=== PATIENT | male | born 1945 | race Caucasian/White ===

== ENCOUNTER → 2020-02-12 13:43 | Outpatient (REF) | payer MEDICARE, SELFPAY ==
--- NOTE | 2020-02-12 13:49 | CA_ITS ---
Transthoracic Echocardiogram Patient (Last, First, Middle): Ilir Mccabe, Gender: Male Date of : 1945 Age: 74 Procedure Date: 02/12/2020 Procedure Type: Transthoracic Echocardiogram Location: OP Height: 177.8 cm Weight: 117.94 kg BSA: 2.33 m2 Heart Rate: bpm BP: 134 / 80 mmHg Supervisor Sheet Manufacturing: Referring MD: Gelnroy Ware MD Symptoms: [facility] Study Quality: Technically Difficult ECG Rhythm: Atrial Fibrillation Conclusions: - The left ventricular systolic function is normal. The visually estimated ejection fraction is between 55-60%. - Moderate biatrial enlargement. - There is mild mitral valve regurgitation. - There is mild tricuspid valve regurgitation. Findings Left Ventricle Normal left ventricular cavity size. There is mildly increased left ventricular wall thickness. The left ventricular systolic function is normal. The visually estimated ejection fraction is between 55-60%. There is no evidence of regional wall motion abnormalities. Diastolic function is indeterminate on the basis of available data. Right Ventricle Normal right ventricular cavity size and systolic function. Atria Moderate biatrial enlargement. Aortic Valve The aortic valve was not well visualized. There is no aortic valve stenosis. There is no aortic valve regurgitation. Mitral Valve The mitral valve appears normal. There is mild mitral valve regurgitation. There is no mitral valve stenosis. Pulmonic Valve The pulmonic valve was not well visualized. Tricuspid Valve Normal tricuspid valve structure. There is mild tricuspid valve regurgitation. Top normal RVSP. Great Vessels The aorta was not well visualized. Venous The inferior vena cava is normal in size and collapses greater than 50% with inspiration. Pericardium/Pleural There is no evidence of pericardial effusion. Prior Study Comparison No significant change compared to prior study dated: 08/21/2018. Measurements 2D Linear Measurements IVSd: 1.16 0.6-0.9/0.6-1.0 cm LVIDd: 5.51 3.9-5.3/4.2-5.9 cm LVIDd Index: 2.36 2.4-3.2/2.2-3.1 cm/m2 LVIDs: 3.67 2.0-3.6 cm LVPWd: 1.09 0.7-1.1 cm Ao Root: 3.60 2.1-3.5 cm LA Diam: 5.40 2.7-3.8/3.0-4.0 cm LAIDs Index: 2.32 1.5-2.3 cm/m2 LV Mass: 312.00 67-162/88-224 g LV Mass Index: 133.91 43-95/49-115 g/m2 LVOT Diam: 2.20 3.0+(-)1.3 cm 2D Systolic Function EF 4C: 43.10 >55% EF 2C: 42.50 >55% Mitral Valve MV Pk E: 1.14 MV Decel Time: 204.00 E'Lateral: 14.70 E'Medial: 12.30 E/E' Med: 9.30 E/E' Lat: 7.80 PHT: 60.00 MVA PHT: 3.67 Decel [place]: 5.56 Aortic Valve AoV Pk Walter: 1.61 AoV Mn Walter: 0.92 AoV VTI: 0.33 AoV Pk Grad: 10.00 Aov Mn Grad: 4.00 ADOLFO Cont.VTI: 2.87 LVOT LVOT Pk Walter: 1.17 LVOT Mn Walter: 0.87 LVOT VTI: 0.25 LVOT Pk Grad: 5.00 LVOT Mn Grad: 3.00 LVOT Diam: 2.20 LVOT Area: 3.80 Diastolic Function MV Pk E: 1.14 E'Medial: 12.30 E/E' Med: 9.30 E' Laterial: 14.70 E/E' Lat: 7.80 Tricuspid Valve TR Pk Walter: 2.82 TR Pk Grad: 32.00 RA Press: 3.00 RVSP: 35.00 Great Vessels Aorta Ao Root-2D: 3.60 2.0-3.7 cm Pulmonary Valve PV Pk Walter: 0.62 Peak PV Grad: 2.00 Updated in Other Vendor System with Status of Final Glenroy Ware MD electronically signed on 02/14/2020 4:42:03 PM with status of Final
== END ==
LOC: HO.CARD 13:43
PROVIDERS: PCP Internal Medicine; Visit Provider Internal Medicine
DX: I48.19 Other persistent atrial fibrillation (principal); R06.02 Shortness of breath
CPT/HCPCS: 93306

== ENCOUNTER → 2020-02-20 09:36 | Outpatient (BNVA) | payer MEDICARE, SELFPAY | PROVIDERS: PCP Internal Medicine; Referring Provider Internal Medicine; Visit Provider Internal Medicine | DX: I48.19 Other persistent atrial fibrillation (principal); R06.02 Shortness of breath; I10 Essential (primary) hypertension; G47.33 Obstructive sleep apnea (adult) (pediatric); Z99.89 Dependence on other enabling machines and devices; Z52.4 Kidney donor | CPT/HCPCS: 99214 ==

== ENCOUNTER 2020-02-28 12:08 | Outpatient (REF) | payer MEDICARE, SELFPAY | END 2020-02-28 12:09 | disposition home or self-care (01) | LOC: HO.LAB 12:08 | PROVIDERS: Visit Provider Internal Medicine | DX: Z20.828 Contact with and (suspected) exposure to other viral communicable diseases (principal) | CPT/HCPCS: 87635 ==

== ENCOUNTER 2020-12-24 11:15 | Outpatient (REF) | payer MEDICARE, SELFPAY ==
[2020-12-24 12:01] LABS: COVID-19 Test Negative (Negative)
== END 2020-12-24 11:16 | disposition home or self-care (01) ==
LOC: HO.LAB 11:15
PROVIDERS: PCP Internal Medicine; Visit Provider Internal Medicine
DX: Z20.822 Contact with and (suspected) exposure to COVID-19 (principal)
CPT/HCPCS: 36415; 87635; C9803

== ENCOUNTER 2020-12-25 09:36 | Outpatient (REF) | payer MEDICARE, SELFPAY ==
[2020-12-25 11:18] LABS: MANUAL DIFF FLAG NO
[2020-12-25 11:39] LABS: Basophils Absolute Auto 0.1 X10*3/uL (0.0-0.2); Basophils Percent Auto 0.7 % (0-2); Eosinophils Absolute Auto 0.1 X10*3/uL (0.0-0.4); Eosinophils Percent Auto 0.7 % (0-4); Hematocrit 43.3 % (42-52); Hemoglobin 13.8 g/dl (14.0-18.0); Imm Gran Abs Auto 0.02 X10*3/uL (0.00-0.03); Imm Gran Pct Auto 0.3 % (0.0-0.4); Lymphocytes Absolute Auto 0.9 X10*3/uL (1.2-4.9); Lymphocytes Percent Auto 12.3 % (20-40); Mean Corpuscular HGB Conc 31.9 g/dl (31.0-36.0); Mean Corpuscular Hemoglobin 28.3 pg (27.0-33.0); Mean Corpuscular Volume 88.9 fL (80-98); Mean Platelet Volume 10.8 fL (9.4-12.4); Monocytes Absolute Auto 0.5 X10*3/uL (0.1-1.2); Monocytes Percent Auto 6.4 % (2-11); Neutrophils Absolute Auto 5.8 X10*3/uL (2.0-8.3); Neutrophils Percent Auto 79.6 % (45-73); Platelet Count 277 X10*3/uL (160-400); Red Blood Count 4.87 X10*6/uL (4.60-5.80); Red Cell Distribution Width 14.6 % (11.0-16.0); White Blood Count 7.3 X10*3/uL (4.8-10.8)
[2020-12-25 12:22] LABS: Anion Gap 13 (12-20); Blood Urea Nitrogen 17 mg/dL (9-16); Calcium 9.9 mg/dL (8.4-10.2); Carbon Dioxide 32 mmol/L (22-29); Chloride 101 mmol/L (96-108); Estimated Glomerular Filt Rate 52; Glucose Random 99 mg/dL (60-115); Potassium 3.8 mmol/L (3.3-5.1); Sodium 142 mmol/L (135-145)
== END 2020-12-25 09:37 | disposition home or self-care (01) ==
LOC: HO.HMGCLDS 09:36
PROVIDERS: PCP Internal Medicine; Visit Provider Internal Medicine
DX: R53.83 Other fatigue (principal); D64.9 Anemia, unspecified
CPT/HCPCS: 36415; 80048; 85025

== ENCOUNTER → 2021-02-25 08:47 | Outpatient (REF) | payer MEDICARE, SELFPAY ==
--- NOTE | 2021-02-25 | CA_ITS ---
Acquisition Time: 2021-02-25 09:26:15 Total Exercise Time: 00:02:00 Test Indications: SOB Medications: Protocol: LEXISCAN Max HR: 112 BPM 76% of Pred: 147 BPM Max BP: 146/078 mmHG Max Work Load: 1.0 METS Pharmacological stress test with Lexiscan injection, while sitting and kicking his legs, without anginal symptoms, with isolated PVC, with normotensive response to injection, with nondiagnostic EKG for ischemia. In recovery he reported feeling lightheaded and was treated with Aminophylline 75mg IVP with resolution of symptoms. Nuclear images pending. Test reviewed [facility] Dr Ware. Referred By: Harpal Anthony Overread By: SANGEETHA CUEVAS
--- NOTE | ~2021-02-25 | NM_ITS ---
Myocardial perfusion study Indication: Shortness of breath evaluate for myocardial ischemia Technique: The patient was brought in for a Lexiscan perfusion study on 02/25/2021. Patient performed low-level exercise and was injected 0.4 mg of Lexiscan intravenously. Within a minute of injection, 45 mCi of sestamibi was given intravenously. Images were obtained using the SPECT gamma camera interlaced with the gating device. Images were obtained in supine position. Resting perfusion study was performed on 03/03/2021. Patient was administered 45 mCi of sestamibi intravenously at rest. Images were then obtained in supine position. Is obtained with and without CT attenuation. Total DLP 130 mGy-cm. Images were processed with the software and compared side to side in short axis, horizontal long axis and vertical long axis views. Findings: The stress perfusion study showed nonattenuated images show minimal spotty. The mid anterior wall of the LV myocardium. Is also mildly reduced uptake in the apex and the inferoapical wall of the LV myocardium. Remainder of the LV myocardium is normally perfused. Attenuation corrected images show mildly reduced uptake in the apex of the LV myocardium.. The gated study shows mildly reduced LV systolic function with calculated LVEF of 48%. LV cavity is mildly dilated size. The gated study shows normal wall thickening and contraction of segments. Resting study shows nonattenuated images show mildly reduced uptake in the apex of the LV myocardium. Attenuation corrected images show no change in perfusion pattern compared to stress perfusion study. Gating at rest reveals diffuse wall motion with ejection fraction at 38%. The findings are consistent with no clear reversible defect suggestive of ischemia. Spotty reduced uptake stress perfusion study may be due to cardiomyopathy process.. NM/NM natalee perf SPECT rest & str Impression: 1. Myocardial perfusion imaging study shows no reversible ischemia 2. Gated LVEF is 48% with stress and 38% with rest, correlate with echocardiogram 3. Transient ischemic dilatation not present but LV cavity is mildly dilated EKG is nondiagnostic for ischemia
== END ==
LOC: HO.CARD 08:47
PROVIDERS: Visit Provider Internal Medicine
DX: R06.02 Shortness of breath (principal); I48.91 Unspecified atrial fibrillation
CPT/HCPCS: 78452; 93017; A9500; J0280; J2785

== ENCOUNTER 2021-03-05 12:46 | Outpatient (REF) | payer MEDICARE, SELFPAY ==
[2021-03-05 13:07] VITALS: O2SAT 94
[2021-03-05 13:47] LABS: ABG Refer to POC result
[2021-03-05 13:49] LABS: ABG pCO2 41 mmHg (32-45); ABG pH 7.41 (7.35-7.45); ABG pO2 91 mmHg (83-108)
[2021-03-05 13:50] LABS: ABG HCO3 26 mmol/L (22-26)
--- NOTE | 2021-03-05 17:27 | PFT_ITS ---
FLOWS: FEV1 45% of predicted at 1.43 L. FVC 51% of predicted at 2.22 L. FEV1 to FVC ratio of 0.65. Positive bronchodilator response. LUNG VOLUMES: Total lung capacity 93% of predicted at 6.58 L. Residual volume 183% of predicted at 4.61 L. Slow vital capacity of 43% of predicted at 1.97 L. Diffusion capacity is mildly decreased, diffusion capacity adjust to normal after correction for alveolar ventilation. Arterial blood gas shows normal values. In comparison to pulmonary function test from February of 2013, FEV1 and ERV have been without significant changes; FVC has decreased by 0.38 L; total lung capacity has increased by 0.22 L; residual volume has increased by 0.61 L; slow vital capacity has decreased by 0.38 L; diffusion capacity has decreased by 7.36 mL/minute/mmHg. IMPRESSION: Severe obstructive ventilatory defect with positive bronchodilator response. Increased residual volume suggests air trapping. Decreased expiratory reserve volume suggests extrathoracic restriction likely secondary to abdominal obesity. MD JASWANT Sanders/MODL / [id number] MTDD
== END 2021-03-05 12:47 | disposition home or self-care (01) ==
LOC: HO.RESP 12:46
PROVIDERS: Hospitalist; Visit Provider Internal Medicine
DX: R06.02 Shortness of breath (principal)
CPT/HCPCS: 36600; 82803; 94060; 94727; 94729

== ENCOUNTER → 2021-03-15 08:45 | Outpatient (REF) | payer MEDICARE, SELFPAY ==
--- NOTE | 2021-03-15 08:50 | CA_ITS ---
Transthoracic Echocardiogram Patient (Last, First, Middle): Ilir Mccabe, Gender: Male Date of : 1945 Age: 75 Procedure Date: 03/15/2021 Procedure Type: Transthoracic Echocardiogram Location: OP Height: 177.8 cm Weight: 115.67 kg BSA: 2.31 m2 Heart Rate: bpm BP: 130 / 75 mmHg Gas Scrubber Operator: DSClark Referring MD: Glenroy Ware MD Symptoms: I48.19 - Other persistent atrial fibrillation Study Quality: Fair ECG Rhythm: Atrial Fibrillation Conclusions: - The left ventricular systolic function is normal. The calculated ejection fraction is 56% by biplane method. - Moderate biatrial enlargement. - There is mild mitral annular calcification. - There is mild tricuspid valve regurgitation. Findings Procedure Information Contrast agent, definity, is being given per protocol without apparent complications. Left Ventricle Normal left ventricular cavity size. There is mildly increased left ventricular wall thickness. The left ventricular systolic function is normal. The calculated ejection fraction is 56% by biplane method. There is no evidence of regional wall motion abnormalities. Diastolic function is indeterminate on the basis of available data. Right Ventricle Normal right ventricular cavity size and systolic function. Atria Moderate biatrial enlargement. Aortic Valve The aortic valve was not well visualized. The aortic valve structure and function is likely normal. There is no aortic valve stenosis. There is no aortic valve regurgitation. Mitral Valve There is mild mitral annular calcification. There is mild mitral valve regurgitation. There is no mitral valve stenosis. Pulmonic Valve The pulmonic valve was not well visualized. Tricuspid Valve Normal tricuspid valve structure. There is mild tricuspid valve regurgitation. The pulmonary artery systolic pressure is normal. Great Vessels The asc aorta is normal in size. Venous The inferior vena cava is normal in size and collapses greater than 50% with inspiration. Pericardium/Pleural There is no evidence of pericardial effusion. Prior Study Comparison No significant change compared to prior study dated: 02/12/2020. Measurements 2D Linear Measurements IVSd: 1.20 0.6-0.9/0.6-1.0 cm LVIDd: 5.55 3.9-5.3/4.2-5.9 cm LVIDd Index: 2.40 2.4-3.2/2.2-3.1 cm/m2 LVIDs: 3.79 2.0-3.6 cm LVPWd: 0.91 0.7-1.1 cm Ao Root: 2.80 2.1-3.5 cm LA Diam: 4.80 2.7-3.8/3.0-4.0 cm LAIDs Index: 2.08 1.5-2.3 cm/m2 LV Mass: 290.19 67-162/88-224 g LV Mass Index: 125.62 43-95/49-115 g/m2 LVOT Diam: 2.30 3.0+(-)1.3 cm 2D Systolic Function EF 4C: 55.50 >55% EF 2C: 54.40 >55% EF BiP: 56.20 >55% Mitral Valve MV Pk E: 0.89 MV Decel Time: 173.00 E'Lateral: 11.20 E'Medial: 8.49 E/E' Med: 10.40 E/E' Lat: 7.90 PHT: 51.00 MVA PHT: 4.31 Decel [place]: 5.43 Aortic Valve AoV Pk Walter: 1.34 AoV Pk Grad: 7.00 LVOT LVOT Pk Walter: 0.87 LVOT Mn Walter: 0.56 LVOT VTI: 0.18 LVOT Pk Grad: 3.00 LVOT Mn Grad: 2.00 LVOT Diam: 2.30 LVOT Area: 4.15 Diastolic Function MV Pk E: 0.89 E'Medial: 8.49 E/E' Med: 10.40 E' Laterial: 11.20 E/E' Lat: 7.90 Right Ventricle TAPSE (mm): 2.36 Tricuspid Valve TR Pk Walter: 2.64 TR Pk Grad: 28.00 RA Press: 3.00 RVSP: 31.00 Great Vessels Aorta Ao Root-2D: 2.80 2.0-3.7 cm Updated in Other Vendor System with Status of Final Glenroy Ware MD electronically signed on 03/16/2021 4:00:10 PM with status of Final
--- NOTE | 2021-03-15 08:50 | HM_ITS ---
Total monitoring time 2 days and 23 hours. Underlying rhythm is atrial fibrillation. Minimal heart rate 31/Min. Maximum 132/Min. Average 65/Min. Most rates are between 60-100/Min. 240 pauses noted. Longest 3.7 seconds at 04:28hrs. Frequent PVCs. 2 morphologies. 126 couplets. PVC burden 2%. Patient symptom marked as 'other', correlating with atrial fibrillation/PVC. MTDD
== END ==
LOC: HO.CARD 08:45
PROVIDERS: Visit Provider Internal Medicine
DX: I48.19 Other persistent atrial fibrillation (principal); R00.2 Palpitations
CPT/HCPCS: 93242; 93306; Q9957

== ENCOUNTER → 2021-04-06 14:18 | Outpatient (BNVA) | payer MEDICARE, SELFPAY | PROVIDERS: PCP Internal Medicine; Referring Provider Internal Medicine; Visit Provider Internal Medicine | DX: I48.19 Other persistent atrial fibrillation (principal); I10 Essential (primary) hypertension; G47.33 Obstructive sleep apnea (adult) (pediatric); J44.9 Chronic obstructive pulmonary disease, unspecified; Z52.4 Kidney donor; Z99.89 Dependence on other enabling machines and devices | CPT/HCPCS: 93005; 99212 ==

== ENCOUNTER → 2021-04-15 15:36 | Outpatient (BNVA) | payer MEDICARE, SELFPAY | PROVIDERS: PCP Internal Medicine; Visit Provider Internal Medicine | DX: J44.9 Chronic obstructive pulmonary disease, unspecified (principal); R06.02 Shortness of breath; G47.33 Obstructive sleep apnea (adult) (pediatric); Z99.89 Dependence on other enabling machines and devices | CPT/HCPCS: 99202 ==

== ENCOUNTER → 2021-08-18 13:39 | Outpatient (BNVA) | payer MEDICARE, SELFPAY | PROVIDERS: PCP Internal Medicine; Visit Provider Internal Medicine | DX: J44.9 Chronic obstructive pulmonary disease, unspecified (principal); G47.33 Obstructive sleep apnea (adult) (pediatric); R06.02 Shortness of breath; Z99.89 Dependence on other enabling machines and devices | CPT/HCPCS: 99212 ==

== ENCOUNTER → 2021-08-20 12:49 | Outpatient (BNVA) | payer MEDICARE, SELFPAY | PROVIDERS: PCP Internal Medicine; Visit Provider Urology | DX: N40.1 Benign prostatic hyperplasia with lower urinary tract symptoms (principal); N13.8 Other obstructive and reflux uropathy | CPT/HCPCS: 99212 ==

== ENCOUNTER → 2021-12-01 13:36 | Outpatient (BNVA) | payer MEDICARE, SELFPAY | PROVIDERS: PCP Internal Medicine; Referring Provider Internal Medicine; Visit Provider Internal Medicine | DX: I48.19 Other persistent atrial fibrillation (principal); I10 Essential (primary) hypertension; J44.9 Chronic obstructive pulmonary disease, unspecified; G47.33 Obstructive sleep apnea (adult) (pediatric); Z79.01 Long term (current) use of anticoagulants; Z79.899 Other long term (current) drug therapy; Z99.89 Dependence on other enabling machines and devices; Z52.4 Kidney donor | CPT/HCPCS: 99212 ==

== ENCOUNTER → 2022-03-02 15:03 | Outpatient (BNVA) | payer MEDICARE, SELFPAY | PROVIDERS: PCP Internal Medicine; Visit Provider Internal Medicine | DX: J44.9 Chronic obstructive pulmonary disease, unspecified (principal); G47.33 Obstructive sleep apnea (adult) (pediatric); E66.9 Obesity, unspecified; R06.02 Shortness of breath; Z99.89 Dependence on other enabling machines and devices; Z68.38 Body mass index [BMI] 38.0-38.9, adult | CPT/HCPCS: 99212 ==

== ENCOUNTER → 2022-05-16 14:33 | Outpatient (BNVA) | payer MEDICARE, SELFPAY | PROVIDERS: PCP Internal Medicine; Referring Provider Internal Medicine; Visit Provider Internal Medicine | DX: Z01.810 Encounter for preprocedural cardiovascular examination (principal); I48.19 Other persistent atrial fibrillation; I10 Essential (primary) hypertension; G47.33 Obstructive sleep apnea (adult) (pediatric); J44.9 Chronic obstructive pulmonary disease, unspecified; Z52.4 Kidney donor; Z99.89 Dependence on other enabling machines and devices | CPT/HCPCS: 93005; 99212 ==

== ENCOUNTER → 2022-08-30 13:51 | Outpatient (BNVA) | payer MEDICARE, SELFPAY | PROVIDERS: PCP Internal Medicine; Visit Provider Internal Medicine | DX: J44.9 Chronic obstructive pulmonary disease, unspecified (principal); G47.33 Obstructive sleep apnea (adult) (pediatric); E66.9 Obesity, unspecified; Z99.89 Dependence on other enabling machines and devices; Z68.37 Body mass index [BMI] 37.0-37.9, adult | CPT/HCPCS: 94010; 99212 ==

== ENCOUNTER 2022-09-05 09:23 | Outpatient (REF) | payer MEDICARE, SELFPAY ==
[2022-09-05 11:59] LABS: Prostate Specific Antigen 0.48 ng/mL (<0.05-4.0)
== END 2022-09-05 09:24 | disposition home or self-care (01) ==
LOC: HO.10HDL 09:23
PROVIDERS: Visit Provider Urology
DX: N40.1 Benign prostatic hyperplasia with lower urinary tract symptoms (principal); N13.8 Other obstructive and reflux uropathy; Z12.5 Encounter for screening for malignant neoplasm of prostate
CPT/HCPCS: 36415; 84153

== ENCOUNTER → 2022-09-13 09:55 | Outpatient (BNVA) | payer MEDICARE, SELFPAY | PROVIDERS: PCP Internal Medicine; Visit Provider Urology | DX: N40.1 Benign prostatic hyperplasia with lower urinary tract symptoms (principal); N13.8 Other obstructive and reflux uropathy | CPT/HCPCS: 51798; 99212 ==

== ENCOUNTER → 2023-01-16 08:46 | Outpatient (REF) | payer MEDICARE, SELFPAY ==
--- NOTE | 2023-01-16 08:48 | HM_ITS ---
* Total monitoring time about 3 days. * Underlying rhythm is atrial fibrillation. Average ventricular rate 83/Min. Range 44 to 141/Min. About 7.8% of the time, rate > 100/Min. * Pauses noted, longest 2.7 seconds but do not reach significance. During sleep hours. * Frequent PVCs with a burden of 2%. Rare couplets, triplets. Longest run 4 beats. * No events in diary. MTDD
== END ==
LOC: HO.CARD 08:46
PROVIDERS: PCP Internal Medicine; Visit Provider Internal Medicine
DX: I48.19 Other persistent atrial fibrillation (principal)
CPT/HCPCS: 93242

== ENCOUNTER → 2023-01-16 08:48 | Outpatient (BNV) | payer MEDICARE, SELFPAY | PROVIDERS: PCP Internal Medicine; Visit Provider Internal Medicine | DX: I48.19 Other persistent atrial fibrillation (principal) | CPT/HCPCS: 93244 ==

== ENCOUNTER 2023-02-07 13:37 | Outpatient (REF) | payer MEDICARE, SELFPAY ==
--- NOTE | ~2023-02-07 | XR_ITS ---
EXAMINATION: XR CHEST CLINICAL INFORMATION: Cough COMPARISON: Chest 01/02/2019 TECHNIQUE: 2 views of the chest were obtained. FINDINGS: No significant abnormality is noted involving the heart, lungs, mediastinum or soft tissues. 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 XR/XR chest 2V IMPRESSION: No acute cardiopulmonary disease.
== END 2023-02-07 13:38 | disposition home or self-care (01) ==
LOC: HO.HMGCX 13:37
PROVIDERS: PCP Internal Medicine; Visit Provider Internal Medicine
DX: R05.9 Cough, unspecified (principal)
CPT/HCPCS: 71046

== ENCOUNTER 2023-03-02 13:18 | Outpatient (AMB) | payer MEDICARE, SELFPAY ==
[2023-03-02 13:23] VITALS: BP 128/74; PULSE 83; O2SAT 96; BMI 36.7
--- NOTE | 2023-03-02 13:23 | A.OFFVIS_ITS ---
Intake Vital Signs 03/02/23 13:23 Height 5 ft 10 in Weight 256 lb BMI 36.7 BP 128/74 Blood Pressure Location Lt brachial Position Sitting Pulse 83 Pulse Source Pulse Oximeter Pulse Oximetry (%) 96 Oxygen Delivery Method Room Air Intake Visit Reasons: COPD Intake Note: pt is here for follow up and states he gets winded distance and stairs, would like to discuss what else can be done. Pt has hx of ROMA, interested in talking about replacement macine. [facility] is DME. Watch Electrician Required: No Allergies Iodinated Contrast Media [IV DYE, IODINE CONTAINING CONTRAST ] Allergy (Severe, Verified 03/02/23 13:48) HIVES dabigatran etexilate [From PRADAXA] Allergy (Unknown, Verified 03/02/23 13:48) REFLUX Medication List - Last Reconciled 03/02/23 by Rocky Ching MD albuterol sulfate 90 mcg/actuation 2 puffs PO Q4-6H PRN amlodipine 5 mg PO DAILY atenolol 25 mg PO DAILY hydrochlorothiazide 25 mg PO DAILY Incruse Ellipta 62.5 mcg/actuation (umeclidinium) 1 inh PO DAILY NS ipratropium-albuterol 0.5 mg-3 mg(2.5 mg base)/3 mL mL inhalation TID PRN losartan 50 mg PO DAILY losartan 50 mg PO DAILY omeprazole 20 mg PO DAILY rivaroxaban 20 mg PO DAILY simvastatin 20 mg PO BEDTIME Symbicort 160-4.5 mcg/actuation (budesonide-formoterol) 2 puffs PO Q12H NS tamsulosin 0.4 mg PO BEDTIME 90 days zolpidem 10 mg PO BEDTIME Do you need a note to return to daycare/school/sports/work: No HPI COPD HPI Details This 77 years old very pleasant gentleman is being followed for his COPD as well as obstructive sleep apnea. About 2 weeks he was suffering from acute bronchitis and has been treated by his primary care physician with course of antibiotics. Currently he is doing better but he complains of shortness of breath on minimal exertion, he cannot be as active as before. Still has mild intermittent cough, but nonproductive. Denies any active wheezing. For CPAP which he has been using for many years, he is complaining that it does not function well. He would need a new CPAP device. He is not sure if he still has obstructive sleep apnea or not , so for that reason he needs a repeat home-based sleep study. Weight is basically same as before. REPLACED BY [facility] Medical History Obesity (BMI 30-39.9) COPD (chronic obstructive pulmonary disease) Kidney donor Obstructive sleep apnea on CPAP Essential hypertension Shortness of breath Persistent atrial fibrillation Surgical History History of laparoscopic cholecystectomy (~04/2017) History of hip replacement History of transesophageal echocardiography (SOFIA) Family History Father No problems noted. Mother No problems noted. Social History Alcohol intake: current Alcohol intake frequency: holidays/special occasions only Patient Tobacco Use Status: Former Tobacco user Quit Date: 9-10 yrs ago Review of Systems Const All systems reviewed & are unremarkable except as noted in HPI and below Eyes Reports no additional complaints ENT Reports no additional complaints Card Denies chest pain, Reports irregular heart rhythm (Atrial fibrillation), Denies leg edema and Denies dyspnea on exertion Resp Reports as per HPI and Denies dyspnea on exertion GI Denies no additional complaints Reports other (Being treated for BPH) Musc Reports no additional complaints Skin/Breast Reports system reviewed and no additional complaints, except as documented Neuro Reports no additional complaints Psych Reports no additional complaints Endo Reports no additional complaints Physical Exam Vital Signs: Last Vital Signs Pulse 83 03/02/23 13:23 BP 128/74 03/02/23 13:23 Pulse Ox 96 03/02/23 13:23 Oxygen Delivery Method Room Air 03/02/23 13:23 BMI result Body Mass Index 36.7 Const General: comfortable, no acute distress, alert and awake Orientation/consciousness: patient oriented x3 HEENT Head: Yes normal to inspection General nose exam: No nasal polyps present and No nasal discharge present Face and sinus: Yes sinuses nontender Mouth: oropharynx normal Throat: Yes posterior oropharynx normal Eyes General: appearance normal, both eyes and all related structures Neck Neck: Yes normal visual inspection, Yes no lymphadenopathy, Yes trachea midline and Yes no JVD Thyroid: Thyroid normal Chest Chest palpation & inspection: normal inspection of the chest, normal palpation of entire chest wall and no tenderness Resp Other: Percussion note resonant. Breath sounds are distant with prolonged expiratory phase. No audible wheezes rhonchi or crepitations. Cardio Palpation: normal PMI Rate: regular rate Rhythm: abnormal rhythm (Atrial fibrillation) Heart sounds: no gallops and no murmurs GI Palpation (GI): Soft to palpation, nontender, No hepatosplenomegaly present and no masses Auscultation: normal bowel sounds Back/Spine/Pelvis Thoracic/Lumbar Spine: thoracic and lumbar spine normal to inspection Skin General skin exam: no rashes or lesions noted Neuro General: patient oriented x3 and no focal motor deficits Cranial nerves: Yes CN's II-XII intact bilaterally Extrem General: Yes normal to inspection, No no joint enlargement (Right knee she moderately enlarged and irregular.), Yes no calf tenderness and Yes edema (1 + pitting edema of the legs ) Psych Appearance: grossly normal Speech and movement: Normal speech and movement present Assessment & Plan Assessment & Plan (1) Obesity (BMI 30-39.9): Comment: Patient remains grossly obese. He has difficulty in walking around. NOW THAT HE HAS HAD RIGHT KNEE REPLACEMENT DURING THE SUMMER MONTHS, HE CAN WALK BETTER. I ENCOURAGED HIM TO WALK ABOUT 2 MILES EVERY DAY. Code(s): E66.9 - Obesity, unspecified (2) Obstructive sleep apnea on CPAP: Comment: He is a known case of obstructive sleep apnea, uses CPAP regularly at night for about 6-7 hours. And sleeps well . The CPAP device is old, more than 5 years, and is not functioning well, making some noise at night. He wants to know if he still has ROMA and if he can get a new CPAP machine. For this reason I a.m. ordering a HOME-BASED SLEEP STUDY, TO RECONFIRM THE DIAGNOSIS. AND THEN WILL ORDER NEW CPAP DEVICE. Code(s): G47.33 - Obstructive sleep apnea (adult) (pediatric); Z99.89 - Dependence on other enabling machines and devices (3) COPD (chronic obstructive pulmonary disease): Comment: He does have advanced COPD, Seems to be well controlled with current combination. TX: Symbicort 160-4.52 puffs b.i.d.. Ipratropium/albuterol solution in the nebulizer 3 times a day p.r.n. ( I told him that he should use nebulizer 3 times a day regularly and also Q 6 hours p.r.n. ) With his recent respiratory infection he seems to be somewhat worse and deconditioned PLAN : Will do a complete pulmonary. Function test And there after refer him for pulmonary rehab program , Code(s): J44.9 - Chronic obstructive pulmonary disease, unspecified (4) Shortness of breath: Comment: Dyspnea on exertion secondary to severe obstructive airway disorder, obesity, and chronic atrial fibrillation. Any increase in his weight would cause increased shortness of breath on exertion. He is advised to keep on doing deep breathing exercises with incentive sheree metry. Also stressed that he must try to lose some weight. I THINK HE WILL BENEFIT FROM PULMONARY REHAB PROGRAM FOR WHICH I WILL COMPLETED THE REFERRAL AFTER DOING PULMONARY FUNCTION TEST. Code(s): R06.02 - Shortness of breath Orders: Orders RT home sleep study Today E66.9 - Obesity, unspecified, G47.33 - Obstructive sleep apnea (adult) (pediatric), Z99.89 - Dependence on other enabling machines and devices PFT pulmonary function test Today E66.9 - Obesity, unspecified, J44.9 - Chronic obstructive pulmonary disease, unspecified, R06.02 - Shortness of breath Coding Level of Care Code Est Pt Level 4 (39123) Diagnoses Obesity (BMI 30-39.9) E66.9 Obstructive sleep apnea on CPAP G47.33; Z99.89 COPD (chronic obstructive pulmonary disease) J44.9 Shortness of breath R06.02
== END 2023-03-02 13:50 | disposition home or self-care (01) ==
PROVIDERS: PCP Internal Medicine; Visit Provider Internal Medicine
DX: E66.9 Obesity, unspecified (principal); G47.33 Obstructive sleep apnea (adult) (pediatric); Z99.89 Dependence on other enabling machines and devices; J44.9 Chronic obstructive pulmonary disease, unspecified; R06.02 Shortness of breath
CPT/HCPCS: 99214

== ENCOUNTER → 2023-03-02 13:18 | Outpatient (BNVA) | payer MEDICARE, SELFPAY | PROVIDERS: Visit Provider Internal Medicine | DX: J44.9 Chronic obstructive pulmonary disease, unspecified (principal); R06.02 Shortness of breath; E66.9 Obesity, unspecified; G47.33 Obstructive sleep apnea (adult) (pediatric); Z68.36 Body mass index [BMI] 36.0-36.9, adult; Z99.89 Dependence on other enabling machines and devices | CPT/HCPCS: 99212 ==

== ENCOUNTER 2023-04-13 11:54 | Outpatient (REF) | payer MEDICARE, SELFPAY ==
--- NOTE | 2023-04-13 12:41 | PFT_ITS ---
Indication: COPD Spirometry [FEV1 to FVC 64% with an FEV1 of 1.46 L which is 105% predicted and FVC of 2.28 L which is 94% predicted no significant response to bronchodilators noted. Maximum voluntary ventilation 61% predicted] Lung Volumes [Total lung capacity 71% predicted] Diffusion Capacity [Diffusing capacity 84% predicted] Comparisons [None] Interpretation [There is an obstructive ventilatory defect consistent with COPD. No significant response to bronchodilators noted. Mild decrease of the maximum voluntary ventilation secondary to likely deconditioning. The patient also has a mild restrictive ventilatory defect. Need to consider underlying parenchymal lung disease and or a neuromuscular conditions. Diffusing capacity is within normal limits. Clinical correlation warranted.] MTDD
== END 2023-04-13 11:55 | disposition home or self-care (01) ==
LOC: HO.RESP 11:54
PROVIDERS: PCP Internal Medicine; Visit Provider Internal Medicine
DX: J44.9 Chronic obstructive pulmonary disease, unspecified (principal); R06.02 Shortness of breath; E66.9 Obesity, unspecified; G47.33 Obstructive sleep apnea (adult) (pediatric); Z99.89 Dependence on other enabling machines and devices
CPT/HCPCS: 94010; 94727; 94729; 95806

== ENCOUNTER → 2023-04-13 12:54 | Outpatient (BNV) | payer MEDICARE, SELFPAY | PROVIDERS: PCP Internal Medicine; Visit Provider Internal Medicine | DX: G47.33 Obstructive sleep apnea (adult) (pediatric) (principal) | CPT/HCPCS: 95806 ==

== ENCOUNTER 2023-04-27 11:56 | Outpatient (AMB) | payer MEDICARE, SELFPAY ==
--- NOTE | 2023-04-27 13:15 | MHC.OFFVIS ---
Intake Vital Signs 04/27/23 13:16 Height 5 ft 10 in Weight 260 lb 2.327 oz BMI 37.3 BP 130/72 Blood Pressure Location Lt brachial Position Sitting Pulse 78 Pulse Source Pulse Oximeter Pulse Oximetry (%) 96 Oxygen Delivery Method Room Air Intake Visit Reasons: COPD/Sleep Study & PFT Results Intake Note: pt is here for follow up and states he is here for follow up and states he did not sleep well the night of testing, he feels good today, he is in cardiac rehab at . pt is not using Incruse/ Intellectual Property Paralegal Required: No Allergies Iodinated Contrast Media [IV DYE, IODINE CONTAINING CONTRAST ] Allergy (Severe, Verified 04/27/23 13:20) HIVES dabigatran etexilate [From PRADAXA] Allergy (Unknown, Verified 04/27/23 13:20) REFLUX Medication List - Last Reconciled 04/27/23 by Rocky Ching MD albuterol sulfate 90 mcg/actuation 2 puffs PO Q4-6H PRN amlodipine 5 mg PO DAILY atenolol 25 mg PO DAILY hydrochlorothiazide 25 mg PO DAILY Incruse Ellipta 62.5 mcg/actuation (umeclidinium) 1 inh PO DAILY NS ipratropium-albuterol 0.5 mg-3 mg(2.5 mg base)/3 mL mL inhalation TID PRN losartan 50 mg PO DAILY losartan 50 mg PO DAILY omeprazole 20 mg PO DAILY rivaroxaban 20 mg PO DAILY simvastatin 20 mg PO BEDTIME Symbicort 160-4.5 mcg/actuation (budesonide-formoterol) 2 puffs PO Q12H NS tamsulosin 0.4 mg PO BEDTIME 90 days zolpidem 10 mg PO BEDTIME Do you need a note to return to daycare/school/sports/work: No HPI COPD/Sleep Study & PFT Results HPI Details VICTOR HUGO IS 77 YEARS OLD VERY PLEASANT GENTLEMAN WHO IS A CASE OF COPD FOR MANY YEARS AND ALSO HAS OBSTRUCTIVE SLEEP APNEA. SINCE HIS LAST VISIT HE HAS JOINED PULMONARY REHAB PROGRAM AND IS FEELING MUCH BETTER. HE LOVES THE PROGRAM. HE IS USING THE CPAP FOR HIS OBSTRUCTIVE SLEEP APNEA, BUT HIS MACHINE IS OLD AND HE WILL NEED A NEW MACHINE. TO CONFIRM THAT HE STILL HAS SLEEP APNEA HE UNDERWENT HOME-BASED SLEEP STUDY THE RESULTS WILL BE DESCRIBED BELOW. 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 Mother No problems noted. Social History Alcohol intake: current Alcohol intake frequency: holidays/special occasions only Patient Tobacco Use Status: Former Tobacco user Quit Date: 9-10 yrs ago Review of Systems Const All systems reviewed & are unremarkable except as noted in HPI and below Eyes Reports no additional complaints ENT Reports no additional complaints Card Denies chest pain, Reports irregular heart rhythm (Atrial fibrillation), Denies leg edema and Denies dyspnea on exertion Resp Reports as per HPI and Denies dyspnea on exertion GI Denies no additional complaints Reports other (Being treated for BPH) Musc Reports no additional complaints Skin/Breast Reports system reviewed and no additional complaints, except as documented Neuro Reports no additional complaints Psych Reports no additional complaints Endo Reports no additional complaints Physical Exam Vital Signs: Last Vital Signs Pulse 78 04/27/23 13:16 BP 130/72 04/27/23 13:16 Pulse Ox 96 04/27/23 13:16 Oxygen Delivery Method Room Air 04/27/23 13:16 BMI result Body Mass Index 37.3 Const General: comfortable, no acute distress, alert and awake Orientation/consciousness: patient oriented x3 HEENT Head: Yes normal to inspection General nose exam: No nasal polyps present and No nasal discharge present Face and sinus: Yes sinuses nontender Mouth: oropharynx normal Throat: Yes posterior oropharynx normal Eyes General: appearance normal, both eyes and all related structures Neck Neck: Yes normal visual inspection, Yes no lymphadenopathy, Yes trachea midline and Yes no JVD Thyroid: Thyroid normal Chest Chest palpation & inspection: normal inspection of the chest, normal palpation of entire chest wall and no tenderness Resp Other: Percussion note resonant. Breath sounds are distant with prolonged expiratory phase. No audible wheezes rhonchi or crepitations. Cardio Palpation: normal PMI Rate: regular rate Rhythm: abnormal rhythm (Atrial fibrillation) Heart sounds: no gallops and no murmurs GI Palpation (GI): Soft to palpation, nontender, No hepatosplenomegaly present and no masses Auscultation: normal bowel sounds Back/Spine/Pelvis Thoracic/Lumbar Spine: thoracic and lumbar spine normal to inspection Skin General skin exam: no rashes or lesions noted Neuro General: patient oriented x3 and no focal motor deficits Cranial nerves: Yes CN's II-XII intact bilaterally Extrem General: Yes normal to inspection, No no joint enlargement (Right knee she moderately enlarged and irregular.), Yes no calf tenderness and Yes edema (1 + pitting edema of the legs ) Psych Appearance: grossly normal Speech and movement: Normal speech and movement present Results Reviewed Results Reviewed: PULMONARY FUNCTION TEST ON 04/13/2023, CONSISTENT WITH SEVERE OBSTRUCTIVE AIRWAY DISORDER. HOME SLEEP TEST ON 04/13/2023. TOTAL SLEEP TIME AHI 46 SNORING FOR 7% OF THE SLEEP TIME. THERE IS ALSO NOCTURNAL HYPOXEMIA WITH AVERAGE O2 SAT 91% AND O2 SAT BELOW 88% FOR ARE 54 MINUTE Assessment & Plan Assessment & Plan (1) Obesity (BMI 30-39.9): Comment: Patient remains grossly obese. He has difficulty in walking around. NOW THAT HE HAS HAD RIGHT KNEE REPLACEMENT DURING THE SUMMER MONTHS, HE CAN WALK BETTER. NOW THAT HE IS IN THE REHAB PROGRAM, HE IS STARTING TO LOSE SOME WEIGHT. I ENCOURAGED HIM TO WALK ABOUT 2 MILES EVERY DAY. Code(s): E66.9 - Obesity, unspecified Plan: DISCUSSED WITH HIM ABOUT THE WEIGHT ISSUE AND HE IS FULLY AWARE WELL EDUCATED ABOUT LOSING THE WEIGHT (2) Obstructive sleep apnea on CPAP: Comment: He is a known case of obstructive sleep apnea, uses CPAP regularly at night for about 6-7 hours. HIS THE PRESENT THE SLEEP STUDY CONFIRMS THAT HE HAS RATHER SEVERE OBSTRUCTIVE SLEEP APNEA, ASSOCIATED WITH NOCTURNAL HYPOXEMIA. Code(s): G47.33 - Obstructive sleep apnea (adult) (pediatric); Z99.89 - Dependence on other enabling machines and devices Plan: HE WOULD NEED TO CONTINUE USING THE CPAP. I AM GOING TO ORDER FOR CPAP REPLACEMENT. HIS PRESSURE SETTING WILL BE 6-20 CM WITH AUTO PAP MODE. HE IS ALREADY WELL EDUCATED ABOUT THE USE OF CPAP WE WILL NEED TO DO OVERNIGHT OXIMETRY RECORDING ONCE HE IS USING HIS NEW CPAP MACHINE REGULARLY. (3) COPD (chronic obstructive pulmonary disease): Comment: He does have advanced COPD, Seems to be well controlled with current combination. TX: Symbicort 160-4.52 puffs b.i.d.. Ipratropium/albuterol solution in the nebulizer 3 times a day p.r.n. ( I told him that he should use nebulizer 3 times a day regularly and also Q 6 hours p.r.n. ) With his recent respiratory infection he seems to be somewhat worse and deconditioned PULMONARY FUNCTION TEST CONFIRMS THAT HE DOES HAVE SEVERE OBSTRUCTIVE PULMONARY DISORDER, HE IS DOING WELL SINCE HE IS PULMONARY REHAB PROGRAM Code(s): J44.9 - Chronic obstructive pulmonary disease, unspecified Plan: ADVISE THAT HE SHOULD CONTINUE THE PRESENT MEDICAL REGIMEN. ADVISE THAT HE SHOULD COMPLETE HIS PULMONARY REHAB PROGRAM. HE WILL BE GOING TO [place] DURING WINTER MONTHS AND WILL SEE HIM WHEN HE COMES BACK IN MID AUGUST. Coding Level of Care Code Est Pt Level 3 (89262) Diagnoses Obesity (BMI 30-39.9) E66.9 Obstructive sleep apnea on CPAP G47.33; Z99.89 COPD (chronic obstructive pulmonary disease) J44.9
[2023-04-27 13:16] VITALS: BP 130/72; PULSE 78; O2SAT 96; BMI 37.3
== END 2023-04-27 13:36 | disposition home or self-care (01) ==
PROVIDERS: PCP Internal Medicine; Visit Provider Internal Medicine
DX: E66.9 Obesity, unspecified (principal); G47.33 Obstructive sleep apnea (adult) (pediatric); Z99.89 Dependence on other enabling machines and devices; J44.9 Chronic obstructive pulmonary disease, unspecified
CPT/HCPCS: 99213

== ENCOUNTER → 2023-04-27 11:56 | Outpatient (BNVA) | payer MEDICARE, SELFPAY | PROVIDERS: PCP Internal Medicine; Visit Provider Internal Medicine | DX: J44.9 Chronic obstructive pulmonary disease, unspecified (principal); G47.33 Obstructive sleep apnea (adult) (pediatric); E66.9 Obesity, unspecified; Z99.89 Dependence on other enabling machines and devices; Z68.37 Body mass index [BMI] 37.0-37.9, adult | CPT/HCPCS: 99212 ==

== ENCOUNTER 2023-05-04 13:28 | Outpatient (AMB) | payer MEDICARE, SELFPAY ==
--- NOTE | 2023-05-04 13:56 | MHC.OFFVIS ---
Intake Vital Signs 05/04/23 13:59 Height 5 ft 10 in Weight 255 lb 11.779 oz BMI 36.7 BP 144/82 H Blood Pressure Location Rt brachial Position Sitting Pulse 75 Intake Visit Reasons: follow up Intake Note: follow up Plasma Specialist Required: No Accompanied by: Self / Same As Patient Allergies Iodinated Contrast Media [IV DYE, IODINE CONTAINING CONTRAST ] Allergy (Severe, Verified 05/04/23 14:00) HIVES dabigatran etexilate [From PRADAXA] Allergy (Unknown, Verified 05/04/23 14:00) REFLUX Medication List - Last Reconciled 05/04/23 by Glenroy Ware MD albuterol sulfate 90 mcg/actuation 2 puffs PO Q4-6H PRN amlodipine 5 mg PO DAILY atenolol 25 mg PO DAILY hydrochlorothiazide 25 mg PO DAILY Incruse Ellipta 62.5 mcg/actuation (umeclidinium) 1 inh PO DAILY NS ipratropium-albuterol 0.5 mg-3 mg(2.5 mg base)/3 mL mL inhalation TID PRN losartan 50 mg PO DAILY losartan 50 mg PO DAILY omeprazole 20 mg PO DAILY rivaroxaban 20 mg PO DAILY simvastatin 20 mg PO BEDTIME Symbicort 160-4.5 mcg/actuation (budesonide-formoterol) 2 puffs PO Q12H NS tamsulosin 0.4 mg PO BEDTIME 90 days zolpidem 10 mg PO BEDTIME HPI HPI Comments History of Present Illness Details Ilir returns for follow-up regarding atrial fibrillation. Chronically short of breath which is likely multifactorial. No angina. Otherwise, generally feeling okay. REPLACED BY [facility] Medical History Obesity (BMI 30-39.9) COPD (chronic obstructive pulmonary disease) Kidney donor Obstructive sleep apnea on CPAP Essential hypertension Shortness of breath Persistent atrial fibrillation Surgical History History of laparoscopic cholecystectomy (~04/2017) History of hip replacement History of transesophageal echocardiography (SOFIA) Family History Father No problems noted. Mother No problems noted. Social History Alcohol intake: current Alcohol intake frequency: holidays/special occasions only Patient Tobacco Use Status: Former Tobacco user Quit Date: 9-10 yrs ago Review of Systems Const All systems reviewed & are unremarkable except as noted in HPI and below Reports as per HPI and Reports no additional complaints Eyes Reports as per HPI and Denies no additional complaints ENT Denies no additional complaints and Reports as per HPI Card Reports as per HPI, Reports no additional complaints, Denies acrocyanosis, Denies chest pain, Denies leg edema, Denies lightheadedness, Denies palpitations and Denies dyspnea Resp Reports as per HPI, Denies no additional complaints and Denies dyspnea GI Reports as per HPI and Denies no additional complaints Reports no additional complaints and Reports as per HPI Musc Reports no additional complaints and Reports as per HPI Skin/Breast Reports system reviewed and no additional complaints, except as documented Neuro Reports no additional complaints and Reports as per HPI Psych Reports no additional complaints and Reports as per HPI Endo Reports no additional complaints, Reports as per HPI and Denies palpitations Arturo/Lymph Reports no additional complaints and Reports as per HPI Aller/Immun Reports no additional complaints and Reports as per HPI Physical Exam Vital Signs: Last Vital Signs Pulse 75 05/04/23 13:59 BP 144/82 H 05/04/23 13:59 BMI result Body Mass Index 36.7 Const General: comfortable and no acute distress Orientation/consciousness: patient oriented x3 HEENT Other: Unremarkable Head: Yes normal to inspection Neck Neck: Yes normal visual inspection Chest Chest palpation & inspection: normal inspection of the chest Resp Auscultation: clear to auscultation bilaterally Cardio Palpation: normal PMI Heart sounds: S1 normal heart sound present, S2 normal heart sound present, no gallops, no murmurs and no rubs GI Palpation (GI): Soft to palpation Back/Spine/Pelvis Other: unremarkable Skin General skin exam: no rashes or lesions noted Neuro General: patient oriented x3 Extrem Other: Trace edema General: Yes normal to inspection Psych Mental Status: mental status grossly normal Office Procedures EKG Details: EKG with atrial fibrillation at a rate of 75/Min; PVC versus aberrant conduction; rightward axis. [id number], Complete Assessment & Plan Assessment & Plan (1) Persistent atrial fibrillation: Code(s): I48.19 - Other persistent atrial fibrillation Plan: Has been present for almost 10 years since 2012. Was on atenolol which was apparently stopped due to normal blood pressure. However, atrial fibrillation seemed a bit and the faster side on Holter and hence it was resumed. Continue anticoagulation. Will request labs from PCP for renal function. Last echocardiogram with LVEF of 56% and moderate biatrial enlargement. (2) Essential hypertension: Code(s): I10 - Essential (primary) hypertension Plan: Stable. No changes. (3) Obstructive sleep apnea on CPAP: Comment: He is a known case of obstructive sleep apnea, uses CPAP regularly at night for about 6-7 hours. HIS THE PRESENT THE SLEEP STUDY CONFIRMS THAT HE HAS RATHER SEVERE OBSTRUCTIVE SLEEP APNEA, ASSOCIATED WITH NOCTURNAL HYPOXEMIA. Code(s): G47.33 - Obstructive sleep apnea (adult) (pediatric); Z99.89 - Dependence on other enabling machines and devices Plan: Continue CPAP. (4) COPD (chronic obstructive pulmonary disease): Comment: He does have advanced COPD, Seems to be well controlled with current combination. TX: Symbicort 160-4.52 puffs b.i.d.. Ipratropium/albuterol solution in the nebulizer 3 times a day p.r.n. ( I told him that he should use nebulizer 3 times a day regularly and also Q 6 hours p.r.n. ) With his recent respiratory infection he seems to be somewhat worse and deconditioned PULMONARY FUNCTION TEST CONFIRMS THAT HE DOES HAVE SEVERE OBSTRUCTIVE PULMONARY DISORDER, HE IS DOING WELL SINCE HE IS PULMONARY REHAB PROGRAM Code(s): J44.9 - Chronic obstructive pulmonary disease, unspecified Plan: Likely major contributor to his shortness of breath. PFTs from 2020-severe obstructive ventilatory defect with positive bronchodilator response. Decreased respiratory reserve volume suggesting extrathoracic restriction, likely from abdominal obesity. (5) Kidney donor: Code(s): Z52.4 - Kidney donor Plan: Last available creatinine is 1.35 with GFR of 52. Need to contact PCP for last creatinine due to Xarelto use. Plan Orders: Orders [place] echo transthoracic complete 6 Months I48.19 - Other persistent atrial fibrillation Coding Level of Care Code Est Pt Level 4 (05873) Diagnoses Persistent atrial fibrillation I48.19 Essential hypertension I10 Obstructive sleep apnea on CPAP G47.33; Z99.89 COPD (chronic obstructive pulmonary disease) J44.9 Kidney donor Z52.4 CPT Codes EKG - CPT: 46250-[id number], Complete ([id number])
[2023-05-04 13:59] VITALS: BP 144/82; PULSE 75; BMI 36.7
== END 2023-05-04 14:25 | disposition home or self-care (01) ==
PROVIDERS: PCP Internal Medicine; Visit Provider Internal Medicine
DX: I48.19 Other persistent atrial fibrillation (principal); I10 Essential (primary) hypertension; G47.33 Obstructive sleep apnea (adult) (pediatric); Z99.89 Dependence on other enabling machines and devices; J44.9 Chronic obstructive pulmonary disease, unspecified; Z52.4 Kidney donor
CPT/HCPCS: 93010; 99214

== ENCOUNTER → 2023-05-04 13:28 | Outpatient (BNVA) | payer MEDICARE, SELFPAY | PROVIDERS: PCP Internal Medicine; Visit Provider Internal Medicine | DX: I48.19 Other persistent atrial fibrillation (principal); I10 Essential (primary) hypertension; J44.9 Chronic obstructive pulmonary disease, unspecified; G47.33 Obstructive sleep apnea (adult) (pediatric); Z52.4 Kidney donor; Z98.890 Other specified postprocedural states | CPT/HCPCS: 93005; 99212 ==

== ENCOUNTER 2023-05-25 10:00 | Outpatient (RCR) | payer MEDICARE, SELFPAY | END 2023-05-29 10:38 | disposition home or self-care (01) | LOC: HO.PR 10:00 | PROVIDERS: PCP Internal Medicine; Visit Provider Internal Medicine | DX: J44.9 Chronic obstructive pulmonary disease, unspecified (principal); G47.33 Obstructive sleep apnea (adult) (pediatric); Z99.89 Dependence on other enabling machines and devices | CPT/HCPCS: 94625; 94761; 99215 ==

== ENCOUNTER 2023-09-04 09:59 | Outpatient (AMB) | payer MEDICARE, SELFPAY ==
[2023-09-04 10:06] VITALS: BP 118/62; PULSE 78; O2SAT 96; BMI 36.2
--- NOTE | 2023-09-04 10:06 | MHC.OFFVIS ---
Vital Signs 09/04/23 10:06 Height 5 ft 10 in Weight 252 lb 6.868 oz BMI 36.2 BP 118/62 Blood Pressure Location Lt brachial Position Sitting Pulse 78 Pulse Source Pulse Oximeter Pulse Oximetry (%) 96 Oxygen Delivery Method Room Air Intake Visit Reasons: COPD Intake Note: pt is here for follow up and states he does have sleepy days, not sure of underlying source, having echo next week and appt. with cardiology. finished pulm rehab., Had sleep study in April. Directional Driller Required: No Allergies Iodinated Contrast Media [IV DYE, IODINE CONTAINING CONTRAST ] Allergy (Severe, Verified 09/04/23 10:20) HIVES dabigatran etexilate [From PRADAXA] Allergy (Unknown, Verified 09/04/23 10:20) REFLUX Medication List - Last Reconciled 09/04/23 by Rocky Ching MD albuterol sulfate 90 mcg/actuation 2 puffs PO Q4-6H PRN amlodipine 5 mg PO DAILY atenolol 25 mg PO DAILY hydrochlorothiazide 25 mg PO DAILY losartan 50 mg PO DAILY omeprazole 20 mg PO DAILY rivaroxaban 20 mg PO DAILY simvastatin 20 mg PO BEDTIME Symbicort 160-4.5 mcg/actuation (budesonide-formoterol) 2 puffs PO Q12H NS tamsulosin 0.4 mg PO BEDTIME 90 days zolpidem 10 mg PO BEDTIME PRN Do you need a note to return to daycare/school/sports/work: No HPI HPI COPD: Details: VICTOR HUGO IS 77 YEARS OLD MALE, COMING AFTER 4 MONTHS FOR FOLLOW-UP. HE JUST CAME BACK FROM [place] FEW WEEKS AGO . COMPLAINS OF GETTING TIRED AND SHORT OF BREATH EASILY, HE HAS NOT SURE IF THIS IS DUE TO HIS LUNG DISEASE ARE DUE TO COMBINATION OF COPD AND CARDIAC DISEASE. HE HAD COMPLETED HIS PULMONARY REHAB PROGRAM BEFORE HE WENT TO [place]. HE LIKES TO JOIN THE PROGRAM FOR CONTINUED EXERCISING. HE HAS OCCASIONAL COUGH WHICH IS NONPRODUCTIVE. HE CONTINUES TO USE HIS CPAP. REGULARLY STILL WITH THE OLD CPAP MACHINE, WHICH DOES NOT TRANSMIT THE DATA FOR COMPLIANCE REPORT. HE IS DUE TO GET HIS NEW MACHINE IN NOVEMBER. [facility] Medical History Obesity (BMI 30-39.9) COPD (chronic obstructive pulmonary disease) Kidney donor Obstructive sleep apnea on CPAP Essential hypertension Shortness of breath Persistent atrial fibrillation Surgical History History of laparoscopic cholecystectomy (~04/2017) History of hip replacement History of transesophageal echocardiography (SOFIA) Family History Father No problems noted. Mother No problems noted. Social History Alcohol intake: current Alcohol intake frequency: holidays/special occasions only Patient Tobacco Use Status: Former Tobacco user Quit Date: 9-10 yrs ago Review of Systems Const All systems reviewed & are unremarkable except as noted in HPI and below Eyes Reports no additional complaints ENT Reports no additional complaints Card Denies chest pain, Reports irregular heart rhythm (Atrial fibrillation), Denies leg edema and Denies dyspnea on exertion Resp Reports as per HPI and Denies dyspnea on exertion GI Denies no additional complaints Reports other (Being treated for BPH) Musc Reports no additional complaints Skin/Breast Reports system reviewed and no additional complaints, except as documented Neuro Reports no additional complaints Psych Reports no additional complaints Endo Reports no additional complaints Physical Exam Vital Signs: Last Vital Signs Pulse 78 09/04/23 10:06 BP 118/62 09/04/23 10:06 Pulse Ox 96 09/04/23 10:06 Oxygen Delivery Method Room Air 09/04/23 10:06 BMI result Body Mass Index 36.2 Const General: comfortable, no acute distress, alert and awake Orientation/consciousness: patient oriented x3 HEENT Head: Yes normal to inspection General nose exam: No nasal polyps present and No nasal discharge present Face and sinus: Yes sinuses nontender Mouth: oropharynx normal Throat: Yes posterior oropharynx normal Eyes General: appearance normal, both eyes and all related structures Neck Neck: Yes normal visual inspection, Yes no lymphadenopathy, Yes trachea midline and Yes no JVD Thyroid: Thyroid normal Chest Chest palpation & inspection: normal inspection of the chest, normal palpation of entire chest wall and no tenderness Resp Other: Percussion note resonant. Breath sounds are distant with prolonged expiratory phase. No audible wheezes rhonchi or crepitations. Cardio Palpation: normal PMI Rate: regular rate Rhythm: abnormal rhythm (Atrial fibrillation) Heart sounds: no gallops and no murmurs GI Palpation (GI): Soft to palpation, nontender, No hepatosplenomegaly present and no masses Auscultation: normal bowel sounds Back/Spine/Pelvis Thoracic/Lumbar Spine: thoracic and lumbar spine normal to inspection Skin General skin exam: no rashes or lesions noted Neuro General: patient oriented x3 and no focal motor deficits Cranial nerves: Yes CN's II-XII intact bilaterally Extrem General: Yes normal to inspection, No no joint enlargement (Right knee she moderately enlarged and irregular.), Yes no calf tenderness and Yes edema (1 + pitting edema of the legs ) Psych Appearance: grossly normal Speech and movement: Normal speech and movement present Assessment & Plan Assessment & Plan (1) Obesity (BMI 30-39.9): Comment: VICTOR HUGO REMAINS GROSSLY OBESE, HAS LOST 3 LB RECENTLY, TRYING TO LOSE MORE. HE PLANS TO START WALKING, THE WEATHER WARMS UP. Code(s): E66.9 - Obesity, unspecified Category: Medical Plan: I ENCOURAGED HIM TO WALK ABOUT 2 MILES ON A DAILY BASIS (2) Obstructive sleep apnea on CPAP: Comment: He is a known case of obstructive sleep apnea, uses CPAP regularly at night for about 6-7 hours. HIS SLEEP STUDY HAS CONFIRM THAT HE HAS SEVERE OBSTRUCTIVE AIRWAY DISORDER WITH NOCTURNAL HYPOXEMIA. HE USES HIS OLD CPAP MACHINE VERY REGULARLY HE IS EXPECTING TO GET HIS NEW CPAP MACHINE IN NOVEMBER, THEN WE WILL BE ABLE TO MONITOR HIS COMPLIANCE REGULARLY. Code(s): G47.33 - Obstructive sleep apnea (adult) (pediatric); Z99.89 - Dependence on other enabling machines and devices Category: Medical Plan: CONTINUE TO USE CPAP AT LEAST FOR 7 HOURS EVERY NIGHT (3) COPD (chronic obstructive pulmonary disease): Comment: He does have advanced COPD, Seems to be well controlled with current combination. PULMONARY FUNCTION TEST CONFIRMS THAT HE DOES HAVE SEVERE OBSTRUCTIVE PULMONARY DISORDER, HE IS DOING WELL SINCE HE IS PULMONARY REHAB PROGRAM Code(s): J44.9 - Chronic obstructive pulmonary disease, unspecified Category: Medical Plan: TX: Symbicort 160-4.52 puffs b.i.d.. Ipratropium/albuterol solution in the nebulizer 3 times a day p.r.n. ( I told him that he should use nebulizer 3 times a day regularly and also Q 6 hours p.r.n. ) WHEN OUTDOORS HE MAY USE ALBUTEROL HFA 2 PUFFS Q 6 HOURS P.R.N. (4) Shortness of breath: Comment: Dyspnea on exertion secondary to severe obstructive airway disorder, obesity, and chronic atrial fibrillation. Any increase in his weight would cause increased shortness of breath on exertion. Code(s): R06.02 - Shortness of breath Category: Medical Plan: He is advised to keep on doing deep breathing exercises with incentive spirometry. Also stressed that he must try to lose some weight. I ALSO ADVISED HIM TO JOIN THE PULMONARY REHAB PROGRAM FOR THE MAINTENANCE PHASE. Coding Level of Care Code Est Pt Level 3 (19590) Diagnoses Obesity (BMI 30-39.9) E66.9 Obstructive sleep apnea on CPAP G47.33; Z99.89 COPD (chronic obstructive pulmonary disease) J44.9 Shortness of breath R06.02
== END 2023-09-04 10:38 | disposition home or self-care (01) ==
PROVIDERS: PCP Internal Medicine; Visit Provider Internal Medicine
DX: E66.9 Obesity, unspecified (principal); G47.33 Obstructive sleep apnea (adult) (pediatric); Z99.89 Dependence on other enabling machines and devices; J44.9 Chronic obstructive pulmonary disease, unspecified; R06.02 Shortness of breath
CPT/HCPCS: 99213

== ENCOUNTER → 2023-09-04 09:59 | Outpatient (BNVA) | payer MEDICARE, SELFPAY | PROVIDERS: PCP Internal Medicine; Visit Provider Internal Medicine | DX: J44.9 Chronic obstructive pulmonary disease, unspecified (principal); R06.02 Shortness of breath; E66.9 Obesity, unspecified; G47.33 Obstructive sleep apnea (adult) (pediatric); Z99.89 Dependence on other enabling machines and devices | CPT/HCPCS: 99212 ==

== ENCOUNTER 2023-09-13 08:28 | Outpatient (AMB) | payer MEDICARE, SELFPAY ==
--- NOTE | 2023-09-13 08:39 | A.OFFVIS_ITS ---
Intake Visit Reasons: 1Y PVR Intake Note: Patient is Present for PVR/ Urology Med: Tamsulosin Antibiotic Allergy:None Blood Thinner:Rivaroxaban Last PVR: 0 Todays PVR: 21 Allergies Iodinated Contrast Media [IV DYE, IODINE CONTAINING CONTRAST ] Allergy (Severe, Verified 09/13/23 08:40) HIVES dabigatran etexilate [From PRADAXA] Allergy (Unknown, Verified 09/13/23 08:40) REFLUX Medication List - Last Reconciled 09/13/23 by Steve Souza MD albuterol sulfate 90 mcg/actuation 2 puffs PO Q4-6H PRN amlodipine 5 mg PO DAILY atenolol 25 mg PO DAILY hydrochlorothiazide 25 mg PO DAILY losartan 50 mg PO DAILY omeprazole 20 mg PO DAILY rivaroxaban 20 mg PO DAILY sildenafil 100 mg PO ONCE PRN 90 days simvastatin 20 mg PO BEDTIME Symbicort 160-4.5 mcg/actuation (budesonide-formoterol) 2 puffs PO Q12H NS tamsulosin 0.4 mg PO BEDTIME 90 days zolpidem 10 mg PO BEDTIME PRN HPI Comments Details: Ilir WARNER is a very pleasant male. He is a patient of Dr Anthony. He is seen for the following urologic conditions. - lower urinary tract symptoms - erectile dysfunction Continue Flomax Continue sildenafil as needed Recovered from the surgery Lower Urinary Tract Symptoms:?Significant improvement with urination ?Minimal nocturia ?Control of urge ?Very happy with Flomax would like to stay on a prescription. ? Current visit is for?further evaluation of, lower urinary tract symptoms, predominate obstructive symptoms.? Current treatment includes?medication, alpha molly, 5-AR.? Prostate Symptom Score?4/20 , Moderate (9-19).? Prior Prostate Score?moderate PSA - 09/27 0.5 ? Therapeutic plan - remain on medication - 12 month review [facility] Medical History Obesity (BMI 30-39.9) COPD (chronic obstructive pulmonary disease) Kidney donor Obstructive sleep apnea on CPAP Essential hypertension Shortness of breath Persistent atrial fibrillation Surgical History History of laparoscopic cholecystectomy (~04/2017) History of hip replacement History of transesophageal echocardiography (SOFIA) Family History Father No problems noted. Mother No problems noted. Social History Alcohol intake: current Alcohol intake frequency: holidays/special occasions only Patient Tobacco Use Status: Former Tobacco user Quit Date: 9-10 yrs ago Review of Systems Const Denies chills and Denies fever(s) Card Reports no additional complaints and Denies syncope Resp Denies cough GI Denies abdominal pain and Denies heartburn Reports as per HPI and Denies change in libido Neuro Denies syncope Psych Denies change in libido Endo Denies change in libido Physical Exam Const General: cooperative, healthy appearing, comfortable and no acute distress Orientation/consciousness: patient oriented x3 HEENT Face and sinus: Yes normal facial exam Mouth: moist mucous membranes Neck Neck: Yes normal visual inspection, Yes full ROM and Yes trachea midline Chest Chest palpation & inspection: normal inspection of the chest Resp Effort & Inspection: normal respiratory effort, able to speak in complete sentences and no respiratory distress GI Inspection: Yes normal to inspection Back/Spine/Pelvis Cervical Spine: normal cervical lordosis Thoracic/Lumbar Spine: thoracic and lumbar spine normal to inspection Skin General skin exam: no rashes or lesions noted Neuro General: patient oriented x3, gait normal, tone normal and moves all extremities Extrem General: Yes normal to inspection and Yes capillary refill normal Office Procedures Post Void Residual Post Residual Void Post Void Residual (PVR): 21 [id number] Void Residual by ultrasound Assessment & Plan Assessment & Plan (1) BPH w urinary obs/LUTS: Code(s): N40.1 - Benign prostatic hyperplasia with lower urinary tract symptoms; N13.8 - Other obstructive and reflux uropathy Category: Medical (2) Erectile dysfunction: Code(s): N52.9 - Male erectile dysfunction, unspecified Category: Medical Plan Twelve month follow-up PSA Orders: Orders AMB Post Void Residual by ultrasound Today N13.8 - Other obstructive and reflux uropathy, N40.1 - Benign prostatic hyperplasia with lower urinary tract symptoms Medications: New sildenafil 60 minutes prior to intended activity 100 mg PO ONCE 90 days PRN 30 tabs 1RF erectile dysfunction Refilled tamsulosin 0.4 mg PO BEDTIME 90 days 90 caps 3RF Patient Instructions: Imaging studies, laboratory and physical exam results were discussed and reviewed in detail. No major barriers to patient understanding were identified. An opportunity to ask questions regarding the treatment plan was provided. All questions were answered. The patient expressed understanding and agreement with the above treatment plan. The patient is aware they should contact our office by phone for worsening of their current condition or the appearance of new urologic symptoms. Compliance is encouraged with any medications and followup testing that is ordered. It is a privilege to participate in the urologic care of your patient. If you have any questions or concerns regarding treatment for the above conditions, or other urologic issues, please do not hesitate to contact me. The office telephone contact is [phone]. This note is constructed using voice recognition software. While every effort has been made to ensure accuracy block chopper hand errors may have been included. Yours sincerely, Dr Steve Souza MD, [facility]AN [facility] - Urology Providers of Expert, Compassionate Care for the Genitourinary System Coding Level of Care Code Est Pt Level 4 (87113) Diagnoses BPH w urinary obs/LUTS N40.1; N13.8 Erectile dysfunction N52.9 CPT Codes Post Residual Void - PVR CPT Code: [id number] Void Residual by ultrasound ([id number])
== END 2023-09-13 08:57 | disposition home or self-care (01) ==
PROVIDERS: Visit Provider Urology
DX: N40.1 Benign prostatic hyperplasia with lower urinary tract symptoms (principal); N13.8 Other obstructive and reflux uropathy; N52.9 Male erectile dysfunction, unspecified
CPT/HCPCS: 99213

== ENCOUNTER → 2023-09-13 08:28 | Outpatient (BNVA) | payer MEDICARE, SELFPAY | PROVIDERS: Visit Provider Urology | DX: N40.1 Benign prostatic hyperplasia with lower urinary tract symptoms (principal); N13.8 Other obstructive and reflux uropathy; N52.9 Male erectile dysfunction, unspecified; Z79.899 Other long term (current) drug therapy | CPT/HCPCS: 51798; 99212 ==

== ENCOUNTER → 2023-10-26 09:37 | Outpatient (REF) | payer MEDICARE, SELFPAY ==
--- NOTE | 2023-10-26 09:39 | CA_ITS ---
Transthoracic Echocardiogram Patient (Last, First, Middle): Ilir Mccabe, Gender: Male Date of : 1945 Age: 77 Procedure Date: 10/26/2023 Procedure Type: Transthoracic Echocardiogram Location: OP Height: 177.8 cm Weight: 108.86 kg BSA: 2.26 m2 Heart Rate: bpm BP: 110 / 76 mmHg Floral Clerk: TO Referring MD: Glenroy Ware MD Symptoms: I48.19 - Other persistent atrial fibrillation Study Quality: Fair/Contrast Conclusions: - 1. Mildly reduced LV ejection fraction 45-50% 2. Moderately dilated right ventricle with preserved systolic function 3. Severe biatrial enlargement 4. Mild mitral regurgitation 5. Upper limits of normal RV systolic pressure with mildly elevated right atrial pressures 6. No gross pericardial effusion Findings Procedure Information Contrast agent, definity, is being given per protocol without apparent complications. Left Ventricle Normal left ventricular cavity size. There is normal left ventricular wall thickness. The left ventricular systolic function is mildly decreased. The visually estimated ejection fraction is between 45-50%. Diastolic function is indeterminate on the basis of available data. Right Ventricle Moderately increased right ventricular cavity size. There is normal right ventricular systolic function. Atria The left atrium is severely dilated. There is no evidence of interatrial shunt. The right atrium is severely dilated. Aortic Valve Normal aortic valve structure and function. There is no aortic valve stenosis. There is no aortic valve regurgitation. Mitral Valve There is mild anterior and posterior mitral leaflet thickening. There is mild mitral valve regurgitation. There is no mitral valve stenosis. Pulmonic Valve The pulmonic valve is likely normal. There is trace pulmonic valve regurgitation. Tricuspid Valve Normal tricuspid valve structure. There is mild tricuspid valve regurgitation. Mildly elevated right atrial pressure. There is no evidence of pulmonary hypertension. Great Vessels All visible segments of the aorta are normal in size. The pulmonary artery was not well visualized. There is no dilatation of the ascending aorta measuring 3.40 cm. There is no evidence of plaque in the aorta. Venous The inferior vena cava is moderately dilated and collapses greater than 50% with inspiration. Pericardium/Pleural There is no evidence of pericardial effusion. Prior Study Comparison Changes noted compared to prior study dated: 03/15/2021. LV systolic function is mildly reduced Measurements 2D Linear Measurements IVSd: 0.99 0.6-0.9/0.6-1.0 cm LVIDd: 5.25 3.9-5.3/4.2-5.9 cm LVIDd Index: 2.32 2.4-3.2/2.2-3.1 cm/m2 LVIDs: 4.14 2.0-3.6 cm LVPWd: 0.99 0.7-1.1 cm LA Diam: 4.60 2.7-3.8/3.0-4.0 cm LAIDs Index: 2.04 1.5-2.3 cm/m2 LV Mass: 241.74 67-162/88-224 g LV Mass Index: 106.97 43-95/49-115 g/m2 LVOT Diam: 2.10 3.0+(-)1.3 cm 2D Systolic Function EF 4C: 53.10 >55% EF 2C: 47.40 >55% EF BiP: 48.70 >55% Mitral Valve MV Pk E: 0.78 MV Decel Time: 291.00 E'Lateral: 9.53 E'Medial: 8.45 E/E' Med: 9.20 E/E' Lat: 8.20 PHT: 85.00 MVA PHT: 2.59 Decel Lassen: 2.69 Aortic Valve AoV Pk Walter: 1.37 AoV Mn Walter: 0.97 AoV VTI: 0.31 AoV Pk Grad: 8.00 Aov Mn Grad: 4.00 ADOLFO Cont.VTI: 2.43 LVOT LVOT Pk Walter: 0.93 LVOT Mn Walter: 0.67 LVOT VTI: 0.22 LVOT Pk Grad: 3.00 LVOT Mn Grad: 2.00 LVOT Diam: 2.10 LVOT Area: 3.46 Diastolic Function MV Pk E: 0.78 E'Medial: 8.45 E/E' Med: 9.20 E' Laterial: 9.53 E/E' Lat: 8.20 Right Ventricle TAPSE (mm): 20.60 TVS' Walter: 10.60 Tricuspid Valve TR Pk Walter: 2.68 TR Pk Grad: 29.00 RA Press: 8.00 RVSP: 37.00 Great Vessels Aorta Sinus of Valsalva: 3.00 2.0-3.5 cm Ao Asc: 3.40 2.1-3.4 cm Updated in Other Vendor System with Status of Final Howard Houston MD electronically signed on 10/26/2023 4:16:15 PM with status of Final
== END ==
LOC: HO.CARD 09:37
PROVIDERS: PCP Internal Medicine; Visit Provider Internal Medicine
DX: I48.19 Other persistent atrial fibrillation (principal)
CPT/HCPCS: 93306; Q9957

== ENCOUNTER → 2023-10-26 09:39 | Outpatient (BNV) | payer MEDICARE, SELFPAY | PROVIDERS: PCP Internal Medicine; Visit Provider Internal Medicine Cardiovascular Disease | DX: I34.0 Nonrheumatic mitral (valve) insufficiency (principal); I36.1 Nonrheumatic tricuspid (valve) insufficiency | CPT/HCPCS: 93306 ==

== ENCOUNTER 2023-10-31 09:01 | Outpatient (AMB) | payer MEDICARE, SELFPAY ==
[2023-10-31 09:04] VITALS: BP 132/72; PULSE 53; BMI 34.2
--- NOTE | 2023-10-31 09:04 | MHC.OFFVIS ---
Vital Signs 10/31/23 09:04 Height 5 ft 10 in Weight 238 lb 1.588 oz BMI 34.2 BP 132/72 Blood Pressure Location Lt brachial Position Sitting Pulse 53 Pulse Source Pulse Oximeter Intake Visit Reasons: F/U ECHO Allergies Iodinated Contrast Media [IV DYE, IODINE CONTAINING CONTRAST ] Allergy (Severe, Verified 09/13/23 08:40) HIVES dabigatran etexilate [From PRADAXA] Allergy (Unknown, Verified 09/13/23 08:40) REFLUX Medication List - Last Reconciled 10/31/23 by Glenroy Ware MD albuterol sulfate 90 mcg/actuation 2 puffs PO Q4-6H PRN amlodipine 5 mg PO DAILY atenolol 25 mg PO DAILY hydrochlorothiazide 25 mg PO DAILY losartan 50 mg PO DAILY omeprazole 20 mg PO DAILY rivaroxaban 20 mg PO DAILY sildenafil 100 mg PO ONCE PRN 90 days simvastatin 20 mg PO BEDTIME Symbicort 160-4.5 mcg/actuation (budesonide-formoterol) 2 puffs PO Q12H NS tamsulosin 0.4 mg PO BEDTIME 90 days zolpidem 10 mg PO BEDTIME PRN HPI Comments Details: Ilir returns for follow-up regarding atrial fibrillation. Chronically short of breath which is likely multifactorial. No other complaints like angina or palpitations or anything else. He states he is just about the same as before. [facility] Medical History Obesity (BMI 30-39.9) COPD (chronic obstructive pulmonary disease) Kidney donor Obstructive sleep apnea on CPAP Essential hypertension Shortness of breath Persistent atrial fibrillation Surgical History History of laparoscopic cholecystectomy (~04/2017) History of hip replacement History of transesophageal echocardiography (SOFIA) Family History Father No problems noted. Mother No problems noted. Social History Alcohol intake: current Alcohol intake frequency: holidays/special occasions only Patient Tobacco Use Status: Former Tobacco user Review of Systems Const Denies weakness ENT Denies dizziness Card Denies chest pain, Denies chest pain with activity, Denies syncope, Denies rapid heart rate, Denies pedal edema, Denies edema, Denies leg edema, Denies lightheadedness, Denies palpitations, Denies dyspnea, Denies dyspnea on exertion and Denies orthopnea Resp Denies cough, Denies dyspnea and Denies dyspnea on exertion GI Denies hematochezia and Denies change in stool character Musc Denies abnormal gait, Denies muscle cramps, Denies muscle weakness, Denies numbness, Denies radiating pain into limb and Denies tingling Neuro Denies abnormal gait, Denies dizziness, Denies syncope, Denies numbness, Denies tingling and Denies weakness Endo Denies palpitations Physical Exam Vital Signs: Last Vital Signs Pulse 53 10/31/23 09:04 BP 132/72 10/31/23 09:04 BMI result Body Mass Index 34.2 Const General: comfortable and no acute distress Orientation/consciousness: patient oriented x3 HEENT Other: Unremarkable Head: Yes normal to inspection Neck Neck: Yes normal visual inspection Chest Chest palpation & inspection: normal inspection of the chest Resp Auscultation: clear to auscultation bilaterally Cardio Palpation: normal PMI Heart sounds: S1 normal heart sound present, S2 normal heart sound present, no gallops, no murmurs and no rubs GI Palpation (GI): Soft to palpation Back/Spine/Pelvis Other: unremarkable Skin General skin exam: no rashes or lesions noted Neuro General: patient oriented x3 Extrem General: Yes normal to inspection Psych Mental Status: mental status grossly normal Assessment & Plan Assessment & Plan (1) Persistent atrial fibrillation: Code(s): I48.19 - Other persistent atrial fibrillation Category: Medical Plan: Has been present for almost 10 years since 2012. Was on atenolol which was apparently stopped due to normal blood pressure. However, atrial fibrillation seemed a bit on the faster side on Holter, and hence it was resumed. No changes today. Otherwise, remain on anticoagulation. Based on his kidney function, may need to adjust Xarelto dose in the future. Advised him to forward the labs that he does with his PCP. Due to duration of atrial fibrillation, this is likely a permanent finding. Discussed about this today. (2) Cardiomyopathy: Code(s): I42.9 - Cardiomyopathy, unspecified Category: Medical Plan: In the echocardiogram LVEF is 45-50%. Previously, about 55-60%. In 2020, he underwent myocardial perfusion imaging study that showed no reversible ischemia; in that study, gated LVEF was 48% with stress and 38% during rest. Mild drop in LVEF could be related to atrial fibrillation. No evidence of CHF on exam. (3) Essential hypertension: Code(s): I10 - Essential (primary) hypertension Category: Medical Plan: Stable. No changes. (4) Obstructive sleep apnea on CPAP: Code(s): G47.33 - Obstructive sleep apnea (adult) (pediatric); Z99.89 - Dependence on other enabling machines and devices Category: Medical Plan: Continue CPAP. (5) COPD (chronic obstructive pulmonary disease): Code(s): J44.9 - Chronic obstructive pulmonary disease, unspecified Category: Medical Plan: Likely major contributor to his shortness of breath. PFTs from 2020-severe obstructive ventilatory defect with positive bronchodilator response. Decreased respiratory reserve volume suggesting extrathoracic restriction, likely from abdominal obesity. (6) Kidney donor: Code(s): Z52.4 - Kidney donor Category: Medical Plan: Most recent creatinine is 1.28 with EGFR of 58. Advised him to forward the updated labs. Plan Orders: Orders Basic Metabolic Panel Today I48.19 - Other persistent atrial fibrillation ECG 3 day holter monitor 6 Months I48.19 - Other persistent atrial fibrillation CA echo transthoracic complete 6 Months I48.19 - Other persistent atrial fibrillation Coding Level of Care Code Est Pt Level 4 (93108) Diagnoses Persistent atrial fibrillation I48.19 Cardiomyopathy I42.9 Essential hypertension I10 Obstructive sleep apnea on CPAP G47.33; Z99.89 COPD (chronic obstructive pulmonary disease) J44.9 Kidney donor Z52.4
== END 2023-10-31 09:32 | disposition home or self-care (01) ==
PROVIDERS: PCP Internal Medicine; Visit Provider Internal Medicine
DX: I48.19 Other persistent atrial fibrillation (principal); I42.9 Cardiomyopathy, unspecified; I10 Essential (primary) hypertension; G47.33 Obstructive sleep apnea (adult) (pediatric); Z99.89 Dependence on other enabling machines and devices; J44.9 Chronic obstructive pulmonary disease, unspecified; Z52.4 Kidney donor
CPT/HCPCS: 99214

== ENCOUNTER → 2023-10-31 09:01 | Outpatient (BNVA) | payer MEDICARE, SELFPAY | PROVIDERS: PCP Internal Medicine; Visit Provider Internal Medicine | DX: I48.19 Other persistent atrial fibrillation (principal); I42.9 Cardiomyopathy, unspecified; I10 Essential (primary) hypertension; G47.33 Obstructive sleep apnea (adult) (pediatric); J44.9 Chronic obstructive pulmonary disease, unspecified; Z99.89 Dependence on other enabling machines and devices; Z52.4 Kidney donor | CPT/HCPCS: 99212 ==

== ENCOUNTER 2024-02-05 15:31 | Outpatient (AMB) | payer MEDICARE, SELFPAY ==
[2024-02-05 15:52] VITALS: BP 132/82; PULSE 68; O2SAT 95; BMI 37.0
--- NOTE | 2024-02-05 15:52 | MHC.OFFVIS ---
Vital Signs 02/05/24 15:52 Height 5 ft 10 in Weight 257 lb 15.053 oz BMI 37.0 BP 132/82 Blood Pressure Location Lt brachial Position Sitting Pulse 68 Pulse Source Pulse Oximeter Pulse Oximetry (%) 95 Oxygen Delivery Method Room Air Intake Visit Reasons: COPD Intake Note: pt is here for follow up of ROMA/COPD, he does get short of breath at times, he has good days and bad days. please refill albuterol hfa King Maker Required: No Allergies Iodinated Contrast Media [IV DYE, IODINE CONTAINING CONTRAST ] Allergy (Severe, Verified 02/05/24 16:09) HIVES dabigatran etexilate [From PRADAXA] Allergy (Unknown, Verified 02/05/24 16:09) REFLUX Medication List - Last Reconciled 02/05/24 by Rocky Ching MD albuterol sulfate 90 mcg/actuation 2 puffs PO Q4-6H PRN amlodipine 5 mg PO DAILY atenolol 25 mg PO DAILY hydrochlorothiazide 25 mg PO DAILY losartan 50 mg PO DAILY omeprazole 20 mg PO DAILY rivaroxaban 20 mg PO DAILY sildenafil 100 mg PO ONCE PRN 90 days simvastatin 20 mg PO BEDTIME Symbicort 160-4.5 mcg/actuation (budesonide-formoterol) 2 puffs PO Q12H NS tamsulosin 0.4 mg PO BEDTIME 90 days zolpidem 10 mg PO BEDTIME PRN Do you need a note to return to daycare/school/sports/work: No HPI HPI COPD: Details: CLAUDIO IS 78 YEARS 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 MEMBRENO ) WHO IS GROSSLY OBESE AND A CASE OF OBSTRUCTIVE SLEEP APNEA, IS USING HIS NEW CPAP, AND IS VERY HAPPY WITH HE NEW MASK ( DREAMWEAR ) HE IS VERY COMPLIANT AND SLEEPS GOOD. HAS NO ISSUES WITH THE CPAP DEVICE ARE THE MASK AT THIS TIME. WEIGHT IS STILL UP AND HAS NOT BEEN ABLE TO LOSE MUCH, BUT HE HAS FULL INTENTION TO WATCH HIS DIET AND START WALKING MORE. BREATHING IS UNDER CONTROL LONG HE USES HIS CURRENT INHALERS INCLUDING SYMBICORT 2 PUFFS B.I.D. AND ALBUTEROL ONLY P.R.N.. WAITING TO HAVE OVERNIGHT OXIMETRY RECORDING. [facility] Medical History Obesity (BMI 30-39.9) COPD (chronic obstructive pulmonary disease) Kidney donor Obstructive sleep apnea on CPAP Essential hypertension Shortness of breath Persistent atrial fibrillation Surgical History History of laparoscopic cholecystectomy (~04/2017) History of hip replacement History of transesophageal echocardiography (SOFIA) Family History Father No problems noted. Mother No problems noted. Social History Alcohol intake: current Alcohol intake frequency: holidays/special occasions only Patient Tobacco Use Status: Former Tobacco user Review of Systems Const All systems reviewed & are unremarkable except as noted in HPI and below Eyes Reports no additional complaints ENT Reports no additional complaints Card Denies chest pain, Reports irregular heart rhythm (Atrial fibrillation), Denies leg edema and Denies dyspnea on exertion Resp Reports as per HPI and Denies dyspnea on exertion GI Denies no additional complaints Reports other (Being treated for BPH) Musc Reports no additional complaints Skin/Breast Reports system reviewed and no additional complaints, except as documented Neuro Reports no additional complaints Psych Reports no additional complaints Endo Reports no additional complaints Physical Exam Vital Signs: Last Vital Signs Pulse 68 02/05/24 15:52 BP 132/82 02/05/24 15:52 Pulse Ox 95 02/05/24 15:52 Oxygen Delivery Method Room Air 02/05/24 15:52 BMI result Body Mass Index 37.0 Const General: comfortable, no acute distress, alert and awake Orientation/consciousness: patient oriented x3 HEENT Head: Yes normal to inspection General nose exam: No nasal polyps present and No nasal discharge present Face and sinus: Yes sinuses nontender Mouth: oropharynx normal Throat: Yes posterior oropharynx normal Eyes General: appearance normal, both eyes and all related structures Neck Neck: Yes normal visual inspection, Yes no lymphadenopathy, Yes trachea midline and Yes no JVD Thyroid: Thyroid normal Chest Chest palpation & inspection: normal inspection of the chest, normal palpation of entire chest wall and no tenderness Resp Other: Percussion note resonant. Breath sounds are distant with prolonged expiratory phase. No audible wheezes rhonchi or crepitations. Cardio Palpation: normal PMI Rate: regular rate Rhythm: abnormal rhythm (Atrial fibrillation) Heart sounds: no gallops and no murmurs GI Palpation (GI): Soft to palpation, nontender, No hepatosplenomegaly present and no masses Auscultation: normal bowel sounds Back/Spine/Pelvis Thoracic/Lumbar Spine: thoracic and lumbar spine normal to inspection Skin General skin exam: no rashes or lesions noted Neuro General: patient oriented x3 and no focal motor deficits Cranial nerves: Yes CN's II-XII intact bilaterally Extrem General: Yes normal to inspection, No no joint enlargement (Right knee she moderately enlarged and irregular.), Yes no calf tenderness and Yes edema (1 + pitting edema of the legs ) Psych Appearance: grossly normal Speech and movement: Normal speech and movement present Results Reviewed Results Reviewed: COMPLIANCE REPORT FOR THE LAST 30 NIGHTS IS REVIEWED AND HE HAS USED 30/30 NIGHTS,. 100% AVERAGE USE IT PER NIGHT. 7 HOURS 17 MINUTES WHICH IS EXCELLENT RESIDUAL AHI ONLY 0.2, THERE IS NO SIGNIFICANT AIR LEAK Assessment & Plan Assessment & Plan (1) Obesity (BMI 30-39.9): Comment: VICTOR HUGO REMAINS GROSSLY OBESE, HAS LOST 3 LB RECENTLY, TRYING TO LOSE MORE. Code(s): E66.9 - Obesity, unspecified Category: Medical Plan: WE HAD A GOOD DISCUSSION ABOUT NEED TO LOSE WEIGHT. DISCUSSED ABOUT THE TYPE OF DIETS THAT HE CAN EAT MORE. HE SHOULD START DOING MORE OUTDOOR ACTIVITIES AND WALK. (2) Obstructive sleep apnea on CPAP: Comment: HE IS USING HIS CPAP VERY REGULARLY WITH 100% COMPLIANCE. HE FEELS VERY COMFORTABLE WITH THE NEW MASK. Code(s): G47.33 - Obstructive sleep apnea (adult) (pediatric); Z99.89 - Dependence on other enabling machines and devices Category: Medical Plan: COMMENDED FOR GOOD COMPLIANCE AND ADVISED TO KEEP ON USING CPAP EVERY NIGHT. DISCUSSED ABOUT TO A TRAVEL UNIT, WHICH IS OF SMALL SIZE BUT HE WILL HAVE TO BUY IT [id number]. I TOLD HIM THAT HE CAN DO OKAY WITH THE USE OF MINI CPAP DEVICE LONG HE USES IT EVERY NIGHT. (3) COPD (chronic obstructive pulmonary disease): Comment: COPD IS UNDER GOOD CONTROL WITH USE OF SYMBICORT AND ALBUTEROL ONLY NEEDED Code(s): J44.9 - Chronic obstructive pulmonary disease, unspecified Category: Medical Plan: CONTINUE TO USE SYMBICORT 160-4.52 PUFFS B.I.D.. ALBUTEROL HFA 2 PUFFS Q 6 HOURS P.R.N. Coding Level of Care Code Est Pt Level 3 (02972) Diagnoses Obesity (BMI 30-39.9) E66.9 Obstructive sleep apnea on CPAP G47.33; Z99.89 COPD (chronic obstructive pulmonary disease) J44.9
== END 2024-02-05 16:26 | disposition home or self-care (01) ==
PROVIDERS: PCP Internal Medicine; Visit Provider Internal Medicine
DX: E66.9 Obesity, unspecified (principal); G47.33 Obstructive sleep apnea (adult) (pediatric); Z99.89 Dependence on other enabling machines and devices; J44.9 Chronic obstructive pulmonary disease, unspecified
CPT/HCPCS: 99213

== ENCOUNTER → 2024-02-05 15:31 | Outpatient (BNVA) | payer MEDICARE, SELFPAY | PROVIDERS: PCP Internal Medicine; Visit Provider Internal Medicine | DX: J44.9 Chronic obstructive pulmonary disease, unspecified (principal); G47.33 Obstructive sleep apnea (adult) (pediatric); Z99.89 Dependence on other enabling machines and devices; E66.9 Obesity, unspecified; Z68.37 Body mass index [BMI] 37.0-37.9, adult | CPT/HCPCS: 99212 ==

== ENCOUNTER → 2024-04-08 09:55 | Outpatient (REF) | payer MEDICARE, SELFPAY ==
--- NOTE | 2024-04-08 09:59 | CA_ITS ---
Transthoracic Echocardiogram Patient (Last, First, Middle): Ilir Mccabe, Gender: Male Date of : 1945 Age: 78 Procedure Date: 04/08/2024 Procedure Type: Transthoracic Echocardiogram Location: OP Height: 177.8 cm Weight: 113.4 kg BSA: 2.29 m2 Heart Rate: bpm BP: 130 / 76 mmHg Hemodialysis Charge Nurse: MANNY Referring MD: Glenroy Ware MD Symptoms: I48.19 - Other persistent atrial fibrillation Study Quality: Fair ECG Rhythm: Atrial Fibrillation Conclusions: - The left ventricular systolic function is mildly decreased. The calculated ejection fraction is 48% by biplane method. - The basal inferior segment is hypokinetic. - Moderate biatrial enlargement. - There is mild to moderate mitral valve regurgitation. - There is mild to moderate tricuspid valve regurgitation. - Mild pulmonary hypertension is present. Findings Left Ventricle Normal left ventricular cavity size. There is mildly increased left ventricular wall thickness. The left ventricular systolic function is mildly decreased. The calculated ejection fraction is 48% by biplane method. There is evidence of regional wall motion abnormalities. There is mild global hypokinesis. Wall Motion Rest Echo Findings The basal inferior segment is hypokinetic. Right Ventricle Mildly increased right ventricular cavity size. There is low normal right ventricular systolic function. Atria Moderate biatrial enlargement. Aortic Valve There is a normal trileaflet aortic valve. There is no aortic valve stenosis. There is no aortic valve regurgitation. Mitral Valve The mitral valve appears normal. There is mild to moderate mitral valve regurgitation. There is no mitral valve stenosis. Pulmonic Valve The pulmonic valve is likely normal. Tricuspid Valve There is mild to moderate tricuspid valve regurgitation. Mild pulmonary hypertension is present. Great Vessels The asc aorta is normal in size. Venous The inferior vena cava is mildly dilated and collapses greater than 50% with inspiration. Pericardium/Pleural There is no evidence of pericardial effusion. Prior Study Comparison No significant change compared to prior study dated: 10/26/2023. Inferior wall finding probably seen in prior study, but not well visualized. Measurements 2D Linear Measurements IVSd: 1.24 0.6-0.9/0.6-1.0 cm LVIDd: 4.94 3.9-5.3/4.2-5.9 cm LVIDd Index: 2.16 2.4-3.2/2.2-3.1 cm/m2 LVIDs: 3.96 2.0-3.6 cm LVPWd: 1.10 0.7-1.1 cm LA Diam: 4.80 2.7-3.8/3.0-4.0 cm LAIDs Index: 2.10 1.5-2.3 cm/m2 LV Mass: 275.89 67-162/88-224 g LV Mass Index: 120.47 43-95/49-115 g/m2 LVOT Diam: 2.10 3.0+(-)1.3 cm 2D Systolic Function EF 4C: 45.10 >55% EF 2C: 46.20 >55% EF BiP: 48.00 >55% Mitral Valve MV Pk E: 0.97 MV Decel Time: 248.00 E'Lateral: 8.61 E'Medial: 7.07 E/E' Med: 13.70 E/E' Lat: 11.20 PHT: 73.00 MVA PHT: 3.01 Decel Eaton: 4.12 Aortic Valve AoV Pk Walter: 1.31 AoV Mn Walter: 0.90 AoV VTI: 0.28 AoV Pk Grad: 7.00 Aov Mn Grad: 4.00 ADOLFO Cont.VTI: 1.80 LVOT LVOT Pk Walter: 0.67 LVOT Mn Walter: 0.49 LVOT VTI: 0.15 LVOT Pk Grad: 2.00 LVOT Mn Grad: 1.00 LVOT Diam: 2.10 LVOT Area: 3.46 Diastolic Function MV Pk E: 0.97 E'Medial: 7.07 E/E' Med: 13.70 E' Laterial: 8.61 E/E' Lat: 11.20 Right Ventricle TAPSE (mm): 20.40 TVS' Walter: 9.57 Tricuspid Valve TR Pk Walter: 3.01 TR Pk Grad: 36.00 RA Press: 8.00 RVSP: 44.00 Great Vessels Aorta Ao Asc: 3.40 2.1-3.4 cm Updated in Other Vendor System with Status of Final Glenroy Ware MD electronically signed on 04/09/2024 9:32:11 AM with status of Final
== END ==
LOC: HO.CARD 09:55
PROVIDERS: PCP Internal Medicine; Visit Provider Internal Medicine
DX: I48.19 Other persistent atrial fibrillation (principal)
CPT/HCPCS: 93242; 93306

== ENCOUNTER → 2024-04-08 09:59 | Outpatient (BNV) | payer MEDICARE, SELFPAY | PROVIDERS: PCP Internal Medicine; Visit Provider Internal Medicine | DX: I51.7 Cardiomegaly (principal); I34.0 Nonrheumatic mitral (valve) insufficiency; I36.1 Nonrheumatic tricuspid (valve) insufficiency | CPT/HCPCS: 93306 ==

== ENCOUNTER 2024-04-25 13:47 | Outpatient (AMB) | payer MEDICARE, SELFPAY ==
--- OUTSIDE RECORDS SUMMARY | 2024-04-25 13:50 | XMS_ITS ---
Author Organization [facility] [address] Address [address] [place] [address] Care Team Providers Care Sleeve Wheel Maker Name Role Phone Harpal Anthony MD Primary Care Provider UnavailApple Baltazar Unavailable [phone] Allergies Allergen (clinical drug ingredient) Drug/Non Drug Allergy documented on EMR Reaction Allergy Type Onset Date Status Iodinated contrast media (substance) Iodinated Diagnostic Agents hives Drug Allergy Active REASON FOR VISIT At Risk Footcare, Painful Nail(s) aggrevated by shoes and causing difficulty standing/walking. Medications Medication SIG (Take, Route, Frequency, Duration) Notes Start Date End Date Status Omeprazole Active Losartan Potassium 100 MG 1 tablet Orall y Once a day Active Ammonium Lactate 12 % 1 application to affected area Externally to feet Twice a day for 30 days Not-Taking Xarelto 20 MG 1 tablet with food Orally Once a day for 30 day(s) Active Simvastatin Active hydroCHLOROthiazide Active Finasteride Active Atenolol 25 MG 1 tablet Orally Once a day Active amLODIPine Besylate 10 MG 1 tablet Orall y Once a day for 30 day(s) Active Social History Tobacco Use: Social History Observation Description Date Details (start date - stop date) Former Smoker NA - NA Tobacco Use/Smoking Question Answer Notes Are you a: former smoker Additional Findings: Tobacco Non-User Current no n-smoker Tobacco use other than smoking: Question Answer Notes Are you an other tobacco user? No Vital Signs Height 5 ft 9 in in 03/27/2024 Weight 245 lbs 03/27/2024 BMI 36.18 kg/m2 03/27/2024 Blood pressure systolic 130 mm Hg 03/27/20 24 Blood pressure diastolic 78 mm Hg 024 Encounters Encounter Location Date Provider Diagnosis [facility] [place] [address] [place] [address] 03/27/2024 Apple Solorio Atherosclerosis of [place] artery of both lower extremities, with unspecified presence of clinical manifestation I70.203 ; Tinea unguium B35.1 ; Pain in right toe(s) M79.674 and Pain in left toe(s) M79.675 Assessments Encounter Date Diagnosis (ICD Code) Assessment Notes Treatment Notes Treatment Clinical Notes Section Notes 03/27/2024 Atherosclerosis of [place] artery of both lower extremities, with unspecified presence of clinical manifestation (ICD-10 - I70.203) 03/27/2024 Tinea unguium (ICD-10 - B35.1) 03/27/2024 Pain in right toe(s) (ICD-10 - M79.674) 03/27/2024 Pain in left toe(s) (ICD-10 - M79.675) Plan Of Treatment Next Appt Details Follow Up: 2 Months, Reason: Procedure Notes * Category Sub-Category Detail Notes Keratoma Treatment Parring or Cutting o f Benign Hyperkeratotic Lesion(s) Q8, (-54) 2-4 Lesions - The Benign hyperkeratotic lesions, as described in exam, were pared, and/or cut utilizing a sterile 15 blade, tissue nippers, and/or dremel - 05085 Debride Nails 1-5 Procedure: Performance of this nail treatment by a nonprofessional would put this patients foot and overall health at risk. Therefore, debridement to affected nail(s), as described in exam, was performed extensively to reduce/remove overall nail length, girth, thickness, subungual debris, and necrotic tissue, by manual and/or electrical means through the use of a nail nipper and/or dremel-type air grinder, to a more viable healthy nail plate or bed tissue 1-5. Silver nitrate used for any petechial bleeding as necessary. Definitive antifungal treatment options have been reviewed and discussed with the patient. The patient chooses, no pharmaceutical tx - 48866 Nail Reduction Nail Reduction Trimming of dyst rophic nails performed to reduce/remove overall nail length and girth, by manual and electrical means with use of a nail nipper and/or dremel, to more viable healthy nail plate or bed tissue 6-10 (Y5505-[id number]) Progress Notes * Nancy MCCABEOB:1945 (78 yo M)Acc No.[id number]:03/27/2024 Progress Note Patient:Ilir CASTELLANO Provider:?Apple Solorio DPM :1945???Age:78 Y???Sex:Male Vel e:03/27/2024 Address[address] [place] [facility] [place], [place] Pcp:Harpal Anthony MD Subjective: * Chief Complaints: * ???At Risk FootcarePainful N ail(s) aggrevated by shoes and causing difficulty standing/walking. * HPI: ???At Risk footcare:?Pt States Last PCP Visit:?Date?02/06/2024 * ROS:?General/Constitutional:?Nausea?denies.?Vomiting?denies.?Hunger Thirst?denies.?Loss appetite?denies.?Chills?denies.?Fatigue?denies.?Fever?denies.?Night Sweats?denies.?Unexplained weight loss?denies.?Unexplained weight gain?denies.?HEENTM:?Dentures?denies.?Dizziness?denies.?Glasses/contacts?admits.?Retinopathy?de nies.?Blurred/double vision?denies.?TMJ?denies.?Discharge/drainage?denies.?Implants?denies.?Sore throat?denies.?Dental implants?denies.?Hard of hearing ?denies.?Difficulty chewing/swallowing/speaking?denies.?Nose bleeds?denies.?Sore mouth?denies.?Respiratory:?On Oxygen?denies.?Pneumonia/pleurisy?denies.?Bronchitis?denies.?Emphysema?denies.?C oughing?denies.?Cough blood?denies.?Shortness of breath?denies.?Wheezing?denies.?Cardiovascular:?Pacemaker?denies.?MVP?denies.?WPW?denies.?CHF?denies.?Heart attack?denies.?Septal defect?denies.?Rapid beat?denies.?Chest pain ?denies.?Atrial Fib.?denies.?Murmur/Palpitations?denies.?Gastrointestinal:?Hemorrhoids?denies.?Stomach/Abdominal pain?denies.?Dark blood stool?denies.?Irritable bowel ?denies.?Constipation?denies.?Diarrhea?denies.?Hematology:?Swelling?denies.?Clots?denies.?Varicose Veins?denies.?Bruising?denies.?Bleeding problem?denies.?Genitourinary:?Blood urine?denies.?Frequent/Painfu/urination/bladder control?denies.?Kidney stones?denies.?Infection (UTI)?denies.?Nephropathy?denies.?sex trans dis (STD)?denies.?Prostate?denies.?Musculoskeletal:?Hammertoes?denies.?Bunions?denies.?Back Pain?denies.?Muscle Cramps/ Resting?denies.?Muscle cramps / walking?denies.?Generalized aches and pains?denies.?Weakness?denies.?Integ.:?Tellez?denies.?Scars?denies.?Corns/calluses?denies.?Ingrown nails?denies.?Painful nails?denies.?Open Sores?denies.?Rashes?denies.?Neurologic:?Difficulty sleeping?denies.?Brain disorder?denies.?Numbness?admits.?Balance trouble?denies.?Confusion?denies.?Fainting/blackouts?denies.?Tingling?denies.?Tr emors?denies.? * Medical History:? * Surgical History:?left hip r eplacement 2008gall bladder 2017kidney removal (donated) knee replacement 10/04/22 * Hospitalization/Major Diagno stic Procedure:?Denies Past Hospitalization * Family History:?Mother: dece ased, diagnosed with Family history of arthritis.?Father: , diagnosed with Family history of arthritis.?Siblings: , diagnosed with Diabetic - NIDDM, Unspecified heart disease.?Spouse: diagnosed with Other malignant neoplasm of unspecified site.? * Social History:?Tobacco Use:?Tobacco Use/Smoking?Are you a:?former smoker ?Additional Findings: Tobacco Non-User?Current non-smoker ?Tobacco use other than smoking?Are you an other tobacco user??No * Medications:?TakingamLODIPin e Besylate 10 MG Tablet 1 tablet Orally Once a day Atenolol 25 MG Tablet 1 tablet Orally Once a day Finasteride hydroCHLOROthiazide Losartan Potassium 100 MG Tablet 1 tablet Orally Once a day Omeprazole Simvastatin Xarelto 20 MG Tablet 1 tablet with food Orally Once a day Taking amLODIPine Besylate 10 MG Tablet 1 tablet Orally Once a day Taking Atenolol 25 MG Tablet 1 tablet Orally Once a day Taking Finasteride Taking hydroCHLOROthiazide Taking Losartan Potassium 100 MG Tablet 1 tablet Orally Once a day Taking Omeprazole Taking Simvastatin Taking Xarelto 20 MG Tablet 1 tablet with food Orally Once a day Not-Taking/PRNAmmonium Lactate 12 % Cream 1 application to affected area Externally to feet Twice a day Medication List reviewed and reconciled with the patientNot-Taking/PRN Ammonium Lactate 12 % Cream 1 application to affected area Externally to feet Twice a day Medication List reviewed and reconciled with the patient * Allergies:?Iodinated Diagnos tic Agents: hivesyes[Allergies Verified] Objective: * Vitals:?Ht: 5 ft 9 in, Wt: 2 45, BMI: 36.18, Shoe size: 10, BP: 130/78 mm Hg, Wt- k.13 kg. * Examination: ???Dermatologic: ?SKIN FINDINGS:?Skin exam reveals Keratotic lesion(s) located at, Medial plantar, TA, T5, SUB MTH (s), 1, B/L?.?Vascular: ?DP PULSES(B):? 3/4, B/L.?PT PULSES(B):? 0/4, RIGHT, 1/4, LEFT.?CAPILLARY FILL TIME:? delayed, all digits, B/L.?TROPHIC CONDITION-TEXTURE/ELASTICITY/TURGOR/HAIR GROWTH(B):? decreased, B/L.?TEMPERTURE GRADIENT(C):? decreased, cool to cool, proximal to distal, B/L.?PIGMENTATION:? brawny.?EDEMA(C):? 1/4, , B/L.?Nails: ?NAILS are:?Elongated, overgrown, dystrophic, lytic, greater than 3mm thick, discolored and friable with crumbly malodorous subungual debris, with pain on palpation, TA, T5l remaining? nails are elongated, overgrown, dystrophic.? Assessment: * Assessment: 1.?Tinea unguium - B35.1???2 .?Atherosclerosis of [place] artery of both lower extremities, with unspecified presence of clinical manifestation - I70.203 (Primary)???3.?Pain in right toe(s) - M79.674???4.?Pain in left toe(s) - M79.675??? Plan: * Treatment: * Procedures:?Debride Nails 1-5:?Procedure:?Performance of this nail treatment by a nonprofessional would put this patients foot and overall health at risk. Therefore, debridement to affected nail(s), as described in exam, was performed extensively to reduce/remove overall nail length, girth, thickness, subungual debris, and necrotic tissue, by manual and/or electrical means through the use of a nail nipper and/or dremel-type air grinder, to a more viable healthy nail plate or bed tissue 1-5. Silver nitrate used for any petechial bleeding as necessary. Definitive antifungal treatment options have been reviewed and discussed with the patient. The patient chooses, no pharmaceutical tx - 03010.?Keratoma Treatment:?Parring or Cutting of Benign Hyperkeratotic Lesion(s)?Q8, (-56) 2-4 Lesions - The Benign hyperkeratotic lesions, as described in exam, were pared, and/or cut utilizing a sterile 15 blade, tissue nippers, and/or dremel - 30679.?Nail Reduction:?Nail Reduction?Trimming of dystrophic nails performed to reduce/remove overall nail length and girth, by manual and electrical means with use of a nail nipper and/or dremel, to more viable healthy nail plate or bed tissue 6-10 (G0127- Q8).? * Procedure Codes:?G0127 JAYLEN ING DYSTROPHIC NAILS ANY #, Modifiers: XS , [id number] TRIM SKIN LESIONS, 2 TO 4, Modifiers: XS , [id number] DEBRIDE NAIL, 1-5, Modifiers: XS * Follow Up:?2 Months * Images: * Sign off status: Completed true * Provider:?Apple Solorio DPM Date:? Generated for Charmaine sanchez/Jil/Nuhaitting on:?04/25/2024 01:49 PM EST History and Physical Notes * HPI (History of Present Illness) Category Sub-Category Detail Notes Category Not es At Risk footcare Pt States Last PCP Visit: Date: Examination Category Sub-Category Detail Notes Category Not es Dermatologic SKIN FINDINGS: Skin exam reveal s Keratotic lesion(s) located at, Medial plantar, TA, T5, SUB MTH (s), 1, B/L Vascular DP PULSES (B): 3/4, B/L PT PULSES (B): 0/4, RIGHT, 1/4, LEF T CAPILLARY FILL TIME: delayed, all digits , B/L TEMPERTURE GRADIENT (C): decreased, cool to cool, proximal to distal, B/L TROPHIC CONDITION-TEXTURE/ELASTICITY/TURGOR/HAIR GROWTH (B): decreased, B/L EDEMA (C): 05/11, , B/L PIGMENTATION: brawny Nails NAILS are: Elongated, overg rown, dystrophic, lytic, greater than 3mm thick, discolored and friable with crumbly malodorous subungual debris, with pain on palpation, TA, T5l remaining nails are elongated, overgrown, dystrophic
--- OUTSIDE RECORDS SUMMARY | 2024-04-25 13:50 | XMS_ITS | Patient Health Record ---
Author Organization [facility] [place] Address [address] [place] [address] Care Team Providers Care Needle Punch Operator Name Role Phone Raj ARIAS, Harpal Primary Care Provider UnavailApple Baltazar Unavailable [phone] Allergies Allergen (clinical drug ingredient) Drug/Non Drug Allergy documented on EMR Reaction Allergy Type Onset Date Status Iodinated contrast media (substance) Iodinated Diagnostic Agents hives Drug Allergy Active Reason For Referral No Information Medications Medication SIG (Take, Route, Frequency, Duration) Notes Start Date End Date Status Omeprazole Active Losartan Potassium 100 MG 1 tablet Orall y Once a day Active hydroCHLOROthiazide Active Finasteride Active Atenolol 25 MG 1 tablet Orally Once a day Active amLODIPine Besylate 10 MG 1 tablet Orall y Once a day for 30 day(s) Active Ammonium Lactate 12 % 1 application to affected area Externally to feet Twice a day for 30 days Not-Taking Xarelto 20 MG 1 tablet with food Orally Once a day for 30 day(s) Active Simvastatin Active Immunizations Vaccine Route Administration Date Status Comme nts COVID-19 Pfizer BioNTech Vaccine Unknown 01/11/2021 Administered 1st: 07/04/20 2nd: 07/25/20 Social History Tobacco Use: Social History Observation Description Date Details (start date - stop date) Former Smoker NA - NA Tobacco Use/Smoking Question Answer Notes Are you a: former smoker Additional Findings: Tobacco Non-User Current no n-smoker Alcohol Screen Question Answer Notes Did you have a drink contain ing alcohol in the past year? Yes How often did you have a dri nk containing alcohol in the past year? 2 to 4 times a month (2 points) How often did you have 6 or more drinks on one occasion in the past year? Monthly (2 points) Points 4 Interpretation Positive Tobacco use other than smoking: Question Answer Notes Are you an other tobacco user? No Problems Problem Type SNOMED Code ICD Code Onset Dates Problem Status W/U Status Risk Notes Problem Atherosclerosis of [place] artery of both lower extremities, with unspecified presence of clinical manifestation (I70.203) Active confirmed Vital Signs Blood pressure diastolic 78 mm Hg 03/27/2024 Height 5 ft 9 in in 03/27/2024 Blood pressure systolic 130 mm Hg 03/27/2024 Weight 245 lbs 03/27/2024 BMI 36.18 kg/m2 03/27/2024 Encounters Encounter Location Date Provider Diagnosis [facility] [place] [address] [place] [address] 03/27/2024 Apple Osmin Atherosclerosis of [place] artery of both lower extremities, with unspecified presence of clinical manifestation I70.203 ; Tinea unguium B35.1 ; Pain in right toe(s) M79.674 and Pain in left toe(s) M79.675 Assessments Encounter Date Diagnosis (ICD Code) Assessment Notes Treatment Notes Treatment Clinical Notes Section Notes 03/27/2024 Tinea unguium (ICD-10 - B35.1) 03/27/2024 Atherosclerosis of [place] artery of both lower extremities, with unspecified presence of clinical manifestation (ICD-10 - I70.203) 03/27/2024 Pain in right toe(s) (ICD-10 - M79.674) 03/27/2024 Pain in left toe(s) (ICD-10 - M79.675) Plan Of Treatment No Information Insurance Providers Payer Name Payer Address Payer Phone Subscriber Number Group Number Insured Name Patient Relationship to Insured Coverage Start Date Coverage End Date Medicare [employer] [address] [place] [address] [phone] [id number] Ilir Mccabe Self - patient is the insured [employer] [facility] [address] [place] [address] [id number] Ilir Mccabe Self - patient is the insured Medical (General) History Medical History History ICD Code Back,Hip,and Knee pain CAD (Cholesterol) Gall bladder problems High blood pressure Measles Joint implants/screws A fib Sleep apnea hip replacement, RT Surgical History Surgery Date(Month/Year) left hip replacement 2007 gall bladder 2017 kidney removal (donated) knee replacement 10/04/22
--- OUTSIDE RECORDS SUMMARY | 2024-04-25 13:50 | XMS_ITS ---
Author Organization [facility] Address [address] [facility] [place] [address] Care Team Providers Care Accountant Budget Name Role Phone Harpal Anthony MD Primary Care Provider UnavailApple Baltazar Unavailable [phone] REASON FOR VISIT At Risk Footcare, Painful Nail(s) aggrevated by shoes and causing difficulty standing/walking. Medications Medication SIG (Take, Route, Frequency, Duration) Notes Start Date End Date Status Losartan Potassium 100 MG 1 tablet Orally Once a day Active Omeprazole Active Simvastatin Active Xarelto 20 MG 1 tablet with food O rally Once a day for 30 day(s) Active Ammonium Lactate 12 % 1 application to a ffected area Externally to feet Twice a day for 30 days Active Atenolol 25 MG 1 tablet Orally Once a day Active Finasteride Active hydroCHLOROthiazide Active amLODIPine Besylate 10 MG 1 tablet Orall y Once a day for 30 day(s) Active Encounters Encounter Location Date Provider Diagnosis [facility] [address] [place] [address] 01/10/2023 Apple Solorio Plan Of Treatment Next Appt Details Follow Up: 2 Months, Reason: Procedure Notes * Category Sub-Category Detail Notes Keratoma Treatment Parring or Cutting o f Benign Hyperkeratotic Lesion(s) 40541 ( >4 Lesions) - The Benign hyperkeratotic lesions, as described above were pared, and/or cut utilizing a sterile #15 blade, tissue nippers, and/or yaw, Q8 Nail Reduction Nail Reduction Trimming of dyst rophic nails performed to reduce/remove overall nail length and girth, by manual and electrical means with use of a nail nipper and/or dremel, to more viable healthy nail plate or bed tissue 6-10 ([id number]-G4) Progress Notes * Nancy MCCABEOB:1945 (78 yo M)Acc No.[id number]:01/10/2023 Progress Note Patient:Ilir CASTELLANO Provider:?Apple Solorio DPM :1945???Age:77 Y???Sex:Male Vel e:01/10/2023 Address:[address] [place] [address] Jay Faust, [address] [facility], [facility] Pcp:Harpal Anthony MD Subjective: * Chief Complaints: * ???1. At Risk Footcare. 2. P ainful Nail(s) aggrevated by shoes and causing difficulty standing/walking.. * HPI: ???At Risk footcare:?Pt States Last PCP Visit:?Date?01/21/2022 * ROS:?General/Constitutional:?Nausea?denies, denies, denies, denies.?Vomiting?denies, denies, denies, denies.?Hunger Thirst?denies, denies, denies, denies.?Loss appetite?denies, denies, denies, denies.?Chills?denies, denies, denies, denies.?Fatigue?denies, denies, denies, denies.?Fever?denies, denies, denies, denies.?Night Sweats?denies, denies, denies, denies.?Unexplained weight loss?denies, denies, denies, denies.?Unexplained weight gain?denies, denies, denies, denies.?HEENTM:?Dentures?denies, denies, denies, denies.?Dizziness?denies, denies, denies, denies.?Glasses/contacts?admits, admits, admits, admits.?Retinopathy?denies, denies, denies, denies.?Blurred/double vision?denies, denies, denies, denies.?TMJ?denies, denies, denies, denies.?Discharge/drainage?denies, denies, denies, denies.?Implants?denies, denies, denies, denies.?Sore throat?denies, denies, denies, denies.?Dental implants?denies, denies, denies, denies.?Hard of hearing ?denies, denies, denies, denies.?Difficulty chewing/swallowing/speaking?denies, denies, denies, denies.?Nose bleeds?denies, denies, denies, denies.?Sore mouth?denies, denies, denies, denies.?Respiratory:?On Oxygen?denies, denies, denies, denies.?Pneumonia/pleurisy?denies, denies, denies, denies.?Bronchitis?denies, denies, denies, denies.?Emphysema?denies, denies, denies, denies.?Coughing?denies, denies, denies, denies. Cough blood?denies, denies, denies, denies.?Shortness of breath?denies, denies, denies, denies.?Wheezing?denies, denies, denies, denies.?Cardiovascular:?Pacemaker?denies, denies, denies, denies.?MVP?denies, denies, denies, denies.?WPW?denies, denies, denies, denies.?CHF?denies, denies, denies, denies.?Heart attack?denies, denies, denies, denies.?Septal defect?denies, denies, denies, denies.?Rapid beat?denies, denies, denies, denies.?Chest pain ?denies, denies, denies, denies.?Atrial Fib.?denies, denies, denies, denies.?Murmur/Palpitations?denies, denies, denies, denies.?Gastrointestinal:?Hemorrhoids?denies, denies, denies, denies.?Stomach/Abdominal pain?denies, denies, denies, denies.?Dark blood stool?denies, denies, denies, denies.?Irritable bowel ?denies, denies, denies, denies.?Constipation?denies, denies, denies, denies.?Diarrhea?denies, denies, denies, denies.?Hematology:?Swelling?denies, denies, denies, denies.?Clots?denies, denies, denies, denies.?Varicose Veins?denies, denies, denies, denies.?Bruising?denies, denies, denies, denies.?Bleeding problem?denies, denies, denies, denies.?Genitourinary:?Blood urine?denies, denies, denies, denies.?Frequent/Painfu/urination/bladder control?denies, denies, denies, denies.?Kidney stones?denies, denies, denies, denies.?Infection (UTI)?denies, denies, denies, denies.?Nephropathy denies, denies, denies, denies.?sex trans dis (STD)?denies, denies, denies, denies.?Prostate?denies, denies, denies, denies.?Musculoskeletal:?Hammertoes?denies, denies, denies, denies.?Bunions?denies, denies, denies, denies.?Back Pain?denies, denies, denies, denies.?Muscle Cramps/ Resting?denies, denies, denies, denies.?Muscle cramps / walking?denies, denies, denies, denies.?Generalized aches and pains?denies, denies, denies, denies.?Weakness?denies, denies, denies, denies.?Integ.:?Tellez?denies, denies, denies, denies.?Scars?denies, denies, denies, denies.?Corns/calluses?denies, denies, denies, denies.?Ingrown nails?denies, denies, denies, denies.?Painful nails?denies, denies, denies, denies. Open Sores?denies, denies, denies, denies.?Rashes?denies, denies, denies, denies.?Neurologic:?Difficulty sleeping?denies, denies, denies, denies.?Brain disorder?denies, denies, denies, denies.?Numbness?admits, admits, admits, admits.?Balance trouble?denies, denies, denies, denies.?Confusion?denies, denies, denies, denies.?Fainting/blackouts?denies, denies, denies, denies.?Tingling?denies, denies, denies, denies.?Tremors?denies, denies, denies, denies.? * Medical History:? * Medications:?Taking amLODIPi ne Besylate 10 MG Tablet 1 tablet Orally Once a day , Taking Atenolol 25 MG Tablet 1 tablet Orally Once a day , Taking Finasteride , Taking hydroCHLOROthiazide , Taking Losartan Potassium 100 MG Tablet 1 tablet Orally Once a day , Taking Omeprazole , Taking Simvastatin , Taking Xarelto 20 MG Tablet 1 tablet with food Orally Once a day , Taking Ammonium Lactate 12 % Cream 1 application to affected area Externally to feet Twice a day Objective: * Vitals:? * Examination: ???Dermatologic: ?SKIN FINDINGS:?Skin exam reveals Keratotic lesion(s) located at, Medial plantar, TA, T5, SUB MTH (s), 1, B/L , Heel(s), B/L .?Vascular: ?DP PULSES (B):? 3/4, B/L.?PT PULSES (B):? 0/4, RIGHT, 1/4, LEFT.?CAPILLARY FILL TIME:? delayed, all digits, B/L.?TROPHIC CONDITION-TEXTURE/ELASTICITY/TURGOR/HAIR GROWTH (B):? decreased, B/L.?TEMPERTURE GRADIENT (C):? decreased, cool to cool, proximal to distal, B/L.?PIGMENTATION:? brawny.?EDEMA (C):? /4, , B/L.?Nails: ?NAILS are:? 1-5 B/L, nails are elongated, overgrown, dystrophic.? Assessment: Plan: * Treatment: * Procedures:?Keratoma Treatment:?Parring or Cutting of Benign Hyperkeratotic Lesion(s)?04171 ( >4 Lesions) - The Benign hyperkeratotic lesions, as described above were pared, and/or cut utilizing a sterile #15 blade, tissue nippers, and/or dremel, Q8.?Nail Reduction:?Nail Reduction?Trimming of dystrophic nails performed to reduce/remove overall nail length and girth, by manual and electrical means with use of a nail nipper and/or dremel, to more viable healthy nail plate or bed tissue 6-10 (G0127- Q8).? * Procedure Codes:?G0127 JAYLEN ING DYSTROPHIC NAILS ANY #, Modifiers: XS , Q8, GY, [address] TRIM SKIN LESIONS, OVER 4, Modifiers: XS , Q8, GY * Follow Up:?2 Months * Images: * The named appointment provid er may or may not be the originator of this progress note, and it is not deemed complete until electronically signed by the appointment provider. Sign off status: Pending * Provider:?Apple Solorio DPM Date:?09/2022 Generated for Charmaine sanchez/Jil/Chantel on:?04/25/2024 01:50 PM EST History and Physical Notes * HPI (History of Present Illness) Category Sub-Category Detail Notes Category Not es At Risk footcare Pt States Last PCP Visit: Date: 2 Examination Category Sub-Category Detail Notes Category Not es Dermatologic SKIN FINDINGS: Skin exam reveal s Keratotic lesion(s) located at, Medial plantar, TA, T5, SUB MTH (s), 1, B/L , Heel(s), B/L Vascular DP PULSES (B): 3/4, B/L PT PULSES (B): 0/4, RIGHT, 1/4, LEF T CAPILLARY FILL TIME: delayed, all digits , B/L TEMPERTURE GRADIENT (C): decreased, cool to cool, proximal to distal, B/L TROPHIC CONDITION-TEXTURE/ELASTICITY/TURGOR/HAIR GROWTH (B): decreased, B/L EDEMA (C): 1/4, , B/L PIGMENTATION: brawny Nails NAILS are: 1-5 B/L, nails are elongated , overgrown, dystrophic
--- OUTSIDE RECORDS SUMMARY | 2024-04-25 13:50 | XMS_ITS ---
Author Organization [facility] Address [address] [facility] [place] [address] Care Team Providers Care Disability Examiner Name Role Phone Harpal Anthony MD Primary Care Provider Unavailab Apple Baca Unavailable [phone] REASON FOR VISIT 1st No Show Encounters Encounter Location Date Provider Diagnosis [facility] [address] [place] [address] 01/10/2023 Apple Solorio Plan Of Treatment No Information Progress Notes * Nancy MCCABEOB:1945 (77 yo M)Acc No.[id number]:01/10/2023 Patient:?Ilir Mccabe :1945???Age:77 Y???Sex:Male Address:[address], [address] [facility] [place] [address] * true * Date:? Generated for Wayloni laura/Jil/eTransmitting on:?04/25/2024 01:50 PM EST
--- NOTE | 2024-04-25 13:52 | MHC.OFFVIS ---
Vital Signs 04/25/24 13:53 Height 5 ft 10 in Weight 246 lb 14.684 oz BMI 35.4 BP 130/68 Blood Pressure Location Lt brachial Position Sitting Pulse 78 Pulse Source Pulse Oximeter Intake Visit Reasons: 6 mth s/p echo/ holter Allergies Iodinated Contrast Media [IV DYE, IODINE CONTAINING CONTRAST ] Allergy (Severe, Verified 02/05/24 16:09) HIVES dabigatran etexilate [From PRADAXA] Allergy (Unknown, Verified 02/05/24 16:09) REFLUX Medication List - Last Reconciled 04/25/24 by Glenroy Ware MD albuterol sulfate 90 mcg/actuation 2 puffs PO Q4-6H PRN amlodipine 5 mg PO DAILY atenolol 25 mg PO DAILY hydrochlorothiazide 25 mg PO DAILY inhalational spacing device (Aerochamber MV spacer) As directed losartan 50 mg PO DAILY omeprazole 20 mg PO DAILY rivaroxaban 20 mg PO DAILY sildenafil 100 mg PO ONCE PRN 90 days simvastatin 20 mg PO BEDTIME Symbicort 160-4.5 mcg/actuation (budesonide-formoterol) 2 puffs PO Q12H NS tamsulosin 0.4 mg PO BEDTIME 90 days zolpidem 10 mg PO BEDTIME PRN HPI Comments Details: Ilir returns for follow-up regarding atrial fibrillation. He has had chronic shortness of breath but he states that he is actually better now than before. No angina. He does not feel any palpitations. Otherwise, similar to before. [facility] Medical History Obesity (BMI 30-39.9) COPD (chronic obstructive pulmonary disease) Kidney donor Obstructive sleep apnea on CPAP Essential hypertension Shortness of breath Persistent atrial fibrillation Surgical History History of laparoscopic cholecystectomy (~04/2017) History of hip replacement History of transesophageal echocardiography (SOFIA) Family History Father No problems noted. Mother No problems noted. Social History Alcohol intake: current Alcohol intake frequency: holidays/special occasions only Patient Tobacco Use Status: Former Tobacco user Review of Systems Const Denies weakness ENT Denies dizziness Card Denies chest pain, Denies chest pain with activity, Denies syncope, Denies rapid heart rate, Denies pedal edema, Denies edema, Denies leg edema, Denies lightheadedness, Denies palpitations, Denies dyspnea, Denies dyspnea on exertion and Denies orthopnea Resp Denies cough, Denies dyspnea and Denies dyspnea on exertion GI Denies hematochezia and Denies change in stool character Musc Denies abnormal gait, Denies muscle cramps, Denies muscle weakness, Denies numbness, Denies radiating pain into limb and Denies tingling Neuro Denies abnormal gait, Denies dizziness, Denies syncope, Denies numbness, Denies tingling and Denies weakness Endo Denies palpitations Physical Exam Vital Signs: Last Vital Signs Pulse 78 04/25/24 13:53 BP 130/68 04/25/24 13:53 BMI result Body Mass Index 35.4 Const General: comfortable and no acute distress Orientation/consciousness: patient oriented x3 HEENT Other: Unremarkable Head: Yes normal to inspection Neck Neck: Yes normal visual inspection Chest Chest palpation & inspection: normal inspection of the chest Resp Auscultation: clear to auscultation bilaterally Cardio Palpation: normal PMI Heart sounds: S1 normal heart sound present, S2 normal heart sound present, no gallops, no murmurs and no rubs GI Palpation (GI): Soft to palpation Back/Spine/Pelvis Other: unremarkable Skin General skin exam: no rashes or lesions noted Neuro General: patient oriented x3 Extrem General: Yes normal to inspection Psych Mental Status: mental status grossly normal Assessment & Plan Assessment & Plan (1) Persistent atrial fibrillation: Code(s): I48.19 - Other persistent atrial fibrillation Category: Medical Plan: Has been present for >10 years since 2012. May continue atenolol without changes. When it was stopped in the past, rate was faster. Continue Xarelto. Due to duration of atrial fibrillation, likely permanent finding. (2) Cardiomyopathy: Code(s): I42.9 - Cardiomyopathy, unspecified Category: Medical Plan: In the most recent echocardiogram, LVEF is 48%. Basal inferior hypokinesis. [id number] mitral/tricuspid regurgitation. Similar to prior study. In 2020, he underwent myocardial perfusion imaging study that showed no reversible ischemia; in that study, gated LVEF was 48% with stress and 38% during rest. Mild drop in LVEF could be related to atrial fibrillation. No evidence of CHF on exam. Repeat stress perfusion imaging study. (3) Essential hypertension: Code(s): I10 - Essential (primary) hypertension Category: Medical Plan: Stable. No changes. (4) Obstructive sleep apnea on CPAP: Code(s): G47.33 - Obstructive sleep apnea (adult) (pediatric); Z99.89 - Dependence on other enabling machines and devices Category: Medical Plan: Continue CPAP. (5) COPD (chronic obstructive pulmonary disease): Code(s): J44.9 - Chronic obstructive pulmonary disease, unspecified Category: Medical Plan: Likely major contributor to his shortness of breath. PFTs from 2020-severe obstructive ventilatory defect with positive bronchodilator response. Decreased respiratory reserve volume suggesting extrathoracic restriction, likely from abdominal obesity. (6) Kidney donor: Code(s): Z52.4 - Kidney donor Category: Medical Plan: Last available creatinine from 2022- 1.28 with EGFR of 58. We will request more recent labs from PCP. Plan Orders: Orders CA stress test Today R07.2 - Precordial pain NM cardiolite stress test Today R07.2 - Precordial pain Coding Level of Care Code Est Pt Level 4 (51521) Diagnoses Persistent atrial fibrillation I48.19 Cardiomyopathy I42.9 Essential hypertension I10 Obstructive sleep apnea on CPAP G47.33; Z99.89 COPD (chronic obstructive pulmonary disease) J44.9 Kidney donor Z52.4
[2024-04-25 13:53] VITALS: BP 130/68; PULSE 78; BMI 35.4
== END 2024-04-25 14:20 | disposition home or self-care (01) ==
PROVIDERS: PCP Internal Medicine; Visit Provider Internal Medicine
DX: I48.19 Other persistent atrial fibrillation (principal); I42.9 Cardiomyopathy, unspecified; I10 Essential (primary) hypertension; G47.33 Obstructive sleep apnea (adult) (pediatric); Z99.89 Dependence on other enabling machines and devices; J44.9 Chronic obstructive pulmonary disease, unspecified; Z52.4 Kidney donor
CPT/HCPCS: 99214

== ENCOUNTER → 2024-04-25 13:47 | Outpatient (BNVA) | payer MEDICARE, SELFPAY | PROVIDERS: PCP Internal Medicine; Visit Provider Internal Medicine | DX: I48.19 Other persistent atrial fibrillation (principal); I42.9 Cardiomyopathy, unspecified; I10 Essential (primary) hypertension; G47.33 Obstructive sleep apnea (adult) (pediatric); J44.9 Chronic obstructive pulmonary disease, unspecified; Z99.89 Dependence on other enabling machines and devices; Z52.4 Kidney donor | CPT/HCPCS: 99212 ==

== ENCOUNTER 2024-05-15 10:25 | Outpatient (AMB) | payer MEDICARE, SELFPAY ==
--- NOTE | 2024-05-15 10:32 | MHC.OFFVIS ---
Vital Signs 05/15/24 10:34 Height 5 ft 10 in Weight 259 lb 0.69 oz BMI 37.2 BP 140/70 H Blood Pressure Location Lt brachial Position Sitting Pulse 84 Pulse Source Pulse Oximeter Pulse Oximetry (%) 94 Oxygen Delivery Method Room Air Intake Visit Reasons: COPD Intake Note: pt is here for follow up and states he is doing okay, but dry with cpap, needs refill on albuterol hfa inhaler. Allergies Iodinated Contrast Media [IV DYE, IODINE CONTAINING CONTRAST ] Allergy (Severe, Verified 05/15/24 10:52) HIVES dabigatran etexilate [From PRADAXA] Allergy (Unknown, Verified 05/15/24 10:52) REFLUX Medication List - Last Reconciled 05/15/24 by Rocky Ching MD albuterol sulfate 90 mcg/actuation 2 puffs PO Q4-6H PRN amlodipine 5 mg PO DAILY atenolol 25 mg PO DAILY hydrochlorothiazide 25 mg PO DAILY inhalational spacing device (Aerochamber MV spacer) As directed losartan 50 mg PO DAILY omeprazole 20 mg PO DAILY rivaroxaban 20 mg PO DAILY sildenafil 100 mg PO ONCE PRN 90 days simvastatin 20 mg PO BEDTIME Symbicort 160-4.5 mcg/actuation (budesonide-formoterol) 2 puffs PO Q12H NS tamsulosin 0.4 mg PO BEDTIME 90 days zolpidem 10 mg PO BEDTIME PRN Do you need a note to return to daycare/school/sports/work: No HPI HPI COPD: Details: This 78 years old gentleman, comes for follow-up for bronchial asthma and obstructive sleep apnea. Asthma remains under good control, but he is usually tight and congested in the morning hours and has to use the albuterol in nebulizer. During rest of the day he does well just with Symbicort 2 puffs b.i.d.. Has been using CPAP very regularly and sleeps well. Weight is gone up because of the winter month and lack of physical activity. [facility] Medical History Obesity (BMI 30-39.9) COPD (chronic obstructive pulmonary disease) Kidney donor Obstructive sleep apnea on CPAP Essential hypertension Shortness of breath Persistent atrial fibrillation Surgical History History of laparoscopic cholecystectomy (~04/2017) History of hip replacement History of transesophageal echocardiography (SOFIA) Family History Father No problems noted. Mother No problems noted. Social History Alcohol intake: current Alcohol intake frequency: holidays/special occasions only Patient Tobacco Use Status: Former Tobacco user Review of Systems Const All systems reviewed & are unremarkable except as noted in HPI and below Eyes Reports no additional complaints ENT Reports no additional complaints Card Denies chest pain, Reports irregular heart rhythm (Atrial fibrillation), Denies leg edema and Denies dyspnea on exertion Resp Reports as per HPI and Denies dyspnea on exertion GI Denies no additional complaints Reports other (Being treated for BPH) Musc Reports no additional complaints Skin/Breast Reports system reviewed and no additional complaints, except as documented Neuro Reports no additional complaints Psych Reports no additional complaints Endo Reports no additional complaints Physical Exam Vital Signs: Last Vital Signs Pulse 84 05/15/24 10:34 BP 140/70 H 05/15/24 10:34 Pulse Ox 94 05/15/24 10:34 Oxygen Delivery Method Room Air 05/15/24 10:34 BMI result Body Mass Index 37.2 Const General: comfortable, no acute distress, alert and awake Orientation/consciousness: patient oriented x3 HEENT Head: Yes normal to inspection General nose exam: No nasal polyps present and No nasal discharge present Face and sinus: Yes sinuses nontender Mouth: oropharynx normal Throat: Yes posterior oropharynx normal Eyes General: appearance normal, both eyes and all related structures Neck Neck: Yes normal visual inspection, Yes no lymphadenopathy, Yes trachea midline and Yes no JVD Thyroid: Thyroid normal Chest Chest palpation & inspection: normal inspection of the chest, normal palpation of entire chest wall and no tenderness Resp Other: Percussion note resonant. Breath sounds are distant with prolonged expiratory phase. No audible wheezes rhonchi or crepitations. Cardio Palpation: normal PMI Rate: regular rate Rhythm: abnormal rhythm (Atrial fibrillation) Heart sounds: no gallops and no murmurs GI Palpation (GI): Soft to palpation, nontender, No hepatosplenomegaly present and no masses Auscultation: normal bowel sounds Back/Spine/Pelvis Thoracic/Lumbar Spine: thoracic and lumbar spine normal to inspection Skin General skin exam: no rashes or lesions noted Neuro General: patient oriented x3 and no focal motor deficits Cranial nerves: Yes CN's II-XII intact bilaterally Extrem General: Yes normal to inspection, No no joint enlargement (Right knee she moderately enlarged and irregular.), Yes no calf tenderness and Yes edema (1 + pitting edema of the legs ) Psych Appearance: grossly normal Speech and movement: Normal speech and movement present Results Reviewed Results Reviewed: Compliance report is reviewed He has used 27/30 days, 90%. Missed using a few nights when he had surgery on the gums. Average usage 5 hours 18 minutes. There is slight air leak. Residual AHI only 0.4 Assessment & Plan Assessment & Plan (1) COPD (chronic obstructive pulmonary disease): Comment: He has the asthma/COPD which is well controlled, with current regimen. Code(s): J44.9 - Chronic obstructive pulmonary disease, unspecified Category: Medical Plan: Symbicort 160-4.52 puffs b.i.d. Albuterol HFA 2 puffs Q 6 hours p.r.n. when outdoors. When in the house he can use albuterol solution in the nebulizer Q 4-6 hours p.r.n., but avoid using more than once or twice a day. (2) Obesity (BMI 30-39.9): Comment: VICTOR HUGO REMAINS GROSSLY OBESE, HAS GAINED SOME WEIGHT AND IS BACK TO HIS BASELINE, THIS IS DUE TO LACK OF. PHYSICAL ACTIVITY DURING THE WINTER MONTHS Code(s): E66.9 - Obesity, unspecified Category: Medical Plan: ENCOURAGED TO START WALKING AT LEAST 2 MILES EVERY DAY AND CUT DOWN ON THE INTAKE OF CARBOHYDRATES. HE PLANS TO GO TO [place] FOR THE NEXT FEW MONTHS AND WILL START WALKING MORE OVER THE. (3) Obstructive sleep apnea on CPAP: Comment: PATIENT USES CPAP VERY. REGULARLY AND SLEEP OKAY NO ISSUES WITH THE CPAP Code(s): G47.33 - Obstructive sleep apnea (adult) (pediatric); Z99.89 - Dependence on other enabling machines and devices Category: Medical Plan: COMMENDED FOR GOOD COMPLIANCE AND ENCOURAGED TO KEEP ON USING IT EVERY NIGHT. Medications: Refilled albuterol sulfate 90 mcg/actuation 2 puffs PO Q4-6H PRN 9 grams 4RF for wheezing J44.9 - Chronic obstructive pulmonary disease, unspecified Coding Level of Care Code Est Pt Level 3 (46950) Diagnoses COPD (chronic obstructive pulmonary disease) J44.9 Obesity (BMI 30-39.9) E66.9 Obstructive sleep apnea on CPAP G47.33; Z99.89
[2024-05-15 10:34] VITALS: BP 140/70; PULSE 84; O2SAT 94; BMI 37.2
--- OUTSIDE RECORDS SUMMARY | 2024-05-15 10:51 | XMS_ITS ---
Author Organization [facility] Address [address] [place] [address] Care Team Providers Care Ethical Hacker Name Role Phone Harpal Anthony MD Primary Care Provider UnavailApple Baltazar Unavailable [phone] REASON FOR VISIT At Risk Footcare, Painful [...] Active Encounters Encounter Location Date Provider Diagnosis [facility] [address] [place] [address] 01/10/2023 Apple Solorio Plan Of Treatment Next Appt Details Follow Up: 2 Months, Reason: Procedure Notes * Category Sub-Category Detail Notes Keratoma Treatment Parring or Cutting o f Benign Hyperkeratotic Lesion(s) 80580 ( >4 Lesions) - The Benign hyperkeratotic [...] healthy nail plate or bed tissue 6-10 (C0682-J0) Progress Notes * Nancy MCCABEOB:1945 (78 yo M)Acc No.[id number]:01/10/2023 Progress Note Patient:Ilir CASTELLANO Provider:?Apple Solorio DPM :1945???Age:77 Y???Sex:Male Vel e:01/10/2023 Address:[address] [place] [address] Jay Faust, [address] [facility], [facility] Pcp:Harpal Anthony MD Subjective: * Chief Complaints: [...] Procedures:?Keratoma Treatment:?Parring or Cutting of Benign Hyperkeratotic Lesion(s)?88625 ( >4 Lesions) - The Benign hyperkeratotic [...] ANY #, Modifiers: XS , Q8, GY, 60181 TRIM SKIN LESIONS, OVER 4, Modifiers: XS , Q8, GY * Follow Up:?2 Months * Images: * The named appointment provid er may or may not be the originator of this progress note, and it is not deemed complete until electronically signed by the appointment provider. Sign off status: Pending * Provider:?Apple Solorio DPM Date:?09/2022 Generated for Charmaine sanchez/Jil/Chantel on:?05/15/2024 10:50 AM EST History and Physical Notes * HPI [...]
--- OUTSIDE RECORDS SUMMARY | 2024-05-15 10:51 | XMS_ITS ---
Author Organization [facility] Address [address] [facility] [place] [place] [address] Care Team Providers Care Pain Medicine Physician Name Role Phone Harpal Anthony MD Primary Care Provider Unavailab Apple Baca Unavailable [phone] REASON FOR VISIT 1st No Show Encounters Encounter Location Date Provider Diagnosis [facility] [address] [place] [address] 01/10/2023 Apple Solorio Plan Of Treatment No Information Progress Notes * Nancy MCCABEOB:1945 (77 yo M)Acc No.[id number]:01/10/2023 Patient:?Ilir Mccabe :1945???Age:77 Y???Sex:Male Address:[address], [place] [facility] [place] [address] * true * Date:? Generated for Wayloni laura/Jil/eTransmitting on:?05/15/2024 10:50 AM EST
--- OUTSIDE RECORDS SUMMARY | 2024-05-15 10:51 | XMS_ITS ---
Author Organization [facility] Address [address] [place] [address] Care Team Providers Care E Commerce Manager Name Role Phone Harpal Anthony MD Primary Care Provider UnavailApple Baltazar Unavailable [phone] Allergies Allergen (clinical drug ingredient) Drug/Non Drug [...] 024 Encounters Encounter Location Date Provider Diagnosis [facility] [address] [place] [address] 03/27/2024 Apple Solorio Atherosclerosis of lower [place] artery of both lower extremities, with unspecified presence of clinical manifestation I70.203 ; Tinea unguium B35.1 ; Pain in right toe(s) M79.674 and Pain in left toe(s) M79.675 Assessments Encounter Date Diagnosis (ICD Code) Assessment Notes Treatment Notes Treatment Clinical Notes Section Notes 03/27/2024 Atherosclerosis of lower [place] artery of both lower extremities, with unspecified [...] Cutting o f Benign Hyperkeratotic Lesion(s) Q8, (-26) 2-4 Lesions - The Benign hyperkeratotic lesions, as described in exam, were pared, and/or cut utilizing a sterile 15 blade, tissue nippers, and/or dremel - 02479 Debride Nails 1-5 Procedure: Performance of this nail treatment by a nonprofessional would put this patients foot and overall health at risk. Therefore, debridement to affected nail(s), as described in exam, was performed extensively to reduce/remove overall nail length, girth, thickness, subungual debris, and necrotic tissue, by manual and/or electrical means through the use of a nail nipper and/or dremel-type stand grinder, to a more viable healthy nail plate or bed tissue 1-5. Silver nitrate used for any petechial bleeding as necessary. Definitive antifungal treatment options have been reviewed and discussed with the patient. The patient chooses, no pharmaceutical tx - 05379 Nail Reduction Nail Reduction Trimming of dyst rophic nails performed to reduce/remove overall nail length and girth, by manual and electrical means with use of a nail nipper and/or dremel, to more viable healthy nail plate or bed tissue 6-10 (U6081-T5) Progress Notes * Nancy MCCABEOB:1945 (78 yo M)Acc No.[id number]:03/27/2024 Progress Note Patient:Ilir CASTELLANO Provider:?Apple Solorio DPM :1945???Age:78 Y???Sex:Male Vel e:03/27/2024 Address:[address] [facility] [place], [place] Pcp:Harpal Anthony MD Subjective: * Chief Complaints: [...] Assessment: 1.?Tinea unguium - B35.1???2 .?Atherosclerosis of lower [place] artery of both lower extremities, with unspecified [...] use of a nail nipper and/or dremel-type stand grinder, to a more viable healthy nail plate or bed tissue 1-5. Silver nitrate used for any petechial bleeding as necessary. Definitive antifungal treatment options have been reviewed and discussed with the patient. The patient chooses, no pharmaceutical tx - 01709.?Keratoma Treatment:?Parring or Cutting of Benign Hyperkeratotic Lesion(s)?Q8, (-56) 2-4 Lesions - The Benign hyperkeratotic lesions, as described in exam, were pared, and/or cut utilizing a sterile 15 blade, tissue nippers, and/or dremel - 96662.?Nail Reduction:?Nail Reduction?Trimming of dystrophic nails performed to reduce/remove overall nail length and girth, by manual and electrical means with use of a nail nipper and/or dremel, to more viable healthy nail plate or bed tissue 6-10 (G0127- Q8).? * Procedure Codes:?G0127 JAYLEN ING DYSTROPHIC NAILS ANY #, Modifiers: XS , [id number] TRIM SKIN LESIONS, 2 TO 4, Modifiers: XS , [id number] DEBRIDE NAIL, 1-5, Modifiers: XS * Follow Up:?2 Months * Images: * Sign off status: Completed true * Provider:?Apple Solorio DPM Date:? Generated for Charmaine sanchez/Jil/Chantel on:?05/15/2024 10:50 AM [...]
--- OUTSIDE RECORDS SUMMARY | 2024-05-15 10:51 | XMS_ITS | Patient Health Record ---
Author Organization [facility] Address [address] [facility] [place] [place] [address] Care Team Providers Care Supervisor Machine Workers Name Role Phone Raj ARIAS, Harpal Primary Care Provider UnavailApple Baltazar Unavailable [phone] Allergies Allergen (clinical drug ingredient) Drug/Non Drug [...] W/U Status Risk Notes Problem Atherosclerosis of [place] artery of both lower extremities, with unspecified presence of clinical manifestation (I70.203) Active confirmed Vital Signs Blood pressure diastolic 78 mm Hg 03/27/2024 Height 5 ft 9 in in 03/27/2024 Blood pressure systolic 130 mm Hg 03/27/2024 Weight 245 lbs 03/27/2024 BMI 36.18 kg/m2 03/27/2024 Encounters Encounter Location Date Provider Diagnosis [facility] [place] [address] [place] [address] 03/27/2024 Apple Osmin Atherosclerosis of [place] artery of both lower extremities, with unspecified presence of clinical manifestation I70.203 ; Tinea unguium B35.1 ; Pain in right toe(s) M79.674 and Pain in left toe(s) M79.675 Assessments Encounter Date Diagnosis (ICD Code) Assessment Notes Treatment Notes Treatment Clinical Notes Section Notes 03/27/2024 Tinea unguium (ICD-10 - B35.1) 03/27/2024 Atherosclerosis of [place] artery of both lower extremities, with unspecified [...] Medicare National [employer] [address] [place] [address] [phone] [id number] Iilr Mccabe Self - patient is the insured [employer] [facility] [address] [place] [address] [id number] Ilir Mccabe Self - patient is the insured Medical (General) History Medical History History ICD Code Back,Hip,and Knee pain CAD (Cholesterol) Gall bladder problems High blood pressure Measles Joint implants/screws A fib Sleep apnea hip replacement, RT Surgical History Surgery Date(Month/Year) left hip replacement 2007 gall bladder 2017 kidney removal (donated) knee replacement 10/04/22
== END 2024-05-15 10:53 | disposition home or self-care (01) ==
PROVIDERS: PCP Internal Medicine; Visit Provider Internal Medicine
DX: J44.9 Chronic obstructive pulmonary disease, unspecified (principal); E66.9 Obesity, unspecified; G47.33 Obstructive sleep apnea (adult) (pediatric); Z99.89 Dependence on other enabling machines and devices
CPT/HCPCS: 99213

== ENCOUNTER → 2024-05-15 10:25 | Outpatient (BNVA) | payer MEDICARE, SELFPAY | PROVIDERS: PCP Internal Medicine; Visit Provider Internal Medicine | DX: J44.9 Chronic obstructive pulmonary disease, unspecified (principal); G47.33 Obstructive sleep apnea (adult) (pediatric); E66.9 Obesity, unspecified; Z99.89 Dependence on other enabling machines and devices; Z68.37 Body mass index [BMI] 37.0-37.9, adult | CPT/HCPCS: 99212 ==

== ENCOUNTER 2024-08-21 09:24 | Outpatient (AMB) | payer MEDICARE, SELFPAY ==
[2024-08-21 09:32] VITALS: BP 142/78; PULSE 81; O2SAT 96; BMI 37.0
--- NOTE | 2024-08-21 09:32 | MHC.OFFVIS ---
Vital Signs 08/21/24 09:32 Height 5 ft 10 in Weight 258 lb BMI 37.0 BP 142/78 H Blood Pressure Location Lt brachial Position Sitting Pulse 81 Pulse Source Doppler Pulse Oximetry (%) 96 Oxygen Delivery Method Room Air Intake Visit Reasons: COPD Intake Note: Patient is here for a COPD routine follow up, no new symptoms Allergies Iodinated Contrast Media [IV DYE, IODINE CONTAINING CONTRAST ] Allergy (Severe, Verified 08/21/24 09:48) HIVES dabigatran etexilate [From PRADAXA] Allergy (Unknown, Verified 08/21/24 09:48) REFLUX Medication List - Last Reconciled 08/21/24 by Rocky Ching MD albuterol sulfate 90 mcg/actuation 2 puffs PO Q4-6H PRN albuterol sulfate 2.5 mg inhalation Q4-6H PRN amlodipine 5 mg PO DAILY atenolol 25 mg PO DAILY budesonide-formoterol 160-4.5 mcg/actuation (Symbicort) 2 puffs PO Q12H hydrochlorothiazide 25 mg PO DAILY inhalational spacing device (Aerochamber MV spacer) As directed losartan 50 mg PO DAILY omeprazole 20 mg PO DAILY rivaroxaban 20 mg PO DAILY sildenafil 100 mg PO ONCE PRN 90 days simvastatin 20 mg PO BEDTIME tamsulosin 0.4 mg PO BEDTIME 90 days zolpidem 10 mg PO BEDTIME PRN Do you need a note to return to daycare/school/sports/work: No HPI HPI COPD: Details: PATIENT IS A PLEASANT 78-YEAR-OLD HERE TODAY FOR FOLLOW-UP FOR HIS COPD AND ROMA PATIENT WAS RECENTLY IN [place] FOR A FEW MONTHS AND WAS HAVING DIFFICULTY WITH AIR LEAKS WITH THE CPAP MACHINE. RECEIVED NEW MASK AND SUPPLIES AND IS CURRENTLY HAVING NO TROUBLE WITH THE CPAP MACHINE. HE IS FEELING WELL AND HAS NOT HAD ANY RECENT RESPIRATORY ISSUES CONTINUES TO USE SYMBICORT 4.5 MCG 2 PUFFS TWICE A DAY AND ALBUTEROL SULFATE 90 MCG 2 PUFFS EVERY 4-6 HOURS NEEDED. USES HALF VIAL OF ALBUTEROL SULFATE 2.5 MCG IN THE MORNING AND HALF VIAL OF ALBUTEROL SULFATE 2.5 MG IN EVENING COMPLAINS OF SOME SHORTNESS OF BREATH WITH EXERTION AND WAS QUESTIONING IF HE SHOULD RETURN TO PULMONARY REHAB AFTER FURTHER DISCUSSION HE HE DECIDED TO [facility] Medical History Obesity (BMI 30-39.9) COPD (chronic obstructive pulmonary disease) Kidney donor Obstructive sleep apnea on CPAP Essential hypertension Shortness of breath Persistent atrial fibrillation Surgical History History of laparoscopic cholecystectomy (~04/2017) History of hip replacement History of transesophageal echocardiography (SOFIA) Family History Father No problems noted. Mother No problems noted. Social History Alcohol intake: current Alcohol intake frequency: holidays/special occasions only Patient Tobacco Use Status: Former Tobacco user Review of Systems Const All systems reviewed & are unremarkable except as noted in HPI and below Eyes Reports no additional complaints ENT Reports no additional complaints Card Denies chest pain, Reports irregular heart rhythm (Atrial fibrillation), Denies leg edema and Denies dyspnea on exertion Resp Reports as per HPI and Denies dyspnea on exertion GI Denies no additional complaints Reports other (Being treated for BPH) Musc Reports no additional complaints Skin/Breast Reports system reviewed and no additional complaints, except as documented Neuro Reports no additional complaints Psych Reports no additional complaints Endo Reports no additional complaints Physical Exam Vital Signs: Last Vital Signs Pulse 81 08/21/24 09:32 BP 142/78 H 08/21/24 09:32 Pulse Ox 96 08/21/24 09:32 Oxygen Delivery Method Room Air 08/21/24 09:32 BMI result Body Mass Index 37.0 Const General: comfortable, no acute distress, alert and awake Orientation/consciousness: patient oriented x3 HEENT Head: Yes normal to inspection General nose exam: No nasal polyps present and No nasal discharge present Face and sinus: Yes sinuses nontender Mouth: oropharynx normal Throat: Yes posterior oropharynx normal Eyes General: appearance normal, both eyes and all related structures Neck Neck: Yes normal visual inspection, Yes no lymphadenopathy, Yes trachea midline and Yes no JVD Thyroid: Thyroid normal Chest Chest palpation & inspection: normal inspection of the chest, normal palpation of entire chest wall and no tenderness Resp Other: Percussion note resonant. Breath sounds are distant with prolonged expiratory phase. No audible wheezes rhonchi or crepitations. Cardio Palpation: normal PMI Rate: regular rate Rhythm: abnormal rhythm (Atrial fibrillation) Heart sounds: no gallops and no murmurs GI Palpation (GI): Soft to palpation, nontender, No hepatosplenomegaly present and no masses Auscultation: normal bowel sounds Back/Spine/Pelvis Thoracic/Lumbar Spine: thoracic and lumbar spine normal to inspection Skin General skin exam: no rashes or lesions noted Neuro General: patient oriented x3 and no focal motor deficits Cranial nerves: Yes CN's II-XII intact bilaterally Extrem General: Yes normal to inspection, No no joint enlargement (Right knee she moderately enlarged and irregular.), Yes no calf tenderness and Yes edema (1 + pitting edema of the legs ) Psych Appearance: grossly normal Speech and movement: Normal speech and movement present Results Reviewed Results Reviewed: REVIEWED RESULTS OF CPAP COMPLIANCE PATIENT WITH GOOD COMPLIANCE USING CPAP FOR A AVERAGE OF 5 HOURS AND 16 MINUTES FOR LAST 29/30 DAYS. AHI 0.4 Assessment & Plan Assessment & Plan (1) Obstructive sleep apnea on CPAP: Comment: PATIENT USES CPAP VERY REGULARLY AND SLEEP OKAY NO ISSUES WITH THE CPAP Code(s): G47.33 - Obstructive sleep apnea (adult) (pediatric); Z99.89 - Dependence on other enabling machines and devices Category: Medical Plan: COMMENDED FOR GOOD CPAP USE and EDUCATED TO CONTINUE USING CPAP TO AVOID ANY AIR LEAK ISSUES PATIENT EDUCATED TO USE NEW CPAP MASK EVERY 3 MONTHS (2) COPD (chronic obstructive pulmonary disease): Comment: He has the asthma/COPD which is well controlled, with current regimen. Code(s): J44.9 - Chronic obstructive pulmonary disease, unspecified Category: Medical Plan: CONTINUE USING SYMBICORT 160-4.5MCG 2 PUFFS EVERY 12 HOURS OK TO USE ALBUTEROL IN THE NEBULIZER TWICE A DAY ALBUTEROL HFA 90 MCG P.R.N. WHEN OUTDOORS Plan PATIENT CONTINUE TO GO TO [facility] FOR ROUTINE EXERCISE PROGRAM Medications: Refilled albuterol sulfate 90 mcg/actuation 2 puffs PO Q4-6H PRN 9 grams 4RF for wheezing J44.9 - Chronic obstructive pulmonary disease, unspecified Coding Level of Care Code Est Pt Level 3 (11102) Diagnoses Obstructive sleep apnea on CPAP G47.33; Z99.89 COPD (chronic obstructive pulmonary disease) J44.9
--- OUTSIDE RECORDS SUMMARY | 2024-08-21 10:20 | XMS_ITS ---
Author Organization [facility] Address [address] [place] [address] Care Team Providers Care Service Desk Director Name Role Phone Harpal Anthony MD Primary Care Provider UnavailApple Baltazar Unavailable [phone] Allergies Allergen (clinical drug ingredient) Drug/Non Drug [...] 024 Encounters Encounter Location Date Provider Diagnosis [facility] [place] [address] [place] [address] 03/27/2024 Apple Solorio Atherosclerosis of [place] artery of both lower extremities, with unspecified presence of clinical manifestation I70.203 ; Tinea unguium B35.1 ; Pain in right toe(s) M79.674 and Pain in left toe(s) M79.675 Assessments Encounter Date Diagnosis (ICD Code) Assessment Notes Treatment Notes Treatment Clinical Notes Section Notes 03/27/2024 Atherosclerosis of [place] artery of both lower extremities, with unspecified presence of clinical manifestation (ICD-10 - I70.203) 03/27/2024 Tinea unguium (ICD-10 - B35.1) 03/27/2024 Pain in right toe(s) (ICD-10 - M79.674) 03/27/2024 Pain in left toe(s) (ICD-10 - M79.675) Plan Of Treatment Next Appt Details Follow Up: 2 Months, Reason: Provider Name:Apple melo, 09/06/2024 12:30:00 PM, [address] [place] [address], [address], Procedure Notes * Category Sub-Category Detail Notes Keratoma Treatment Parring or Cutting o f Benign Hyperkeratotic Lesion(s) Q8, (-77) 2-4 Lesions - The Benign hyperkeratotic lesions, as described in exam, were pared, and/or cut utilizing a sterile 15 blade, tissue nippers, and/or dremel - 74398 Debride Nails 1-5 Procedure: Performance of this nail treatment by a nonprofessional would put this patients foot and overall health at risk. Therefore, debridement to affected nail(s), as described in exam, was performed extensively to reduce/remove overall nail length, girth, thickness, subungual debris, and necrotic tissue, by manual and/or electrical means through the use of a nail nipper and/or dremel-type regrinder operator, to a more viable healthy nail plate or bed tissue 1-5. Silver nitrate used for any petechial bleeding as necessary. Definitive antifungal treatment options have been reviewed and discussed with the patient. The patient chooses, no pharmaceutical tx - 51166 Nail Reduction Nail Reduction Trimming of dyst rophic nails performed to reduce/remove overall nail length and girth, by manual and electrical means with use of a nail nipper and/or dremel, to more viable healthy nail plate or bed tissue 6-10 (B1920-T4) Progress Notes * Nancy MCCABEOB:1945 (78 yo M)Acc No.[id number]:03/27/2024 Progress Note Patient:?Ilir MCCABE Provider:?Apple Solorio DPM :1945???Age:78 Y???Sex:Male Vel e:03/27/2024 Address:[address] [place] [address], [facility] Pcp:Harpal Anthony MD Subjective: * Chief Complaints: [...] Assessment: 1.?Tinea unguium - B35.1???2 .?Atherosclerosis of [place] artery of both lower extremities, with unspecified [...] use of a nail nipper and/or dremel-type regrinder operator, to a more viable healthy nail plate or bed tissue 1-5. Silver nitrate used for any petechial bleeding as necessary. Definitive antifungal treatment options have been reviewed and discussed with the patient. The patient chooses, no pharmaceutical tx - 98148.?Keratoma Treatment:?Parring or Cutting of Benign Hyperkeratotic Lesion(s)?Q8, (-56) 2-4 Lesions - The Benign hyperkeratotic lesions, as described in exam, were pared, and/or cut utilizing a sterile 15 blade, tissue nippers, and/or dremel - 77555.?Nail Reduction:?Nail Reduction?Trimming of dystrophic nails performed to reduce/remove overall nail length and girth, by manual and electrical means with use of a nail nipper and/or dremel, to more viable healthy nail plate or bed tissue 6-10 (G0127- Q8).? * Procedure Codes:?G0127 JAYLEN ING DYSTROPHIC NAILS ANY #, Modifiers: XS , [id number] TRIM SKIN LESIONS, 2 TO 4, Modifiers: XS , [id number] DEBRIDE NAIL, 1-5, Modifiers: XS * Follow Up:?2 Months * Images: * Sign off status: Completed true * Provider:?Apple Solorio DPM Date:? Generated for Charmaine sanchez/Jil/Nuhaitting on:?08/21/2024 10:20 AM EDT History and Physical Notes * HPI (History of Present Illness) Category Sub-Category Detail Notes Category Not es At Risk footcare Pt States Last PCP Visit: Date: 4 Examination Category Sub-Category Detail Notes Category Not [...]
--- OUTSIDE RECORDS SUMMARY | 2024-08-21 10:20 | XMS_ITS | Patient Health Record ---
Author Organization [facility] Address [address] [facility] [place] [address] Care Team Providers Care Aircraft Maintenance Technician Name Role Phone Raj ARIAS, Harpal Primary Care Provider UnavailApple Baltazar Unavailable [phone] Allergies Allergen (clinical drug ingredient) Drug/Non Drug [...] W/U Status Risk Notes Problem Atherosclerosis of [place] artery of both lower extremities, with unspecified presence of clinical manifestation (I70.203) Active confirmed Vital Signs Blood pressure diastolic 78 mm Hg 03/27/2024 Height 5 ft 9 in in 03/27/2024 Blood pressure systolic 130 mm Hg 03/27/2024 Weight 245 lbs 03/27/2024 BMI 36.18 kg/m2 03/27/2024 Encounters Encounter Location Date Provider Diagnosis [facility] [place] [address] [place] [address] 03/27/2024 Apple Solorio Atherosclerosis of [place] artery of both lower extremities, with unspecified presence of clinical manifestation I70.203 ; Tinea unguium B35.1 ; Pain in right toe(s) M79.674 and Pain in left toe(s) M79.675 Assessments Encounter Date Diagnosis (ICD Code) Assessment Notes Treatment Notes Treatment Clinical Notes Section Notes 03/27/2024 Tinea unguium (ICD-10 - B35.1) 03/27/2024 Atherosclerosis of [place] artery of both lower extremities, with unspecified presence of clinical manifestation (ICD-10 - I70.203) 03/27/2024 Pain in right toe(s) (ICD-10 - M79.674) 03/27/2024 Pain in left toe(s) (ICD-10 - M79.675) Plan Of Treatment Next Appt Details Provider Name:Apple Melo Brooke melo, 09/06/2024 12:30:00 PM, [address] [place], [address], Insurance Providers Payer Name Payer Address Payer Phone Subscriber Number Group Number Insured Name Patient Relationship to Insured Coverage Start Date Coverage End Date Medicare [facility] [address] [place] [address] [id number] Ilir Mccabe Self - patient is the insured [facility] [address] [place] [address] [id number] Ilir Mccabe Self - patient is the insured Medical (General) History Medical History History ICD Code Back,Hip,and Knee pain CAD (Cholesterol) Gall bladder problems High blood pressure Measles Joint implants/screws A fib Sleep apnea hip replacement, RT Surgical History Surgery Date(Month/Year) left hip replacement 2007 gall bladder 2017 kidney removal (donated) knee replacement 10/04/22
== END 2024-08-21 09:57 | disposition home or self-care (01) ==
LOC: HO.HPS 09:25
PROVIDERS: PCP Internal Medicine; Visit Provider Internal Medicine
DX: G47.33 Obstructive sleep apnea (adult) (pediatric) (principal); Z99.89 Dependence on other enabling machines and devices; J44.9 Chronic obstructive pulmonary disease, unspecified
CPT/HCPCS: 99213

== ENCOUNTER → 2024-08-21 09:24 | Outpatient (BNVA) | payer MEDICARE, SELFPAY | PROVIDERS: PCP Internal Medicine; Visit Provider Internal Medicine | DX: J44.9 Chronic obstructive pulmonary disease, unspecified (principal); G47.33 Obstructive sleep apnea (adult) (pediatric); Z99.89 Dependence on other enabling machines and devices | CPT/HCPCS: 99212 ==

== ENCOUNTER 2024-09-19 14:37 | Outpatient (AMB) | payer MEDICARE, SELFPAY ==
--- NOTE | 2024-09-19 14:40 | MHC.OFFVIS ---
Intake Visit Reasons: 1y/PVR Intake Note: Pt presents to the office today for a 1 year follow up/PVR. PVR:0ml Allergies Iodinated Contrast Media [IV DYE, IODINE CONTAINING CONTRAST ] Allergy (Severe, Verified 09/19/24 14:40) HIVES dabigatran etexilate [From PRADAXA] Allergy (Unknown, Verified 09/19/24 14:40) REFLUX HPI Comments Details: Ilir WARNER is a very pleasant male. He is a patient of Dr Anthony. He is seen for the following urologic conditions. - lower urinary tract symptoms - erectile dysfunction PVR 0 Yearly follow-up Continue Flomax Continue sildenafil as needed Lower Urinary Tract Symptoms:?Significant improvement with urination ?Minimal nocturia ?Control of urge ?Very happy with Flomax would like to stay on a prescription. ? Current visit is for?further evaluation of, lower urinary tract symptoms, predominate obstructive symptoms.? Current treatment includes?medication, alpha molly, 5-AR.? Prostate Symptom Score?4/20 , Moderate (9-19).? Prior Prostate Score?moderate PSA - 09/27 0.5 ? Therapeutic plan - remain on medication - 12 month review [facility] Medical History Obesity (BMI 30-39.9) COPD (chronic obstructive pulmonary disease) Kidney donor Obstructive sleep apnea on CPAP Essential hypertension Shortness of breath Persistent atrial fibrillation Surgical History History of laparoscopic cholecystectomy (~04/2017) History of hip replacement History of transesophageal echocardiography (SOFIA) Family History Father No problems noted. Mother No problems noted. Social History Alcohol intake: current Alcohol intake frequency: holidays/special occasions only Patient Tobacco Use Status: Former Tobacco user Office Procedures Post Void Residual Post Residual Void Post Void Residual (PVR): 0 47720-Twtd Void Residual by ultrasound Results AMB Urinalysis, Automated UA Leukoctes 0 Deanne/uL Last Edit by Lolita García CMA on 09/19/24 14:49 UA Nitrite Negative Last Edit by Lolita García, MUNIR on 09/19/24 14:49 UA Urobilinogen 0.2 mg/dL Last Edit by Lolita García, MUNIR on 09/19/24 14:49 UA Protein 300 mg/dL Last Edit by Lolita García, MUNIR on 09/19/24 14:49 UA pH 5.5 Last Edit by Lolita García, MUNIR on 09/19/24 14:49 UA Blood 0 Martin/uL Last Edit by Lolita García, MUNIR on 09/19/24 14:49 UA Specific Douglass 1.025 Last Edit by Lolita García, MUNIR on 09/19/24 14:49 UA Ketone Negative Last Edit by Lolita García, MUNIR on 09/19/24 14:49 UA Bilirubin 0 mg/dL Last Edit by Lolita García, UMNIR on 09/19/24 14:49 UA Glucose 0 mg/dL Last Edit by Lolita García CMA on 09/19/24 14:49 Results Reviewed Results Reviewed: Laboratory Last Values Urine pH (Auto) 5.5 09/19/24 14:48 Specific Douglass (Auto) 1.025 09/19/24 14:48 Urine Protein (Auto) 300 mg/dL 09/19/24 14:48 Glucose (UA)(Auto) 0 mg/dL 09/19/24 14:48 Urine Ketones (Auto) Negative 09/19/24 14:48 Urine Blood (Auto) 0 Martin/uL 09/19/24 14:48 Urine Nitrite (Auto) Negative 09/19/24 14:48 Urine Bilirubin (Auto) 0 mg/dL 09/19/24 14:48 Urine Urobilinogen (Auto) 0.2 mg/dL 09/19/24 14:48 Leukocyte Esterase (Auto) 0 Deanne/uL 09/19/24 14:48 Assessment & Plan Assessment & Plan Orders: Orders AMB Urinalysis Automated Today Z13.9 - Encounter for screening, unspecified AMB Post Void Residual by ultrasound Today N13.8 - Other obstructive and reflux uropathy, N40.1 - Benign prostatic hyperplasia with lower urinary tract symptoms Prostate Specific Antigen 12 Months N13.8 - Other obstructive and reflux uropathy, N40.1 - Benign prostatic hyperplasia with lower urinary tract symptoms Coding CPT Codes Post Residual Void - PVR CPT Code: 01824-Fqho Void Residual by ultrasound ([id number])
--- OUTSIDE RECORDS SUMMARY | 2024-09-19 15:15 | XMS_ITS ---
Author Organization [facility] Address [address] [place] [address] Care Team Providers Care Laborer Plumbing Name Role Phone Harpal Anthony MD Primary Care Provider UnavailApple Baltazar Unavailable [phone] Allergies Allergen (clinical drug ingredient) Drug/Non Drug [...] 024 Encounters Encounter Location Date Provider Diagnosis [facility] [address] [place] [address] 03/27/2024 Apple Solorio Atherosclerosis of [place] artery of both lower extremities, with unspecified presence of clinical manifestation I70.203 ; Tinea unguium B35.1 ; Pain in right toe(s) M79.674 and Pain in left toe(s) M79.675 Assessments Encounter Date Diagnosis (ICD Code) Assessment Notes Treatment Notes Treatment Clinical Notes Section Notes 03/27/2024 Atherosclerosis of [place] artery of both lower extremities, with unspecified presence of clinical manifestation (ICD-10 - I70.203) 03/27/2024 Tinea unguium (ICD-10 - B35.1) 03/27/2024 Pain in right toe(s) (ICD-10 - M79.674) 03/27/2024 Pain in left toe(s) (ICD-10 - M79.675) Plan Of Treatment Next Appt Details Follow Up: 2 Months, Reason: Provider Name:Apple melo, 11/19/2024 03:15:00 PM, [address] [place] [address], [id number], Procedure Notes * Category Sub-Category Detail Notes Keratoma Treatment Parring or Cutting o f Benign Hyperkeratotic Lesion(s) Q8, (-17) 2-4 Lesions - The Benign hyperkeratotic lesions, as described in exam, were pared, and/or cut utilizing a sterile 15 blade, tissue nippers, and/or dremel - 32522 Debride Nails 1-5 Procedure: Performance of this nail treatment by a nonprofessional would put this patients foot and overall health at risk. Therefore, debridement to affected nail(s), as described in exam, was performed extensively to reduce/remove overall nail length, girth, thickness, subungual debris, and necrotic tissue, by manual and/or electrical means through the use of a nail nipper and/or dremel-type tool grinder operator, to a more viable healthy nail plate or bed tissue 1-5. Silver nitrate used for any petechial bleeding as necessary. Definitive antifungal treatment options have been reviewed and discussed with the patient. The patient chooses, no pharmaceutical tx - 04611 Nail Reduction Nail Reduction Trimming of dyst rophic nails performed to reduce/remove overall nail length and girth, by manual and electrical means with use of a nail nipper and/or dremel, to more viable healthy nail plate or bed tissue 6-10 (S4042-G3) Progress Notes * Nancy MCCABEOB:1945 (78 yo M)Acc No.[id number]:03/27/2024 Progress Note Patient:?Ilir MCCABE Provider:?Apple Solorio DPM :1945???Age:78 Y???Sex:Male Vel e:03/27/2024 Address:[address] [place] [address], [facility] Pcp:Harpal Anthony MD Subjective: * Chief Complaints: [...] Assessment: 1.?Tinea unguium - B35.1???2 .?Atherosclerosis of [place] artery of both lower extremities, with unspecified [...] use of a nail nipper and/or dremel-type tool grinder operator, to a more viable healthy nail plate or bed tissue 1-5. Silver nitrate used for any petechial bleeding as necessary. Definitive antifungal treatment options have been reviewed and discussed with the patient. The patient chooses, no pharmaceutical tx - 22380.?Keratoma Treatment:?Parring or Cutting of Benign Hyperkeratotic Lesion(s)?Q8, (-56) 2-4 Lesions - The Benign hyperkeratotic lesions, as described in exam, were pared, and/or cut utilizing a sterile 15 blade, tissue nippers, and/or dremel - 86038.?Nail Reduction:?Nail Reduction?Trimming of dystrophic nails performed to reduce/remove overall nail length and girth, by manual and electrical means with use of a nail nipper and/or dremel, to more viable healthy nail plate or bed tissue 6-10 (G0127- Q8).? * Procedure Codes:?G0127 JAYLEN ING DYSTROPHIC NAILS ANY #, Modifiers: XS , [id number] TRIM SKIN LESIONS, 2 TO 4, Modifiers: XS , [id number] DEBRIDE NAIL, 1-5, Modifiers: XS * Follow Up:?2 Months * Images: * Sign off status: Completed true * Provider:?Apple Solorio DPM Date:? Generated for Charmaine sanchez/Jil/Nuhaitting on:?09/19/2024 03:14 PM EDT History and Physical Notes * HPI [...]
--- OUTSIDE RECORDS SUMMARY | 2024-09-19 15:15 | XMS_ITS ---
Author Organization [facility] Address [address] [place] [address] Care Team Providers Care Allergy Physician Name Role Phone Harpal Anthony MD Primary Care Provider Unavailab Apple Baca Unavailable [phone] Allergies Allergen (clinical drug ingredient) Drug/Non Drug Allergy documented on EMR Reaction Allergy Type Onset Date Status Iodinated contrast media (substance) Iodinated Diagnostic Agents hives Drug Allergy Active REASON FOR VISIT At Risk Footcare, Painful Nail(s) aggrevated by shoes and causing difficulty standing/walking. Medications Medication SIG (Take, Route, Frequency, Duration) Notes Start Date End Date Status Finasteride Active hydroCHLOROthiazide Active Losartan Potassium 100 MG 1 tablet Orall y Once a day Active Omeprazole Active Simvastatin Active Xarelto 20 MG 1 tablet with food Orally Once a day for 30 day(s) Active Ammonium Lactate 12 % 1 application to affected area Externally to feet Twice a day for 30 days Not-Taking amLODIPine Besylate 10 MG 1 tablet Orall y Once a day for 30 day(s) Active Atenolol 25 MG 1 tablet Orally Once a day Active Social History Tobacco Use: Social History Observation Description Date Details (start date - stop date) Never Smoker NA - NA Tobacco use other than smoking: Question Answer Notes Are you an other tobacco user? No Tobacco Control (Standard) Question Answer Notes Tobacco use: Nonsmoker Vital Signs Height 5 ft 9 in in 09/06/2024 Weight 240 lbs 09/06/2024 BMI 35.44 kg/m2 09/06/2024 Blood pressure systolic 130 mm Hg 09/07/19 25 Blood pressure diastolic 78 mm Hg 025 Encounters Encounter Location Date Provider Diagnosis [facility] [address] [place] [address] 09/06/2024 Apple Solorio Atherosclerosis of [place] artery of both lower extremities, with unspecified presence of clinical manifestation I70.203 ; Tinea unguium B35.1 ; Pain in right toe(s) M79.674 and Pain in left toe(s) M79.675 Assessments Encounter Date Diagnosis (ICD Code) Assessment Notes Treatment Notes Treatment Clinical Notes Section Notes 09/06/2024 Atherosclerosis of [place] artery of both lower extremities, with unspecified presence of clinical manifestation (ICD-10 - I70.203) 09/06/2024 Tinea unguium (ICD-10 - B35.1) 09/06/2024 Pain in right toe(s) (ICD-10 - M79.674) 09/06/2024 Pain in left toe(s) (ICD-10 - M79.675) Plan Of Treatment Next Appt Details Follow Up: 2 Months, Reason: Provider Name:Apple melo, 11/19/2024 03:15:00 PM, [address] [place] [address], [phone], Procedure Notes * Category Sub-Category Detail Notes Keratoma Treatment Parring or Cutting o f Benign Hyperkeratotic Lesion(s) (-56) 2-4 Lesions - Due to the at risk nature of the patients medical condition as documented in the exam findings, performance of this keratoderma treatment is medically necessary as its management by an unskilled/untrained nonprofessional would put this patients foot and overall health at risk. Therefore, the benign hyperkeratotic lesions, (2) in total, locations as stated and described in the exam ( SUB MTH (s), 1, B/L ), were pared, and/or cut utilizing a sterile 15 blade, tissue nippers, and/or power dremel instrumentation by the physician of record - 70253 Debride Nails 1-5 Procedure: Due to the cli nical pathology outlined in the exam findings, performance of this nail treatment is medically necessary as its management by an unskilled/untrained nonprofessional would put this patients foot and overall health at risk. Therefore, debridement to affected nail(s), as described in exam ( TA, T5 ), was performed exclusively by the physician of record to reduce/remove overall nail length, girth, thickness, subungual debris, and necrotic tissue, by manual and/or electrical means through the use of a nail nipper and/or dremel stylegrinder, to a more viable healthy nail plate or bed tissue 5 nails or fewer in number. Silver nitrate was used for any petechial bleeding as necessary. Definitive antifungal treatment options, both pharmaceutical and surgical, have been reviewed and discussed with the patient. The patient solely prefers the use of intermittent/as needed professional debridement services for their nail condition and understands that additional periodic treatments may be required as necessary to maintain effective symptomatic relief - 68032 Nail Reduction Nail Reduction (-27) Trimming o f all dystrophic nails - Due to the at risk nature of the patients medical condition as documented in the exam findings, performance of this nail treatment is medically necessary as its management by an unskilled/untrained nonprofessional would put this patients foot and overall health at risk. Therefore, the dystrophic nails, in locations as stated and described in the exam ( T1, T2, T3, T4, T6, T7, T8, T9, ), were debrided by the phisician of record to reduce/remove overall nail length and girth, by manual and electrical means with use of a nail nipper and/or dremel, to more viable healthy nail plate or bed tissue - G0127 Progress Notes * Nancy MCCABEOB:1945 (78 yo M)Acc No.[id number]:09/06/2024 Progress Note Patient:?Ilir MCCABE Provider:?Apple Solorio DPM :1945???Age:78 Y???Sex:Male Vel e:09/06/2024 Address:[address] [place] [address] [address], [address] [facility] [phone] Pcp:Harpal Anthony MD Subjective: * Chief Complaints: [...] 2008gall bladder 2017kidney removal (donated) knee replacement 10/04/22Dental Implant 07/02 * Hospitalization/Major Diagno stic Procedure:?Denies Past Hospitalization * Family History:?Mother: dece ased, diagnosed with Family history of arthritis.?Father: , diagnosed with Family history of arthritis.?Siblings: , diagnosed with Unspecified heart disease, Diabetic - NIDDM.?Spouse: diagnosed with Other malignant neoplasm of unspecified site.? * Social History:?Tobacco Use:?Tobacco use other than smoking?Are you an other tobacco user??No ?Tobacco Control (Standard)?Tobacco use:?Nonsmoker ???Miscellaneous:?Caffeine: yes, 1-2 cups per day. ?Children: no. ?Exercise: yes, fishing,boating,hiking. ?Marital status: . 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 * Medications:?TakingamLODIPin e Besylate 10 MG Tablet [...] Vitals:?Ht: 5 ft 9 in, Wt: 2 40, BMI: 35.44, Shoe size: 10, BP: 130/78 mm Hg, Wt- k.86 kg. * Examination: ???Dermatologic: ?SKIN FINDINGS:?Skin exam reveals Keratotic lesion(s) located at, ?SUB MTH (s), 1, B/L.?Vascular: ?DP PULSES (B):? 3/4, B/L.?PT PULSES (B):? 0/4, RIGHT, 1/4, LEFT.?CAPILLARY FILL TIME:? delayed, all digits, B/L.?TROPHIC CONDITION-TEXTURE/ELASTICITY/TURGOR/HAIR GROWTH (B):? decreased, B/L.?TEMPERTURE GRADIENT (C):? decreased, cool to cool, proximal to distal, B/L.?PIGMENTATION:? brawny.?EDEMA (C):? 1/4, , B/L.?Nails: ?NAILS are:?Elongated, overgrown, dystrophic, lytic, greater than 3mm thick, discolored and friable with crumbly malodorous subungual debris, with pain on palpation, TA, T5 remaining nails are elongated, overgrown, dystrophic, T1, T2, T3, T4,? T6, T7, T8, T9.? Assessment: * Assessment: 1.?Atherosclerosis of [place] artery of both lower extremities, with unspecified presence of clinical manifestation - I70.203 (Primary)???2.?Tinea unguium - B35.1???3.?Pain in right toe(s) - M79.674???4.?Pain in left toe(s) - M79.675??? Plan: * Treatment: * Procedures:?Debride Nails 1-5:?Procedure:?Due to the clinical pathology outlined in the exam findings, performance of this nail treatment is medically necessary as its management by an unskilled/untrained nonprofessional would put this patients foot and overall health at risk. Therefore, debridement to affected nail(s), as described in exam ( TA, T5 ?), was performed exclusively by the physician of record to reduce/remove overall nail length, girth, thickness, subungual debris, and necrotic tissue, by manual and/or electrical means through the use of a nail nipper and/or dremel stylegrinder, to a more viable healthy nail plate or bed tissue 5 nails or fewer in number. Silver nitrate was used for any petechial bleeding as necessary. Definitive antifungal treatment options, both pharmaceutical and surgical, have been reviewed and discussed with the patient. The patient solely prefers the use of intermittent/as needed professional debridement services for their nail condition and understands that additional periodic treatments may be required as necessary to maintain effective symptomatic relief - 14510.?Keratoma Treatment:?Parring or Cutting of Benign Hyperkeratotic Lesion(s)?(-56) 2-4 Lesions - Due to the at risk nature of the patients medical condition as documented in the exam findings, performance of this keratoderma treatment is medically necessary as its management by an unskilled/untrained nonprofessional would put this patients foot and overall health at risk. Therefore, the benign hyperkeratotic lesions, (2) in total, locations as stated and described in the exam (?SUB MTH (s),?1,?B/L?), were pared, and/or cut utilizing a sterile 15 blade, tissue nippers, and/or power dremel instrumentation by the physician of record - 88429.?Nail Reduction:?Nail Reduction?(-27) Trimming of all dystrophic nails - Due to the at risk nature of the patients medical condition as documented in the exam findings, performance of this nail treatment is medically necessary as its management by an unskilled/untrained nonprofessional would put this patients foot and overall health at risk. Therefore, the dystrophic nails, in locations as stated and described in the exam ( ?T1, T2, T3, T4, T6, T7, T8, T9, ), were debrided by the phisician of record to reduce/remove overall nail length and girth, by manual and electrical means with use of a nail nipper and/or dremel, to more viable healthy nail plate or bed tissue - G0127.? * Procedure Codes:?G0127 JAYLEN ING DYSTROPHIC NAILS ANY #, Modifiers: XS , [id number] TRIM SKIN LESIONS, 2 TO 4, Modifiers: XS , [id number] DEBRIDE NAIL, 1-5, Modifiers: XS * Follow Up:?2 Months * Images: * Sign off status: Completed true * Provider:?Apple Solorio DPM Date:?06/2024 Generated for Charmaine sanchez/Jil/Chantel on:?09/19/2024 03:14 PM EDT History and Physical Notes * HPI (History of Present Illness) Category Sub-Category Detail Notes Category Not es At Risk footcare Pt States Last PCP Visit: Date: 4 Examination Category Sub-Category Detail Notes Category Not es Dermatologic SKIN FINDINGS: Skin exam reveal s Keratotic lesion(s) located at, SUB MTH (s), 1, B/L Vascular DP [...] subungual debris, with pain on palpation, TA, T5 remaining nails are elongated, overgrown, dystrophic, T1, T2, T3, T4, T6, T7, T8, T9
--- OUTSIDE RECORDS SUMMARY | 2024-09-19 15:15 | XMS_ITS | Patient Health Record ---
Author Organization [facility] Address [address] [place] [address] Care Team Providers Care Saw Filer Name Role Phone Raj ARIAS, Harpal Primary Care Provider UnavailApple Baltazar Unavailable [phone] Allergies Allergen (clinical drug ingredient) Drug/Non Drug [...] 1 tablet Orally Once a day Active Immunizations Vaccine Route Administration Date Status Comme nts COVID-19 Pfizer BioNTech Vaccine Unknown 01/11/2021 Administered 1st: 07/04/20 2nd: 07/25/20 Social History Tobacco Use: Social History Observation Description Date Details (start date - stop date) Never Smoker NA - NA Alcohol Screen Question Answer Notes Did you [...] (Standard) Question Answer Notes Tobacco use: Nonsmoker Problems Problem Type SNOMED Code ICD Code Onset Dates Problem Status W/U Status Risk Notes Problem Atherosclerosis of [place] artery of both lower extremities, with unspecified presence of clinical manifestation (I70.203) Active confirmed Vital Signs Blood pressure diastolic 78 mm Hg 09/06/2024 Height 5 ft 9 in in 09/06/2024 Blood pressure systolic 130 mm Hg 09/06/2024 Weight 240 lbs 09/06/2024 BMI 35.44 kg/m2 09/06/2024 [facility]counters [facility] [address] [facility] Apple Perica Atherosclerosis of [place] artery of both lower extremities, with unspecified presence of clinical manifestation I70.203 ; Tinea unguium B35.1 ; Pain in right toe(s) M79.674 and Pain in left toe(s) M79.675 [facility] [address] 09/06/2024 Apple Perica Atherosclerosis of [place] artery of both lower extremities, with unspecified presence of clinical manifestation I70.203 ; Tinea unguium B35.1 ; Pain in right toe(s) M79.674 and Pain in left toe(s) M79.675 Assessments Encounter Date Diagnosis (ICD Code) Assessment Notes Treatment Notes Treatment Clinical Notes Section Notes 03/27/2024 Tinea unguium (ICD-10 - B35.1) 03/27/2024 Atherosclerosis of [place] artery of both lower extremities, with unspecified presence of clinical manifestation (ICD-10 - I70.203) 09/06/2024 Atherosclerosis of [place] artery of both lower extremities, with unspecified presence of clinical manifestation (ICD-10 - I70.203) 03/27/2024 Pain in right toe(s) (ICD-10 - M79.674) 09/06/2024 Tinea unguium (ICD-10 - B35.1) 03/27/2024 Pain in left toe(s) (ICD-10 - M79.675) 09/06/2024 Pain in right toe(s) (ICD-10 - M79.674) 09/06/2024 Pain in left toe(s) (ICD-10 - M79.675) Plan Of Treatment Next Appt Details Provider Name:Apple Melo Brooke meol, 11/19/2024 03:15:00 PM, [address] [place], [address], Insurance Providers Payer Name Payer Address Payer Phone Subscriber Number Group Number Insured Name Patient Relationship to Insured Coverage Start Date Coverage End Date Medicare [facility] [employer] [address] [place] [address] [id number] Ilir Mccabe Self - patient is the insured [employer] [address] [place] [address] [id number] Ilir Mccabe Self - patient is the insured Medical (General) History Medical History History ICD Code Back,Hip,and Knee pain CAD (Cholesterol) Gall bladder problems High blood pressure Measles Joint implants/screws A fib Sleep apnea hip replacement, RT Surgical History Surgery Date(Month/Year) left hip replacement 2007 gall bladder 2017 kidney removal (donated) knee replacement 10/04/22 Dental Implant 07/02
== END 2024-09-19 15:38 | disposition home or self-care (01) ==
LOC: HO.HUSH 14:37
PROVIDERS: PCP Internal Medicine; Visit Provider Urology
DX: Z13.9 Encounter for screening, unspecified (principal)

== ENCOUNTER → 2024-09-19 14:37 | Outpatient (BNVA) | payer MEDICARE, SELFPAY | PROVIDERS: PCP Internal Medicine; Visit Provider Urology | DX: N40.1 Benign prostatic hyperplasia with lower urinary tract symptoms (principal); N13.8 Other obstructive and reflux uropathy; N52.9 Male erectile dysfunction, unspecified; Z79.899 Other long term (current) drug therapy | CPT/HCPCS: 51798; 81003; 99212 ==

== ENCOUNTER 2024-10-16 10:01 | Outpatient (AMB) | payer MEDICARE, SELFPAY ==
[2024-10-16 10:28] VITALS: BP 136/74; PULSE 62; BMI 34.2
--- NOTE | 2024-10-16 10:28 | MHC.OFFVIS ---
Vital Signs 10/16/24 10:28 Height 5 ft 10 in Weight 238 lb 1.588 oz BMI 34.2 BP 136/74 Blood Pressure Location Lt brachial Position Sitting Pulse 62 Intake Visit Reasons: 6m follow up/ stress test Intake Note: 6 month follow-up feeling good stress is not til 10/23 feeling good Still Operator Whiskey Required: No Allergies Iodinated Contrast Media [IV DYE, IODINE CONTAINING CONTRAST ] Allergy (Severe, Verified 09/19/24 14:40) HIVES dabigatran etexilate [From PRADAXA] Allergy (Unknown, Verified 09/19/24 14:40) REFLUX Medication List - Last Reconciled 10/16/24 by Glenroy Ware MD albuterol sulfate 90 mcg/actuation 2 puffs PO Q4-6H PRN albuterol sulfate 2.5 mg inhalation Q4-6H PRN amlodipine 5 mg PO DAILY atenolol 25 mg PO DAILY budesonide-formoterol 160-4.5 mcg/actuation (Breyna) 2 puffs PO Q12H hydrochlorothiazide 25 mg PO DAILY inhalational spacing device (Aerochamber MV spacer) As directed losartan 50 mg PO DAILY omeprazole 20 mg PO DAILY rivaroxaban 20 mg PO DAILY sildenafil 100 mg PO ONCE PRN 90 days simvastatin 20 mg PO BEDTIME tamsulosin 0.4 mg PO BEDTIME 90 days zolpidem 10 mg PO BEDTIME PRN HPI Comments Details: Ilir returns for follow-up regarding atrial fibrillation. Overall, he feels just about the same as before. Chronic shortness of breath and pretty much unchanged. No clear-cut angina. He does not feel any palpitations. Still overweight but recorded weight today is < last time. [facility] Medical History Obesity (BMI 30-39.9) COPD (chronic obstructive pulmonary disease) Kidney donor Obstructive sleep apnea on CPAP Essential hypertension Shortness of breath Persistent atrial fibrillation Surgical History History of laparoscopic cholecystectomy (~04/2017) History of hip replacement History of transesophageal echocardiography (SOFIA) Family History Father No problems noted. Mother No problems noted. Social History Alcohol intake: current Alcohol intake frequency: holidays/special occasions only Patient Tobacco Use Status: Former Tobacco user Review of Systems Const Denies chills, Denies fatigue, Denies fever(s), Denies frequent falls, Denies weakness, Denies weight gain and Denies weight loss ENT Denies dizziness Card Denies chest pain, Denies leg edema, Denies lightheadedness, Denies palpitations, Denies dyspnea, Denies dyspnea on exertion, Denies orthopnea and Denies other (loss of consciousness) Resp Denies cough, Denies dyspnea and Denies dyspnea on exertion GI Denies hematochezia and Denies change in stool character Musc Denies abnormal gait, Denies muscle weakness, Denies numbness, Denies radiating pain into limb and Denies tingling Neuro Denies abnormal gait, Denies dizziness, Denies frequent falls, Denies numbness, Denies tingling and Denies weakness Endo Denies fatigue and Denies palpitations Physical Exam Vital Signs: Last Vital Signs Pulse 62 10/16/24 10:28 BP 136/74 10/16/24 10:28 BMI result Body Mass Index 34.2 Const General: comfortable and no acute distress Orientation/consciousness: patient oriented x3 HEENT Other: Unremarkable Head: Yes normal to inspection Neck Neck: Yes normal visual inspection Chest Chest palpation & inspection: normal inspection of the chest Resp Auscultation: clear to auscultation bilaterally Cardio Palpation: normal PMI Heart sounds: S1 normal heart sound present, S2 normal heart sound present, no gallops, no murmurs and no rubs GI Palpation (GI): Soft to palpation Back/Spine/Pelvis Other: unremarkable Skin General skin exam: no rashes or lesions noted Neuro General: patient oriented x3 Extrem General: Yes normal to inspection Psych Mental Status: mental status grossly normal Assessment & Plan Assessment & Plan (1) Persistent atrial fibrillation: Code(s): I48.19 - Other persistent atrial fibrillation Category: Medical Plan: Has been present for >10 years since 2012. May continue atenolol without changes. When it was stopped in the past, rate was faster. Continue Xarelto. Due to duration of atrial fibrillation, likely permanent finding. (2) Cardiomyopathy: Code(s): I42.9 - Cardiomyopathy, unspecified Category: Medical Plan: In the last echocardiogram, LVEF is 48%. Basal inferior hypokinesis. [id number] mitral/tricuspid regurgitation. Similar to prior study. In 2020, he underwent myocardial perfusion imaging study that showed no reversible ischemia; in that study, gated LVEF was 48% with stress and 38% during rest. Repeat perfusion imaging study was ordered last time but not yet completed. Supposedly getting done in the next few weeks. We will follow up on that. However, clinically he has got no overt angina. Take care (3) Essential hypertension: Code(s): I10 - Essential (primary) hypertension Category: Medical Plan: Stable. No changes. (4) Obstructive sleep apnea on CPAP: Comment: PATIENT USES CPAP VERY REGULARLY AND SLEEP OKAY NO ISSUES WITH THE CPAP Code(s): G47.33 - Obstructive sleep apnea (adult) (pediatric); Z99.89 - Dependence on other enabling machines and devices Category: Medical Plan: Continue CPAP. (5) COPD (chronic obstructive pulmonary disease): Comment: He has the asthma/COPD which is well controlled, with current regimen. Code(s): J44.9 - Chronic obstructive pulmonary disease, unspecified Category: Medical Plan: Likely major contributor to his shortness of breath. PFTs from 2020-severe obstructive ventilatory defect with positive bronchodilator response. Decreased respiratory reserve volume suggesting extrathoracic restriction, likely from abdominal obesity. (6) Kidney donor: Code(s): Z52.4 - Kidney donor Category: Medical Plan: Labs from 2023-creatinine 1.42. Plan Coding Level of Care Code Est Pt Level 4 (34601) Complex EM visit Add On G2211 Diagnoses Persistent atrial fibrillation I48.19 Cardiomyopathy I42.9 Essential hypertension I10 Obstructive sleep apnea on CPAP G47.33; Z99.89 COPD (chronic obstructive pulmonary disease) J44.9 Kidney donor Z52.4
--- OUTSIDE RECORDS SUMMARY | 2024-10-16 11:13 | XMS_ITS | Patient Health Record ---
Author Organization [facility] Address [address] [facility] [place] [address] Care Team Providers Care Piano Case And Bench Assembler Name Role Phone Raj ARIAS, Harpal Primary Care Provider UnavailApple Baltazar Unavailable [phone] Allergies Allergen (clinical drug ingredient) Drug/Non Drug [...] W/U Status Risk Notes Problem Atherosclerosis of hughes artery of both lower extremities, with unspecified presence of clinical manifestation (I70.203) Active confirmed Vital Signs Blood pressure diastolic 78 mm Hg 09/06/2024 Height 5 ft 9 in in 09/06/2024 Blood pressure systolic 130 mm Hg 09/06/2024 Weight 240 lbs 09/06/2024 BMI 35.44 kg/m2 09/06/2024 Encounters Encounter Location Date [facility] [address] 03/27/2024 Apple Perica Atherosclerosis of hughes artery of both lower extremities, with unspecified presence of clinical manifestation I70.203 ; Tinea unguium B35.1 ; Pain in right toe(s) M79.674 and Pain in left toe(s) M79.[address] [facility] [address] 09/06/2024 Apple Perica Atherosclerosis of hughes artery of both lower extremities, with unspecified presence of clinical manifestation I70.203 ; Tinea unguium B35.1 ; Pain in right toe(s) M79.674 and Pain in left toe(s) M79.675 Assessments Encounter Date Diagnosis (ICD Code) Assessment Notes Treatment Notes Treatment Clinical Notes Section Notes 03/27/2024 Tinea unguium (ICD-10 - B35.1) 03/27/2024 Atherosclerosis of hughes artery of both lower extremities, with unspecified presence of clinical manifestation (ICD-10 - I70.203) 09/06/2024 Atherosclerosis of hughes artery of both lower extremities, with unspecified presence of clinical manifestation (ICD-10 - I70.203) 03/27/2024 Pain in right toe(s) (ICD-10 - M79.674) 09/06/2024 Tinea unguium (ICD-10 - B35.1) 03/27/2024 Pain in left toe(s) (ICD-10 - M79.675) 09/06/2024 Pain in right toe(s) (ICD-10 - M79.674) 09/06/2024 Pain in left toe(s) (ICD-10 - M79.675) Plan Of Treatment Next Appt Details Provider Name:Apple Melo Brooke melo, 11/19/2024 03:15:00 PM, [address] [place], [address], Insurance Providers Payer Name Payer Address Payer Phone Subscriber Number Group Number Insured Name Patient Relationship to Insured Coverage Start Date Coverage End Date Medicare National [facility] [employer] [address] [place] [address] [id number] Ilir Mccabe Self - patient is the insured [employer] [address] [place] [address] [phone] [id number] Ilir Mccabe Self - patient is the [...]
== END 2024-10-16 10:54 | disposition home or self-care (01) ==
LOC: HO.HCS 10:02
PROVIDERS: PCP Internal Medicine; Visit Provider Internal Medicine
DX: I48.19 Other persistent atrial fibrillation (principal); I42.9 Cardiomyopathy, unspecified; I10 Essential (primary) hypertension; G47.33 Obstructive sleep apnea (adult) (pediatric); Z99.89 Dependence on other enabling machines and devices; J44.9 Chronic obstructive pulmonary disease, unspecified; Z52.4 Kidney donor
CPT/HCPCS: 99214; G2211

== ENCOUNTER → 2024-10-16 10:01 | Outpatient (BNVA) | payer MEDICARE, SELFPAY | PROVIDERS: PCP Internal Medicine; Visit Provider Internal Medicine | DX: I48.19 Other persistent atrial fibrillation (principal); I42.9 Cardiomyopathy, unspecified; I10 Essential (primary) hypertension; G47.33 Obstructive sleep apnea (adult) (pediatric); J44.9 Chronic obstructive pulmonary disease, unspecified; Z52.4 Kidney donor; Z99.89 Dependence on other enabling machines and devices | CPT/HCPCS: 99212 ==

== ENCOUNTER → 2024-10-23 07:52 | Outpatient (REF) | payer MEDICARE, SELFPAY ==
--- NOTE | ~2024-10-23 | NM_ITS ---
Lexiscan Myocardial perfusion study Indication: Atrial fibrillation, cardiomyopathy Technique: The patient was brought in for a Lexiscan perfusion study on 10/23/2024 and was injected 0.4 mg of Lexiscan intravenously. Within a minute of this injection 40 mCi of sestamibi was given intravenously. Images were obtained using the SPECT gamma camera interlaced with the gating device. Images were obtained in supine position. Resting perfusion study was performed on 10/24/2024. Patient was administered 40 mCi of sestamibi intravenously at rest. Images were then obtained in supine position. Total DLP 89 mGy-cm. Images were processed with the software and compared side to side in short axis, horizontal long axis and vertical long axis views. Findings: Raw aquisition reviewed. The stress perfusion study showed mildly diminished tracer uptake in the distal part of inferior wall; mid anterior wall. Overall, there is improvement suggestive of artifactual etiology. The gated study shows diminished LV systolic function with calculated LVEF of 43%. LV cavity is normal in size. The gated study shows normal wall thickening and contraction of segments. Resting study shows no significant perfusion abnormality. Gating at rest reveals globally reduced wall motion with ejection fraction at 35%. The findings are consistent with small reversible defects in the distal inferior wall; mid anterior wall, probably artifactual. NM/NM cardiolite stress test Impression: 1. Myocardial perfusion imaging study shows no clear evidence of ischemia or infarction. Probably normal myocardial perfusion. 2. Gated LVEF is 43% during stress and 35% during rest. 3. Transient ischemic dilatation not present. EKG component of the test reported separately. Electronically signed by: Glenroy Ware MD 10/24/2024 04:27 PM EDT
--- OUTSIDE RECORDS SUMMARY | 2024-10-23 08:00 | XMS_ITS | Patient Health Record ---
Author Organization [facility] Address [address] [facility] [place] [address] Care Team Providers Care Plastics Heat Welder Name Role Phone Raj ARIAS, Harpal Primary Care Provider UnavailApple Baltazar Unavailable [phone] Allergies Allergen (clinical drug ingredient) Drug/Non Drug [...] W/U Status Risk Notes Problem Atherosclerosis of [place] artery of both lower extremities, with unspecified presence of clinical manifestation (I70.203) Active confirmed Vital Signs Blood pressure diastolic 78 mm Hg 09/06/2024 Height 5 ft 9 in in 09/06/2024 Blood pressure systolic 130 mm Hg 09/06/2024 Weight 240 lbs 09/06/2024 BMI 35.44 kg/m2 09/06/2024 Encounters Encounter Location Date [facility] [address] 03/27/2024 Apple Perica Atherosclerosis of [place] artery of both lower extremities, with unspecified presence of clinical manifestation I70.203 ; Tinea unguium B35.1 ; Pain in right toe(s) M79.674 and Pain in left toe(s) M79.675 [facility] [address] 09/06/2024 Apple Perica Atherosclerosis of [place] artery of both lower extremities, with unspecified presence of clinical manifestation I70.203 ; Tinea unguium B35.1 ; Pain in right toe(s) M79.674 and Pain in left toe(s) M79.675 Assessments Encounter Date Diagnosis (ICD Code) Assessment Notes Treatment Notes Treatment Clinical Notes Section Notes 03/27/2024 Tinea unguium (ICD-10 - B35.1) 03/27/2024 Atherosclerosis of [place] artery of both lower extremities, with unspecified presence of clinical manifestation (ICD-10 - I70.203) 09/06/2024 Atherosclerosis of [place] artery of both lower extremities, with unspecified [...] Melo Brooke melo, 11/19/2024 03:15:00 PM, [address] [place], [address], Insurance Providers Payer Name Payer Address Payer Phone Subscriber Number Group Number Insured Name Patient Relationship to Insured Coverage Start Date Coverage End Date Medicare National [facility] [employer] [address] [place] [address] [id number] Ilir Mccabe Self - patient is the insured [employer] [address] [place] [address] [id number] Ilir Mccabe Self - patient is the [...]
--- NOTE | 2024-10-23 08:05 | CA_ITS ---
Acquisition Time: 2024-10-23 08:16:03 Total Exercise Time: 00:02:00 Test Indications: AFIB, CARDIOMYOPATHY Medications: SEE H&P Protocol: LEXISCAN Max HR: 131 BPM 90% of Pred: 144 BPM Max BP: 152/80 mmHG Max Work Load: 1.6 METS Pharmacological stress test with Lexiscan while pt walked slowly on treadmill, with reports of SOB and dizziness, with frequent PVCs, with normotensive response to injection. Nondiagnostic EKG for ischemia. In recovery, pt treated with IVP Aminophylline 75 mg to reverse Lexiscan after which pt feeling back to baseline. Nuclear images pending. Test reviewed with Dr. Pierre. Referred By: Glenroy Ware Electronically Signed By: Rufino Markham
== END ==
LOC: HO.CARD 07:52
PROVIDERS: PCP Internal Medicine; Visit Provider Internal Medicine
DX: R07.2 Precordial pain (principal)
CPT/HCPCS: 78452; 93017; A9500; J0280; J2785

== ENCOUNTER → 2024-10-23 08:05 | Outpatient (BNV) | payer MEDICARE, SELFPAY | PROVIDERS: PCP Internal Medicine | DX: R06.02 Shortness of breath (principal); I49.3 Ventricular premature depolarization | CPT/HCPCS: 78452; 93016; 93018 ==

== ENCOUNTER 2024-12-24 09:17 | Outpatient (AMB) | payer MEDICARE, SELFPAY ==
--- OUTSIDE RECORDS SUMMARY | 2024-11-19 11:15 | XMS_ITS ---
Author Organization [facility] Address [address] [place] [address] Care Team Providers Care Geophysics Professor Name Role Phone Harpal Anthony MD Primary Care Provider Unavailab Apple Baca Unavailable [phone] Allergies Allergen (clinical drug ingredient) Drug/Non Drug [...] Not-Taking Encounters Encounter Location Date Provider Diagnosis [facility] [address] [place] [address] 11/19/2024 Apple Solorio Plan Of Treatment Next Appt Details Provider Name:Apple melo, 01/22/2025 11:30:00 AM, [address] [place], [address], Progress Notes * Darrin MCCABE:1945 (79 yo M)Acc No.[id number]:11/19/2024 Progress Note Patient: Ilir MORALES Provider: Aman Solorio DPM :1945 A ge:79 Y S ex:Male Date:11/19/2024 Address:[address], [place], [place] Pcp:Harpal Anthony MD Subjective: * Chief Complaints: [...] 0 11/19/2024 Generated for Charmaine sanchez/Jil/Chantel on: 12/24/2024 10:19 AM EDT
[2024-12-24 09:24] VITALS: BP 120/72; PULSE 66; O2SAT 97; BMI 35.9
--- NOTE | 2024-12-24 09:24 | MHC.OFFVIS ---
Vital Signs 12/24/24 09:24 Height 5 ft 10 in Weight 250 lb 3.594 oz BMI 35.9 BP 120/72 Blood Pressure Location Lt brachial Position Sitting Pulse 66 Pulse Source Pulse Oximeter Pulse Oximetry (%) 97 Oxygen Delivery Method Room Air Intake Visit Reasons: COPD Intake Note: pt is here for follow up and states he was in the hospital in [place] for 5 days, for Para 1 influenza/copd exh. and today he is feeling great, walking 1-2 miles a day. some mucous left, no discloration. please refill albuterol HFA look into mepolizumab Print Production Manager Required: No Allergies Iodinated Contrast Media (IV DYE, IODINE CONTAINING CONTRAST ) Allergy (Severe, Verified 12/24/24 09:35) HIVES dabigatran etexilate (From PRADAXA) Allergy (Unknown, Verified 12/24/24 09:35) REFLUX Medication List - Last Reconciled 12/24/24 by Rocky Ching MD albuterol sulfate 90 mcg/actuation 2 puffs PO Q4-6H PRN albuterol sulfate 2.5 mg (3 mL) inhalation Q4-6H PRN amlodipine 5 mg PO DAILY atenolol 25 mg PO DAILY Breyna 160-4.5 mcg/actuation (budesonide-formoterol) 2 puffs PO Q12H NS hydrochlorothiazide 25 mg PO DAILY inhalational spacing device (Aerochamber MV spacer) As directed losartan 50 mg PO DAILY omeprazole 20 mg PO DAILY rivaroxaban 20 mg PO DAILY sildenafil 100 mg PO ONCE PRN 90 days simvastatin 20 mg PO BEDTIME tamsulosin 0.4 mg PO BEDTIME 90 days zolpidem 10 mg PO BEDTIME PRN Do you need a note to return to daycare/school/sports/work: No HPI HPI COPD: Details: Ilir , 79 years old gentleman, is being followed for COPD as well as obstructive sleep apnea. Generally he has been doing very well for the past many years without any acute exacerbations. However in November of this year he was hospitalized in a hospital in [place] , with acute exacerbation of COPD, and treated in the hospital for 5 days. We do not have records from the hospital. Mr. Vallecillo tells me that he was found to have parainfluenza infection as the cause of acute exacerbation. He recovered well, and since then has been doing well and stable. He actually say is he feels better than many years before. 1 factor raise that he does have a girlfriend, who is well educated and support. He raves about the pulmonary rehab program through which he went last year . Now he is on a program of the healthy diet, daily exercise and walking. One of his retired MD friend told him to look into possible treatment with Nucala . We had a good discussion and I was able to explained to him that he does not, need to think about this treatment modality . [facility] Medical History Obesity (BMI 30-39.9) COPD (chronic obstructive pulmonary disease) Kidney donor Obstructive sleep apnea on CPAP Essential hypertension Shortness of breath Persistent atrial fibrillation Surgical History History of laparoscopic cholecystectomy (~04/2017) History of hip replacement History of transesophageal echocardiography (SOFIA) Family History Father No problems noted. Mother No problems noted. Social History Alcohol intake: current Alcohol intake frequency: holidays/special occasions only Patient Tobacco Use Status: Former Tobacco user Review of Systems Const All systems reviewed & are unremarkable except as noted in HPI and below Eyes Reports no additional complaints ENT Reports no additional complaints Card Denies chest pain, Reports irregular heart rhythm (Atrial fibrillation), Denies leg edema and Denies dyspnea on exertion Resp Reports as per HPI and Denies dyspnea on exertion GI Denies no additional complaints Reports other (Being treated for BPH) Musc Reports no additional complaints Skin/Breast Reports system reviewed and no additional complaints, except as documented Neuro Reports no additional complaints Psych Reports no additional complaints Endo Reports no additional complaints Physical Exam Vital Signs: Last Vital Signs Pulse 66 12/24/24 09:24 BP 120/72 12/24/24 09:24 Pulse Ox 97 12/24/24 09:24 Oxygen Delivery Method Room Air 12/24/24 09:24 BMI result Body Mass Index 35.9 Const General: comfortable, no acute distress, alert and awake Orientation/consciousness: patient oriented x3 HEENT Head: Yes normal to inspection General nose exam: No nasal polyps present and No nasal discharge present Face and sinus: Yes sinuses nontender Mouth: oropharynx normal Throat: Yes posterior oropharynx normal Eyes General: appearance normal, both eyes and all related structures Neck Neck: Yes normal visual inspection, Yes no lymphadenopathy, Yes trachea midline and Yes no JVD Thyroid: Thyroid normal Chest Chest palpation & inspection: normal inspection of the chest, normal palpation of entire chest wall and no tenderness Resp Other: Percussion note resonant. Breath sounds are distant with prolonged expiratory phase. No audible wheezes rhonchi or crepitations. Cardio Palpation: normal PMI Rate: regular rate Rhythm: abnormal rhythm (Atrial fibrillation) Heart sounds: no gallops and no murmurs GI Palpation (GI): Soft to palpation, nontender, No hepatosplenomegaly present and no masses Auscultation: normal bowel sounds Back/Spine/Pelvis Thoracic/Lumbar Spine: thoracic and lumbar spine normal to inspection Skin General skin exam: no rashes or lesions noted Neuro General: patient oriented x3 and no focal motor deficits Cranial nerves: Yes CN's II-XII intact bilaterally Extrem General: Yes normal to inspection, No no joint enlargement (Right knee she moderately enlarged and irregular.), Yes no calf tenderness and Yes edema (1 + pitting edema of the legs ) Psych Appearance: grossly normal Speech and movement: Normal speech and movement present Assessment & Plan Assessment & Plan (1) COPD (chronic obstructive pulmonary disease): Comment: He has the asthma/COPD which is well controlled, with current regimen. Recent acute exacerbation has resolved. His COPD is relatively controlled with simple regimen. And he does not get acute exacerbations that often. So he is not candidate for any biologic treatment which I have explained to him. Code(s): J44.9 - Chronic obstructive pulmonary disease, unspecified Category: Medical Plan: Continue using BREYNA ( BUDESONIDE-FORMOTEROL ) 160-4.52 PUFFS B.I.D.. ALBUTEROL HFA 2 PUFFS Q 4-6 HOURS P.R.N. OR ALBUTEROL SOLUTION IN THE NEBULIZER Q 6 HOURS P.R.N. (2) Obesity (BMI 30-39.9): Comment: VICTOR HUGO REMAINS GROSSLY OBESE,. HE SAY IS HE IS ON HEALTHY DIET PROGRAM AND HAS STARTED PHYSICAL ACTIVITY WITH WALKING UP TO 2 MILES A DAY, AND IS STARTING TO LOSE SOME WEIGHT. Code(s): E66.9 - Obesity, unspecified Category: Medical Plan: COMMENDED FOR STARTING EXERCISE AND WATCHING HIS DIET, AND ADVISED HIM TO LOSE ABOUT. 10 LB OF WEIGHT (3) Obstructive sleep apnea on CPAP: Comment: KNOWN CASE OF OBSTRUCTIVE SLEEP APNEA. HE USES CPAP VERY REGULARLY AND SLEEP OKAY NO ISSUES WITH THE CPAP Code(s): G47.33 - Obstructive sleep apnea (adult) (pediatric); Z99.89 - Dependence on other enabling machines and devices Category: Medical Plan: COMMENDED FOR GOOD COMPLIANCE AND CONTINUE TO USE THE CPAP REGULARLY Coding Level of Care Code Est Pt Level 3 (36519) Diagnoses COPD (chronic obstructive pulmonary disease) J44.9 Obesity (BMI 30-39.9) E66.9 Obstructive sleep apnea on CPAP G47.33; Z99.89
--- OUTSIDE RECORDS SUMMARY | 2024-12-24 10:19 | XMS_ITS | Clinical Summary ---
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 Active losartan (COZAAR) 50 mg tablet Take 1 tablet (50 mg total) by mouth daily. Active atenoloL (TENORMIN) 25 mg tablet Take 1 tablet (25 mg total) by mouth daily. Active simvastatin (ZOCOR) 20 mg tablet Take 1 tablet (20 mg total) by mouth daily. Active amLODIPine (NORVASC) 5 mg tablet Take 1 tablet (5 mg total) by mouth daily. Active budesonide/fo rmoterol fumarate (SYMBICORT INHL) Inhale 2 puffs into the lungs 2 (two) times daily (0800, 1800). Active nebulizers Misc by [facility].(Non-Drug; Combo Route) route See Admin Instructions. Use as directed. Active BiPAP / CPAP See Admin Instructions. CPAP at night Active omeprazole (PRILOSEC) 20 mg capsule Take 1 capsule (20 mg total) by mouth daily. Active hydroCHLOROth iazide (HYDRODIURIL) 25 mg tablet Take 1 tablet (25 mg total) by mouth daily. Active ipratropium-a lbuteroL (DUO-NEB) 0.5 mg-3 mg(2.5 mg base)/3 mL nebulizer solutionIndic ations:schedu le every 6 hours while awake over the next 3 days then resume as needed dosing structure Take 3 mLs by nebulization every 6 (six) hours while awake. Active tamsulosin (FLOMAX) 0.4 mg 24 hr capsule Take 1 capsule (0.4 mg total) by mouth daily. Active cholecalcifer ol, vitamin D3, (VITAMIN D3) 25 mcg (1,000 unit) capsule Take 1 capsule (1,000 Units total) by mouth daily. Active phytonadione, vit K1, (VITAMIN K) 100 mcg tablet Take 1 tablet (100 mcg total) by mouth daily. Active benzonatate (TESSALON) 100 mg capsule Take 1 capsule (100 mg total) by mouth 3 (three) times daily as needed for cough. 20 capsule 12/03/19 Active HYDROcodone-a cetaminophen (NORCO) 5-325 mg per tabletIndicat ions:Carpal tunnel syndrome of right wrist Take 1 tablet by mouth every 6 (six) hours as needed for pain. 8 tablet 11/13/19 25 Discontinued(! Delete Cleanup (No Cancel Msg)) amoxicillin-c lavulanate (AUGMENTIN) 875-125 mg per tablet Take 1 tablet by mouth every 12 (twelve) hours. Discontinued(S top Taking at Discharge) doxycycline hyclate (VIBRAMYCIN) 100 mg capsule Take 1 capsule (100 mg total) by mouth 2 (two) times daily. Discontinued predniSONE (DELTASONE) 20 mg tablet Take 2 tablets (40 mg total) by mouth daily. Take with food. Discontinued predniSONE (DELTASONE) 20 mg tablet Take 2 tablets (40 mg total) by mouth daily for 3 days, THEN 1.5 tablets (30 mg total) daily for 3 days, THEN 1 tablet (20 mg total) daily for 3 days, THEN 0.5 tablets (10 mg total) daily for 3 days. Take with food. 15 tablet 12/04/19 doxycycline hyclate (VIBRAMYCIN) 100 mg capsule Take 1 capsule (100 mg total) by mouth 2 (two) times daily for 1 day. Complete course tonight, 12/02/24 12/03/19 25 guaiFENesin (HUMIBID) 200 mg tablet Take 2 tablets (400 mg total) by mouth every 4 (four) hours as needed for congestion for up to 10 days. 30 tablet 12/03/19 25 025 Active Problems Problem Noted Date Diagnosed Date COPD exacerbation (HC Code) 11/27/2024 Encounters Date Type Department Care Team Description 12/04/2024 Patient Outreach [facility] Call Center [address] [place] [id number] Hayley Adler LPN Hospital Discharge Follow Up 11/27/2024 11:19 AM EDT - 12/02/2024 1:00 PM EDT Hospital Encounter Medical/Surgical [address] [place] [address] Samara Koroma DO Watts-Wojcik, Paula Jean, DO COPD exacerbation (HC Code) (Primary Dx) Discharge Disposition: Home or Self Care 11/27/2024 Travel 2024 4:53 AM EDT - 2024 6:00 AM EDT Emergency Emergency Department [address] [place] [address] Jolynn Crespo MD Carpal tunnel syndrome of right wrist (Primary Dx) Discharge Disposition: Home or Self Care 2024 Travel from Last 3 Months Social History Tobacco Use Types Packs/Day Years Used Date Smoking Tobacco: Never Assessed [facility] Utilities Answer Date Recorded In the past 12 months has [employer] electric, gas, oil, or water company threatened to shut off services in your home? No 11/27/2024 AUDIT-C Answer Date Recorded Q1: How often do you have a drink containing alc ohol? 2-4 times a month 11/27/2024 Q2: How many drinks containi ng alcohol do you have on a typical day when you are drinking? 1 or 2 11/27/2024 Q3: How often do you have si x or more drinks on one occasion? Never 11/27/2024 PHQ-2 Answer Date Recorded PHQ-2 Total Score 0 11/27/2024 Hunger Vital Sign Answer Date Recorded Within the past 12 months, y ou worried that your food would run out before you got the money to buy more. Never true 11/28/19 25 Within the past 12 months, t he food you bought just didn't last and you didn't have money to get more. Never true 11/27/2024 PRAPARE - Transportation Answer Date Re corded In the past 12 months, has l ack of transportation kept you from medical appointments or from getting medications? No 11/06 In the past 12 months, has l ack of transportation kept you from meetings, work, or from getting things needed for daily living? No 11/27/2024 Housing Stability Answer Date Recorded What is your living situation today? I have a [facility] place to live 11/27/2024 Housing Stability Not on file 11/27/2024 Interpersonal Safety Answer Date Record ed Is there anyone in your life that is hurting or threatening you in anyway? no 11/27/2024 Physical Indicators of Abuse No evidence of phys ical abuse 11/27/2024 Sex and Gender Information Value Date Recorded Sex Assigned at Not on file Legal Sex Male 4:46 AM EDT Gender Identity Not on file Sexual Orientation Not on file Last Filed Vital Signs Vital Sign Reading Time Taken Comments Blood Pressure 151/83 12/02/2024 12:40 PM EDT Pulse 62 12/02/2024 12:40 PM EDT Temperature 36.8 C (98.3 F) 12/02/2024 12:40 PM EDT Respiratory Rate 18 12/02/2024 12:4 0 PM EDT Oxygen Saturation 93% 12/02/2024 12: 40 PM EDT Inhaled Oxygen Concentration - - Weight 114.4 kg (252 lb 3.3 oz) 12/01/2024 6:00 AM EDT Height 175.3 cm (5' 9 ) 11/27/2024 11:2 3 AM EDT Body Mass Index 37.24 11/27/2024 11:23 AM EDT Plan of Treatment Health Maintenance Due Date Last Done Comments HIV screening 11/11/1960 Hepatitis C screening 11/11/1965 Pneumococcal Vaccine (50+ years) (1 of 2 - PCV) 11/11/1966 Tetanus adult (Td q 10,TDAP once) 1967 Lipid disorder screening 1987 Shingles vaccine (Shingrix) (1 of 2 - Shingrix (RZV) 2 Dose Standard Series) 11/11/1997 RSV Immunization (1 - 1-dose 75+ series) 11/11/2022 Covid-19 vaccine series (2 - season) 2024 01/11/2021 Influenza vaccine 01/06/2025 Diabetes screening 12/03/2027 12/02/2024, 0 12/01/2024, 11/30/2024, Additional history exists Colon cancer screening, Colonoscopy Discontinued Meningococcal Vaccine Aged Out No avi allen eligible based on patient's age to complete this topic Procedures Procedure Name Priority Date/Time Associated Diagnosis Comments CBC AND DIFFERENTIAL Early AM 12/02/2024 5:57 AM EDT BASIC METABOLIC PANEL Early AM 12/02/2024 5:57 AM EDT CBC WITH AUTO DIFFERENTIAL Early AM 12/02/2024 5:57 AM EDT BASIC METABOLIC PANEL Early AM 12/02/2024 5:57 AM EDT MAGNESIUM Early AM 12/02/2024 5:57 AM EDT CBC AND DIFFERENTIAL Early AM 12/01/2024 6:33 AM EDT BASIC METABOLIC PANEL Early AM 12/01/2024 6:33 AM EDT CBC WITH AUTO DIFFERENTIAL Early AM 12/01/2024 6:33 AM EDT BASIC METABOLIC PANEL Early AM 12/01/2024 6:33 AM EDT MAGNESIUM Early AM 12/01/2024 6:33 AM EDT CBC AND DIFFERENTIAL Early AM 11/30/2024 5:50 AM EDT COMPREHENSIVE METABOLIC PANEL Early AM 11/30/2024 5:50 AM EDT MANUAL DIFFERENTIAL Routine 11/30/2024 5 :50 AM EDT CBC WITH AUTO DIFFERENTIAL Early AM 11/30/2024 5:50 AM EDT COMPREHENSIVE METABOLIC PANEL Early AM 11/30/2024 5:50 AM EDT PHOSPHORUS ([facility] L LMW [facility]) Early AM 11/30/2024 5:50 AM EDT MAGNESIUM Early AM 11/30/2024 5:50 AM EDT CBC AND DIFFERENTIAL Early AM 11/29/2024 5:45 AM EDT COMPREHENSIVE METABOLIC PANEL Early AM 11/29/2024 5:45 AM EDT CBC WITH AUTO DIFFERENTIAL Early AM 11/29/2024 5:45 AM EDT COMPREHENSIVE METABOLIC PANEL Early AM 11/29/2024 5:45 AM EDT PHOSPHORUS ([facility] GH L LMW [facility]) Early AM 11/29/2024 5:45 AM EDT MAGNESIUM Early AM 11/29/2024 5:45 AM EDT LOWER RESP CULTURE, QUAL Routine 11/28/2024 6:41 AM EDT LOWER RESPIRATORY CULTURE ([facility] L [facility]) Routine 11/28/2024 6:41 AM EDT LEGIONELLA AND S. PNEUMONIAE ANTIGEN, URINE ([facility] GH [facility]) Routine 11/28/2024 6:04 AM EDT COMPREHENSIVE METABOLIC PANEL Early AM 11/28/2024 5:38 AM EDT COMPREHENSIVE METABOLIC PANEL Early AM 11/28/2024 5:38 AM EDT MAGNESIUM Early AM 11/28/2024 5:38 AM EDT CBC WITHOUT DIFFERENTIAL Early AM 11/28/2024 5:38 AM EDT TROPONIN T HIGH SENSITIVITY, 3 HOUR ([facility] LMW [facility]) STAT - Timed 11/27/2024 2:55 PM EDT REFLEX LACTIC ACID, PLASMA STAT 11/27/2024 2:55 PM EDT URINE MICROSCOPIC ([facility] LMW Y[facility]) Routine 11/27/2024 1:37 PM EDT URINALYSIS WITH CULTURE REFLEX ( LMW Y[facility]) STAT 11/27/2024 1:37 PM EDT UA REFLEX CULTURE STAT 11/27/2024 1:3 7 PM EDT URINALYSIS WITH CULTURE REFLEX STAT 11/27/2024 1:37 PM EDT TROPONIN T HIGH SENSITIVITY, 1 HOUR WITH REFLEX ([facility] LMW [facility]) STAT - Timed 11/27/2024 12:42 PM EDT XR CHEST PA AND LATERAL Within 1 hour (STAT) 11/27/2024 12:22 PM EDT RESPIRATORY VIRUS PCR PANEL (W/O COVID/FLU/RSV) ([facility]) Routine 11/27/2024 11:43 AM EDT SARS-COV-2 (COVID-19)/INFLUENZA A+B/RSV BY RT-PCR ([facility] LMW [facility]) Routine 11/27/2024 11:43 AM EDT COMPREHENSIVE METABOLIC PANEL STAT 11/27/2024 11:36 AM EDT COMPREHENSIVE METABOLIC PANEL STAT 11/27/2024 11:36 AM EDT LACTIC ACID, PLASMA (REFLEX 2H REPEAT) STAT 11/27/2024 11:36 AM EDT CBC AND DIFFERENTIAL Routine 11/27/2024 11:35 AM EDT CBC WITH AUTO DIFFERENTIAL Routine 11/27/2024 11:35 AM EDT PROTIME AND INR STAT 11/27/2024 11:35 AM EDT TROPONIN T HIGH SENSITIVITY, 0 HOUR BASELINE WITH REFLEX ([facility]W [facility]) STAT 11/27/2024 11:35 AM EDT BLOOD CULTURE STAT 11/27/2024 11:35 AM EDT BLOOD CULTURE STAT 11/27/2024 11:35 AM EDT BLOOD CULTURE STAT 11/27/2024 11:35 AM EDT BLOOD CULTURE STAT 11/27/2024 11:35 AM EDT EKG Routine 11/27/2024 11:26 AM EDT from Last 3 Months Results * (ABNORMAL) Basic metabolic panel (12/02/2024 5:57 AM EDT) Only the most recent of2 resultswithin the time period is included. Glucose 148(H) 65 - 110 mg/dL 12/02/2024 6:44 AM [facility] Comment: Non-fastin-110 mg/dL Fasting (minimum 6 hrs): 65-99 mg/dL BUN 40(H) 7 - 18 mg/dL 12/02/2024 6:44 AM [facility] Creatinine 1.38(H) 0.70 - 1.30 mg/dL 12/02/2024 6:44 AM [facility] Sodium 139 136 - 145 mmol/L 12/02/2024 6:44 AM [facility] Potassium 4.0 3.5 - 5.1 mmol/L 12/02/2024 6:44 AM [facility] Chloride 99 98 - 107 mmol/L 12/02/2024 6:44 AM [facility] CO2 36(H) 21 - 32 mmol/L 12/02/2024 6:44 AM [facility] Anion Gap 4(L) 5 - 15 mmol/L 12/02/2024 6:44 AM [facility] Calcium 8.9 8.5 - 10.1 mg/dL 12/02/2024 6:44 AM [facility] eGFR (Creatinine) 53(L) >=60 mL/min/1.73 m2 12/02/2024 6:44 AM [facility] Comment: [facility] utilizes CKD-EPI Creatinine 2020 to report eGFR. Values < 60 mL/min/1.73 m2 may indicate CKD if present for more than three months AND creatinine is at steady state. The eGFR provides a rough estimate of kidney function. For further guidance, please refer to the CKD: Adult Depositing Machine Operator Signature pathway. Creatinine Delta 0.14 See Comment 6:44 AM [facility] Comment: Delta creatinine is the difference between the current creatinine and the most recent prior creatinine (if available within the previous 12 months). It is intended to detect significant changes in kidney function for patients whose creatinine is <5 mg/dL. A delta is not calculated for patients whose baseline creatinine is >=5 mg/dL or those who do not have a baseline within the last year. The following deltas will flag as critical (triggering a call from the laboratory): a) Deltas >= +1.5 mg/dL for patients with baseline creatinine <= 1.5 mg/dL. b) Deltas >= +3 mg/dL for patients with baseline creatinine between 1.5 and 5 mg/dL. Blood Venipuncture / Unknown 12/02/2024 5:57 AM EDT 12/02/2024 6:14 AM EDT us Xenia Keating DO LAB BLOOD ORDERABLES Final Result [place] [id number], [facility] [phone] * (ABNORMAL) CBC auto differential (12/02/2024 5:57 AM EDT) Only the most recent of5 resultswithin the time period is included. WBC 11.3(H) 4.0 - 11.0 x1000/ L 12/02/2024 6:27 AM [facility] RBC 5.05 4.00 - 6.00 M/ L 12/02/2024 6:27 AM [facility] Hemoglobin 14.8 13.2 - 17.1 g/dL 12/02/2024 6:27 AM [facility] Hematocrit 44.80 38.50 - 50.00 % 12/02/2024 6:27 AM [facility] MCV 88.7 80.0 - 100.0 fL 12/02/2024 6:27 AM [facility] MCH 29.3 27.0 - 33.0 pg 12/02/2024 6:27 AM [facility] MCHC 33.0 31.0 - 36.0 g/dL 12/02/2024 6:27 AM [facility] RDW-CV 13.8 11.0 - 15.0 % 12/02/2024 6:27 AM [facility] Platelets 269 150 - 420 x1000/ L 12/02/2024 6:27 AM [facility] MPV 9.8 8.0 - 12.0 fL 12/02/2024 6:27 AM [facility] Neutrophils 91.4(H) 39.0 - 72.0 % 12/02/2024 6:27 AM [facility] Lymphocytes 5.6(L) 17.0 - 50.0 % 12/02/2024 6:27 AM [facility] Monocytes 2.5(L) 4.0 - 12.0 % 12/02/2024 6:27 AM [facility] Eosinophils 0.0 0.0 - 5.0 % 12/02/2024 6:27 AM [facility] Basophil 0.1 0.0 - 1.4 % 12/02/2024 6:27 AM [facility] Immature Granulocytes 0.4 0.0 - 1.0 % 12/02/2024 6:27 AM [facility] nRBC 0.0 0.0 - 1.0 % 12/02/2024 6:27 AM [facility] Absolute Lymphocyte Count 0.64 0.60 - 3.70 x 1000/ L 12/02/2024 6:27 AM [facility] Monocyte Absolute Count 0.28 0.00 - 1.00 x 1000/ L 12/02/2024 6:27 AM [facility] Eosinophil Absolute Count 0.00 0.00 - 1.00 x 1000/ L 12/02/2024 6:27 AM [facility] Basophil Absolute Count 0.01 0.00 - 1.00 x 1000/ L 12/02/2024 6:27 AM [facility] Absolute Immature Granulocyte Count 0.05 0.00 - 0.30 x 1000/ L 12/02/2024 6:27 AM [facility] Absolute nRBC 0.00 0.00 - 1.00 x 1000/ L 12/02/2024 6:27 AM [facility] ANC (Abs Neutrophil Count) 10.36(H) 2.00 - 7.60 x 1000/ L 12/02/2024 6:27 AM [facility] Blood Venipuncture / Unknown 12/02/2024 5:57 AM EDT 12/02/2024 6:13 AM EDT Xenia Keating DO LAB BLOOD ORDERABLES Final Result Performing Organization Address City/[facility]/[place] [address], [facility] [phone] * Magnesium (12/02/2024 5:57 AM EDT) Only the most recent of5 resultswithin the time period is included. Magnesium 2.0 1.6 - 2.6 mg/dL 12/02/2024 6:44 AM [facility] Blood Venipuncture / Unknown 12/02/2024 5:57 AM EDT 12/02/2024 6:14 AM EDT Xenia Keating DO LAB BLOOD [place] [address], [facility] [phone] * (ABNORMAL) Comprehensive metabolic panel (11/30/2024 5:50 AM EDT) Only the most recent of4 resultswithin the time period is included. Sodium 139 136 - 145 mmol/L 11/30/2024 7:18 AM [facility] Potassium 3.8 3.5 - 5.1 mmol/L 11/30/2024 7:18 AM [facility] Chloride 100 98 - 107 mmol/L 11/30/2024 7:18 AM [facility] CO2 35(H) 21 - 32 mmol/L 11/30/2024 7:18 AM [facility] Anion Gap 4(L) 5 - 15 mmol/L 11/30/2024 7:18 AM [facility] Glucose 140(H) 65 - 110 mg/dL 11/30/2024 7:18 AM [facility] Comment: Non-fastin-110 mg/dL Fasting (minimum 6 hrs): 65-99 mg/dL BUN 31(H) 7 - 18 mg/dL 11/30/2024 7:18 AM [facility] Creatinine 1.26 0.70 - 1.30 mg/dL 11/30/2024 7:18 AM [facility] Calcium 9.2 8.5 - 10.1 mg/dL 11/30/2024 7:18 AM [facility] Total Protein 6.6 6.4 - 8.2 g/dL 11/30/2024 7:18 AM [facility] Albumin 2.8(L) 3.4 - 5.0 g/dL 11/30/2024 7:18 AM [facility] Globulin 3.8 2.5 - 5.0 g/dL 11/30/2024 7:18 AM [facility] Total Bilirubin 0.6 0.2 - 1.0 mg/dL 11/30/2024 7:18 AM [facility] Comment:Use of this assay is not recommended for patients undergoing treatment with Eltrombopag due to the potential for falsely elevated results. Alkaline Phosphatase 95 45 - 117 U/L 11/30/2024 7:18 AM [facility] Alanine Aminotransferase (ALT) 74 12 - 78 U/L 11/30/2024 7:18 AM [facility] Aspartate Aminotransferase (AST) 42(H) 15 - 37 U/L 11/30/2024 7:18 AM [facility] eGFR (Creatinine) 59(L) >=60 mL/min/1.73 m2 11/30/2024 7:18 AM [facility] Comment: [facility] utilizes CKD-EPI Creatinine 2020 to report eGFR. Values < 60 mL/min/1.73 m2 may indicate CKD if present for more than three months AND creatinine is at steady state. The eGFR provides a rough estimate of kidney function. For further guidance, please refer to the CKD: Adult Depositing Machine Operator Signature pathway. Creatinine Delta -0.13 See Comment 7:18 AM [facility] Comment: Delta creatinine is the difference between the current creatinine and the most recent prior creatinine (if available within the previous 12 months). It is intended to detect significant changes in kidney function for patients whose creatinine is <5 mg/dL. A delta is not calculated for patients whose baseline creatinine is >=5 mg/dL or those who do not have a baseline within the last year. The following deltas will flag as critical (triggering a call from the laboratory): a) Deltas >= +1.5 mg/dL for patients with baseline creatinine <= 1.5 mg/dL. b) Deltas >= +3 mg/dL for patients with baseline creatinine between 1.5 and 5 mg/dL. Blood Venipuncture / Unknown 11/30/2024 5:50 AM EDT 11/30/2024 6:12 AM EDT Xenia Keating DO LAB BLOOD ORDERABLES Final Result [address] [address], [facility] [phone] * (ABNORMAL) Manual Differential (11/30/2024 5:50 AM EDT) Neutrophils 86.2(H) 39.0 - 72.0 % 11/30/2024 10:35 AM [facility] Lymphocytes 10.4(L) 17.0 - 50.0 % 11/30/2024 10:35 AM [facility] Monocytes 1.7(L) 4.0 - 12.0 % 11/30/2024 10:35 AM [facility] Eosinophils 0.0 0.0 - 5.0 % 11/30/2024 10:35 AM [facility] Basophil 0.0 0.0 - 1.4 % 11/30/2024 10:35 AM [facility] Atypical Lymphocytes 1.7(H) 0.0 - 1.0 % 11/30/2024 10:35 AM [facility] Neutrophils Absolute 7.66(H) 2.00 - 7.60 x 1000/ L 11/30/2024 10:35 AM [facility] Lymphocyte Absolute 1.08 0.60 - 3.70 x 1000/ L 11/30/2024 10:35 AM [facility] Monocyte Absolute Count 0.15 0.00 - 1.00 x 1000/ L 11/30/2024 10:35 AM [facility] Eosinophil Absolute Count 0.00 0.00 - 1.00 x 1000/ L 11/30/2024 10:35 AM [facility] Basophil Absolute Count 0.00 0.00 - 1.00 x 1000/ L 11/30/2024 10:35 AM [facility] RBC Morphology Reviewed 11/30/2024 10:35 AM [facility] Giant PLTs Present None 11/30/2024 10:35 AM [facility] Blood Venipuncture / Unknown 11/30/2024 5:50 AM EDT 11/30/2024 6:13 AM EDT us Xenia Keating DO LAB BLOOD [place] [address], [facility] [phone] * Phosphorus ([facility] L LMW Y[facility]) (11/30/2024 5:50 AM EDT) Only the most recent of2 resultswithin the time period is included. Phosphorus 3.6 2.5 - 4.9 mg/dL 11/30/2024 7:10 AM EDT [facility] Blood Venipuncture / Unknown 11/30/2024 5:50 AM EDT 11/30/2024 6:12 AM EDT Xenia Keating DO LAB BLOOD ORDERABLES Final Result Performing Organization Address City/[facility]/ZIP Co de Phone Number [address] [address], [facility] [phone] * Lower respiratory culture, qualitative (11/28/2024 6:41 AM EDT) Lower Respiratory Culture 1+ Normal Jasmine 11/30/2024 10:53 AM EDT [facility] Gram Stain 1+ WBC's 11/30/2024 10:53 AM EDT [facility] Gram Stain No organisms seen 11/30/2024 10:53 AM EDT [facility] Sputum COUGHED SPUTUM SPECIMEN / Unknown Collection / Unknown 11/28/2024 6:41 AM EDT 11/28/2024 7:08 AM EDT Narrative [facility]IC[facility] - 11/30/2024 10:53 AM EDT Culture, organism identification, and/or susceptibility results may have been generated with a non-FDA approved method. All methods used in this report have been validated by [facility] Microbiology for clinical use. No Acinetobacter, Stenotrophomonas, Pseudomonas or enteric gram negative rods isolated. No S. aureus (including MRSA) recovered from this specimen. Samara Koroma DO MICROBIOLOGY - GENERAL ORDERA BLES Final Result [facility]IC[facility] [address] [place] [id number], [facility] [phone] * Legionella and S. pneumoniae antigen, urine (11/28/2024 6:04 AM EDT) Pathologist [facility] Legionella Antigen Negative Negative 11/28/2024 4:24 PM EDT [facility] S. pneumoniae Urine Antigen Negative Negative 11/28/2024 4:24 PM EDT [facility] Urine VOIDED URINE SPECIMEN / Unknown Collection / Unknown 11/28/2024 6:04 AM EDT 11/28/2024 6:34 AM EDT Narrative [facility] - 11/28/2024 4:24 PM EDT Presumptive negative for L.pneumophila serogroup 1 antigen in urine, suggesting no recent or current infection. Infection due to Legionella cannot be ruled out since other serogroups and species may cause disease, antigens may not be present in urine in early infection, and the level of antigen present in the urine may be below the detection limit of the test. Presumptive negative for pneumococcal pneumonia, suggesting no recent or current pneumococcal infection. Infection due to S.pneumoniae cannot be ruled out since the antigen present in the sample may be below detection limit of the test. us Samara Koroma DO MICROBIOLOGY - GENERAL ORDERA BLES Final Result Performing Organization Address City/State/[facility] Co de Phone Number [facility]IC[facility] [address] [place] [address] * CBC without differential (11/28/2024 5:38 AM EDT) Pathologist [facility] WBC 6.6 4.0 - 11.0 x1000/ L 11/28/2024 6:46 AM [facility] RBC 4.51 4.00 - 6.00 M/ L 11/28/2024 6:46 AM [facility] Hemoglobin 13.4 13.2 - 17.1 g/dL 11/28/2024 6:46 AM [facility] Hematocrit 41.00 38.50 - 50.00 % 11/28/2024 6:46 AM [facility] MCV 90.9 80.0 - 100.0 fL 11/28/2024 6:46 AM [facility] MCH 29.7 27.0 - 33.0 pg 11/28/2024 6:46 AM [facility] MCHC 32.7 31.0 - 36.0 g/dL 11/28/2024 6:46 AM [facility] RDW-CV 14.5 11.0 - 15.0 % 11/28/2024 6:46 AM [facility] Platelets 226 150 - 420 x1000/ L 11/28/2024 6:46 AM [facility] MPV 10.0 8.0 - 12.0 fL 11/28/2024 6:46 AM [facility] ANC (Abs Neutrophil Count) 5.62 2.00 - 7.60 x 1000/ L 11/28/2024 6:46 AM [facility] Blood Venipuncture / Unknown 11/28/2024 5:38 AM EDT 11/28/2024 6:33 AM EDT us Samara Koroma DO LAB BLOOD ORDERAB[place] [address], [facility] [phone] * Reflex lactic acid, plasma (11/27/2024 2:55 PM EDT) [facility] Lactate 1.7 0.4 - 2.0 mmol/L 11[facility]24 [facility] / Unknown 11/27/2024 2:55 PM EDT 11/27/2024 3:00 PM EDT us Omid MONTOYA LAB BLOOD [place]AB[place] [address], [facility] [phone] * (ABNORMAL) Troponin T High Sensitivity, 3 Hour (BH GH LMW YH) (11/27/2024 2:55 PM EDT) [facility] High Sensitivity Troponin T 19(H) See Comment ng/L 11/27/2024 3:38 PM EDT [facility] Comment:High Sensitivity Tro ponin T levels should be interpreted in the context of the [facility] Care Signature pathway. 1 hour Delta from 0 Hour, HS-Troponin T -2 ng/L 11/27/2024 3:38 PM EDT [facility] 3 hour Delta from 0 Hour, HS-Troponin T -4 ng/L 11/27/2024 3:38 PM T [facility] Blood Venipuncture / Unknown 11/27/2024 2:55 PM EDT 11/27/2024 3:00 PM EDT us Sp Montanez MD LAB BLOOD [place] [address], [facility] [phone] * (ABNORMAL) Urinalysis with culture reflex ([facility]) (11/27/2024 1:37 PM EDT) Clarity, UA Clear Clear [facility] Color, UA Yellow Yellow, Colorless 11/27/2024 1:[facility] Specific [place], UA 1.018 1.005 - 1.030 11/27/2024 1:43 PM [facility] pH, UA 5.5 5.5 - 7.5 11/27/2024 1:[facility] Protein, UA 2+(A) Negative, Trace 11/27/2024 1:43 [facility] Glucose, UA Negative Negative 11/27/2024 1:43 [facility] Ketones, UA Negative Negative 11/27/2024 1:43 [facility] Blood, UA 1+(A) Negative 11/27/2024 1:43 [facility] Bilirubin, UA Negative Negative 11/27/2024 1:43 PM EDT [facility] Leukocytes, UA Negative Negative 11/27/2024 1:43 PM EDT [facility] Nitrite, UA Negative Negative 11/27/2024 1:43 PM EDT [facility] Urobilinogen, UA <2.0 <=2.0 mg/dL 11/27/2024 1:43 PM EDT [facility] Cohen Top Tube Received ? Yes 11/27/2024 1:43 PM EDT [facility] Urine URINE SPECIMEN OBTAINED BY CLEAN CATCH PROCEDURE / Unknown Collection / Unknown 11/27/2024 1:37 PM EDT 11/27/2024 1:37 PM EDT Omid MONTOYA URINE ORDERABLES Final Result [address] [address], [facility] [phone] * UA reflex to culture (11/27/2024 1:37 PM EDT) Reflex Urine Culture See Comment 11/27/2024 7:00 PM EDT [facility] MEDICINE Urine URINE SPECIMEN OBTAINED BY CLEAN CATCH PROCEDURE / Unknown Collection / Unknown 11/27/2024 1:37 PM EDT 11/27/2024 1:37 PM EDT Narrative [facility]ICINE - 11/27/2024 7:00 PM EDT Urine culture will be reflexed if indicated by urinalysis results. Please check microbiology results for urine culture. Omid MONTOYA URINE ORDERABLES Final Result Performing Organization Address City/[facility]/ZIP Co de Phone Number [facility]PART[facility] OF [facility]ORATORY MEDICINE [address] [place] [address], [facility] [phone] * Urine microscopic ([facility]) (11/27/2024 1:37 PM EDT) RBC/HPF, UA <1 0 - 2 /HPF 11/27/2024 3:58 PM EDT [facility] WBC/HPF, UA <1 0 - 5 /HPF 11/27/2024 3:58 PM EDT [facility] Urine URINE SPECIMEN OBTAINED BY CLEAN CATCH PROCEDURE / Unknown Collection / Unknown 11/27/2024 1:37 PM EDT 11/27/2024 1:37 PM EDT Omid MONTOYA URINE ORDERABLES Final Result Performing Organization Address [facility] [place] [address], [facility] [phone] * (ABNORMAL) Troponin T High Sensitivity, 1 Hour With Reflex ([facility]) (11/27/2024 12:42 PM EDT) High Sensitivity Troponin T 21(H) See Comment ng/L 11/27/2024 1:11 PM EDT [facility] Comment:High Sensitivity Tro ponin T levels should be interpreted in the context of the [facility] Care Signature pathway. 1 hour Delta from 0 Hour, HS-Troponin T -2 ng/L 11/27/2024 1:11 PM EDT [facility] Blood Venipuncture / Unknown 11/27/2024 12:42 PM EDT 11/27/2024 12:49 PM EDT Sp Montanez MD LAB BLOOD ORDERABLES Final Resul t Performing Organization Address [facility] [place] [address], [facility] [phone] * XR Chest PA and Lateral (11/27/2024 12:22 PM EDT) Anatomical Region Laterality Modality Chest Radiographic Leona ging 11/27/2024 12:4 0 PM EDT Impressions 11/27/2024 12:40 PM EDT No acute process is seen. [facility] Radiology Notification System Classification: Routine. Reported and signed by: Colton Tomlinson MD Narrative 11/27/2024 12:40 PM EDT Chest - 2 views HISTORY: Chest Pain IMAGING: PA and lateral views of the chest. COMPARISON: None FINDINGS: The lungs are clear. The heart and mediastinum are within normal limits. Osseous structures are intact. Procedure Note Colton Tomlinson MD - 11/27/2024 Chest - 2 views HISTORY: Chest Pain IMAGING: PA and lateral views of the chest. COMPARISON: None FINDINGS: The lungs are clear. The heart and mediastinum are within normal limits.Osseous structures are intact. IMPRESSION: No acute process is seen. [facility] Radiology Notification System Classification: Routine. Reported and signed by: Colton Tomlinson MD Sp Montanez MD IMG DIAGNOSTIC IMAGING ORDERABLE S Final Result * Symptomatic 4 Plex -Order only on patients highly likely to be admitted. (11/27/2024 11:43 AM EDT) Influenza A Negative Negative 11/27/2024 1:18 PM EDT [facility] Comment:Negative results do not preclude infection from influenza or other respiratory viruses and should not be used as the sole basis for treatment or management. Influenza may exhibit genomic variation among circulating and newly emerging strains that may lead to unexpected falsely negative results for some tests. For all respiratory pathogens, falsely negative results may also arise from poorly collected specimens. If concerns remain high, providers should contact the laboratory for potential testing by an alternative testing method and/or submit a new well-collected nasopharyngeal specimen. Influenza B Negative Negative 11/27/2024 1:18 PM EDT [facility] Respiratory Syncytial Virus Negative Negative 11/27/2024 1:18 PM EDT [facility] SARS-CoV-2 RNA (COVID-19) Negative Negative 11/27/2024 1:18 PM T [facility] Comment:Test performance has not been evaluated in asymptomatic patients. Negative results do not preclude SARS-CoV-2, Influenza A, Influenza B and/or RSV infection. The results of these tests should not be used as the sole basis for diagnosis, treatment, or other patient management decisions. Viral NASOPHARYNGEAL STRUCTURE / Unknown Collection / Unknown 11/27/2024 11:43 AM EDT 11/27/2024 11:50 AM EDT Omid MONTOYA MICROBIOLOGY - GENERAL [place] [address], [facility] [phone] * (ABNORMAL) Respiratory Virus PCR Panel (w/o COVID/Flu/RSV) ([facility]) (11/27/2024 11:43 AM EDT) Adenovirus Negative Negative 11/28/2024 12:58 PM EDT [facility]IC[facility] Coronavirus 229E Negative Negative 11/29/19 12:58 PM EDT [facility] Coronavirus HKU1 Negative Negative 11/29/19 12:58 PM EDT [facility] Coronavirus NL63 Negative Negative 11/29/19 12:58 PM EDT [facility] Coronavirus OC43 Negative Negative 11/29/19 12:58 PM EDT [facility] Human Metapneumovirus (HMPV) Negative Negative 11/28/2024 12:58 PM EDT [facility] Rhinovirus Negative Negative 11/28/2024 12:58 PM EDT [facility] Parainfluenza Virus 1 Negative Negative 11/28/2024 12:58 PM EDT [facility] Parainfluenza Virus 2 Negative Negative 11/28/2024 12:58 PM EDT [facility] Parainfluenza Virus 3 Positive(A) Negative 11/28/2024 12:58 PM EDT [facility] Parainfluenza Virus 4 Negative Negative 11/28/2024 12:58 PM EDT [facility] Viral NASOPHARYNGEAL STRUCTURE / Unknown Collection / Unknown 11/27/2024 11:43 AM EDT 11/27/2024 11:50 AM EDT us Omid MONTOYA MICROBIOLOGY - GENERAL ORDERAB LES Final Result [facility]ICINE [address] [place] [address] * (ABNORMAL) Lactic acid, plasma (reflex 2h repeat) (11/27/2024 11:36 AM EDT) Lactate 2.1(H) 0.4 - 2.0 mmol/L 11/27/2024 12:16 PM EDT [facility] Blood Venipuncture / Unknown 11/27/2024 11:36 AM EDT 11/27/2024 11:41 AM EDT Omid MONTOYA LAB BLOOD ORDERABLES Final Res ult Performing Organization Address [facility] [place] [address], [facility] [phone] * (ABNORMAL) Troponin T High Sensitivity, Emergency; 0 hour baseline AND 1 hour with reflex (3 hour) (11/27/2024 11:35 AM EDT) [facility] High Sensitivity Troponin T 23(H) See Comment ng/L 11/27/2024 12:02 PM EDT [facility] Comment:High Sensitivity Tro ponin T levels should be interpreted in the context of the [facility] Care Signature pathway. Blood Venipuncture / Unknown 11/27/2024 11:35 AM EDT 11/27/2024 11:41 AM EDT Sp Montanez MD LAB BLOOD ORDERABLES Final Resul t Performing Organization Address [facility] de Phone Number [address] [phone] * Blood culture (11/27/2024 11:35 AM EDT) Only the most recent of2 resultswithin the time period is included. [facility] Blood Culture No Growth after 5 days of incubation 12/02/2024 9:11 PM EDT [facility] Blood PERIPHERAL BLOOD SPECIMEN / Unknown Venipuncture / Unknown 11/27/2024 11:35 AM EDT 11/27/2024 11:40 AM EDT Narrative [facility]PARTMENT [facility] LABORATORY MEDICINE - 12/02/2024 9:11 PM EDT All blood culture bottles with growth will be reported. Culture, organism identification, and/or susceptibility results may have been generated with a non-FDA approved method. All methods used in this report have been validated by [facility] Microbiology for clinical use. Aerobic bottle loaded. Anaerobic bottle loaded. us Omid MONTOYA MICROBIOLOGY - GENERAL ORDERAB LES Final Result Performing Organization Address [facility] Co de Phone Number [facility]PART[facility] OF LABORATORY MEDICINE [address] [place] [address], [facility] [phone] * Protime and INR (11/27/2024 11:35 AM EDT) Prothrombin Time 11.8 9.3 - 11.9 seconds 11/27/2024 11:53 AM EDT [facility] INR 1.17 0.89 - 1.18 11/27/2024 11:53 AM EDT [facility] Comment: RECOMMENDED INR THERAPEUTIC RANGES: STANDARD INTENSITY......2.0-3.0 HIGH INTENSITY..........2.5-3.5 Blood Venipuncture / Unknown 11/27/2024 11:35 AM EDT 11/27/2024 11:41 AM EDT us Omid MONTOYA LAB BLOOD ORDERABLES Final Res ult Performing Organization Address City/[facility] [place] [address], [facility] [phone] * EKG (11/27/2024 11:26 AM EDT) Heart Rate 108 bpm [facility] EKG QRS Interval 117 ms [facility] EKG QT Interval 329 ms [facility] EKG QTC Interval 441 ms [facility] EKG P [place] 0 deg [facility] EKG QRS [place] 93 deg [facility] EKG T Wave [place] -43 deg [facility] EKG P-R Interval 0 msec [facility] EKG SEVERITY Abnormal ECG severity [facility] EKG Comment::Atrial fibrillation :Nonspecific intraventricular conduction delay:Non specific ST-T wave abnormalities:BORDERLINE RIGHT AXIS DEVIATION:No previous:Electronically Signed On 11-28-2024 13:00:44 EDT by Miah Fajardo MD OTHER / Unknown 11/27/2024 1 1:26 AM EDT us Sp Montanez MD ECG ORDERABLES Edited Result - Final [facility] EKG from Last 3 Months Insurance MEDICARE MEDICARE Member Subscriber Plan / Payer (Ef fective 2012-Present) Name:Ilir Mccabe Member ID:[id number] Relation to Subscriber:Self Name:Ilir Mccabe Subscriber ID:[id number] Payer ID:[id number] Group ID:Not on file Type:Not on file Address: [address] MEDICARE Advance Directives * Full Code (Latest Code Status on File) Date Activated Date Inactivated Comments 11/27/2024 3:16 PM 12/02/2024 5:18 PM Question Answer Comments With Whom was the Code Status Discussed? Patient
--- OUTSIDE RECORDS SUMMARY | 2024-12-24 10:19 | XMS_ITS | Encounter Summary ---
Author Organization [facility] Address [address] [place] [phone] Phone Care Team Providers Care Vacation Sales Advisor Name Role Phone Harpal Anthony MD Primary Care Provider [phone] Encounter Details Date Type Department Care Team (Late st Contact Info) Description 03/05/2024 Procedure Pass [facility] Endoscopy Admitting Dept Virtual Department [address] [place] [address] Social History Tobacco Use Types Packs/Day Years Used Date Smoking Tobacco: Former Cigarettes S tarted: 12/20/2007 Smokeless Tobacco: Never Comments:quit 8-9 yrs ago Alcohol Use Standard Drinks/Week Comments Yes 3 (1 standard drink = 0.6 oz pur e alcohol) Education Answer Date Recorded Are you interested in more education? Not on jasvir e 09/11/2022 Are you concerned about learning? Not on file 09/11/2022 No 09/11/2022 No 09/11/2022 Digital Access Answer Date Recorded No 10/02/2022 No 10/02/2022 Reliable internet access at home? Not on file 10/02/2022 Device with a working camera? Not on file Intimate Partner Violence Answer Date R ecorded Are you denied basic needs s uch as food, clothing, or medical care? No 03/05/2024 In the past 12 months have y ou been in a relationship with a person who hurts, threatens, or tries to control you? No 03/05/2024 Are you denied basic needs s uch as food, clothing, or medical care? No 03/05/2024 In the past 12 months have y ou been in a relationship with a person who hurts, threatens, or tries to control you? No 03/05/2024 Sex and Gender Information Value Date Recorded Sex Assigned at Not on file Legal Sex Male 6:44 PM EST Gender Identity Not on file Sexual Orientation Not on file documented as of this encounter Plan of Treatment Not on file documented as of this encounter Visit Diagnoses Not on filedocumented in this encounter Care Teams Vacation Sales Advisor Relationship Specialty Start Date End Date Harpal Anthony MD [address] [place] [id number] PCP - General Internal Medicine 12/20/17 documented as of this encounter Additional Source Comments The information contained in this document represents components of the legal health record. It is not the complete legal health record.[facility]
== END 2024-12-24 09:59 | disposition home or self-care (01) ==
LOC: HO.HPS 09:18
PROVIDERS: PCP Internal Medicine; Visit Provider Internal Medicine
DX: J44.9 Chronic obstructive pulmonary disease, unspecified (principal); E66.9 Obesity, unspecified; G47.33 Obstructive sleep apnea (adult) (pediatric); Z99.89 Dependence on other enabling machines and devices
CPT/HCPCS: 99213

== ENCOUNTER → 2024-12-24 09:17 | Outpatient (BNVA) | payer MEDICARE, SELFPAY | PROVIDERS: PCP Internal Medicine; Visit Provider Internal Medicine | DX: J44.89 Other specified chronic obstructive pulmonary disease (principal); E66.9 Obesity, unspecified; G47.33 Obstructive sleep apnea (adult) (pediatric); Z99.89 Dependence on other enabling machines and devices; Z68.35 Body mass index [BMI] 35.0-35.9, adult | CPT/HCPCS: 99212 ==

== ENCOUNTER 2025-01-14 13:01 | Outpatient (AMB) | payer MEDICARE, SELFPAY ==
--- OUTSIDE RECORDS SUMMARY | 2024-11-19 11:15 | XMS_ITS ---
Author Organization [facility] Address [address] [place] [address] Care Team Providers Care Protection Analyst Name Role Phone Harpal Anthony MD Primary Care Provider Unavailab Apple Baca Unavailable [phone] Allergies Allergen (clinical drug ingredient) Drug/Non Drug [...] Date Provider Diagnosis [facility] [address] [place] [address] 11/19/2024 Apple Solorio Plan Of Treatment Next Appt Details Provider Name:Apple melo, 01/22/2025 11:30:00 AM, [address] [place], [address], Progress Notes * Darrin MCCABE:1945 (79 yo M)Acc No.[id number]:11/19/2024 Progress Note Patient: Ilir MORALES Provider: Aman Solorio DPM :1945 A ge:79 Y S ex:Male Date:11/19/2024 Address:[address], [place], [place] Pcp:Harpal Anthony MD Subjective: * Chief Complaints: [...] Pending * Provider: Aman Solorio DPM Date: 11/19/2024 Generated for Charmaine sanchez/Jil/Chantel on: 01/14/2025 03:17 PM EDT
--- NOTE | 2025-01-14 13:02 | A.OFFPC_ITS ---
Vital Signs 01/14/25 13:08 Height 5 ft 8.9 in Weight 251 lb BMI 37.2 BP 132/78 Respiration 18 Pulse 74 Pulse Source Pulse Oximeter Temp 97.6 F Temp Source Temporal Artery Scan Pulse Oximetry (%) 98 Oxygen Delivery Method Room Air Intake Visit Reasons: establish care Ssis Architect Required: No Accompanied by: Self / Same As Patient Allergies Iodinated Contrast Media (IV DYE, IODINE CONTAINING CONTRAST ) Allergy (Severe, Verified 01/14/25 13:03) HIVES dabigatran etexilate (From PRADAXA) Allergy (Unknown, Verified 01/14/25 13:03) REFLUX Tobacco use date assessed: 01/14/25 Fall risk assessment: No Falls in past year Last assessed Fall Risk: 01/14/25 Dental Screening Dental Screen Date: 01/14/25 Did you have a dental visit in the last 12 months?: Yes Did you have a dental problem in the last 6 months where you did not have access to dental care?: No Was dental information given to patient?: Patient has dentist [facility] Medical History Obesity (BMI 30-39.9) COPD (chronic obstructive pulmonary disease) Kidney donor Obstructive sleep apnea on CPAP Essential hypertension Shortness of breath Persistent atrial fibrillation Surgical History History of laparoscopic cholecystectomy (~04/2017) History of hip replacement History of transesophageal echocardiography (SOFIA) Family History Father No problems noted. Mother No problems noted. Social History (Updated 01/14/25 @ 13:16 by JENNIFER Durbin) Housing: House Alcohol intake: current Alcohol intake frequency: a few times a week Alcohol type: wine Patient Tobacco Use Status: Former Tobacco user service: No Current occupational status: retired Cognitive needs: No Hearing needs: No Vision needs: Yes (rx glasses) Questionnaire PHQ-9 Over the last 2 weeks, how often have you been bothered by any of the following problems? 1. Little interest or pleasure in doing things: not at all 2. Feeling down, depressed, or hopeless: not at all 3. Trouble falling or staying asleep, or sleeping too much: not at all 4. Feeling tired or having little energy: not at all 5. Poor appetite or overeating: not at all 6. Feeling bad about yourself - or that you are a failure or have let yourself or your family down: not at all 7. Trouble concentrating on things, such as reading the newspaper or watching television: not at all 8. Moving or speaking so slowly that other people could have noticed. Or the opposite - being so fidgety or restless that you have been moving around a lot more than usual: not at all 9. Thoughts that you would be better off or of hurting yourself in some way: not at all Total score: 0 Source: Developed by Drs. Omid Coronado, Ayse Zepeda, Yuval Barrera and colleagues, with an educational kimberly from [employer]. Thrive Questionnaire Date Thrive assessed: 01/14/25 I am a: Patient What is your living situation today?: I have a steady place to live Within the past 12 months, did the food you bought not last and you didn't have the money to get more?: Never true Within the past 12 months, did you worry whether your food would run out before you got money to buy more?: Never true Do you have trouble paying for medicines?: No Do you have trouble getting transportation to medical appointments?: No Do you have trouble paying your heating and electricity bill?: No Do you have trouble taking care of your child, family member or friend?: No Do you have trouble with day-to-day activities such as bathing, preparing meals, shopping, managing finances, etc.?: No Are you currently unemployed and looking for a job?: No Are you interested in more education?: No Please select the resources that you would like help with: None THRIVE Score: 0 AUDIT C Alcohol Use Questionnaire (AUDIT-C) 1. How often do you have a drink containing alcohol?: 2-3 times a week 2. How many drinks containing alcohol do you have on a typical day when you are drinking?: 1 or 2 3. How often do you have six or more drinks on one occasion?: Never Total Score: 3 TOMAS-7 AMB Questionnaire TOMAS-7 Date TOMAS - 7 assessed: 01/14/25 Feeling nervous, anxious, or on edge: 0 = Not at all Not being able to stop or control worryin = Not at all Worrying too much about different things: 0 = Not at all Trouble relaxin = Not at all Being so restless that it is hard to sit still: 0 = Not at all Becoming easily annoyed or irritable: 0 = Not at all Feeling afraid as if something awful might happen: 0 = Not at all Total TOMAS-7 score (0-4 normal; 5-9 mild; 10-14 moderate; 15-21 severe): 0 Source: Developed by Drs. Omid Coronado, Ayse Zepeda, Yuval Barrera and colleagues, with an educational kimberly from [employer]. Physical exam (Primary Care) Vital Signs: Last Vital Signs Temp 97.6 F 01/14/25 13:08 Pulse 74 01/14/25 13:08 Resp 18 01/14/25 13:08 BP 132/78 01/14/25 13:08 Pulse Ox 98 01/14/25 13:08 Oxygen Delivery Method Room Air 01/14/25 13:08 BMI result Body Mass Index 37.2 Tobacco/Smoking Status: Tobacco use Status Tobacco use date assessed 01/14/25 01/14/25 13:04 Patient Tobacco Use Status Former Tobacco user 01/14/25 13:16 PHQ-9: PHQ-9 Score PHQ-9: Total score 0 01/14/25 13:16 Thrive Assessment: Date of Thrive Assessment Date Thrive assessed 01/14/25 01/14/25 13:04 Coding Level of Care Code New Pt Level 4 (57306) Complex EM visit Add On G2211 Diagnoses Essential hypertension I10 Assessment & Plan Assessment & Plan (1) Essential hypertension: Code(s): I10 - Essential (primary) hypertension Category: Medical Plan: History of Present Illness - The patient is a 79-year-old male presenting for management of chronic conditions and medication refills. - Chronic Obstructive Pulmonary Disease (COPD): The patient experienced an exacerbation in November, characterized by a persistent cough and difficulty breathing, resulting in hospitalization. - Pneumonia was diagnosed via chest x-ray, and treatment included antibiotics and prednisone. - Parainfluenza virus infection was confirmed following a biopsy. - The patient uses a nebulizer and inhaler regularly and has resumed a walking routine, covering up to three miles daily. 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 - Atrial Fibrillation: Managed with rivaroxaban, with regular follow-ups with a lay out and detail drafter. - Preventative Care: The patient is compliant with colonoscopy screenings and has a history of kidney donation. Social History - Exercise: The patient engages in regular walking, covering up to three miles daily, which has improved his condition. - Smoking: The patient quit smoking over 12 years ago. - Living Situation: The patient lives with his spouse and a dog, and is independent in daily activities. Review of Systems - Respiratory: Reports dyspnea and persistent cough during COPD exacerbation. Denies current cough or wheezing. - Cardiovascular: Denies chest pain or palpitations. - Genitourinary: Denies urinary incontinence. - Neurological: Denies vision or hearing problems, although acknowledges the need for a hearing check. Physical Exam General: Cooperative and healthy appearing Nutritional Appearance: Well nourished Orientation/consciousness: Patient oriented x3 Limitations: No limitations Head: Normal to inspection General: Appearance normal, both eyes and all related structures Neck: Normal visual inspection Chest: Normal palpation of entire chest wall Respiratory: Patient has COPD and sleep apnea. Uses a nebulizer and inhaler in the morning and evening. Reports a history of pneumonia and para 1 influenza. Currently able to walk 1.5 to 3 miles a day, which has improved symptoms. No current smoking history. ormal respiratory effort Neurology: Patient oriented x3. Results - Imaging: Chest x-ray revealed pneumonia. - Laboratory: Biopsy confirmed parainfluenza virus infection. Plan 1. Chronic Obstructive Pulmonary Disease (Copd) - Continue current use of nebulizer and inhaler as prescribed. - Encourage continuation of walking routine to improve respiratory function. 2. Sleep Apnea - No specific management changes discussed during the visit. 3. Pneumonia - Previous treatment with antibiotics and prednisone was effective. 4. Parainfluenza Virus Infection - Condition resolved following hospitalization and treatment. 5. Camargo's Esophagus - Continue regular surveillance with upper endoscopy every two to three years. 6. Atrial Fibrillation - Continue rivaroxaban as prescribed and follow up with lay out and detail drafter. 7. Preventative Care - Ensure compliance with regular colonoscopy screenings. Discussion Notes During the visit, we discussed the management of the patient's chronic condi tions, including COPD and atrial fibrillation. I emphasized the importance of continuing the current medication regimen and maintaining regular follow-ups with specialists. We also reviewed the patient's preventative care measures, ensuring compliance with colonoscopy screenings and regular surveillance for Camargo's esophagus. The patient was advised to continue his walking routine to aid in respiratory function improvement. Patient Instructions - Continue using the nebulizer and inhaler as prescribed. - Maintain your walking routine to help with breathing. - Follow up with your lay out and detail drafter as scheduled. - Ensure you are up to date with colonoscopy screenings. - Continue regular surveillance for Camargo's esophagus. Orders: Orders Complete Blood Count no Diff Today I10 - Essential (primary) hypertension Lipid Panel Today I10 - Essential (primary) hypertension Prostate Specific Antigen Scr Today I10 - Essential (primary) hypertension Basic Metabolic Panel Today I10 - Essential (primary) hypertension Liver Panel Today I10 - Essential (primary) hypertension Thyroid Stimulating Hormone Today I10 - Essential (primary) hypertension Medications: New omeprazole 20 mg PO DAILY 90 caps 1RF losartan 50 mg PO DAILY 90 tabs 1RF rivaroxaban 20 mg PO DAILY 90 tabs 1RF simvastatin 20 mg PO BEDTIME 90 tabs 1RF Refilled hydrochlorothiazide 25 mg PO DAILY 90 tabs 3RF albuterol sulfate 2.5 mg (3 mL) continuous nebulization Q4-6H PRN 180 mL 0RF for wheezing J44.9 - Chronic obstructive pulmonary disease, unspecified amlodipine 5 mg PO DAILY 90 tabs 1RF atenolol 25 mg PO DAILY 90 tabs 3RF Breyna 160-4.5 mcg/actuation (budesonide-formoterol) 2 puffs PO Q12H 10.3 grams 1RF for asthma NS tamsulosin 0.4 mg PO BEDTIME 90 caps 0RF 90 days
[2025-01-14 13:08] VITALS: BP 132/78; PULSE 74; RESP 18; TEMP 36.4; O2SAT 98; BMI 37.2
--- OUTSIDE RECORDS SUMMARY | 2025-01-14 15:18 | XMS_ITS | Encounter Summary ---
Author Organization [facility] Address [address] [place] [address] Phone Care Team Providers Care Painter Helper Spray Name Role Phone Pcp, Not Required Primary Care Provider Unavaila Harpal Fletcher MD Primary Care Provider [phone]- [phone] Encounter Details Date Type Department Care Team (Late st Contact Info) Description 05/12/2017 Procedure Pass [facility] Endoscopy Admitting Dept Virtual Department [address] [place] [address] Social History Tobacco Use Types Packs/Day Years Used Date Smoking Tobacco: Never Assessed Sex and Gender Information Value Date Recorded Sex Assigned at Not on file Legal Sex Male 6:44 PM EST Gender Identity Not on file Sexual Orientation Not on file documented as of this encounter Plan of Treatment Not on file documented as of this encounter Visit Diagnoses Not on filedocumented in this encounter Care Teams Painter Helper Spray Relationship Specialty Start Date End Date Pcp, Not Required [address] [place] [address] PCP - General 05/12/17 12/19/17 Harpal Anthony MD [address] [place] [address] PCP - General Internal Medicine 12/20/17 documented as of this encounter Additional Source Comments The information contained in this document represents components of the legal health record. It is not the complete legal health record.[facility]
--- OUTSIDE RECORDS SUMMARY | 2025-01-14 15:18 | XMS_ITS | Encounter Summary ---
Author Organization [facility] Address [address] [place] [address] Phone Care Team Providers Care Collar Turner Operator Name Role Phone Harpal Anthony MD Primary Care Provider [phone]- [phone] Encounter Details Date Type Department Care Team (Late st Contact Info) Description 03/05/2024 Procedure Pass [facility] Endoscopy Admitting Dept Virtual Department [address] [place] [address] Social History Tobacco Use Types Packs/Day Years [...] on filedocumented in this encounter Care Teams Collar Turner Operator Relationship Specialty Start Date End Date Harpal Anthony MD [address] [place] [address] PCP - General Internal Medicine 12/20/17 documented as of this encounter Additional Source Comments The information contained in this document represents components of the legal health record. It is not the complete legal health record.[facility]
--- OUTSIDE RECORDS SUMMARY | 2025-01-14 15:18 | XMS_ITS | Encounter Summary ---
Author Organization [facility] Address [address] [place] [address] Phone Care Team Providers Care Senior Clinical Consultant Name Role Phone Harpal Anthoyn MD Primary Care Provider +1- [phone] Encounter Details Date Type Department Care Team (Late st Contact Info) Description 03/25/2021 Procedure Pass [facility] Endoscopy Admitting Dept Virtual Department [address] [place] [address] Social History Tobacco Use Types Packs/Day Years Used Date Smoking Tobacco: Former Cigarettes S tarted: 12/20/2007 Smokeless Tobacco: Never Comments:quit 8-9 yrs ago Alcohol Use Standard Drinks/Week Comments Yes 3 (1 standard drink = 0.6 oz pur e alcohol) Sex and Gender Information Value Date Recorded Sex Assigned at Not on file Legal Sex Male 6:44 PM EST Gender Identity Not on file Sexual Orientation Not on file documented as of this encounter Plan of Treatment Not on file documented as of this encounter Visit Diagnoses Not on filedocumented in this encounter Care Teams Senior Clinical Consultant Relationship Specialty Start Date End Date Harpal Anthony MD [address] [place] [address] PCP - General Internal Medicine 12/20/17 documented as of this encounter Additional Source Comments The information contained in this document represents components of the legal health record. It is not the complete legal health record.[facility]
--- OUTSIDE RECORDS SUMMARY | 2025-01-14 15:18 | XMS_ITS | Patient Health Record ---
Author Organization [facility] Address [address] [place] [address] Care Team Providers Care Research Compliance Specialist Name Role Phone Raj ARIAS, Harpal Primary Care Provider UnavailApple Baltazar Unavailable [phone] Allergies Allergen (clinical drug ingredient) Drug/Non Drug Allergy documented on EMR Reaction Allergy Type Onset Date Status Iodinated contrast media (substance) Iodinated Diagnostic Agents hives Drug Allergy Active Reason For Referral No Information Medications Medication SIG (Take, Route, Frequency, Duration) Notes Start Date End Date Status Atenolol 25 MG 1 tablet Orally Once a day Active amLODIPine Besylate 10 MG 1 tablet Orall y Once a day; Duration: 30 day(s) Active hydroCHLOROthiazide Active Finasteride Active Omeprazole Active Losartan Potassium 100 MG 1 tablet Orall y Once a day Active Simvastatin Active Ammonium Lactate 12 % 1 application to affected area Externally to feet Twice a day; Duration: 30 days Not-Taking Xarelto 20 MG 1 tablet with food Orally Once a day; Duration: 30 day(s) Active Immunizations Vaccine Route Administration Date Status [...] Problem Status W/U Status Risk Notes Problem Bilateral atherosclerosis of arteries of lower limbs (disorder) ([id number] ) Atherosclerosis of teller artery of both lower extremities, with unspecified presence of clinical manifestation (I70.203) Active confirmed Vital Signs Blood pressure diastolic 78 mm Hg 09/06/2024 Height 5 ft 9 in in 09/06/2024 Blood pressure systolic 130 mm Hg 09/06/2024 Weight 240 lbs 09/06/2024 BMI 35.44 kg/m2 09/06/2024 Encounters Encounter Location Date Provider Diagnosis [address] [address] 03/27/2024 Apple Perickameron Atherosclerosis of teller artery of both lower extremities, with unspecified presence of clinical manifestation I70.203 ; Tinea unguium B35.1 ; Pain in right toe(s) M79.674 and Pain in left toe(s) M79.[address] [address] 09/06/2024 Apple Perica Atherosclerosis of teller artery of both lower extremities, with unspecified presence of clinical manifestation I70.203 ; Tinea unguium B35.1 ; Pain in right toe(s) M79.674 and Pain in left toe(s) M79.[address] [address] 2024 Apple Coxa Assessments Encounter Date Diagnosis (ICD Code) Assessment Notes Treatment Notes Treatment Clinical Notes Section Notes 03/27/2024 Tinea unguium (ICD-10 - B35.1) 03/27/2024 Atherosclerosis of teller artery of both lower extremities, with unspecified presence of clinical manifestation (ICD-10 - I70.203) 09/06/2024 Atherosclerosis of teller artery of both lower extremities, with unspecified [...] Details Provider Name:Apple melo, 01/22/2025 11:30:00 AM, [address] [place] [address], [id number], Insurance Providers Payer Name Payer Address Payer Phone Subscriber Number Group Number Insured Name Patient Relationship to Insured Coverage Start Date Coverage End Date Medicare [facility] [employer] [address] [place] [address] [id number] Ilir Mccabe Self - patient is the insured [employer] [address] [place] [address] [phone] [id number] Ilir Mccabe Self - patient is the [...]
--- OUTSIDE RECORDS SUMMARY | 2025-01-14 15:18 | XMS_ITS | Encounter Summary ---
Author Organization [facility] Address [address] [place] [address] Phone Care Team Providers Care Call Center Rn Name Role Phone Harpal Anthony MD Primary Care Provider +1- [phone] Encounter Details Date Type Department Care Team (Late st Contact Info) Description 12/28/2022 Procedure Pass [facility] Endoscopy Admitting Dept Virtual Department [address] [place] [address] Social History Tobacco Use Types Packs/Day Years [...] with a working camera? Not on file Sex and Gender Information Value Date Recorded Sex Assigned at Not on file Legal Sex Male 6:44 PM EST Gender Identity Not on file Sexual Orientation Not on file documented as of this encounter Plan of Treatment Not on file documented as of this encounter Visit Diagnoses Not on filedocumented in this encounter Care Teams Call Center Rn Relationship Specialty Start Date End Date Harpal Anthony MD [address] [place] [address] PCP - General Internal Medicine 12/20/17 documented as of this encounter Additional Source Comments The information contained in this document represents components of the legal health record. It is not the complete legal health record.[facility]
--- OUTSIDE RECORDS SUMMARY | 2025-01-14 15:18 | XMS_ITS | Encounter Summary ---
Author Organization [facility] Address [address] [place] [address] Phone Care Team Providers Care Office Copy Selector Name Role Phone Harpal Anthony MD Primary Care Provider +1- [phone] Encounter Details Date Type Department Care Team (Late st Contact Info) Description 12/20/2017 Procedure Pass [facility] Endoscopy Admitting Dept Virtual Department [address] [place] [address] Social History Tobacco Use Types Packs/Day Years Used Date Smoking Tobacco: Former Cigarettes S tarted: 12/20/2007 Smokeless Tobacco: Never Alcohol Use Standard Drinks/Week Comments Yes 3 [...] on filedocumented in this encounter Care Teams Office Copy Selector Relationship Specialty Start Date End Date Harpal Anthony MD [address] [place] [address] PCP - General Internal Medicine 12/20/17 documented as of this encounter Additional Source Comments The information contained in this document represents components of the legal health record. It is not the complete legal health record.[facility]
--- OUTSIDE RECORDS SUMMARY | 2025-01-14 15:18 | XMS_ITS | Clinical Summary ---
Author Organization [facility] Address [address] [place] [id number] Phone Care Team Providers Care Shipwright Apprentice Name Role Phone Harpal Anthony MD Primary Care Provider [phone] Allergies Active Allergy Reactions Criticality Noted Date Comments Other Hives 12/20/2017 IVP dye Medications amLODIPine (NORVASC) 10 MG tablet 1 tablet Active atenolol (TENORMIN) 50 mg tablet 1 tablet Active hydroCHLOROthia zide (HYDRODIURIL) 12.5 MG tablet 1 tablet Activ e lisinopril (PRINIVIL,ZESTR IL) 40 MG tablet 1 tablet Active omeprazole (PRILOSEC) 20 MG capsule 1 capsule Active simvastatin (ZOCOR) 20 MG tablet 1 tablet in the evening Active rivaroxaban (XARELTO) 20 mg Tab 1 tablet with food Active albuterol 2.5 mg /3 mL (0.083 %) nebulizer solution Take 2.5 mg by nebulization every 6 (six) hours as needed. Active SYMBICORT 160-4.5 mcg/actuation inhaler Inhale 2 puffs into the lungs 2 (two) times a day. 4 Active ipratropium-alb uteroL (DUONEB) 0.5-3 mg (2.5 mg base)/3 mL nebulizer solution Take 3 mL by nebulization daily. 4 Active losartan (COZAAR) 50 MG tablet Take 50 mg by mouth daily. 4 Active sildenafiL (VIAGRA) 100 mg tablet Take 50 mg by mouth. 4 Active tamsulosin (FLOMAX) 0.4 mg Cap Take 0.4 mg by mouth nightly at bedtime. Active zolpidem (AMBIEN) 10 mg tablet Take 10 mg by mouth nightly at bedtime as needed. Active Social History Tobacco Use Types Packs/Day Years Used Date Smoking Tobacco: Former Cigarettes S tarted: 12/20/2007 Smokeless Tobacco: Never Tobacco Cessation:Counseling Given: Not Answered Comments:quit 8-9 yrs ago Alcohol Use Standard [...] Sign Reading Time Taken Comments Blood Pressure 126/76 03/05/2024 1:10 PM EDT Pulse 56 03/05/2024 1:10 PM EDT Temperature 36.4 C (97.5 F) 03/05/2024 12:50 PM EDT Respiratory Rate 19 03/05/2024 1:10 PM EDT Oxygen Saturation 95% 03/05/2024 1:10 PM EDT Inhaled Oxygen Concentration - - Weight 115.7 kg (255 lb) 03/24/2021 11:54 AM EST Height 177.8 cm (5' 10 ) 03/24/2021 11:54 AM EST Body Mass Index 36.59 03/24/2021 11:54 AM EST Plan of Treatment Health Maintenance Due Date Last Done Comments Adult Td,Tdap Booster 1947 CREATININE LEVEL 1947 LIPID PANEL 1947 POTASSIUM LEVEL 1947 DEPRESSION SCREENING 1959 SMOKING Hx and SMOKELESS TOBACCO SCREENING 11/11/1960 HEPATITIS C SCREENING 11/11/1965 COVID-19 VACCINE ( season) 2024 01/26/2024, 01/31/2021, 07/25/2020, Additional history exists INFLUENZA VACCINE (#1) 2024 , 01/31/2023, 03/02/2022, Additional history exists ZOSTER VACCINES Completed 01/24/2021, 10/15/2020 PNEUMOCOCCAL VACCINES (50+ years) Completed 03/02/2022, 04/19/2018, 11/05/2011 RSV VACCINE Completed 02/04/2023 HEPATITIS A VACCINES Aged Out No long er eligible based on patient's age to complete this topic HIB VACCINES Aged Out No longer eligi ble based on patient's age to complete this topic MENINGOCOCCAL VACCINES (ACWY) Aged Out No longer eligible based on patient's age to complete this topic MENINGOCOCCAL VACCINES (B) Aged Out N o longer eligible based on patient's age to complete this topic Medical Devices Implanted Type Area Train Brake Operator Device Identifier Shelf Expiration Date Model / Serial / Lot Prosthetic Joint Prosthetic Joint Right: Knee Left Hip Insurance MEDICARE PART A & B [employer] MEDEX SUPPLEMENT MEDICARE PART A & B [email or web address] MEDEX SUPPLEMENT MEDICARE PART A & B [employer] MEDEX SUPPLEMENT MEDICARE PART A & B [email or web address] MEDEX SUPPLEMENT MEDICARE PART A & B [email or web address] MEDEX SUPPLEMENT MEDICARE PART A & B [email or web address] MEDEX SUPPLEMENT MEDICARE PART A & B [email or web address] MEDEX SUPPLEMENT MEDICARE PART A & B [employer] MEDEX SUPPLEMENT MEDICARE PART A & B [email or web address] MEDEX SUPPLEMENT Care Teams Shipwright Apprentice Relationship Specialty Start Date End Date Harpal Anthony MD [address] [place] [address] PCP - General Internal Medicine 12/20/17 Additional Source Comments The information contained in this document represents components of the legal health record. It is not the complete legal health record.[facility]
--- OUTSIDE RECORDS SUMMARY | 2025-01-14 15:18 | XMS_ITS | Clinical Summary ---
Author Organization [address] Address [address] [place] [id number] Phone Care Team Providers Care Housekeeper Caregiver Name Role Phone Unavailable Primary Care Provider [...] (5 mg total) by mouth daily. Active budesonide/for moterol fumarate (SYMBICORT INHL) Inhale 2 puffs into the lungs 2 (two) times daily (0800, 1800). Active nebulizers Misc by [facility].(Non-Drug; Combo Route) route See Admin Instructions. Use as directed. Active BiPAP / CPAP See Admin Instructions. CPAP at night Active omeprazole (PRILOSEC) 20 mg capsule Take 1 capsule (20 mg total) by mouth daily. Active hydroCHLOROthi azide (HYDRODIURIL) 25 mg tablet Take 1 tablet (25 mg total) by mouth daily. Active ipratropium-al buteroL (DUO-NEB) 0.5 mg-3 mg(2.5 mg base)/3 mL nebulizer solutionIndica tions:schedule every 6 hours while awake over the next 3 days then resume as needed dosing structure Take 3 mLs by nebulization every 6 (six) hours while awake. Active tamsulosin (FLOMAX) 0.4 mg 24 hr capsule Take 1 capsule (0.4 mg total) by mouth daily. Active cholecalcifero l, vitamin D3, (VITAMIN D3) 25 mcg (1,000 unit) capsule Take 1 capsule (1,000 Units total) by mouth daily. Active phytonadione, vit K1, (VITAMIN K) 100 mcg tablet Take 1 tablet (100 mcg total) by mouth daily. Active benzonatate (TESSALON) 100 mg capsule Take 1 capsule (100 mg total) by mouth 3 (three) times daily as needed for cough. 20 capsule Active predniSONE (DELTASONE) 20 mg tablet Take 2 tablets (40 mg total) by mouth daily for 3 days, THEN 1.5 tablets (30 mg total) daily for 3 days, THEN 1 tablet (20 mg total) daily for 3 days, THEN 0.5 tablets (10 mg total) daily for 3 days. Take with food. 15 tablet 12/16/19 25 Active Problems Problem Noted Date Diagnosed Date COPD exacerbation (HC Code) 11/27/2024 Encounters Date Type Department Care Team Description 12/04/2024 Patient Outreach [facility] Call Center [address] [place] [id number] Hayley Adler LPN Hospital Discharge Follow Up 11/27/2024 11:19 AM EDT - 12/02/2024 1:00 PM EDT Hospital Encounter Medical/Surgical [address] [place] [address] Samara Koroma DO Watts-Wojcik, Paula Jean, DO COPD exacerbation (HC Code) (Primary Dx) Discharge Disposition: Home or Self Care 11/27/2024 Travel 2024 4:53 AM EDT - 2024 6:00 AM EDT Emergency Emergency Department [address] [place] [address] Jolynn Crespo MD Carpal tunnel syndrome of right wrist (Primary Dx) Discharge Disposition: Home or Self Care 2024 Travel from Last 3 Months Social History Tobacco Use Types Packs/Day Years Used Date Smoking Tobacco: Never Assessed [facility] Utilities Answer Date Recorded In the past 12 months has th e electric, gas, oil, or water company threatened [...] your living situation today? I have a [facility] place to live 11/27/2024 Housing Stability Not [...] 11/11/2022 Covid-19 vaccine series (2 - season) 2025 01/11/2021 Influenza vaccine 01/06/2025 Diabetes screening 12/03/2027 12/02/2024, 0 12/01/2024, 11/30/2024, Additional history exists Colon cancer screening, Colonoscopy Discontinued Meningococcal B Vaccine Aged Out No l onger eligible based on patient's age to complete this topic Meningococcal Vaccine Aged Out No avi allen [...] 11/28/2024 6:41 AM EDT LOWER RESPIRATORY CULTURE ([facility] L [facility]) Routine 11/28/2024 6:41 AM EDT LEGIONELLA AND S. PNEUMONIAE ANTIGEN, URINE ( [facility]) Routine 11/28/2024 6:04 AM EDT COMPREHENSIVE METABOLIC PANEL Early AM 11/28/2024 5:38 AM EDT COMPREHENSIVE METABOLIC PANEL Early AM 11/28/2024 5:38 AM EDT MAGNESIUM Early AM 11/28/2024 5:38 AM EDT CBC WITHOUT DIFFERENTIAL Early AM 11/28/2024 5:38 AM EDT TROPONIN T HIGH SENSITIVITY, 3 HOUR ( [facility]) STAT - Timed 11/27/2024 2:55 PM EDT REFLEX LACTIC ACID, PLASMA STAT 11/27/2024 2:55 PM EDT URINE MICROSCOPIC ( [facility]) Routine 11/27/2024 1:37 PM EDT URINALYSIS WITH CULTURE REFLEX ( LM[facility]) STAT 11/27/2024 1:37 PM EDT UA REFLEX CULTURE STAT 11/27/2024 1:3 7 PM EDT URINALYSIS WITH CULTURE REFLEX STAT 11/27/2024 1:37 PM EDT TROPONIN T HIGH SENSITIVITY, 1 HOUR WITH REFLEX ( [facility]) STAT - Timed 11/27/2024 12:42 PM EDT XR CHEST PA AND LATERAL Within 1 hour (STAT) 11/27/2024 12:22 PM EDT RESPIRATORY VIRUS PCR PANEL (W/O COVID/FLU/RSV) ([facility]) Routine 11/27/2024 11:43 AM EDT SARS-COV-2 (COVID-19)/INFLUENZA A+B/RSV BY RT-PCR ([facility]) Routine 11/27/2024 11:43 AM EDT [...] HIGH SENSITIVITY, 0 HOUR BASELINE WITH REFLEX ([facility]) STAT 11/27/2024 11:35 AM EDT [...] 65 - 110 mg/dL 12/02/2024 6:44 AM [facility] Comment: Non-fastin-110 mg/dL Fasting (minimum 6 hrs): 65-99 mg/dL BUN 40(H) 7 - 18 mg/dL 12/02/2024 6:44 AM [facility] Creatinine 1.38(H) 0.70 - 1.30 mg/dL 12/02/2024 6:44 AM [facility] Sodium 139 136 - 145 mmol/L 12/02/2024 6:44 AM [facility] Potassium 4.0 3.5 - 5.1 mmol/L 12/02/2024 6:44 AM [facility] Chloride 99 98 - 107 mmol/L 12/02/2024 6:44 AM [facility] CO2 36(H) 21 - 32 mmol/L 12/02/2024 6:44 AM [facility] Anion Gap 4(L) 5 - 15 mmol/L 12/02/2024 6:44 AM [facility] Calcium 8.9 8.5 - 10.1 mg/dL 12/02/2024 6:44 AM [facility] eGFR (Creatinine) 53(L) >=60 mL/min/1.73 m2 12/02/2024 6:44 AM [facility] Comment: [facility] utilizes CKD-EPI Creatinine 2020 to report eGFR. Values < 60 mL/min/1.73 m2 may indicate CKD if present for more than three months AND creatinine is at steady state. The eGFR provides a rough estimate of kidney function. For further guidance, please refer to the CKD: Adult Shorer Signature pathway. Creatinine Delta 0.14 See Comment 6:44 AM [facility] Comment: Delta creatinine is the difference [...] Keating DO LAB BLOOD [place] [address], [facility] [phone] * (ABNORMAL) CBC auto differential (12/02/2024 5:57 AM EDT) Only the most recent of5 resultswithin the time period is included. WBC 11.3(H) 4.0 - 11.0 x1000/ L 12/02/2024 6:27 AM [facility] RBC 5.05 4.00 - 6.00 M/ L 12/02/2024 6:27 AM [facility] Hemoglobin 14.8 13.2 - 17.1 g/dL 12/02/2024 6:27 AM [facility] Hematocrit 44.80 38.50 - 50.00 % 12/02/2024 6:27 AM [facility] MCV 88.7 80.0 - 100.0 fL 12/02/2024 6:27 AM [facility] MCH 29.3 27.0 - 33.0 pg 12/02/2024 6:27 AM [facility] MCHC 33.0 31.0 - 36.0 g/dL 12/02/2024 6:27 AM [facility] RDW-CV 13.8 11.0 - 15.0 % 12/02/2024 6:27 AM [facility] Platelets 269 150 - 420 x1000/ L 12/02/2024 6:27 AM [facility] MPV 9.8 8.0 - 12.0 fL 12/02/2024 6:27 AM [facility] Neutrophils 91.4(H) 39.0 - 72.0 % 12/02/2024 6:27 AM [facility] Lymphocytes 5.6(L) 17.0 - 50.0 % 12/02/2024 6:27 AM [facility] Monocytes 2.5(L) 4.0 - 12.0 % 12/02/2024 6:27 AM [facility] Eosinophils 0.0 0.0 - 5.0 % 12/02/2024 6:27 AM [facility] Basophil 0.1 0.0 - 1.4 % 12/02/2024 6:27 AM [facility] Immature Granulocytes 0.4 0.0 - 1.0 % 12/02/2024 6:27 AM [facility] nRBC 0.0 0.0 - 1.0 % 12/02/2024 6:27 AM [facility] Absolute Lymphocyte Count 0.64 0.60 - 3.70 x 1000/ L 12/02/2024 6:27 AM [facility] Monocyte Absolute Count 0.28 0.00 - 1.00 x 1000/ L 12/02/2024 6:27 AM [facility] Eosinophil Absolute Count 0.00 0.00 - 1.00 x 1000/ L 12/02/2024 6:27 AM [facility] Basophil Absolute Count 0.01 0.00 - 1.00 x 1000/ L 12/02/2024 6:27 AM [facility] Absolute Immature Granulocyte Count 0.05 0.00 - 0.30 x 1000/ L 12/02/2024 6:27 AM [facility] Absolute nRBC 0.00 0.00 - 1.00 x 1000/ L 12/02/2024 6:27 AM [facility] ANC (Abs Neutrophil Count) 10.36(H) 2.00 - 7.60 x 1000/ L 12/02/2024 6:27 AM [facility] Blood Venipuncture / Unknown 12/02/2024 5:57 AM EDT 12/02/2024 6:13 AM EDT Xenia PuentedirkMelani DO LAB BLOOD ORDERABLES Final Result Performing Organization Address City/[facility] [place] [address], [facility] [phone] * Magnesium (12/02/2024 5:57 AM EDT) Only the most recent of5 resultswithin the time period is included. Pathologist [facility] Magnesium 2.0 1.6 - 2.6 mg/dL 12/02/2024 6:44 AM [facility] Blood Venipuncture / Unknown 12/02/2024 5:57 AM EDT 12/02/2024 6:14 AM EDT Xenia Smith JacksonMelani LAB BLOOD ORDERABLES Final Result Performing Organization Address [facility] [place] [address], [facility] [phone] * (ABNORMAL) Comprehensive metabolic panel (11/30/2024 5:50 AM EDT) Only the most recent of4 resultswithin the time period is included. [facility] Sodium 139 136 - 145 mmol/L 11/30/2024 7:18 AM [facility] Potassium 3.8 3.5 - 5.1 mmol/L 11/30/2024 7:18 AM [facility] Chloride 100 98 - 107 mmol/L 11/30/2024 7:18 AM [facility] CO2 35(H) 21 - 32 mmol/L 11/30/2024 7:18 AM [facility] Anion Gap 4(L) 5 - 15 mmol/L 11/30/2024 7:18 AM [facility] Glucose 140(H) 65 - 110 mg/dL 11/30/2024 7:18 AM [facility] Comment: Non-fastin-110 mg/dL Fasting (minimum 6 hrs): 65-99 mg/dL BUN 31(H) 7 - 18 mg/dL 11/30/2024 7:18 AM [facility] Creatinine 1.26 0.70 - 1.30 mg/dL 11/30/2024 7:18 AM [facility] Calcium 9.2 8.5 - 10.1 mg/dL 11/30/2024 7:18 AM [facility] Total Protein 6.6 6.4 - 8.2 g/dL 11/30/2024 7:18 AM [facility] Albumin 2.8(L) 3.4 - 5.0 g/dL 11/30/2024 7:18 AM [facility] Globulin 3.8 2.5 - 5.0 g/dL 11/30/2024 7:18 AM [facility] Total Bilirubin 0.6 0.2 - 1.0 mg/dL 11/30/2024 7:18 AM [facility] Comment:Use of this assay is not recommended for patients undergoing treatment with Eltrombopag due to the potential for falsely elevated results. Alkaline Phosphatase 95 45 - 117 U/L 11/30/2024 7:18 AM [facility] Alanine Aminotransferase (ALT) 74 12 - 78 U/L 11/30/2024 7:18 AM [facility] Aspartate Aminotransferase (AST) 42(H) 15 - 37 U/L 11/30/2024 7:18 AM [facility] eGFR (Creatinine) 59(L) >=60 mL/min/1.73 m2 11/30/2024 7:18 AM [facility] Comment: [facility] utilizes CKD-EPI Creatinine 2020 to report eGFR. Values < 60 mL/min/1.73 m2 may indicate CKD if present for more than three months AND creatinine is at steady state. The eGFR provides a rough estimate of kidney function. For further guidance, please refer to the CKD: Adult Shorer Signature pathway. Creatinine Delta -0.13 See Comment 7:18 AM [facility] Comment: Delta creatinine is the difference [...] 5:50 AM EDT 11/30/2024 6:12 AM EDT us Xenia Keating DO LAB BLOOD [place] [address], [facility] [phone] * (ABNORMAL) Manual Differential (11/30/2024 5:50 AM EDT) Neutrophils 86.2(H) 39.0 - 72.0 % 11/30/2024 10:35 AM [facility] Lymphocytes 10.4(L) 17.0 - 50.0 % 11/30/2024 10:35 AM [facility] Monocytes 1.7(L) 4.0 - 12.0 % 11/30/2024 10:35 AM [facility] Eosinophils 0.0 0.0 - 5.0 % 11/30/2024 10:35 AM [facility] Basophil 0.0 0.0 - 1.4 % 11/30/2024 10:35 AM [facility] Atypical Lymphocytes 1.7(H) 0.0 - 1.0 % 11/30/2024 10:35 AM [facility] Neutrophils Absolute 7.66(H) 2.00 - 7.60 x 1000/ L 11/30/2024 10:35 AM [facility] Lymphocyte Absolute 1.08 0.60 - 3.70 x 1000/ L 11/30/2024 10:35 AM [facility] Monocyte Absolute Count 0.15 0.00 - 1.00 x 1000/ L 11/30/2024 10:35 AM [facility] Eosinophil Absolute Count 0.00 0.00 - 1.00 x 1000/ L 11/30/2024 10:35 AM EDT [facility] Basophil Absolute Count 0.00 0.00 - 1.00 x 1000/ L 11/30/2024 10:35 AM [facility] RBC Morphology Reviewed 11/30/2024 10:35 AM EDT [facility] Giant PLTs Present None 11/30/2024 10:35 AM EDT [facility] Blood Venipuncture / Unknown 11/30/2024 5:50 AM EDT 11/30/2024 6:13 AM EDT Xenia Keating DO LAB BLOOD ORDERABLES Final Result Performing Organization Address City/[facility]/[place] [address], [facility] [phone] * Phosphorus ( GH L LMW YH) (11/30/2024 5:50 AM EDT) Only the most recent of2 resultswithin the time period is included. Phosphorus 3.6 2.5 - 4.9 mg/dL 11/30/2024 7:10 AM EDT [facility] Blood Venipuncture / Unknown 11/30/2024 5:50 AM EDT 11/30/2024 6:12 AM EDT Xenia Keating DO LAB BLOOD [place] [address], [facility] [phone] * Lower respiratory culture, qualitative (11/28/2024 6:41 AM EDT) Lower Respiratory Culture 1+ Normal Jasmine 11/30/2024 10:53 AM EDT [facility] Gram Stain 1+ WBC's 11/30/2024 10:53 AM EDT [facility] Gram Stain No organisms seen 11/30/2024 10:53 AM EDT [facility] Sputum COUGHED SPUTUM SPECIMEN / Unknown Collection / Unknown 11/28/2024 6:41 AM EDT 11/28/2024 7:08 AM EDT Narrative [facility] - 11/30/2024 10:53 AM EDT Culture, organism identification, and/or susceptibility results may have been generated with a non-FDA approved method. All methods used in this report have been validated by [facility] Microbiology for clinical use. No Acinetobacter, Stenotrophomonas, Pseudomonas or enteric gram negative rods isolated. No S. aureus (including MRSA) recovered from this specimen. Samara Koroma DO MICROBIOLOGY - GENERAL ORDERA BLES Final Result Performing Organization Address City/State/[facility] Co de Phone Number [facility] [address] [place] [address], [facility] [phone] * Legionella and S. pneumoniae antigen, urine (11/28/2024 6:04 AM EDT) Legionella Antigen Negative Negative 11/28/2024 4:24 PM EDT [facility] S. pneumoniae Urine Antigen Negative Negative 11/28/2024 4:24 PM EDT [facility] Urine VOIDED URINE SPECIMEN / Unknown Collection / Unknown 11/28/2024 6:04 AM EDT 11/28/2024 6:34 AM EDT Narrative [facility] - 11/28/2024 4:24 [...] be below detection limit of the test. Samara [employer] MICROBIOLOGY - GENERAL ORDERA BLES Final Result [facility] [address] [place] [id number], [facility] [phone] * CBC without differential (11/28/2024 5:38 AM EDT) WBC 6.6 4.0 - 11.0 x1000/ L 11/28/2024 6:46 AM [facility] RBC 4.51 4.00 - 6.00 M/ L 11/28/2024 6:46 AM [facility] Hemoglobin 13.4 13.2 - 17.1 g/dL 11/28/2024 6:46 AM [facility] Hematocrit 41.00 38.50 - 50.00 % 11/28/2024 6:46 AM [facility] MCV 90.9 80.0 - 100.0 fL 11/28/2024 6:46 AM [facility] MCH 29.7 27.0 - 33.0 pg 11/28/2024 6:46 AM [facility] MCHC 32.7 31.0 - 36.0 g/dL 11/28/2024 6:46 AM [facility] RDW-CV 14.5 11.0 - 15.0 % 11/28/2024 6:46 AM [facility] Platelets 226 150 - 420 x1000/ L 11/28/2024 6:46 AM [facility] MPV 10.0 8.0 - 12.0 fL 11/28/2024 6:46 AM [facility] ANC (Abs Neutrophil Count) 5.62 2.00 - 7.60 x 1000/ L 11/28/2024 6:46 AM [facility] Blood Venipuncture / Unknown 11/28/2024 5:38 AM EDT 11/28/2024 6:33 AM EDT us Samara Koroma DO LAB BLOOD ORDERAB[place] [address], [facility] [phone] * Reflex lactic acid, plasma (11/27/2024 2:55 PM EDT) [facility] Lactate 1.7 0.4 - 2.0 mmol/L 11/27/2024 3:51 PM EDT [facility] Blood Venipuncture / Unknown 11/27/2024 2:55 PM EDT 11/27/2024 3:00 PM EDT Omid MONTOYA LAB BLOOD ORDERAB[place] [address], [facility] [phone] * (ABNORMAL) Troponin T High Sensitivity, 3 Hour ([facility]) (11/27/2024 2:55 PM EDT) [facility] High Sensitivity Troponin T 19(H) See Comment ng/L 11/27/2024 3:38 PM EDT [facility] Comment:High Sensitivity Tro ponin T levels should be interpreted in the context of the [facility] Care Signature pathway. 1 hour Delta from 0 Hour, HS-Troponin T -2 ng/L 11/27/2024 3:38 PM EDT [facility] 3 hour Delta from 0 Hour, HS-Troponin T -4 ng/L 11/27/2024 3:38 PM T [facility] Blood Venipuncture / Unknown 11/27/2024 2:55 PM EDT 11/27/2024 3:00 PM EDT Sp Montanez MD LAB BLOOD ORDERABLES Final Resul t Performing Organization Address [facility]/[place] [address], [facility] [phone] * (ABNORMAL) Urinalysis with culture reflex ( LMW YH) (11/27/2024 1:37 PM EDT) [facility] Clarity, UA Clear Clear 11/27/2024 1:43 PM EDT [facility] Color, UA Yellow Yellow, Colorless 11/27/2024 1:43 PM EDT [facility] Specific [place], UA 1.018 1.005 - 1.030 11/27/2024 1:43 PM EDT [facility] pH, UA 5.5 5.5 - 7.5 11/27/2024 1:43 PM EDT [facility] Protein, UA 2+(A) Negative, Trace 11/27/2024 1:43 PM EDT [facility] Glucose, UA Negative Negative 11/27/2024 1:43 PM EDT [facility] Ketones, UA Negative Negative 11/27/2024 1:43 PM EDT [facility] Blood, UA 1+(A) Negative 11/27/2024 1:43 PM EDT [facility] Bilirubin, UA Negative Negative 11/27/2024 1:43 PM EDT [facility] Leukocytes, UA Negative Negative 11/27/2024 1:43 PM EDT [facility] Nitrite, UA Negative Negative 11/27/2024 1:43 PM EDT [facility] Urobilinogen, UA <2.0 <=2.0 mg/dL 11/27/2024 1:43 PM EDT [facility] Cohen Top Tube Received ? Yes 11/27/2024 1:43 PM EDT [facility] Urine URINE SPECIMEN OBTAINED BY CLEAN CATCH PROCEDURE / Unknown Collection / Unknown 11/27/2024 1:37 PM EDT 11/27/2024 1:37 PM EDT Omid MONTOYA URINE ORDERABLES Final Result [address] [phone] * UA reflex to culture (11/27/2024 1:37 PM EDT) Reflex Urine Culture See Comment 11/27/2024 7:00 PM EDT [facility] Urine URINE SPECIMEN OBTAINED BY CLEAN CATCH PROCEDURE / Unknown Collection / Unknown 11/27/2024 1:37 PM EDT 11/27/2024 1:37 PM EDT Narrative [facility] - 11/27/2024 7:00 PM EDT Urine culture will be reflexed if indicated by urinalysis results. Please check microbiology results for urine culture. Omid MONTOYA URINE ORDERABLES Final Result Performing Organization Address City/[facility]/ZIP Co de Phone Number [facility] [address] [place] [id number], [facility] [phone] * Urine microscopic ([facility]) (11/27/2024 1:37 PM EDT) [facility] RBC/HPF, UA <1 0 - 2 /HPF 11/27/2024 3:58 PM EDT [facility] WBC/HPF, UA <1 0 - 5 /HPF 11/27/2024 3:58 PM [facility] Urine URINE SPECIMEN OBTAINED BY CLEAN CATCH PROCEDURE / Unknown Collection / Unknown 11/27/2024 1:37 PM EDT 11/27/2024 1:37 PM EDT Omid MONTOYA URINE ORDERABLES Final Result Performing Organization Address [facility] [place] [address], [facility] [phone] * (ABNORMAL) Troponin T High Sensitivity, 1 Hour With Reflex ([facility]) (11/27/2024 12:42 PM EDT) Pathologist [facility] High Sensitivity Troponin T 21(H) See Comment ng/L 11/27/2024 1:11 PM EDT [facility] Comment:High Sensitivity Tro ponin T levels should be interpreted in the context of the [facility] Care Signature pathway. 1 hour Delta from 0 Hour, HS-Troponin T -2 ng/L 11/27/2024 1:11 PM EDT [facility] Blood Venipuncture / Unknown 11/27/2024 12:42 PM EDT 11/27/2024 12:49 PM EDT Sp Montanez MD LAB BLOOD ORDERABLES Final Resul t Performing Organization Address City/[facility]/ZIP Co de Phone Number [address] [address], [facility] [phone] * XR Chest PA and Lateral (11/27/2024 12:22 PM EDT) Anatomical Region Laterality Modality Chest Radiographic Leona ging 11/27/2024 12:4 0 PM EDT Impressions 11/27/2024 12:40 PM EDT No acute process is seen. [facility] Radiology Notification System Classification: Routine. Reported and [...] intact. IMPRESSION: No acute process is seen. [facility] Radiology Notification System Classification: Routine. Reported and signed by: Colton Tomlinson MD Sp Montanez MD IMG DIAGNOSTIC IMAGING ORDERABLE S Final Result * Symptomatic 4 Plex -Order only on patients highly likely to be admitted. (11/27/2024 11:43 AM EDT) Influenza A Negative Negative 11/27/2024 1:18 PM EDT [facility] Comment:Negative results do not preclude infection [...] Influenza B Negative Negative [facility] Syncytial Virus Negative Negative 11/27/2024 1:18 PM EDT [facility] SARS-CoV-2 RNA (COVID-19) Negative Negative 11/27/2024 1:18 PM EDT [facility] Comment:Test performance has not been evaluated [...] MICROBIOLOGY - GENERAL ORDERAB [place] [address], [facility] [phone] * (ABNORMAL) Respiratory Virus PCR Panel (w/o COVID/Flu/RSV) ([facility]) (11/27/2024 11:43 AM EDT) Adenovirus Negative Negative 11/28/2024 12:58 PM EDT [facility] Coronavirus 229E Negative Negative 11/29/19 12:58 PM EDT [facility] Coronavirus HKU1 Negative Negative 11/29/19 12:58 PM EDT [facility] Coronavirus NL63 Negative Negative 11/29/19 12:58 PM EDT [facility] Coronavirus OC43 Negative Negative 11/29/19 12:58 PM EDT [facility] Human Metapneumovirus (HMPV) Negative Negative 11/28/2024 12:58 PM EDT [facility] Rhinovirus Negative Negative 11/28/2024 12:58 PM EDT [facility] Parainfluenza Virus 1 Negative Negative 11/28/2024 12:58 PM EDT [facility] Parainfluenza Virus 2 Negative Negative 11/28/2024 12:58 PM EDT [facility] Parainfluenza Virus 3 Positive(A) Negative 11/28/2024 12:58 PM EDT [facility] Parainfluenza Virus 4 Negative Negative 11/28/2024 12:58 PM EDT [facility] Viral NASOPHARYNGEAL STRUCTURE / Unknown Collection / Unknown 11/27/2024 11:43 AM EDT 11/27/2024 11:50 AM EDT Omid MONTOYA MICROBIOLOGY - GENERAL ORDERAB LES Final Result [facility] [address] [place] [id number], [facility] [phone] * (ABNORMAL) Lactic acid, plasma (reflex 2h repeat) (11/27/2024 11:36 AM EDT) Lactate 2.1(H) 0.4 - 2.0 mmol/L 11/27/2024 12:16 PM EDT [facility] Blood Venipuncture / Unknown 11/27/2024 11:36 AM EDT 11/27/2024 11:41 AM EDT Omid MONTOYA LAB BLOOD ORDERABLES Final Res ult Performing Organization Address City/[facility]/ZIP Co de Phone Number [address] [phone] * (ABNORMAL) Troponin T High Sensitivity, Emergency; 0 hour baseline AND 1 hour with reflex (3 hour) (11/27/2024 11:35 AM EDT) High Sensitivity Troponin T 23(H) See Comment ng/L 11/27/2024 12:02 PM EDT [facility] Comment:High Sensitivity Tro ponin T levels should be interpreted in the context of the [facility] Care Signature pathway. Blood Venipuncture / Unknown 11/27/2024 11:35 AM EDT 11/27/2024 11:41 AM EDT Sp Montanez MD LAB BLOOD ORDERABLES Final Resul t Performing Organization Address City/[facility]/[place] [address], [facility] [phone] * Blood culture (11/27/2024 11:35 AM EDT) Only the most recent of2 resultswithin the time period is included. Blood Culture No Growth after 5 days of incubation 12/02/2024 9:11 PM EDT [facility] Blood PERIPHERAL BLOOD SPECIMEN / Unknown Venipuncture / Unknown 11/27/2024 11:35 AM EDT 11/27/2024 11:40 AM EDT Narrative [facility] - 12/02/2024 9:11 PM EDT All blood culture bottles with growth will be reported. Culture, organism identification, and/or susceptibility results may have been generated with a non-FDA approved method. All methods used in this report have been validated by [facility] Microbiology for clinical use. Aerobic bottle loaded. Anaerobic bottle loaded. Omid MONTOYA MICROBIOLOGY - GENERAL ORDERAB LES Final Result Performing Organization Address [facility] Co de Phone Number [facility] [address] [place] [address], [facility] [phone] * Protime and INR (11/27/2024 11:35 AM EDT) Prothrombin Time 11.8 9.3 - 11.9 seconds 11/27/2024 11:53 AM EDT [facility] INR 1.17 0.89 - 1.18 11/27/2024 11:53 AM EDT [facility] Comment: RECOMMENDED INR THERAPEUTIC RANGES: STANDARD INTENSITY......2.0-3.0 HIGH INTENSITY..........2.5-3.5 Blood Venipuncture / Unknown 11/27/2024 11:35 AM EDT 11/27/2024 11:41 AM EDT Omid MONTOYA LAB BLOOD ORDERABLES Final Res ult Performing Organization Address City/State/[facility] Co de Phone Number [facility] [address] [place] [address], [facility] [phone] * EKG (11/27/2024 11:26 AM EDT) Heart Rate 108 bpm [facility] EKG QRS Interval 117 ms [facility] EKG QT Interval 329 ms [facility] EKG QTC Interval 441 ms [facility] EKG P [place] 0 deg [facility] EKG QRS [place] 93 deg [facility] EKG T Wave [place] -43 deg [facility] EKG P-R Interval 0 msec [facility] EKG SEVERITY Abnormal ECG severity [facility] EKG Comment::Atrial fibrillation :Nonspecific intraventricular conduction delay:Non specific ST-T wave abnormalities:BORDERLINE RIGHT AXIS DEVIATION:No previous:Electronically Signed On 11-28-2024 13:00:44 EDT by Miah Fajardo MD OTHER / Unknown 11/27/2024 1 1:26 AM EDT us Sp Montanez MD ECG ORDERABLES Edited Result - Final Performing Organization Address [facility] Co de Phone Number [facility] EKG from Last 3 Months Insurance MEDICARE [facility] MEDICARE [facility] MEDICARE [facility] Advance Directives * Full Code (Latest Code Status on File) Date Activated Date Inactivated Comments 11/27/2024 3:16 PM 12/02/2024 5:18 PM Question Answer Comments With Whom was the Code Status Discussed? Patient
== END 2025-01-14 13:43 | disposition home or self-care (01) ==
LOC: HO.HMCSH 13:01
PROVIDERS: PCP Internal Medicine; Visit Provider Internal Medicine
DX: I10 Essential (primary) hypertension (principal)

== ENCOUNTER → 2025-01-14 13:01 | Outpatient (BNVA) | payer MEDICARE, SELFPAY | PROVIDERS: PCP Internal Medicine; Visit Provider Internal Medicine | DX: Z76.89 Persons encountering health services in other specified circumstances (principal); I10 Essential (primary) hypertension; Z87.891 Personal history of nicotine dependence | CPT/HCPCS: 99202 ==

== ENCOUNTER 2025-03-07 11:01 | Outpatient (REF) | payer MEDICARE, SELFPAY ==
--- OUTSIDE RECORDS SUMMARY | 2024-11-19 11:15 | XMS_ITS ---
Author Organization [facility] Address [address] [place] [address] Care Team Providers Care Meat Slicer Name Role Phone Harpal Anthony MD Primary Care Provider Unavailab Apple Baca Unavailable [phone] Allergies Allergen (clinical drug ingredient) Drug/Non Drug [...] Not-Taking Encounters Encounter Location Date Provider Diagnosis [facility] [address] [place] [address] 11/19/2024 Apple Solorio Plan Of Treatment No Information Progress Notes * Nancy MCCABEOB:1945 (79 yo M)Acc No.[id number]:11/19/2024 Progress Note Patient: Clark Ilir FERRARA Provider: Aman Solorio DPM :1945 A ge:79 Y S ex:Male Date:11/19/2024 Address:[address], [place], [place] Pcp:Harpal Anthony MD Subjective: * Chief Complaints: [...] 11/19/2024 Generated for Charmaine sanchez/Jil/Chantel on: 1 12:33 PM EDT
--- OUTSIDE RECORDS SUMMARY | 2025-01-22 07:30 | XMS_ITS ---
Author Organization [facility] Address [address] [place] [address] Care Team Providers Care Shelf Drier Operator Name Role Phone Raj ARIAS, Harpal Primary Care Provider Unavailab Apple Baca Unavailable [phone] Encounters Encounter Location Date Provider Diagnosis [facility] [address] [place] [address] 01/22/2025 Apple Solorio Plan Of Treatment No Information Progress Notes * Nancy MCCABEOB:1945 (79 yo M)Acc No.[id number]:01/22/2025 Progress Note Patient: Ilir MORALES Provider: Aman Solorio DPM :1945 A ge:79 Y S ex:Male Date:01/22/2025 Address:[address], [facility] [place] Pcp:Harpal Anthony MD Subjective: * Chief Complaints: [...] DPM Date: 0 01/22/2025 Generated for Printi ng/Faxing/eTransmitting on: 1 12:33 PM EDT
--- OUTSIDE RECORDS SUMMARY | 2025-03-07 12:33 | XMS_ITS | Encounter Summary ---
Author Organization [facility] Address [address] [place] [address] Phone Care Team Providers Care Central Control Room Operator Name Role Phone Harpal Anthony MD Primary Care Provider +1- [phone] Encounter Details Date Type Department Care Team (Late st Contact Info) Description 03/05/2024 Procedure Pass [facility] Endoscopy Admitting Dept Virtual Department [address] [place] [address] Social History Tobacco Use Types Packs/Day Years [...] on filedocumented in this encounter Care Teams Central Control Room Operator Relationship Specialty Start Date End Date Harpal Anthony MD [address] [place] [address] PCP - General Internal Medicine 12/20/17 documented as of this encounter Additional Source Comments The information contained in this document represents components of the legal health record. It is not the complete legal health record.[facility]
--- OUTSIDE RECORDS SUMMARY | 2025-03-07 12:33 | XMS_ITS ---
Author Name [facility] Organization Unknown Encounters Encounter Type Encounter Reason Primary Diagnosis Location Date Ambulatory [facility] 03/31/2025 Ambulatory LABS [facility] 02/28/2025 Ambulatory CARPAL TUNNEL SYNDROME RIGHT UPPER LIMB CARPAL TUNNEL SYNDROME, RIGHT UPPER LIMB [facility] 01/30/2025 Care Team Organization Name Specialty Phone Email Start Date End Da te [facility] 01/27/2025 [facility] 01/27/2025 [facility] 01/27/2025
--- OUTSIDE RECORDS SUMMARY | 2025-03-07 12:33 | XMS_ITS | Clinical Summary ---
Author Organization [facility] Address [address] [facility] [address] [place] [address] Phone Care Team Providers Care Letter Of Credit Document Examiner Name Role Phone Harpal Anthony MD Primary Care Provider +1- [phone] Allergies Active Allergy Reactions Criticality Noted Date [...] TOBACCO SCREENING 11/11/1960 HEPATITIS C SCREENING 11/11/1965 INFLUENZA VACCINE (#1) 2024 , 01/31/2023, 03/02/2022, Additional history exists COVID-19 VACCINE ( season) 2025 01/26/2024, 01/31/2021, 07/25/2020, Additional history exists ZOSTER VACCINES Completed 01/24/2021, [...] this topic Medical Devices Implanted Type Area Workers' Compensation Commissioner Device Identifier Shelf Expiration Date Model / Serial / Lot Prosthetic Joint Prosthetic Joint Right: Knee Left Hip Insurance MEDICARE PART A & B [employer] MEDEX SUPPLEMENT MEDICARE PART A & B [email or web address] MEDEX SUPPLEMENT MEDICARE PART A & B [employer] MEDEX SUPPLEMENT MEDICARE PART A & B [email or web address] MEDEX SUPPLEMENT MEDICARE PART A & B [email or web address] MEDEX SUPPLEMENT MEDICARE PART A & B [email or web address] MEDEX SUPPLEMENT MEDICARE PART A & B [email or web address] MEDEX SUPPLEMENT MEDICARE PART A & B [employer] MEDEX SUPPLEMENT MEDICARE PART A & B [email or web address] MEDEX SUPPLEMENT Care Teams Letter Of Credit Document Examiner Relationship Specialty Start Date End Date Harpal Anthony MD [address] [place] [address] PCP - General Internal Medicine 12/20/17 Additional Source Comments The information contained in this document represents components of the legal health record. It is not the complete legal health record.[facility]
--- OUTSIDE RECORDS SUMMARY | 2025-03-07 12:34 | XMS_ITS | Clinical Summary ---
Author Organization [address] Address [address] [place] [address] Phone Care Team Providers Care Registrar [employer] Name Role Phone Unavailable Primary Care Provider [...] (5 mg total) by mouth daily. Active budesonide/form oterol fumarate (SYMBICORT INHL) Inhale 2 puffs into the lungs 2 (two) times daily (0800, 1800). Active nebulizers Misc by [facility] [place]Non-Drug; Combo Route) route See Admin Instructions. Use as directed. Active BiPAP / CPAP See Admin Instructions. CPAP at night Active omeprazole (PRILOSEC) 20 mg capsule Take 1 capsule (20 mg total) by mouth daily. Active hydroCHLOROthia zide (HYDRODIURIL) 25 mg tablet Take 1 tablet (25 mg total) by mouth daily. Active ipratropium-alb uteroL (DUO-NEB) 0.5 mg-3 mg(2.5 mg base)/3 mL nebulizer solutionIndicat ions:schedule every 6 hours while awake over the next 3 days then resume as needed dosing structure Take 3 mLs by nebulization every 6 (six) hours while awake. Active tamsulosin (FLOMAX) 0.4 mg 24 hr capsule Take 1 capsule (0.4 mg total) by mouth daily. Active cholecalciferol , vitamin D3, (VITAMIN D3) 25 mcg (1,000 unit) capsule Take 1 capsule (1,000 Units total) by mouth daily. Active phytonadione, vit K1, (VITAMIN K) 100 mcg tablet Take 1 tablet (100 mcg total) by mouth daily. Active benzonatate (TESSALON) 100 mg capsule Take 1 capsule (100 mg total) by mouth 3 (three) times daily as needed for cough. 20 capsule Active Active Problems Problem Noted Date Diagnosed Date COPD exacerbation (HC Code) 11/27/2024 Encounters Date Type Department Care Team Description 02/14/2025 [place] [address] Smooth Phelps MD Appointment; Referral from Last 3 Months Social History Tobacco Use Types Packs/Day Years Used Date Smoking Tobacco: Never Assessed [facility] Utilities Answer Date Recorded In the past 12 months has [employer], gas, oil, or water [employer] threatened to shut off services in your [...] your living situation today? I have a st ace place to live 11/27/2024 Housing Stability Not [...] Immunization (1 - 1-dose 75+ series) 11/11/2022 Influenza vaccine 12/06/2024 Covid-19 vaccine series (2 - 2024- season) 2025 01/11/2021 Diabetes screening 12/03/2027 12/02/2024, 0 12/01/2024, 11/30/2024, Additional history exists Colon cancer screening, Colonoscopy Discontinued Meningococcal B Vaccine Aged Out No l onger eligible based on patient's age to complete this topic Meningococcal Vaccine Aged Out No avi allen eligible based on patient's age to complete this topic Procedures Procedure Name Priority Date/Time Associated Diagnosis Comments BASIC METABOLIC PANEL Early AM 12/02/2024 5:57 AM EDT from Last 3 Months or Most Recently Relevant to Health Maintenance Results * (ABNORMAL) Basic metabolic panel (12/02/2024 5:57 AM EDT) Glucose 148(H) 65 - 110 mg/dL 12/02/2024 6:44 AM [facility] Comment: Non-fastin-110 mg/dL Fasting (minimum 6 hrs): 65-99 mg/dL BUN 40(H) 7 - 18 mg/dL 12/02/2024 6:44 AM [facility] Creatinine 1.38(H) 0.70 - 1.30 mg/dL 12/02/2024 6:44 AM [facility] Sodium 139 136 - 145 mmol/L 12/02/2024 6:44 AM [facility] Potassium 4.0 3.5 - 5.1 mmol/L 12/02/2024 6:44 AM [facility] Chloride 99 98 - 107 mmol/L 12/02/2024 6:44 AM [facility] CO2 36(H) 21 - 32 mmol/L 12/02/2024 6:44 AM [facility] Anion Gap 4(L) 5 - 15 mmol/L 12/02/2024 6:44 AM [facility] Calcium 8.9 8.5 - 10.1 mg/dL 12/02/2024 6:44 AM [facility] eGFR (Creatinine) 53(L) >=60 mL/min/1.73 m2 12/02/2024 6:44 AM [facility] Comment: [facility] utilizes CKD-EPI Creatinine 2020 to report eGFR. Values < 60 mL/min/1.73 m2 may indicate CKD if present for more than three months AND creatinine is at steady state. The eGFR provides a rough estimate of kidney function. For further guidance, please refer to the CKD: Adult Pad Hand Signature pathway. Creatinine Delta 0.14 See Comment 025 6:44 AM EDT [facility] Comment: Delta creatinine is the difference between [...] Keating DO LAB BLO[place] [address], [facility] [phone] from Last 3 Months or Most Recently Relevant to Health Maintenance Insurance MEDICARE [facility] MEDICARE [facility] MEDICARE [facility] Member Subscriber Plan / Payer (Ef fective 2012-Present) Name:Ilir Mccabe Relation to Subscriber:Self Name:Ilir Mccabe Payer ID:[id number] ([facility]) Type:Not on file Address: [facility] [address] [place] [address] Advance Directives * Full Code (Latest Code Status on File) Date Activated Date Inactivated Comments 11/27/2024 3:16 PM 12/02/2024 5:18 PM Question Answer Comments With Whom was the Code Status Discussed? Patient
--- OUTSIDE RECORDS SUMMARY | 2025-03-07 12:34 | XMS_ITS | Encounter Summary ---
Author Organization [facility] Address [address] [place] [address] Phone Care Team Providers Care Chainstitch Seat Joiner Name Role Phone Harpal Anthony MD Primary Care Provider +1- [phone] Encounter Details Date Type Department Care Team (Late st Contact Info) Description 12/20/2017 Procedure Pass [facility] Endoscopy Admitting Dept Virtual Department [address] [place] [address] Social History Tobacco Use Types Packs/Day Years [...] on filedocumented in this encounter Care Teams Chainstitch Seat Joiner Relationship Specialty Start Date End Date Harpal Anthony MD [address] [place] [address] PCP - General Internal Medicine 12/20/17 documented as of this encounter Additional Source Comments The information contained in this document represents components of the legal health record. It is not the complete legal health record.[facility]
--- OUTSIDE RECORDS SUMMARY | 2025-03-07 12:34 | XMS_ITS ---
Author Name Edson Campuzano Address Unknown Organization [address] [facility] Care Team Providers Care Yard Clerk Name Role Phone Unavailable Primary Care Physician Unavailab le History Of Present Illness This is a 79 year old male who is being seen for a chief complaint of Right hand pain. Patient is status post a right hand carpal tunnel release performed on 01/30/2025. Patient was experiencing painand swelling at last office visit on 02/28/2025 and was given lab slip for further testing. Patientwas prescribed prednisone and reports it gave great relief for pain and swelling. He is taking nothing for for pain management. He is here today for reevaluation and go over lab results. Medications Medication Generic Name RxNorm Strength Strength Unit Route Dose Dose Form Frequency Date Started Date Ended Status Indication Sig amlodipine amlodipi ne 19721006 5 mg Oral table t active atenolol atenolol 25 mg Oral table t active hydrochloro thiazide hydrochl orothiaz nirav 843766 25 mg Oral table t active losartan losartan 575000 50 mg Oral table t active Medrol (Fredi) methylpr ednisolo ne 880483 4 mg Oral table t, dose pack 02/19/20 25 active Per pack age inst ruct ions omeprazole omeprazo le 19790906 20 mg Oral capsu le,de layed relea se (e.c. ) active simvastatin simvasta tin 693447 20 mg Oral table t active tamsulosin tamsulos in 574144 0.4 mg Oral capsu le active Vitamin D3 cholecal ciferol (vitamin D3) 231250 25 mcg (1,000 unit) Oral capsu le active vitamin K2 vitamin K2 0923428 100 mcg Oral capsu le active Xarelto rivaroxa ban 0983036 20 mg Oral table t 11/27/19 19 active Problems Problem Code Type Status Date of Diagnosis Date of Resolution Hand pain (finding) 75251342(S NOMED) Diagnosis active 03/05/2025 Hand pain (finding) 06110270(S NOMED) Diagnosis active 02/28/2025 Follow-up orthopedic assessment (finding) 355249997( SNOMED) Diagnosis active 02/11/2025 Carpal tunnel syndrome of left wrist (disorder) 9276228754 16547(SNOM ED) Diagnosis active 02/11/2025 Carpal tunnel syndrome of right wrist (disorder) 3651757600 73614(SNOM ED) Diagnosis active 01/24/2025 Hand pain (finding) 22800700(S NOMED) Diagnosis active 11/19/2024 Carpal tunnel syndrome (disorder) 79029744(S NOMED) Diagnosis active 11/19/2024 Administration of vaccine product against severe acute respiratory syndrome coronavirus 2 (procedure) 8275843697 (SNOMED) Problem active Arthritis (disorder) 0191408(SN OMED) Problem active Chronic obstructive pulmonary disease (disorder) 54382620(S NOMED) Problem active Gastroesophageal reflux disease (disorder) 350296975( SNOMED) Problem active History of hypertension (situation) 768755161( SNOMED) Problem active Heart disease (disorder) 86223740(S NOMED) Problem active Hypercholesterolemia (disorder) 58574954(S NOMED) Problem active Obstructive sleep apnea syndrome (disorder) 10858516(S NOMED) Problem active Vaccine product containing only severe acute respiratory syndrome coronavirus 2 messenger ribonucleic acid (medicinal product) 1802778392 (SNOMED) Problem active Carpal tunnel syndrome (disorder) 46963152(S NOMED) Problem active Results No data Encounters Service provided at [address] [place] [address], [address] [place] [phone]. Office phone number is [phone]. 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) Documentation of past medica l history (procedure) Gallbladder removalKidney donationHip replacement Knee replacement Review Of Systems No Data Assessment 1.Hand Pain, RightOrder TestsAdditional Notes Plan of Care Code Detail Instructions 4537-7 ESR Bld Qn Westrgrn March 05, 2025 48118-1 CRP Titr SerPl March 05, 2025 3084-1 Urate SerPl-mCnc March 05 30871-6 CBC W Auto Diff Bld March 05, 2025 983421 Medrol (Fredi) 4 mg tablets in a d ose pack Per package instructions 874373 Medrol (Fredi) 4 mg tablets in a d ose pack Per package instructions Instructions No Data Social History Code Activity Start Date End Date 6169037 (SNOMED) Former smoker 11/19/2009 Sex male Sexual orientation Unspecified Gender identity Unspecified Vital Signs No data
--- OUTSIDE RECORDS SUMMARY | 2025-03-07 12:34 | XMS_ITS | Encounter Summary ---
Author Organization [facility] Address [address] [place] [address] Phone Care Team Providers Care Manager Of Creative Services Name Role Phone Harpal Anthony MD Primary Care Provider +1- [phone] Encounter Details Date Type Department Care Team (Late st Contact Info) Description 03/25/2021 Procedure Pass [facility] Endoscopy Admitting Dept Virtual Department [address] [place] [address] Social History Tobacco Use Types Packs/Day Years [...] on filedocumented in this encounter Care Teams Manager Of Creative Services Relationship Specialty Start Date End Date Harpal Anthony MD [address] [place] [address] PCP - General Internal Medicine 12/20/17 documented as of this encounter Additional Source Comments The information contained in this document represents components of the legal health record. It is not the complete legal health record.[facility]
--- OUTSIDE RECORDS SUMMARY | 2025-03-07 12:34 | XMS_ITS | Encounter Summary ---
Author Organization [facility] Address [address] [facility] [place] [address] Phone Care Team Providers Care Electrical Software Engineer Name Role Phone Pcp, Not Required Primary Care Provider Unavaila Harpal Fletcher MD Primary Care Provider +1- [phone] Encounter Details Date Type Department Care Team (Late st Contact Info) Description 05/12/2017 Procedure Pass [facility] Endoscopy Admitting Dept Virtual Department [address] [place] [address] Social History Tobacco Use Types Packs/Day Years [...] on filedocumented in this encounter Care Teams Electrical Software Engineer Relationship Specialty Start Date End Date Pcp, Not Required [address] [place] [address] PCP - General 05/12/17 12/19/17 Harpal Anthony MD [address] [place] [address] PCP - General Internal Medicine 12/20/17 documented as of this encounter Additional Source Comments The information contained in this document represents components of the legal health record. It is not the complete legal health record.[facility]
--- OUTSIDE RECORDS SUMMARY | 2025-03-07 12:34 | XMS_ITS | Patient Health Record ---
Author Organization [facility] Address [address] [facility] [place] [address] Care Team Providers Care Clay Pigeon Loader Name Role Phone Raj ARIAS, Harpal Primary Care Provider UnavailApple Baltazar Unavailable [phone] Allergies Allergen (clinical drug ingredient) Drug/Non Drug [...] atherosclerosis of arteries of lower limbs (disorder) ([id number] ) Atherosclerosis of afognak artery of both lower extremities, with unspecified presence of clinical manifestation (I70.203) Active confirmed Vital Signs Blood pressure diastolic 78 mm Hg 09/06/2024 Height 5 ft 9 in in 09/06/2024 Blood pressure systolic 130 mm Hg 09/06/2024 Weight 240 lbs 09/06/2024 BMI 35.44 kg/m2 09/06/2024 Encounters Encounter Location Date Provider Diagnosis [address] [address] 03/27/2024 [facility] Atherosclerosis of afognak artery of both lower extremities, with unspecified presence of clinical manifestation I70.203 ; Tinea unguium B35.1 ; Pain in right toe(s) M79.674 and Pain in left toe(s) M79.[address] [address] 09/06/2024 [facility] Atherosclerosis of afognak artery of both lower extremities, with unspecified presence of clinical manifestation I70.203 ; Tinea unguium B35.1 ; Pain in right toe(s) M79.674 and Pain in left toe(s) M79.[address] [address] 2024 [facility] Per[facility] [address] [address] 01/20/2025 [facility] Assessments Encounter Date Diagnosis (ICD Code) Assessment Notes Treatment Notes Treatment Clinical Notes Section Notes 03/27/2024 Tinea unguium (ICD-10 - B35.1) 03/27/2024 Atherosclerosis of afognak artery of both lower extremities, with unspecified presence of clinical manifestation (ICD-10 - I70.203) 09/06/2024 Atherosclerosis of afognak artery of both lower extremities, with unspecified [...] Medicare National Govt Svcs Inc [address] [facility] [address] [id number] Ilir Mccabe Self - patient is the insured [employer] [address] [place] [address] [id number] Ilir Mccabe Self - patient is the [...]
--- OUTSIDE RECORDS SUMMARY | 2025-03-07 12:34 | XMS_ITS | Encounter Summary ---
Author Organization [facility] Address [address] [facility] [address] [place] [address] Phone Care Team Providers Care Agile Business Analyst Name Role Phone Harpal Anthony MD Primary Care Provider [phone]- [phone] Encounter Details Date Type Department Care Team (Late st Contact Info) Description 12/28/2022 Procedure Pass [facility] Endoscopy Admitting Dept Virtual Department [address] [place] [address] Social History Tobacco Use Types Packs/Day Years [...] on filedocumented in this encounter Care Teams Agile Business Analyst Relationship Specialty Start Date End Date Harpal Anthony MD [address] [place] [address] PCP - General Internal Medicine 12/20/17 documented as of this encounter Additional Source Comments The information contained in this document represents components of the legal health record. It is not the complete legal health record.[facility]
[2025-03-07 13:22] LABS: Hematocrit 44.4 % (42.0-52.0); Hemoglobin 14.1 g/dl (14.0-18.0); Mean Corpuscular HGB Conc 31.8 g/dl (31.0-36.0); Mean Corpuscular Hemoglobin 29.3 pg (27.0-33.0); Mean Corpuscular Volume 92.1 fL (80.0-98.0); NRBC Abs Auto 0.000 X10*3/uL (0.0-0.012); NRBC Pct Auto 0.0 /100WBC (0.0-0.2); Platelet Count 247 X10*3/uL (160-400); Red Blood Count 4.82 X10*6/uL (4.60-5.80); White Blood Count 10.3 X10*3/uL (4.8-10.8)
[2025-03-07 13:49] LABS: Alanine Aminotransferase 25 U/L (0-40); Albumin Level 3.8 g/dL (3.5-5.0); Alkaline Phosphatase 82 U/L (39-117); Anion Gap 11 (12-20); Aspartate Amino Transferase 26 U/L (5-37); Blood Urea Nitrogen 27 mg/dL (9-16); Calcium 9.1 mg/dL (8.4-10.2); Carbon Dioxide 31 mmol/L (22-29); Chloride 103 mmol/L (96-108); Cholesterol 142 mg/dL (<200); Estimated Glomerular Filt Rate 59; HDL Cholesterol 57 mg/dL (>40); Potassium 3.6 mmol/L (3.3-5.1); Sodium 141 mmol/L (135-145); Total Protein 6.3 g/dL (6.5-8.0); Triglycerides 97 mg/dL (<150)
[2025-03-07 14:07] LABS: Thyroid Stimulating Hormone 1.80 uIU/mL (0.32-4.0)
== END 2025-03-07 11:02 | disposition home or self-care (01) ==
LOC: HO.HMGCLDS 11:01
PROVIDERS: PCP Internal Medicine; Visit Provider Internal Medicine
DX: Z12.5 Encounter for screening for malignant neoplasm of prostate (principal); I10 Essential (primary) hypertension
CPT/HCPCS: 36415; 80048; 80061; 80076; 84153; 84443; 85027

== ENCOUNTER 2025-04-07 08:56 | Outpatient (AMB) | payer MEDICARE, SELFPAY ==
--- OUTSIDE RECORDS SUMMARY | 2025-01-22 06:30 | XMS_ITS ---
Author Organization [facility] amanda [place] Address [address] [place] [address] Care Team Providers Care Spinning Lathe Operator Automatic Name Role Phone Raj ARIAS, Harpal Primary Care Provider Unavailab Apple Baca Unavailable [phone] Encounters Encounter Location Date Provider Diagnosis [facility] [address] [place] [address] 01/22/2025 Apple Solorio Plan Of Treatment No Information Progress Notes * Nancy MCCABEOB:1945 (79 yo M)Acc No.[id number]:01/22/2025 Progress Note Patient: Iilr MORALES Provider: Aman Solorio DPM :1945 A ge:79 Y S ex:Male Date:01/22/2025 Address:[address], [place] [facility] [place] Pcp:Harpal Anthony MD Subjective: * Chief Complaints: [...] DPM Date: 0 01/22/2025 Generated for Wayloni laura/Fahomerg/eTransmitting on: 1 06/08/2024 10:13 AM EST
[2025-04-07 09:03] VITALS: BP 132/92; PULSE 84; RESP 16; TEMP 36.4; O2SAT 96; BMI 37.3
--- NOTE | 2025-04-07 09:03 | A.OFFPC_ITS ---
Vital Signs 04/07/25 09:03 Height 5 ft 8.9 in Weight 252 lb BMI 37.3 BP 132/92 H Blood Pressure Location Rt brachial Position Sitting Respiration 16 Pulse 84 Pulse Source Pulse Oximeter Temp 97.6 F Temp Source Temporal Artery Scan Pulse Oximetry (%) 96 Oxygen Delivery Method Room Air Intake Visit Reasons: Follow up - Bag Machine Adjuster Energy Conservation Technician Required: No Accompanied by: Spouse Allergies Iodinated Contrast Media (IV DYE, IODINE CONTAINING CONTRAST ) Allergy (Severe, Verified 04/07/25 09:03) HIVES dabigatran etexilate (From PRADAXA) Allergy (Unknown, Verified 04/07/25 09:03) REFLUX Tobacco use date assessed: 01/14/25 Dental Screening Dental Screen Date: 01/14/25 HPI HPI Comments History of Present Illness Details History of Present Illness - The patient is a 79 year old individua l presenting for evaluation of right hand swelling after carpal tunnel surgery. - The patient underwent bilateral carpal tunnel surgery, with the right hand operated on two months ago (January 29) and the left hand one week ago. - Approximately three to four weeks afte r the right-hand surgery, the patient developed swelling which has been persistent. - A seven-day course of prednisone resol charli the symptoms, but the swelling returned two to three days after completing the medication. - The swelling was absent for the past w [place] but started up again yesterday. - The patient reports the original pain that prompted the surgery is now relieved, but the patient experiences loss of function, such as an inability to open a water bottle, and hand soreness that can cause restless sleep. - The patient also reports significant g eneralized morning stiffness, which seems more pronounced when the hand is swollen and improves with movement. - Prior workup by the surgeon in [facility] included blood work, which showed two slightly elevated inflammatory markers that increased on a second test, and normal X-rays. - A pre-operative nerve conduction study confirmed severe carpal tunnel syndrome in the right hand and [id number] in the left hand. - The surgeon recommended a rheumatology workup but was reportedly baffled by the post-operative course. - Past medical history is significant fo r COPD, with a six-day hospitalization in November, and asymptomatic atrial fibrillation. - Past surgical history includes a knee replacement with the same orthopedic group. Social History - The patient reports a decrease in phys ical activity; after previously walking a couple of miles a day, the patient now gets less exercise due to cold weather and the location of residence. - The patient typically travels to [facility] for the winter from May to the beginning of August. Results - Labs: Prior blood work showed two infl ammatory markers were slightly elevated, which increased on repeat testing. - Imaging: X-rays of the hand were repor tedly normal. - Tests: A nerve conduction study showed severe carpal tunnel syndrome in the right hand and yrfzjgtf-[id number]-[id number] in the left hand. [facility] Medical History Obesity (BMI 30-39.9) COPD (chronic obstructive pulmonary disease) Kidney donor Obstructive sleep apnea on CPAP Essential hypertension Shortness of breath Persistent atrial fibrillation Surgical History History of laparoscopic cholecystectomy (~04/2017) History of hip replacement History of transesophageal echocardiography (SOFIA) Family History Father No problems noted. Mother No problems noted. Social History Housing: House Alcohol intake: current Alcohol intake frequency: a few times a week Alcohol type: wine Patient Tobacco Use Status: Former Tobacco user service: No Current occupational status: retired Cognitive needs: No Hearing needs: No Vision needs: Yes (rx glasses) Questionnaire PHQ-9 Over the last 2 weeks, how often have you been bothered by any of the following problems? 1. Little interest or pleasure in doing things: not at all 2. Feeling down, depressed, or hopeless: not at all 3. Trouble falling or staying asleep, or sleeping too much: not at all 4. Feeling tired or having little energy: not at all 5. Poor appetite or overeating: not at all 6. Feeling bad about yourself - or that you are a failure or have let yourself or your family down: not at all 7. Trouble concentrating on things, such as reading the newspaper or watching television: not at all 8. Moving or speaking so slowly that other people could have noticed. Or the opposite - being so fidgety or restless that you have been moving around a lot more than usual: not at all 9. Thoughts that you would be better off or of hurting yourself in some way: not at all Total score: 0 Source: Developed by Drs. Omid Coronado, Ayse Zepeda, Yuval Barrera and colleagues, with an educational kimberly from [employer]. Thrive Questionnaire Date Thrive assessed: 01/14/25 I am a: Patient What is your living situation today?: I have a steady place to live Within the past 12 months, did the food you bought not last and you didn't have the money to get more?: Never true Within the past 12 months, did you worry whether your food would run out before you got money to buy more?: Never true Do you have trouble paying for medicines?: No Do you have trouble getting transportation to medical appointments?: No Do you have trouble paying your heating and electricity bill?: No Do you have trouble taking care of your child, family member or friend?: No Do you have trouble with day-to-day activities such as bathing, preparing meals, shopping, managing finances, etc.?: No Are you currently unemployed and looking for a job?: No Are you interested in more education?: No Please select the resources that you would like help with: None THRIVE Score: 0 AUDIT C Alcohol Use Questionnaire (AUDIT-C) 1. How often do you have a drink containing alcohol?: 2-3 times a week 2. How many drinks containing alcohol do you have on a typical day when you are drinking?: 1 or 2 3. How often do you have six or more drinks on one occasion?: Never Total Score: 3 TOMAS-7 AMB Questionnaire TOMAS-7 Date TOMAS - 7 assessed: 01/14/25 Feeling nervous, anxious, or on edge: 0 = Not at all Not being able to stop or control worryin = Not at all Worrying too much about different things: 0 = Not at all Trouble relaxin = Not at all Being so restless that it is hard to sit still: 0 = Not at all Becoming easily annoyed or irritable: 0 = Not at all Feeling afraid as if something awful might happen: 0 = Not at all Total TOMAS-7 score (0-4 normal; 5-9 mild; 10-14 moderate; 15-21 severe): 0 Source: Developed by Drs. Omid Coronado, Ayse Zepeda, Yuval Barrera and colleagues, with an educational kimberly from [employer] [place]. Review of Systems Narrative Review of Systems - Musculoskeletal: Reports swelling and soreness in the right hand. - Musculoskeletal: Reports generalized morning stiffness that improves with activity. - Musculoskeletal: Denies swelling in the ankles. - General: Reports restless sleep at times due to hand soreness. - Neurological: Reports resolution of the pre-operative pain that prompted carpal tunnel surgery. - Respiratory: Reports a history of COPD; current breathing is not bad and less congested. - Cardiovascular: Reports a history of atrial fibrillation but is asymptomatic and does not feel it. - Allergic/Immunologic: Reports an allergy to IV dye. - Allergic/Immunologic: Denies infection. Physical exam (Primary Care) Vital Signs: Last Vital Signs Temp 97.6 F 04/07/25 09:03 Pulse 84 04/07/25 09:03 Resp 16 04/07/25 09:03 BP 132/92 H 04/07/25 09:03 Pulse Ox 96 04/07/25 09:03 Oxygen Delivery Method Room Air 04/07/25 09:03 BMI result Body Mass Index 37.3 Tobacco/Smoking Status: Tobacco use Status Tobacco use date assessed 01/14/25 04/07/25 09:04 Patient Tobacco Use Status Former Tobacco user 04/07/25 09:04 PHQ-9: PHQ-9 Score PHQ-9: Total score 0 04/07/25 09:04 Thrive Assessment: Date of Thrive Assessment Date Thrive assessed 01/14/25 04/07/25 09:04 Narrative Physical Exam General: Appearance normal, both eyes and all related structures Nutritional Appearance: Well nourished Orientation/consciousness: Patient oriented x3 Limitations: No limitations Head: Normal to inspection Neck: Normal visual inspection Chest: Normal palpation of entire chest wall Respiratory: Normal respiratory effort, but patient has a history of COPD and was hospitalized in November for six days. Patient reports improvement but still experiences some breathing difficulties. Neurology: Patient oriented x3, but reports stiffness all over the body, especially in the morning, which improves with movement. Office Procedures Flu Questionnaire Does the patient have a severe egg allergy?: No Does the patient have severe life threatening allergies?: No Does the patient have a fever or illness today?: No Has the patient ever had Guillain-Reynolds Syndrome?: No Has the patient ever had any past reaction to a flu shot?: No Immunizations Fluarix [id number] (PF) 45 mcg (15 mcg x 3)/0.5 mL IM syringe Performing Provider: Bhavesh Sierra MD [facility] Documented (not given) by: JENNIFER Durbin on 04/07/25 09:11 Reason Not Given: Received Previously Coding Level of Care Code Complex visit Add On G2211 Diagnoses Carpal tunnel syndrome G56.00 Assessment & Plan Assessment & Plan (1) Carpal tunnel syndrome: Code(s): G56.00 - Carpal tunnel syndrome, unspecified upper limb Plan Plan - The swelling is assessed to be a localized post-surgical issue rather than a systemic process. - A prescription for Celebrex will be provided to be taken once daily to manage the swelling; this was chosen over other anti-inflammatories due to a lower risk of bleeding given the patient is on a blood thinner. - Low-dose prednisone will be held as a future treatment option if needed. - Rheumatological blood work, including for rheumatoid arthritis and STEWART, will be ordered. - A referral to rheumatology will be made, and the patient will receive the appointment details today. - The patient was advised to keep the right hand elevated to help reduce swelling. - A follow-up appointment is scheduled in three weeks to assess response to therapy before the patient's planned travel. Discussion Notes I discussed with the patient that the swelling in the right hand appears to be a local issue from the surgery and that the tissue simply needs more time to heal. I explained that while we will proceed with a rheumatology referral, an appointment may take a month or more, and I do not expect significant findings from it. We reviewed treatment options, and I recommended against typical anti- inflammatory medications due to the high risk of bleeding, as the patient is on a blood thinner. I recommended starting Celebrex once daily due to its lower bleeding risk, explaining that it is for short-term use until the swelling resolves. I informed the patient that I will order rheumatological blood work and will keep low-dose prednisone as a future option. I instructed the patient to keep the hand elevated as much as possible and to follow up in three weeks to monitor progress. Patient Instructions - Take the new medication, Celebrex, once a day for the swelling in your hand. - Go to the lab to get your blood drawn for the tests that were ordered. - You will be given an appointment to see a neonatal doctor (a specialist for arthritis and inflammation). - Keep your right hand raised up as much as possible to help the swelling go down. - Make a follow-up appointment at the front desk admin to be seen again in three weeks. Orders: Orders Influenza [id number] Immunization Today Z23 - Encounter for immunization
--- OUTSIDE RECORDS SUMMARY | 2025-04-07 10:14 | XMS_ITS | Clinical Summary ---
Author Organization [facility] Address [address] [facility] [address] [place] [address] Phone Care Team Providers Care Slice Cutting Machine Operator Name Role Phone Harpal Anthony MD Primary Care Provider +1- [phone] Allergies Active Allergy Reactions Criticality Noted Date [...] this topic Medical Devices Implanted Type Area Returned Materials Inspector Device Identifier Shelf Expiration Date Model / Serial / Lot Prosthetic Joint Prosthetic Joint Right: Knee Left Hip Insurance MEDICARE PART A & B [employer] MEDEX SUPPLEMENT MEDICARE PART A & B [id number] MEDEX SUPPLEMENT MEDICARE PART A & B [employer] MEDEX SUPPLEMENT MEDICARE PART A & B [id number] MEDEX SUPPLEMENT MEDICARE PART A & B [id number] MEDEX SUPPLEMENT MEDICARE PART A & B [id number] MEDEX SUPPLEMENT MEDICARE PART A & B [id number] MEDEX SUPPLEMENT MEDICARE PART A & B [employer] MEDEX SUPPLEMENT MEDICARE PART A & B [id number] MEDEX SUPPLEMENT Care Teams Slice Cutting Machine Operator Relationship Specialty Start Date End Date Harpal Anthony MD [address] [place] [address] PCP - General Internal Medicine 12/20/17 Additional Source Comments The information contained in this document represents components of the legal health record. It is not the complete legal health record.[facility]
--- OUTSIDE RECORDS SUMMARY | 2025-04-07 10:14 | XMS_ITS | Encounter Summary ---
Author Organization [facility] Address [address] [place] [address] Phone Care Team Providers Care Software Quality Assurance Specialist Name Role Phone Harpal Anthony MD Primary Care Provider +1- [phone] Encounter Details Date Type Department Care Team (Late st Contact Info) Description 03/05/2024 Procedure Pass [facility] Endoscopy Admitting Dept Virtual Department [address] [place] [address] Social History Tobacco Use Types Packs/Day Years [...] on filedocumented in this encounter Care Teams Software Quality Assurance Specialist Relationship Specialty Start Date End Date Harpal Anthony MD [address] [place] [address] PCP - General Internal Medicine 12/20/17 documented as of this encounter Additional Source Comments The information contained in this document represents components of the legal health record. It is not the complete legal health record.[facility]
--- OUTSIDE RECORDS SUMMARY | 2025-04-07 10:14 | XMS_ITS | Encounter Summary ---
Author Organization [facility] Address [address] [facility] [address] [place] [address] Phone Care Team Providers Care Chemic Mangler Name Role Phone Harpal Anthony MD Primary Care Provider +1- [phone] Encounter Details Date Type Department Care Team (Late st Contact Info) Description 12/28/2022 Procedure Pass [facility] Endoscopy Admitting Dept Virtual Department [address] [place] [address] Social History Tobacco Use Types Packs/Day Years [...] on filedocumented in this encounter Care Teams Chemic Mangler Relationship Specialty Start Date End Date Harpal Anthony MD [address] [place] [address] PCP - General Internal Medicine 12/20/17 documented as of this encounter Additional Source Comments The information contained in this document represents components of the legal health record. It is not the complete legal health record.[facility]
--- OUTSIDE RECORDS SUMMARY | 2025-04-07 10:14 | XMS_ITS | Patient Health Record ---
Author Organization [facility] Address [address] [facility] [place] [address] Care Team Providers Care Engineering Executive Name Role Phone Raj ARIAS, Harpal Primary Care Provider UnavailApple Baltazar Unavailable [phone] Allergies Allergen (clinical drug ingredient) Drug/Non Drug [...] atherosclerosis of arteries of lower limbs (disorder) ([id number] ) Atherosclerosis of council artery of both lower extremities, with unspecified presence of clinical manifestation (I70.203) Active confirmed Vital Signs Blood pressure diastolic 78 mm Hg 09/06/2024 Height 5 ft 9 in in 09/06/2024 Blood pressure systolic 130 mm Hg 09/06/2024 Weight 240 lbs 09/06/2024 BMI 35.44 kg/m2 09/06/2024 Encounters Encounter Location Date Provider Diagnosis [facility] [address] [address] 09/06/2024 [facility] Atherosclerosis of council artery of both lower extremities, with unspecified presence of clinical manifestation I70.203 ; Tinea unguium B35.1 ; Pain in right toe(s) M79.674 and Pain in left toe(s) M79.[address] [facility] [address] 2024 [facility] [address] 01/20/2025 [facility] Assessments Encounter Date Diagnosis (ICD Code) Assessment Notes Treatment Notes Treatment Clinical Notes Section Notes 09/06/2024 Atherosclerosis of council artery of both lower extremities, with unspecified [...] Medicare National Govt Svcs Inc [address] [place] [address] [id number] Ilir Mccabe Self - patient is the insured [facility] [address] [place] [address] [id number] Ilir Mccabe Self - patient is the insured Medical (General) History Medical History History ICD Code Back,Hip,and Knee pain CAD (Cholesterol) Gall bladder problems High blood pressure Measles Joint implants/screws A fib Sleep apnea hip replacement, RT Surgical History Surgery Date(Month/Year) left hip replacement 2007 gall bladder 2016 kidney removal (donated) knee replacement 10/04/22 Dental Implant 07/02
--- OUTSIDE RECORDS SUMMARY | 2025-04-07 10:14 | XMS_ITS | Clinical Summary ---
Author Organization [address] Address [address] [place] [phone] Phone Care Team Providers Care Prop Worker Name Role Phone Unavailable Primary Care Provider [...] daily (0800, 1800). Active nebulizers Misc by [facility]Non-Drug; Combo Route) route See Admin Instructions. Use [...] Care Team Description 02/14/2025 Telephone [place] [address] Smooth Phelps MD Appointment; Referral from Last 3 Months Social History Tobacco Use Types Packs/Day Years Used Date Smoking Tobacco: Never Assessed [facility] Utilities Answer Date Recorded In the past 12 months has [employer], gas, oil, or water [employer] threatened to shut off services in your [...] 65 - 110 mg/dL 12/02/2024 6:44 AM [facility] Comment: Non-fastin-110 mg/dL Fasting (minimum 6 hrs): 65-99 mg/dL BUN 40(H) 7 - 18 mg/dL 12/02/2024 6:44 AM [facility] Creatinine 1.38(H) 0.70 - 1.30 mg/dL 12/02/2024 6:44 AM [facility] Sodium 139 136 - 145 mmol/L 12/02/2024 6:44 AM [facility] Potassium 4.0 3.5 - 5.1 mmol/L 12/02/2024 6:44 AM [facility] Chloride 99 98 - 107 mmol/L 12/02/2024 6:44 AM [facility] CO2 36(H) 21 - 32 mmol/L 12/02/2024 6:44 AM [facility] Anion Gap 4(L) 5 - 15 mmol/L 12/02/2024 6:44 AM [facility] Calcium 8.9 8.5 - 10.1 mg/dL 12/02/2024 6:44 AM [facility] eGFR (Creatinine) 53(L) >=60 mL/min/1.73 m2 12/02/2024 6:44 AM [facility] Comment: [facility] utilizes CKD-EPI Creatinine 2020 to report eGFR. Values < 60 mL/min/1.73 m2 may indicate CKD if present for more than three months AND creatinine is at steady state. The eGFR provides a rough estimate of kidney function. For further guidance, please refer to the CKD: Adult Training Associate Signature pathway. Creatinine Delta 0.14 See Comment 025 6:44 AM EDT [facility] Comment: Delta creatinine is the difference [...] Keating DO LAB BLOOD [place] [address], [facility] [phone] from Last 3 Months or Most Recently Relevant to Health Maintenance Insurance MEDICARE [facility] MEDICARE [facility] MEDICARE [facility] Advance Directives * Full Code (Latest Code Status on File) Date Activated Date Inactivated Comments 11/27/2024 3:16 PM 12/02/2024 5:18 PM Question Answer Comments With Whom was the Code Status Discussed? Patient
--- OUTSIDE RECORDS SUMMARY | 2025-04-07 10:15 | XMS_ITS | Encounter Summary ---
Author Organization [facility] Address [address] [place] [address] Phone Care Team Providers Care Supervisor Line Department Name Role Phone Harpal Anthony MD Primary Care Provider +1- [phone] Encounter Details Date Type Department Care Team (Late st Contact Info) Description 03/25/2021 Procedure Pass [facility] Endoscopy Admitting Dept Virtual Department [address] [place] [address] Social History Tobacco Use Types Packs/Day Years [...] on filedocumented in this encounter Care Teams Supervisor Line Department Relationship Specialty Start Date End Date Harpal Anthony MD [address] [place] [address] PCP - General Internal Medicine 12/20/17 documented as of this encounter Additional Source Comments The information contained in this document represents components of the legal health record. It is not the complete legal health record.[facility]
--- OUTSIDE RECORDS SUMMARY | 2025-04-07 10:15 | XMS_ITS | Encounter Summary ---
Author Organization [facility] Address [address] [place] [address] Phone Care Team Providers Care Acid Leveler Name Role Phone Pcp, Not Required Primary Care Provider Unavaila Harpal Fletcher MD Primary Care Provider +1- [phone] Encounter Details Date Type Department Care Team (Late st Contact Info) Description 05/12/2017 Procedure Pass [facility] Endoscopy Admitting Dept Virtual Department [address] [place] [address] Social History Tobacco Use Types Packs/Day Years [...] on filedocumented in this encounter Care Teams Acid Leveler Relationship Specialty Start Date End Date Pcp, Not Required [address] [place] [address] PCP - General 05/12/17 12/19/17 Harpal Anthony MD [address] [place] [address] PCP - General Internal Medicine 12/20/17 documented as of this encounter Additional Source Comments The information contained in this document represents components of the legal health record. It is not the complete legal health record.[facility]
--- OUTSIDE RECORDS SUMMARY | 2025-04-07 10:15 | XMS_ITS | Encounter Summary ---
Author Organization [facility] Address [address] [place] [address] Phone Care Team Providers Care Material Planning Analyst Name Role Phone Harpal Anthony MD Primary Care Provider +1- [phone] Encounter Details Date Type Department Care Team (Late st Contact Info) Description 12/20/2017 Procedure Pass [facility] Endoscopy Admitting Dept Virtual Department [address] [place] [address] Social History Tobacco Use Types Packs/Day Years [...] on filedocumented in this encounter Care Teams Material Planning Analyst Relationship Specialty Start Date End Date Harpal Anthony MD [address] [place] [address] PCP - General Internal Medicine 12/20/17 documented as of this encounter Additional Source Comments The information contained in this document represents components of the legal health record. It is not the complete legal health record.[facility]
== END 2025-04-07 09:38 | disposition home or self-care (01) ==
LOC: HO.HMCSH 08:56
PROVIDERS: PCP Internal Medicine; Visit Provider Internal Medicine
DX: G56.00 Carpal tunnel syndrome, unspecified upper limb (principal)

== ENCOUNTER → 2025-04-07 08:56 | Outpatient (BNVA) | payer MEDICARE, SELFPAY | PROVIDERS: PCP Internal Medicine; Visit Provider Internal Medicine | DX: G56.01 Carpal tunnel syndrome, right upper limb (principal); R60.0 Localized edema; Z98.890 Other specified postprocedural states | CPT/HCPCS: 99212 ==

== ENCOUNTER 2025-04-09 10:03 | Outpatient (REF) | payer MEDICARE, SELFPAY ==
--- OUTSIDE RECORDS SUMMARY | 2024-11-19 10:15 | XMS_ITS ---
Author Organization [facility] Address [address] [place] [address] Care Team Providers Care Care Coordinator Name Role Phone Harpal Anthony MD Primary Care Provider Unavailab Apple Baca Unavailable [phone] Allergies Allergen (clinical drug ingredient) Drug/Non Drug [...] Not-Taking Encounters Encounter Location Date Provider Diagnosis [facility] [address] [place] [address] 11/19/2024 Apple Solorio Plan Of Treatment No Information Progress Notes * Nancy MCCABEOB:1945 (79 yo M)Acc No.[id number]:11/19/2024 Progress Note Patient: Clark Ilir FERRARA Provider: Aman Solorio DPM :1945 A ge:79 Y S ex:Male Date:11/19/2024 Address:[address], [place], [place] Pcp:Harpal Anthony MD Subjective: * Chief Complaints: [...] 0 11/19/2024 Generated for Charmaine sanchez/Jil/Chantel on: 1 06/10/2024 11:22 AM EST
--- OUTSIDE RECORDS SUMMARY | 2025-01-22 06:30 | XMS_ITS ---
Author Organization [facility] amanda [employer] Address [address] [place] [address] Care Team Providers Care Customs Investigator Name Role Phone Raj ARIAS, Harpal Primary Care Provider Unavailab Apple Baca Unavailable [phone] Encounters Encounter Location Date Provider Diagnosis [facility] [address] [place] [address] 01/22/2025 Apple Solorio Plan Of Treatment No Information Progress Notes * Nancy MCCABEOB:1945 (79 yo M)Acc No.[id number]:01/22/2025 Progress Note Patient: Ilir MORALES Provider: Aman Solorio DPM :1945 A ge:79 Y S ex:Male Date:01/22/2025 Address:[address], [place] [facility] [place] Pcp:Harpal Anthony MD Subjective: * Chief Complaints: * * Medical History: Objective: * Vitals: Assessment: Plan: * Treatment: * Images: * The named appointment provid er may or may not be the originator of this progress note, and it is not deemed complete until electronically signed by the appointment provider. Sign off status: Pending * Provider: Aman Solorio DPM Date: 0 01/22/2025 Generated for Wayloni ng/Fahomerg/eTransmitting on: 1 06/10/2024 11:22 AM EST
--- OUTSIDE RECORDS SUMMARY | 2025-04-09 11:23 | XMS_ITS | Encounter Summary ---
Author Organization [facility] Address [address] [place] [address] Phone Care Team Providers Care Staple Shear Operator Name Role Phone Harpal Anthony MD Primary Care Provider +1- [phone] Encounter Details Date Type Department Care Team (Late st Contact Info) Description 03/05/2024 Procedure Pass [facility] Endoscopy Admitting Dept Virtual Department [address] [place] [address] Social History Tobacco Use Types Packs/Day Years [...] on filedocumented in this encounter Care Teams Staple Shear Operator Relationship Specialty Start Date End Date Harpal Anthony MD [address] [place] [address] PCP - General Internal Medicine 12/20/17 documented as of this encounter Additional Source Comments The information contained in this document represents components of the legal health record. It is not the complete legal health record.[facility]
--- OUTSIDE RECORDS SUMMARY | 2025-04-09 11:23 | XMS_ITS | Clinical Summary ---
Author Organization [address] Address [address] [place] [phone] Phone Care Team Providers Care Airworthiness Inspector Name Role Phone Unavailable Primary Care Provider [...] daily (0800, 1800). Active nebulizers Misc by [facility]Non-Drug; Combo Route) route See Admin Instructions. Use [...] Care Team Description 02/14/2025 [place] [address] Smooth Phelps MD Appointment; Referral from Last 3 Months Social History Tobacco Use Types Packs/Day Years Used Date Smoking Tobacco: Never Assessed [facility] Utilities Answer Date Recorded In the past 12 months has [employer], gas, oil, or water [employer] threatened to shut off services in your [...] 65 - 110 mg/dL 12/02/2024 6:44 AM [facility] Comment: Non-fastin-110 mg/dL Fasting (minimum 6 hrs): 65-99 mg/dL BUN 40(H) 7 - 18 mg/dL 12/02/2024 6:44 AM [facility] Creatinine 1.38(H) 0.70 - 1.30 mg/dL 12/02/2024 6:44 AM [facility] Sodium 139 136 - 145 mmol/L 12/02/2024 6:44 AM [facility] Potassium 4.0 3.5 - 5.1 mmol/L 12/02/2024 6:44 AM [facility] Chloride 99 98 - 107 mmol/L 12/02/2024 6:44 AM [facility] CO2 36(H) 21 - 32 mmol/L 12/02/2024 6:44 AM [facility] Anion Gap 4(L) 5 - 15 mmol/L 12/02/2024 6:44 AM [facility] Calcium 8.9 8.5 - 10.1 mg/dL 12/02/2024 6:44 AM [facility] eGFR (Creatinine) 53(L) >=60 mL/min/1.73 m2 12/02/2024 6:44 AM [facility] Comment: [facility] utilizes CKD-EPI Creatinine 2020 to report eGFR. Values < 60 mL/min/1.73 m2 may indicate CKD if present for more than three months AND creatinine is at steady state. The eGFR provides a rough estimate of kidney function. For further guidance, please refer to the CKD: Adult Quality Systems Manager Signature pathway. Creatinine Delta 0.14 See Comment 025 6:44 AM EDT [facility] Comment: Delta creatinine is the difference [...] Keating DO LAB BLOOD [place] [address], [facility] [phone] from Last 3 Months or Most Recently Relevant to Health Maintenance Insurance MEDICARE [facility] MEDICARE [facility] MEDICARE [facility] Advance Directives * Full Code (Latest Code Status on File) Date Activated Date Inactivated Comments 11/27/2024 3:16 PM 12/02/2024 5:18 PM Question Answer Comments With Whom was the Code Status Discussed? Patient
--- OUTSIDE RECORDS SUMMARY | 2025-04-09 11:23 | XMS_ITS | Encounter Summary ---
Author Organization [facility] Address [address] [place] [address] Phone Care Team Providers Care Petroleum Supply Specialist Name Role Phone Harpal Anthony MD Primary Care Provider +1- [phone] Encounter Details Date Type Department Care Team (Late st Contact Info) Description 12/20/2017 Procedure Pass [facility] Endoscopy Admitting Dept Virtual Department [address] [place] [address] Social History Tobacco Use Types Packs/Day Years [...] on filedocumented in this encounter Care Teams Petroleum Supply Specialist Relationship Specialty Start Date End Date Harpal Anthony MD [address] [place] [address] PCP - General Internal Medicine 12/20/17 documented as of this encounter Additional Source Comments The information contained in this document represents components of the legal health record. It is not the complete legal health record.[facility]
--- OUTSIDE RECORDS SUMMARY | 2025-04-09 11:23 | XMS_ITS | Encounter Summary ---
Author Organization [facility] Address [address] [place] [address] Phone Care Team Providers Care Pediatric Care Coordinator Name Role Phone Harpal Anthony MD Primary Care Provider +1- [phone] Encounter Details Date Type Department Care Team (Late st Contact Info) Description 03/25/2021 Procedure Pass [facility] Endoscopy Admitting Dept Virtual Department [address] [place] [address] Social History Tobacco Use Types Packs/Day Years [...] on filedocumented in this encounter Care Teams Pediatric Care Coordinator Relationship Specialty Start Date End Date Harpal Anthony MD [address] [place] [address] PCP - General Internal Medicine 12/20/17 documented as of this encounter Additional Source Comments The information contained in this document represents components of the legal health record. It is not the complete legal health record.[facility]
--- OUTSIDE RECORDS SUMMARY | 2025-04-09 11:23 | XMS_ITS | Encounter Summary ---
Author Organization [facility] Address [address] [place] [address] Phone Care Team Providers Care Contract Runner Name Role Phone Pcp, Not Required Primary Care Provider Unavaila Harpal Fletcher MD Primary Care Provider +1- [phone] Encounter Details Date Type Department Care Team (Late st Contact Info) Description 05/12/2017 Procedure Pass [facility] Endoscopy Admitting Dept Virtual Department [address] [place] [address] Social History Tobacco Use Types Packs/Day Years [...] on filedocumented in this encounter Care Teams Contract Runner Relationship Specialty Start Date End Date Pcp, Not Required [address] [place] [address] PCP - General 05/12/17 12/19/17 Harpal Anthony MD [address] [place] [address] PCP - General Internal Medicine 12/20/17 documented as of this encounter Additional Source Comments The information contained in this document represents components of the legal health record. It is not the complete legal health record.[facility]
--- OUTSIDE RECORDS SUMMARY | 2025-04-09 11:23 | XMS_ITS | Patient Health Record ---
Author Organization [facility] Address [address] [place] [address] Care Team Providers Care Sales Office Administrator Name Role Phone Raj ARIAS, Harpal Primary Care Provider UnavailApple Baltazar Unavailable [phone] Allergies Allergen (clinical drug ingredient) Drug/Non Drug [...] atherosclerosis of arteries of lower limbs (disorder) ([id number] ) Atherosclerosis of king salmon artery of both lower extremities, with unspecified presence of clinical manifestation (I70.203) Active confirmed Vital Signs Blood pressure diastolic 78 mm Hg 09/06/2024 Height 5 ft 9 in in 09/06/2024 Blood pressure systolic 130 mm Hg 09/06/2024 Weight 240 lbs 09/06/2024 BMI 35.44 kg/m2 09/06/2024 Encounters Encounter Location Date Provider Diagnosis [facility] [address] [address] 09/06/2024 Apple Solorio Atherosclerosis of king salmon artery of both lower extremities, with unspecified presence of clinical manifestation I70.203 ; Tinea unguium B35.1 ; Pain in right toe(s) M79.674 and Pain in left toe(s) M79.[address] [facility] [address] 2024 Apple Solorio [facility] [address] 01/20/2025 Apple Solorio Assessments Encounter Date Diagnosis (ICD Code) Assessment Notes Treatment Notes Treatment Clinical Notes Section Notes 09/06/2024 Atherosclerosis of king salmon artery of both lower extremities, with unspecified [...] Medicare [employer] [address] [facility] [place] [address] [id number] Ilir Mccabe Self - patient is the insured [employer] [facility] [address] [place] [address] [phone] [id number] Ilir Mccabe Self - patient is the [...]
--- OUTSIDE RECORDS SUMMARY | 2025-04-09 11:23 | XMS_ITS | Encounter Summary ---
Author Organization [facility] Address [address] [place] [address] Phone Care Team Providers Care Building Surveyor Name Role Phone Harpal Anthony MD Primary Care Provider +1- [phone] Encounter Details Date Type Department Care Team (Late st Contact Info) Description 12/28/2022 Procedure Pass [facility] Endoscopy Admitting Dept Virtual Department [address] [place] [address] Social History Tobacco Use Types Packs/Day Years [...] on filedocumented in this encounter Care Teams Building Surveyor Relationship Specialty Start Date End Date Harpal Anthony MD [address] [place] [address] PCP - General Internal Medicine 12/20/17 documented as of this encounter Additional Source Comments The information contained in this document represents components of the legal health record. It is not the complete legal health record.[facility]
--- OUTSIDE RECORDS SUMMARY | 2025-04-09 11:23 | XMS_ITS | Clinical Summary ---
Author Organization [facility] Address [address] [place] [address] Phone Care Team Providers Care Group Insurance Special Agent Name Role Phone Harpal Anthony MD Primary Care Provider +1- [phone] Allergies Active Allergy Reactions Criticality Noted Date [...] this topic Medical Devices Implanted Type Area Senior Loan Officer Device Identifier Shelf Expiration Date Model / Serial / Lot Prosthetic Joint Prosthetic Joint Right: Knee Left Hip Insurance MEDICARE PART A & B [employer] CROSS MEDEX SUPPLEMENT MEDICARE PART A & B [employer] MEDEX SUPPLEMENT MEDICARE PART A & B [employer] MEDEX SUPPLEMENT MEDICARE PART A & B [employer] MEDEX SUPPLEMENT MEDICARE PART A & B [employer] MEDEX SUPPLEMENT MEDICARE PART A & B [employer] MEDEX SUPPLEMENT MEDICARE PART A & B [employer] MEDEX SUPPLEMENT MEDICARE PART A & B [employer] MEDEX SUPPLEMENT MEDICARE PART A & B [employer] MEDEX SUPPLEMENT Care Teams Group Insurance Special Agent Relationship Specialty Start Date End Date Harpal Anthony MD [address] [place] [address] PCP - General Internal Medicine 12/20/17 Additional Source Comments The information contained in this document represents components of the legal health record. It is not the complete legal health record.[facility]
[2025-04-10 11:18] LABS: Anti Nuclear Antibody Screen NEGATIVE (NEGATIVE)
== END 2025-04-09 10:04 | disposition home or self-care (01) ==
LOC: HO.HMGCLDS 10:03
PROVIDERS: PCP Internal Medicine; Visit Provider Internal Medicine
DX: Z01.84 Encounter for antibody response examination (principal); G56.00 Carpal tunnel syndrome, unspecified upper limb
CPT/HCPCS: 36415; 86038; 86200; 86431

== ENCOUNTER 2025-04-21 09:59 | Outpatient (AMB) | payer MEDICARE, SELFPAY ==
[2025-04-21 10:15] VITALS: BP 110/62; PULSE 69; O2SAT 95; BMI 37.2
--- NOTE | 2025-04-21 10:15 | A.OFFVIS_ITS ---
Vital Signs 04/21/25 10:15 Height 5 ft 8.9 in Weight 251 lb 5.231 oz BMI 37.2 BP 110/62 Blood Pressure Location Lt brachial Position Sitting Pulse 69 Pulse Source Pulse Oximeter Pulse Oximetry (%) 95 Oxygen Delivery Method Room Air Intake Visit Reasons: COPD Intake Note: pt is here for follow up and breathing is okay but cold weather affects his breathing. please refill albuterol for nebulizer to [facility] with code. Group Director Experience Required: No Allergies Iodinated Contrast Media (IV DYE, IODINE CONTAINING CONTRAST ) Allergy (Severe, Verified 04/21/25 10:43) HIVES dabigatran etexilate (From PRADAXA) Allergy (Unknown, Verified 04/21/25 10:43) REFLUX Medication List - Last Reconciled 04/21/25 by Rocky Ching MD albuterol sulfate 2.5 mg (3 mL) continuous nebulization Q4-6H PRN amlodipine 5 mg PO DAILY atenolol 25 mg PO DAILY Breyna 160-4.5 mcg/actuation (budesonide-formoterol) 2 puffs PO Q12H NS celecoxib 200 mg PO DAILY hydrochlorothiazide 25 mg PO DAILY inhalational spacing device (Aerochamber MV spacer) As directed losartan 50 mg PO DAILY omeprazole 20 mg PO DAILY rivaroxaban 20 mg PO DAILY sildenafil 100 mg PO ONCE PRN 90 days simvastatin 20 mg PO BEDTIME tamsulosin 0.4 mg PO BEDTIME 90 days zolpidem 10 mg PO BEDTIME PRN Do you need a note to return to daycare/school/sports/work: No HPI HPI COPD: Details: 79 YEARS OLD VERY PLEASANT GENTLEMAN WHO IS MODERATELY OBESE AND HAS OBSTRUCTIVE SLEEP APNEA WELL HAS COPD, COMES FOR FOLLOW-UP AFTER 4 MONTHS. HE USES CPAP VERY REGULARLY, BUT THE AMOUNT OF USAGE VARIES BETWEEN 4-6 HOURS. HE HAS TO GO TO THE BATHROOM IN THE MIDDLE OF THE NIGHT AND SOMETIMES DOES NOT PUT THE CPAP ON COMING BACK TO THE BED. HOWEVER HE IS GETTING GOOD SLEEP AND DENIES ANY DAYTIME SLEEPINESS. HE IS USING F 40 MASK , AND THERE IS SOME AIR LEAK. BREATHING HAS BEEN STABLE WITH ONLY OCCASIONAL MILD COUGH. HE CONTINUES TO USE BREYNA 160-4.52 PUFFS B.I.D.. AND HE USES ALBUTEROL IN THE NEBULIZER MORNING AND EVENING DOES NOT NEED TO USE IN BETWEEN DURING THE DAY. HIS WEIGHT IS HOLDING STABLE . [facility] Medical History Obesity (BMI 30-39.9) COPD (chronic obstructive pulmonary disease) Kidney donor Obstructive sleep apnea on CPAP Essential hypertension Shortness of breath Persistent atrial fibrillation Surgical History History of laparoscopic cholecystectomy (~04/2017) History of hip replacement History of transesophageal echocardiography (SOFIA) Family History Father No problems noted. Mother No problems noted. Social History Housing: House Alcohol intake: current Alcohol intake frequency: a few times a week Alcohol type: wine Patient Tobacco Use Status: Former Tobacco user service: No Current occupational status: retired Cognitive needs: No Hearing needs: No Vision needs: Yes (rx glasses) Review of Systems Const All systems reviewed & are unremarkable except as noted in HPI and below Eyes Reports no additional complaints ENT Reports no additional complaints Card Denies chest pain, Reports irregular heart rhythm (Atrial fibrillation), Denies leg edema and Denies dyspnea on exertion Resp Reports as per HPI and Denies dyspnea on exertion GI Denies no additional complaints Reports other (Being treated for BPH) Musc Reports no additional complaints Skin/Breast Reports system reviewed and no additional complaints, except as documented Neuro Reports no additional complaints Psych Reports no additional complaints Endo Reports no additional complaints Physical Exam Vital Signs: Last Vital Signs Pulse 69 04/21/25 10:15 BP 110/62 04/21/25 10:15 Pulse Ox 95 04/21/25 10:15 Oxygen Delivery Method Room Air 04/21/25 10:15 BMI result Body Mass Index 37.2 Const General: comfortable, no acute distress, alert and awake Orientation/consciousness: patient oriented x3 HEENT Head: Yes normal to inspection General nose exam: No nasal polyps present and No nasal discharge present Face and sinus: Yes sinuses nontender Mouth: oropharynx normal Throat: Yes posterior oropharynx normal Eyes General: appearance normal, both eyes and all related structures Neck Neck: Yes normal visual inspection, Yes no lymphadenopathy, Yes trachea midline and Yes no JVD Thyroid: Thyroid normal Chest Chest palpation & inspection: normal inspection of the chest, normal palpation of entire chest wall and no tenderness Resp Other: Percussion note resonant. Breath sounds are distant with prolonged expiratory phase. No audible wheezes rhonchi or crepitations. Cardio Palpation: normal PMI Rate: regular rate Rhythm: abnormal rhythm (Atrial fibrillation) Heart sounds: no gallops and no murmurs GI Palpation (GI): Soft to palpation, nontender, No hepatosplenomegaly present and no masses Auscultation: normal bowel sounds Back/Spine/Pelvis Thoracic/Lumbar Spine: thoracic and lumbar spine normal to inspection Skin General skin exam: no rashes or lesions noted Neuro General: patient oriented x3 and no focal motor deficits Cranial nerves: Yes CN's II-XII intact bilaterally Extrem General: Yes normal to inspection, No no joint enlargement (Right knee she moderately enlarged and irregular.), Yes no calf tenderness and Yes edema (1 + pitting edema of the legs ) Psych Appearance: grossly normal Speech and movement: Normal speech and movement present Results Reviewed Results Reviewed: COMPLIANCE REPORT FOR THE LAST 30 NIGHTS IS REVIEWED. HE HAS USED 30/30 NIGHTS., 100% AVERAGE USE IT PER NIGHT 4 HOURS 29 MINUTES. THERE IS MODERATE AMOUNT OF AIR LEAK, THIS IS PROBABLY SECONDARY TO FACIAL HAIR. \ RESIDUAL AHI ONLY 1.2 Assessment & Plan Assessment & Plan (1) Obesity (BMI 30-39.9): Comment: CLAUDIO REMAINS GROSSLY OBESE,. 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 Code(s): E66.9 - Obesity, unspecified Category: Medical Plan: TALKED ABOUT THE WEIGHT AND NEED TO CUT DOWN THE PORTIONS AND ALSO DO REGULAR EXERCISE EVERY DAY . (2) Obstructive sleep apnea on CPAP: Comment: KNOWN CASE OF OBSTRUCTIVE SLEEP APNEA. HE USES CPAP VERY REGULARLY AND SLEEP OKAY. HIS DAILY USAGE IS STILL LITTLE BIT ON THE LOW SIDE, 4 HOURS 29 MINUTES ON AN AVERAGE. HE IS USING F 40 FULLFACE MASK , AND THERE IS SOME AIR LEAK WHICH IS DUE TO LONG MOST-AND HEAVY VINSON. Code(s): G47.33 - Obstructive sleep apnea (adult) (pediatric); Z99.89 - Dependence on other enabling machines and devices Category: Medical Plan: I CAUTIONED HIM ABOUT THIS AIR LEAK ISSUE. BUT ALSO REASSURED HIM THAT HIS RESIDUAL AHI IS ONLY 1.2 (3) COPD (chronic obstructive pulmonary disease): Comment: He has the asthma/COPD which is well controlled, with current regimen. His COPD is relatively controlled with simple regimen. And he does not get acute exacerbations that often. So he is not candidate for any biologic treatment which I have explained to him. Code(s): J44.9 - Chronic obstructive pulmonary disease, unspecified Category: Medical Plan: CONTINUE TO USE BREYNA 160-4.52 PUFFS B.I.D. ALBUTEROL HFA 2 PUFFS Q.6 HOURS PRN. AND IT IS OK TO USE ALBUTEROL SOLUTION IN THE NEBULIZER TWICE A DAY. HE TALKED ABOUT WHETHER HE CAN GO TO [place] FOR THE WINTER OR NOT. I TOLD HIM THAT FROM LUNG SPITE OF VIEW THERE IS NO ISSUE , LONG HE WILL CONTINUE TO USE HIS MEDS REGULARLY. Medications: Changed From albuterol sulfate 2-3 times a day 2.5 mg continuous nebulization Q4-6H J44.9 - Chronic obstructive pulmonary disease, unspecified To albuterol sulfate 2.5 mg (3 mL) continuous nebulization Q4-6H PRN 180 mL 0RF for wheezing J44.9 - Chronic obstructive pulmonary disease, unspecified Coding Level of Care Code Est Pt Level 3 (53916) Diagnoses Obesity (BMI 30-39.9) E66.9 Obstructive sleep apnea on CPAP G47.33; Z99.89 COPD (chronic obstructive pulmonary disease) J44.9
== END 2025-04-21 10:40 | disposition home or self-care (01) ==
LOC: HO.HPS 10:00
PROVIDERS: PCP Internal Medicine; Visit Provider Internal Medicine
DX: E66.9 Obesity, unspecified (principal); G47.33 Obstructive sleep apnea (adult) (pediatric); Z99.89 Dependence on other enabling machines and devices; J44.9 Chronic obstructive pulmonary disease, unspecified
CPT/HCPCS: 99213

== ENCOUNTER → 2025-04-21 09:59 | Outpatient (BNVA) | payer MEDICARE, SELFPAY | PROVIDERS: PCP Internal Medicine; Visit Provider Internal Medicine | DX: G47.33 Obstructive sleep apnea (adult) (pediatric) (principal); E66.9 Obesity, unspecified; J44.9 Chronic obstructive pulmonary disease, unspecified; Z99.89 Dependence on other enabling machines and devices | CPT/HCPCS: 99212 ==

== ENCOUNTER 2025-04-29 09:00 | Outpatient (AMB) | payer MEDICARE, SELFPAY ==
--- OUTSIDE RECORDS SUMMARY | 2024-11-19 10:15 | XMS_ITS ---
Author Organization [facility] Address [address] [place] [address] Care Team Providers Care Nurse Practitioner Manager Name Role Phone Harpal Anthony MD Primary Care Provider Unavailab Apple Baca Unavailable [phone] Allergies Allergen (clinical drug ingredient) Drug/Non Drug Allergy documented on EMR Reaction Allergy Type Onset Date Status Iodinated contrast media (substance) Iodinated Diagnostic Agents hives Drug Allergy Active Medications Medication SIG (Take, Route, Frequency, Duration) Notes Start Date End Date Status hydroCHLOROthiazide Active Omeprazole Active Losartan Potassium 100 MG 1 tablet Orall y Once a day Active Simvastatin Active Xarelto 20 MG 1 tablet with food Orally Once a day; Duration: 30 day(s) Active Atenolol 25 MG 1 tablet Orally Once a day Active amLODIPine Besylate 10 MG 1 tablet Orall y Once a day; Duration: 30 day(s) Active Finasteride Active Ammonium Lactate 12 % 1 application to affected area Externally to feet Twice a day; Duration: 30 days Not-Taking Encounters Encounter Location Date Provider Diagnosis [facility] [address] [place] [address] 11/19/2024 Apple Solorio Plan Of Treatment No Information Progress Notes * Nancy MCCABEOB:1945 (79 yo M)Acc No.[id number]:11/19/2024 Progress Note Patient: Clark Ilir FERRARA Provider: Aman Solorio DPM :1945 A ge:79 Y S ex:Male Date:11/19/2024 Address:[address], [place], [place] Pcp:Harpal Anthony MD Subjective: * Chief Complaints: * * Medical History: B ack,Hip,and Knee pain, CAD (Cholesterol), Gall bladder problems, High blood pressure, Measles, Joint implants/screws, A fib, Sleep apnea, hip replacement, RT. * Medications: T aking amLODIPine Besylate 10 MG Tablet 1 tablet Orally Once a day , Taking Atenolol 25 MG Tablet 1 tablet Orally Once a day , Taking Finasteride , Taking hydroCHLOROthiazide , Taking Losartan Potassium 100 MG Tablet 1 tablet Orally Once a day , Taking Omeprazole , Taking Simvastatin , Taking Xarelto 20 MG Tablet 1 tablet with food Orally Once a day , Not-Taking/PRN Ammonium Lactate 12 % Cream 1 application to affected area Externally to feet Twice a day * Allergies: I odinated Diagnostic Agents: hives. Objective: * Vitals: Assessment: Plan: * Treatment: * Images: * The named appointment provid er may or may not be the originator of this progress note, and it is not deemed complete until electronically signed by the appointment provider. Sign off status: Pending * Provider: Aman Solorio DPM Date: 0 11/19/2024 Generated for Charmaine sanchez/Jil/Chantel on: 06/30/2024 09:30 AM EST
--- OUTSIDE RECORDS SUMMARY | 2025-01-22 06:30 | XMS_ITS ---
Author Organization [facility] amanda [place] Address [address] [place] [address] Care Team Providers Care Burn Center Nurse Name Role Phone Raj ARIAS, Harpal Primary Care Provider Unavailab Apple Baca Unavailable [phone] Encounters Encounter Location Date Provider Diagnosis [facility] [address] [place] [address] 01/22/2025 Apple Solorio Plan Of Treatment No Information Progress Notes * Nancy MCCABEOB:1945 (79 yo M)Acc No.[id number]:01/22/2025 Progress Note Patient: Ilir MORALES Provider: Aman Solorio DPM :1945 A ge:79 Y S ex:Male Date:01/22/2025 Address:[address], [place] [facility] [place] Pcp:Harpal Anthony MD Subjective: * Chief Complaints: [...] Solorio DPM Date: 0 01/22/2025 Generated for Printi ng/Fahomerg/eTransmitting on: 1 06/30/2024 09:30 AM EST
--- NOTE | 2025-04-29 09:07 | MHC.PC.OV ---
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 Required: No Accompanied by: Spouse Allergies Iodinated Contrast Media (IV DYE, IODINE CONTAINING CONTRAST ) Allergy (Severe, Verified 04/29/25 09:53) HIVES dabigatran etexilate (From PRADAXA) Allergy (Unknown, Verified 04/29/25 09:53) REFLUX Medication List - Last Reconciled 04/29/25 by Bhavesh Sierra MD albuterol sulfate 2.5 mg (3 mL) continuous nebulization Q4-6H PRN amlodipine 5 mg PO DAILY atenolol 25 mg PO DAILY Breyna 160-4.5 mcg/actuation (budesonide-formoterol) 2 puffs PO Q12H NS celecoxib 200 mg PO DAILY hydrochlorothiazide 25 mg PO DAILY inhalational spacing device (Aerochamber MV spacer) As directed ketoconazole 2% 1 appl topical DAILY losartan 50 mg PO DAILY omeprazole 20 mg PO DAILY rivaroxaban 20 mg PO DAILY sildenafil 100 mg PO ONCE PRN 90 days simvastatin 20 mg PO BEDTIME tamsulosin 0.4 mg PO BEDTIME 90 days zolpidem 10 mg PO BEDTIME PRN Tobacco use date assessed: 01/14/25 Dental Screening Dental Screen Date: 01/14/25 HPI HPI Comments History of Present Illness Details History of Present Illness - The patient is a 79 year old male presenting for follow-up of hand pain and evaluation of a rash. - He underwent bilateral carpal tunnel surgery, with the right hand operated on in January 2024 and the left hand a few weeks later in March 2024. - About 3-4 weeks after the right-hand surgery, he developed persistent swelling. - A 7-day course of prednisone resolved the swelling, but it recurred 2-3 days after completing the medication. - While the original pain that prompted the surgery is relieved, he continues to experience loss of function, such as an inability to open a water bottle, and hand soreness that can cause restless sleep. - He also reports generalized morning stiffness, which is more pronounced when the hand is swollen and improves with movement. - Prior workup by his surgeon in [place] included blood work that showed slightly elevated inflammation markers and normal X-rays. - Preoperative nerve conduction tests confirmed severe carpal tunnel syndrome in the right hand and moderate to severe in the left. - At his last visit on April 07, he was started on Celebrex. - He currently experiences soreness, stiffness, and intermittent nocturnal hand pain that can awaken him from sleep, for which he uses ice. - He reports that the swelling has significantly improved and is not a major issue anymore. - Separately, he reports a rash in his left armpit and groin that started about a year ago, which he has been treating with an [id number] antifungal cream. Social History - The patient reports he is taking it easy for [place]. Results - Labs: Recent blood work, including rheumatoid factor, CCP, and STEWART, were all negative for inflammatory arthritis. [facility] Medical History (Updated 04/29/25 @ 09:56 by Bhavesh Sierra MD) Carpal tunnel syndrome Obesity (BMI 30-39.9) COPD (chronic obstructive pulmonary disease) Kidney donor Obstructive sleep apnea on CPAP Essential hypertension Shortness of breath Persistent atrial fibrillation Surgical History History of laparoscopic cholecystectomy (~04/2017) History of hip replacement History of transesophageal echocardiography (SOFIA) Family History Father No problems noted. Mother No problems noted. Social History Housing: House Alcohol intake: current Alcohol intake frequency: a few times a week Alcohol type: wine Patient Tobacco Use Status: Former Tobacco user service: No Current occupational status: retired Cognitive needs: No Hearing needs: No Vision needs: Yes (rx glasses) Questionnaire PHQ-9 Over the last 2 weeks, how often have you been bothered by any of the following problems? 1. Little interest or pleasure in doing things: not at all 2. Feeling down, depressed, or hopeless: not at all 3. Trouble falling or staying asleep, or sleeping too much: not at all 4. Feeling tired or having little energy: not at all 5. Poor appetite or overeating: not at all 6. Feeling bad about yourself - or that you are a failure or have let yourself or your family down: not at all 7. Trouble concentrating on things, such as reading the newspaper or watching television: not at all 8. Moving or speaking so slowly that other people could have noticed. Or the opposite - being so fidgety or restless that you have been moving around a lot more than usual: not at all 9. Thoughts that you would be better off or of hurting yourself in some way: not at all Total score: 0 Source: Developed by Drs. Omid Coronado, Ayse Zepeda, Yuval Barrera and colleagues, with an educational kimberly from [employer]. Thrive Questionnaire Date Thrive assessed: 01/14/25 I am a: Patient What is your living situation today?: I have a steady place to live Within the past 12 months, did the food you bought not last and you didn't have the money to get more?: Never true Within the past 12 months, did you worry whether your food would run out before you got money to buy more?: Never true Do you have trouble paying for medicines?: No Do you have trouble getting transportation to medical appointments?: No Do you have trouble paying your heating and electricity bill?: No Do you have trouble taking care of your child, family member or friend?: No Do you have trouble with day-to-day activities such as bathing, preparing meals, shopping, managing finances, etc.?: No Are you currently unemployed and looking for a job?: No Are you interested in more education?: No Please select the resources that you would like help with: None THRIVE Score: 0 AUDIT C Alcohol Use Questionnaire (AUDIT-C) 1. How often do you have a drink containing alcohol?: 2-3 times a week 2. How many drinks containing alcohol do you have on a typical day when you are drinking?: 1 or 2 3. How often do you have six or more drinks on one occasion?: Never Total Score: 3 TOMAS-7 AMB Questionnaire TOMAS-7 Date TOMAS - 7 assessed: 01/14/25 Feeling nervous, anxious, or on edge: 0 = Not at all Not being able to stop or control worryin = Not at all Worrying too much about different things: 0 = Not at all Trouble relaxin = Not at all Being so restless that it is hard to sit still: 0 = Not at all Becoming easily annoyed or irritable: 0 = Not at all Feeling afraid as if something awful might happen: 0 = Not at all Total TOMAS-7 score (0-4 normal; 5-9 mild; 10-14 moderate; 15-21 severe): 0 Source: Developed by Drs. Omid Coronado, Ayse Zepeda, Yuval Barrera and colleagues, with an educational kimberly from [employer]. Review of Systems Narrative Review of Systems - Musculoskeletal: Reports soreness and stiffness in hands. - Reports intermittent nocturnal hand pain that disrupts sleep. - Reports improvement in hand swelling. - Integumentary: Reports a rash in the left axilla and groin. Physical exam (Primary Care) Vital Signs: Last Vital Signs Temp 98.2 F 04/29/25 09:10 Pulse 80 04/29/25 09:10 Resp 16 04/29/25 09:10 BP 146/70 H 04/29/25 09:10 Pulse Ox 95 04/29/25 09:10 Oxygen Delivery Method Room Air 04/29/25 09:10 BMI result Body Mass Index 37.2 Tobacco/Smoking Status: Tobacco use Status Tobacco use date assessed 01/14/25 04/29/25 09:08 Patient Tobacco Use Status Former Tobacco user 04/29/25 09:08 PHQ-9: PHQ-9 Score PHQ-9: Total score 0 04/29/25 09:25 Thrive Assessment: Date of Thrive Assessment Date Thrive assessed 01/14/25 04/29/25 09:08 Narrative Physical Exam General: Appearance normal, both eyes and all related structures Nutritional Appearance: Well nourished Orientation/consciousness: Patient oriented x3 Limitations: Loss of function in hands, such as inability to open a water bottle and hand soreness causing restless sleep Head: Normal to inspection Neck: Normal visual inspection Chest: Normal palpation of entire chest wall Respiratory: Normal respiratory effort Neurology: Patient oriented x3 Office Procedures Flu Questionnaire Does the patient have a severe egg allergy?: No Does the patient have severe life threatening allergies?: No Does the patient have a fever or illness today?: No Has the patient ever had Guillain-Wessington Syndrome?: No Has the patient ever had any past reaction to a flu shot?: No Immunizations Fluarix [id number] (PF) 45 mcg (15 mcg x 3)/0.5 mL IM syringe Performing Provider: Bhavesh Sierra MD [facility] [place] [facility] Documented (not given) by: JENNIFER Durbin on 04/29/25 09:25 Reason Not Given: Received Previously Coding Level of Care Code Est Pt Level 4 (67157) Add On Problem Visit Only Diagnoses Carpal tunnel syndrome G56.00 Assessment & Plan Assessment & Plan (1) Carpal tunnel syndrome: Code(s): G56.00 - Carpal tunnel syndrome, unspecified upper limb Category: Medical Plan Plan - The patient will continue Celebrex for osteoarthritis of the hands. - He can use extra-strength Tylenol at night as needed for pain. - Advised to use a heating pad or hand warmer to help with morning stiffness. - He is instructed to perform hand, finger, and wrist exercises two to three times a day to maintain range of motion and function. - A rheumatology consultation is not indicated at this time due to negative inflammatory markers. - A prescription for a topical antifungal cream was sent to [facility] for the rash in the axilla and groin. - He was instructed to keep the affected areas dry, using cornstarch powder like Gold Thomas over the cream. - The patient will maintain his scheduled follow-up appointment in August. Discussion Notes I informed the patient that his recent blood work was negative for inflammatory arthritis, such as rheumatoid arthritis. I explained that his symptoms of stiffness and pain are consistent with a diagnosis of osteoarthritis, which is a non-inflammatory type of arthritis. We discussed continuing his current regimen of Celebrex and supplementing with Tylenol and heat for symptom management. I emphasized the importance of performing regular hand exercises to maintain range of motion and prevent loss of function. We mutually agreed that a referral to a training mgr is not necessary at this time. Regarding the rash in his armpit and groin, I explained it is likely a fungal infection related to moisture and warmth in those areas, and that his age and medications could be contributing factors. I prescribed a topical antifungal cream and provided instructions to keep the area dry with powder to aid healing. The patient will continue with his regularly scheduled follow-up in six months, which is set for August. Patient Instructions - Continue taking Celebrex for your hand arthritis. - You can use extra-strength Tylenol at night for pain if needed. - Use a heating pad or hand warmer to help with any stiffness in your hands. - Perform hand and finger exercises two or three times a day to maintain your flexibility. - For the rash in your armpit and groin, a prescription cream has been [facility] to [facility]. - Apply the cream to the rash and then put powder, like Gold Thomas, over it to keep the area dry. - You do not need to see a specialist for your arthritis at this time. - Keep your scheduled follow-up appointment in August. Orders: Orders Influenza [id number] Immunization Today Z23 - Encounter for immunization Medications: New ketoconazole 2% 1 appl topical DAILY 30 grams 1RF
[2025-04-29 09:10] VITALS: BP 146/70; PULSE 80; RESP 16; TEMP 36.8; O2SAT 95; BMI 37.2
--- OUTSIDE RECORDS SUMMARY | 2025-04-29 09:30 | XMS_ITS | Encounter Summary ---
Author Organization [facility] Address [address] [place] [id number] Phone Care Team Providers Care Spring Repairer Helper Hand Name Role Phone Harpal Anthony MD Primary Care Provider [phone]- [phone] Encounter Details Date Type Department Care Team (Late st Contact Info) Description 03/05/2024 Procedure Pass [facility] Endoscopy Admitting Dept Virtual Department [address] [place] [address] Social History Tobacco Use Types Packs/Day Years [...] on filedocumented in this encounter Care Teams Spring Repairer Helper Hand Relationship Specialty Start Date End Date Harpal Anthony MD [address] [place] [id number] PCP - General Internal Medicine 12/20/17 documented as of this encounter Additional Source Comments The information contained in this document represents components of the legal health record. It is not the complete legal health record.[facility]
--- OUTSIDE RECORDS SUMMARY | 2025-04-29 09:31 | XMS_ITS | Encounter Summary ---
Author Organization [facility] Address [address] [place] [address] Phone Care Team Providers Care Quill Buncher And Sorter Name Role Phone Harpal Anthony MD Primary Care Provider [phone]- [phone] Encounter Details Date Type Department Care Team (Late st Contact Info) Description 12/20/2017 Procedure Pass [facility] Endoscopy Admitting Dept Virtual Department [address] [place] [address] Social History Tobacco Use Types Packs/Day Years [...] on filedocumented in this encounter Care Teams Quill Buncher And Sorter Relationship Specialty Start Date End Date Harpal Anthony MD [address] [place] [id number] PCP - General Internal Medicine 12/20/17 documented as of this encounter Additional Source Comments The information contained in this document represents components of the legal health record. It is not the complete legal health record.[facility]
--- OUTSIDE RECORDS SUMMARY | 2025-04-29 09:31 | XMS_ITS | Patient Health Record ---
Author Organization [facility] Address [address] [place] [address] Care Team Providers Care Ship Erector Name Role Phone Raj ARIAS, Harpal Primary Care Provider UnavailApple Baltazar Unavailable [phone] Allergies Allergen (clinical drug ingredient) Drug/Non Drug [...] atherosclerosis of arteries of lower limbs (disorder) ([id number] ) Atherosclerosis of eek artery of both lower extremities, with unspecified presence of clinical manifestation (I70.203) Active confirmed Vital Signs Blood pressure diastolic 78 mm Hg 09/06/2024 Height 5 ft 9 in in 09/06/2024 Blood pressure systolic 130 mm Hg 09/06/2024 Weight 240 lbs 09/06/2024 BMI 35.44 kg/m2 09/06/2024 Encounters Encounter Location Date Provider Diagnosis [facility] [address] [address] 09/06/2024 Apple Solorio Atherosclerosis of eek artery of both lower extremities, with unspecified presence of clinical manifestation I70.203 ; Tinea unguium B35.1 ; Pain in right toe(s) M79.674 and Pain in left toe(s) M79.[address] [facility] [address] 2024 Apple Sol[facility] [address] 01/20/2025 Apple Solorio Assessments Encounter Date Diagnosis (ICD Code) Assessment Notes Treatment Notes Treatment Clinical Notes Section Notes 09/06/2024 Atherosclerosis of eek artery of both lower extremities, with unspecified [...] Medicare [employer] [address] [facility] [address] [id number] Ilir Mccabe Self - patient is the insured [employer] [facility] [address] [place] [address] [id number] Ilir Mccabe Self - patient is the [...]
--- OUTSIDE RECORDS SUMMARY | 2025-04-29 09:31 | XMS_ITS | Clinical Summary ---
Author Organization [facility] Address [address] [facility] [address] [facility] [address] [place] [phone] Phone Care Team Providers Care Command And Control Officer Name Role Phone Harpal Anthony MD Primary Care Provider +1- [phone] Allergies Active Allergy Reactions Criticality Noted Date [...] this topic Medical Devices Implanted Type Area Director Regulatory Agency Device Identifier Shelf Expiration Date Model / Serial / Lot Prosthetic Joint Prosthetic Joint Right: Knee Left Hip Insurance MEDICARE PART A & B [employer] CROSS MEDEX SUPPLEMENT MEDICARE PART A & B [employer] MEDEX SUPPLEMENT MEDICARE PART A & B [employer] SUPPLEMENT MEDICARE PART A & B [employer] MEDEX SUPPLEMENT MEDICARE PART A & B [employer] MEDEX SUPPLEMENT MEDICARE PART A & B [employer] MEDEX SUPPLEMENT MEDICARE PART A & B [employer] MEDEX SUPPLEMENT MEDICARE PART A & B [employer] MED[employer] SUPPLEMENT MEDICARE PART A & B [employer] MEDEX SUPPLEMENT Care Teams Command And Control Officer Relationship Specialty Start Date End Date Harpal Anthony MD [address] [place] [address] PCP - General Internal Medicine 12/20/17 Additional Source Comments The information contained in this document represents components of the legal health record. It is not the complete legal health record.[facility]
--- OUTSIDE RECORDS SUMMARY | 2025-04-29 09:31 | XMS_ITS | Encounter Summary ---
Author Organization [facility] Address [address] [place] [address] Phone Care Team Providers Care Senior Security Architect Name Role Phone Harpal Anthony MD Primary Care Provider +1- [phone] Encounter Details Date Type Department Care Team (Late st Contact Info) Description 03/25/2021 Procedure Pass [facility] Endoscopy Admitting Dept Virtual Department [address] [place] [address] Social History Tobacco Use Types Packs/Day Years [...] filedocumented in this encounter Care Teams Senior Security Architect Relationship Specialty Start Date End Date Harpal Anthony MD [address] [place] [id number] PCP - General Internal Medicine 12/20/17 documented as of this encounter Additional Source Comments The information contained in this document represents components of the legal health record. It is not the complete legal health record.[facility]
--- OUTSIDE RECORDS SUMMARY | 2025-04-29 09:31 | XMS_ITS | Clinical Summary ---
Author Organization [address] Address [address] [place] [phone] Phone Care Team Providers Care Honey Blender Name Role Phone Unavailable Primary Care Provider [...] daily (0800, 1800). Active nebulizers Misc by [facility]Non-Drug; Combo Route) route See Admin Instructions. Use [...] Care Team Description 02/14/2025 [place] [address] Smooth Phelps MD Appointment; Referral from Last 3 Months Social History Tobacco Use Types Packs/Day Years Used Date Smoking Tobacco: Never Assessed [facility] Utilities Answer Date Recorded In the past 12 months has [email or web address], gas, oil, or water [employer] threatened to shut off services in your [...] 65 - 110 mg/dL 12/02/2024 6:44 AM [facility] Comment: Non-fastin-110 mg/dL Fasting (minimum 6 hrs): 65-99 mg/dL BUN 40(H) 7 - 18 mg/dL 12/02/2024 6:44 AM [facility] Creatinine 1.38(H) 0.70 - 1.30 mg/dL 12/02/2024 6:44 AM [facility] Sodium 139 136 - 145 mmol/L 12/02/2024 6:44 AM [facility] Potassium 4.0 3.5 - 5.1 mmol/L 12/02/2024 6:44 AM [facility] Chloride 99 98 - 107 mmol/L 12/02/2024 6:44 AM [facility] CO2 36(H) 21 - 32 mmol/L 12/02/2024 6:44 AM [facility] Anion Gap 4(L) 5 - 15 mmol/L 12/02/2024 6:44 AM [facility] Calcium 8.9 8.5 - 10.1 mg/dL 12/02/2024 6:44 AM [facility] eGFR (Creatinine) 53(L) >=60 mL/min/1.73 m2 12/02/2024 6:44 AM [facility] Comment: [facility] utilizes CKD-EPI Creatinine 2020 to report eGFR. Values < 60 mL/min/1.73 m2 may indicate CKD if present for more than three months AND creatinine is at steady state. The eGFR provides a rough estimate of kidney function. For further guidance, please refer to the CKD: Adult Ham Pumper Signature pathway. Creatinine Delta 0.14 See Comment 025 6:44 AM EDT [facility] Comment: Delta creatinine is the difference between [...] Keating DO LAB [place] [address], [facility] [phone] from Last 3 Months or Most Recently Relevant to Health Maintenance Insurance MEDICARE [facility] MEDICARE [facility] MEDICARE [facility] Advance Directives * Full Code (Latest Code Status on File) Date Activated Date Inactivated Comments 11/27/2024 3:16 PM 12/02/2024 5:18 PM Question Answer Comments With Whom was the Code Status Discussed? Patient
--- OUTSIDE RECORDS SUMMARY | 2025-04-29 09:31 | XMS_ITS | Encounter Summary ---
Author Organization [facility] Address [address] [place] [address] Phone Care Team Providers Care Reprographics Associate Name Role Phone Pcp, Not Required Primary Care Provider Unavaila Harpal Fletcher MD Primary Care Provider +1- [phone] Encounter Details Date Type Department Care Team (Late st Contact Info) Description 05/12/2017 Procedure Pass [facility] Endoscopy Admitting Dept Virtual Department [address] [place] [address] Social History Tobacco Use Types Packs/Day Years [...] on filedocumented in this encounter Care Teams Reprographics Associate Relationship Specialty Start Date End Date Pcp, Not Required PCP - General 05/12/17 12/19/17 Harpal Anthony MD [address] [place] [address] PCP - General Internal Medicine 12/20/17 documented as of this encounter Additional Source Comments The information contained in this document represents components of the legal health record. It is not the complete legal health record.[facility]
--- OUTSIDE RECORDS SUMMARY | 2025-04-29 09:31 | XMS_ITS | Encounter Summary ---
Author Organization [facility] Address [address] [facility] [address] [place] [address] Phone Care Team Providers Care Three Knife Trimmer Name Role Phone Harpal Anthony MD Primary Care Provider +1- [phone] Encounter Details Date Type Department Care Team (Late st Contact Info) Description 12/28/2022 Procedure Pass [facility] Endoscopy Admitting Dept Virtual Department [address] [place] [address] Social History Tobacco Use Types Packs/Day Years [...] on filedocumented in this encounter Care Teams Three Knife Trimmer Relationship Specialty Start Date End Date Harpal Anthony MD [address] [place] [address] PCP - General Internal Medicine 12/20/17 documented as of this encounter Additional Source Comments The information contained in this document represents components of the legal health record. It is not the complete legal health record.[facility]
== END 2025-04-29 09:53 | disposition home or self-care (01) ==
LOC: HO.HMCSH 09:01
PROVIDERS: PCP Internal Medicine; Visit Provider Internal Medicine
DX: G56.00 Carpal tunnel syndrome, unspecified upper limb (principal); Z23 Encounter for immunization

== ENCOUNTER → 2025-04-29 09:00 | Outpatient (BNVA) | payer MEDICARE, SELFPAY | PROVIDERS: PCP Internal Medicine; Visit Provider Internal Medicine | DX: R21 Rash and other nonspecific skin eruption (principal); G56.00 Carpal tunnel syndrome, unspecified upper limb; M19.041 Primary osteoarthritis, right hand; M19.042 Primary osteoarthritis, left hand; Z79.899 Other long term (current) drug therapy; Z13.31 Encounter for screening for depression | CPT/HCPCS: 90471; 96127; 99212 ==